=== PATIENT | female | born 1935 | race Caucasian/White ===

== ENCOUNTER → 2016-04-09 | Outpatient (CLI) | payer OTHER ==
[~2016-04-09] MED LIST: CHOL1000 PO; CHOL100010 PO; DABI150C PO; DILT-113 PO; GUAISYP4 PO; LVQ500 PO; METO100T44 PO; MULT-513 PO; OMEG10007 PO; PROB1TAB16 PO; TPRSR25 PO; TPRSR50 PO
[2016-04-09 12:11] LABS: BASO % 0.4 %; BASO ABS # 0.04 K/uL (0-0.2); COMPLETE YES; EOS % 0.6 %; HEMATOCRIT 35.7 % (37-47); IG% 0.1 %; LYMPH % 15.7 %; LYMPH ABS # 1.51 K/uL (1.2-3.4); MEAN CELL VOLUME 98.3 fL (80-100); MEAN CORPUSCULAR HEMOGLOBIN 33.9 pg (25-34); MEAN CORPUSCULAR HGB CONC 34.5 g/dl (32-36); MEAN PLATELET VOLUME 10.4 fL (7.4-10.4); MONO % 11.1 %; NEUT % 72.1 %; PLATELET COUNT 314 K/uL (130-400); RED BLOOD COUNT 3.63 M/uL (4.2-5.4); WHITE BLOOD COUNT 9.59 K/uL (4.8-10.8)
[2016-04-09 12:35] LABS: ALT/SGPT 38 U/L (12-78); AST/SGOT 37 U/L (15-37); BLOOD UREA NITROGEN 22 mg/dl (7-18); BUN/CREATININE RATIO 26.8 (10-20); CALCIUM 8.6 mg/dl (8.5-10.1); CARBON DIOXIDE 23 mmol/L (21-32); CHLORIDE 108 mmol/L (98-107); CREATININE 0.82 mg/dl (0.60-1.20); GLUCOSE 113 mg/dl (70-99); MAGNESIUM 2.3 mg/dl (1.8-2.4); SODIUM 140 mmol/L (136-145)
[2016-04-09 12:37] LABS: ALB/GLOB RATIO 0.9 (0.9-2); ALKALINE PHOSPHATASE 83 U/L (45-117)
== END | disposition home or self-care (01) ==
LOC: C.LAB1850 10:55
PROVIDERS: ATTEND Internal Medicine
DX: I48.91 Unspecified atrial fibrillation (principal)

== ENCOUNTER 2016-06-24 10:00 | Inpatient (IN) | payer OTHER ==
[2016-06-24] VITALS (8 sets, daily range): BP systolic 120–154; BP diastolic 67–70; PULSE 69–107; TEMP 36.7–37.4; O2SAT 91–96; Ht 162.6 cm; Wt 74.2 kg
[~2016-06-24] VITALS: Ht 162.6 cm; Wt 74.2 kg
[~2016-06-24 10:00] MED LIST changes: -CHOL1000 PO; -GUAISYP4 PO; -LVQ500 PO; -METO100T44 PO; -OMEG10007 PO; -TPRSR25 PO; -TPRSR50 PO
[2016-06-24] MEDS ORDERED: DILTIAZEM HCL 5 MG/ML 5 ML VIAL IV STA ×2 (10:24→10:43)
[2016-06-24] MEDS ORDERED: DILTIAZEM BOLUS / DRIP IV STA (10:24)
[2016-06-24] MEDS ORDERED: DILTIAZEM HCL INJ 125 MG in DEXTROSE 5% 100ML IV PRN (10:45)
--- NOTE | 2016-06-24 11:28 | DIAGNOSTIC IMAGING REPORT ---
CHEST ONE VIEW PORTABLE CLINICAL HISTORY: cp dyspnea COMPARISON STUDY: 09/28/2015 FINDINGS: Patchy parenchymal infiltrate left midlung as well as right midlung through right base. Diaphragms smooth. Upper lungs are considered clear. IMPRESSION: Bilateral parenchymal infiltrates. Electronically signed by: Jacek Jang M.D. 06/24/2016 11:27 AM Dictated Date/Time: 06/24/2016 11:24 AM
[2016-06-24] MEDS ORDERED: OMEG10007 PO (11:31)
[2016-06-24 11:32] LABS: BASO % 0.3 %; BASO ABS # 0.02 K/uL (0-0.2); COMPLETE YES; HEMATOCRIT 32.1 % (37-47); IG% 0.2 %; LYMPH % 12.6 %; LYMPH ABS # 0.73 K/uL (1.2-3.4); MEAN CELL VOLUME 95.8 fL (80-100); MEAN CORPUSCULAR HEMOGLOBIN 31.9 pg (25-34); MEAN CORPUSCULAR HGB CONC 33.3 g/dl (32-36); MEAN PLATELET VOLUME 9.9 fL (7.4-10.4); MONO % 5.9 %; PLATELET COUNT 304 K/uL (130-400); RED BLOOD COUNT 3.35 M/uL (4.2-5.4); WHITE BLOOD COUNT 5.78 K/uL (4.8-10.8)
[2016-06-24 11:47] LABS: INR 1.1 (0.9-1.1); PARTIAL THROMBOPLASTIN RATIO 1.3
[2016-06-24] MEDS ORDERED: MoRPHine SULFATE 2 MG/ML CARP IV STA (11:47)
[2016-06-24 11:53] LABS: BUN/CREATININE RATIO 22.2 (10-20); CALCIUM 8.4 mg/dl (8.5-10.1); CREATININE 0.9 mg/dl (0.60-1.20); POTASSIUM 3.7 mmol/L (3.5-5.1)
[2016-06-24] MEDS ORDERED: ALUMINUM/MAGNESIUM/SIMETH (MAALOX MAX) 30 ML UDC PO PRN (12:45)
[2016-06-24] MEDS ORDERED: NITROGLYCERIN 0.4 MG SL PER TAB CHARGE SL PRN (12:45)
[2016-06-24] MEDS ORDERED: MAGNESIUM HYDROXIDE SUSP 30 ML UDC PO PRN (12:45)
[2016-06-24] MEDS ORDERED: POLYETHYLENE (MIRALAX) 17 GM PACK PO PRN (12:45)
--- NOTE | 2016-06-24 13:50 | History and Physical ---
History & Physical Date & Time of Service: Jun 24, 2016 at 13:13 Chief Complaint: Difficulty Breathing, Vomiting, Tight Chest Primary Care Physician: RV. Mckinnon MD History of Present Illness Source: patient, clinic records, hospital records This is a 80 y/o female with a history of atrial fibrillation, hypertension, and osteopenia who presented to the ED on 06/24 with chest pressure/tightness and shortness of breath. The patient reports feeling sick for the last 3 days with a productive cough, generalized myalgias, fatigue, sweats and diarrhea starting on 06/21. Patient denies any fevers or chills at home. Last evening the patient developed central chest pressure and tightness as well as shortness of breath. Her symptoms have been constant since onset. The patient also did vomit once prior to arrival immediately after taking her morning medications. Upon arriving to the ED, the patient was found to be in A. fib with RVR with a heart rate of 147. Patient received 3 boluses of Cardizem 10 mg each, and was started on Cardizem drip. Her heart rate improved to the 90s. Patient currently denies any chest pain, pressure, tightness. She had originally rated her pain as an 8/10 on arrival. She states that her shortness of breath has improved since arrival. Patient denies lightheadedness, syncope or palpitations. The patient denies fevers, chills, palpitations, claudication, wheezing, abdominal pain, dysuria, hematuria, urinary retention, paralysis, weakness, numbness and tingling. Past Medical/Surgical History Medical Problems: (1) Atrial fibrillation Status: Chronic (2) Hypertension Status: Chronic Osteopenia Surgical Problems: (1) S/P sinus surgery Status: Resolved Family History Cancer (breast, uterine) Diabetes mellitus Hypertension Kidney disease Kidney stones Stroke Social History Smoking Status: Never Smoker Smokeless Tobacco Use: No Alcohol Use: none Drug Use: none Marital Status: Housing status: lives alone Occupational Status: retired Multi-Drug Resistant Organisms History of MDRO: No Allergies Coded Allergies: Latex1 -Allergic Contact Dermititis (Verified Allergy, Unknown, REDNESS, ) Azithromycin (Verified Adverse Reaction, Mild, DIARRHEA, 06/24/16) Home Medications Scheduled Cholecalciferol (Vitamin D), 1,000 INTER.UNIT PO DAILY Dabigatran Etexilate Mesylate (Pradaxa), 150 MG PO BID Diltiazem Hcl Ext Rel (Tiazac), 180 MG PO DAILY Fish Oil ([place]-3), 1 CAP PO DAILY Multivitamins/Minerals (Mvi With Minerals), 1 TAB PO DAILY Probiotic Product (Probiotic), 1 TAB PO DAILY Review of Systems Constitutional: + fatigue, + sweats, + weakness, No chills, No fever Eyes: No diplopia, No eye pain, No worsening of vision ENT: No hearing loss, No sore throat, No trouble swallowing Respiratory: + cough, + shortness of breath (improving), + sputum, No wheezing Cardiovascular: + chest pain (chest pressure/tightness 8/10 on arrival, now 0/ 10), No claudication, No palpitations Abdomen: + nausea (resolved), + vomiting (1 episode CERTIFIED MEDICAL BILLER), No pain Musculoskeletal: No calf pain, No joint pain, No muscle pain Genitourinary - Female: No dysuria, No hematuria, No urinary retention Neurologic: No numbness/tingling, No paralysis, No weakness Integumentary: No color change, No itch, No rash Physical Exam Vital Signs Date Time Temp Pulse Resp B/P Pulse Ox O2 Delivery O2 Flow Rate FiO2 06/24/16 12:55 87 20 130/73 96 Room Air 06/24/16 12:15 106 22 144/74 95 Nasal Cannula 2.0 06/24/16 11:14 93 20 133/95 95 Nasal Cannula 2.0 06/24/16 10:48 101 18 136/77 96 Nasal Cannula 2.0 06/24/16 10:35 95 Nasal Cannula 2.0 06/24/16 10:35 95 Nasal Cannula 2.0 06/24/16 10:22 130 06/24/16 10:07 36.9 147 20 144/83 93 Room Air General Appearance: WD/WN, no apparent distress Head: normocephalic, atraumatic Eyes: normal inspection, PERRL, EOMI ENT: normal ENT inspection, hearing grossly normal, pharynx normal Neck: supple, no JVD, trachea midline Respiratory/Chest: lungs clear, normal breath sounds, no respiratory distress, + decreased breath sounds (poor air movement) Cardiovascular: no gallop, no murmur, + irregularly irregular (currently rate controlled) Abdomen/GI: normal bowel sounds, non tender, soft Extremities/Musculoskelatal: normal inspection, no calf tenderness, no pedal edema Neurologic/Psych: alert, normal mood/affect, oriented x 3 Skin: normal color, warm/dry, no rash Diagnostics Laboratory Results Results Past 24 Hours Test 06/24/16 11:00 06/24/16 11:04 Range/Units White Blood Count 5.78 4.8-10.8 K/uL Red Blood Count 3.35 4.2-5.4 M/uL Hemoglobin 10.7 12.0-16.0 g/dL Hematocrit 32.1 37-47 % Mean Corpuscular Volume 95.8 80-100 fL Mean Corpuscular Hemoglobin 31.9 25-34 pg Mean Corpuscular Hemoglobin Concent 33.3 32-36 g/dl Platelet Count 304 130-400 K/uL Mean Platelet Volume 9.9 7.4-10.4 fL Neutrophils (%) (Auto) 81.0 % Lymphocytes (%) (Auto) 12.6 % Monocytes (%) (Auto) 5.9 % Eosinophils (%) (Auto) 0.0 % Basophils (%) (Auto) 0.3 % Neutrophils # (Auto) 4.68 1.4-6.5 K/uL Lymphocytes # (Auto) 0.73 1.2-3.4 K/uL Monocytes # (Auto) 0.34 0.11-0.59 K/uL Eosinophils # (Auto) 0.00 0-0.5 K/uL Basophils # (Auto) 0.02 0-0.2 K/uL RDW Standard Deviation 53.0 36.4-46.3 fL RDW Coefficient of Variation 14.9 11.5-14.5 % Immature Granulocyte % (Auto) 0.2 % Immature Granulocyte # (Auto) 0.01 0.00-0.02 K/uL Prothrombin Time 12.0 9.0-12.0 SECONDS Prothromb Time International Ratio 1.1 0.9-1.1 Activated Partial Thromboplast Time 34.4 21.0-31.0 SECONDS Partial Thromboplastin Ratio 1.3 Sodium Level 140 136-145 mmol/L Potassium Level 3.7 3.5-5.1 mmol/L Chloride Level 108 98-107 mmol/L Carbon Dioxide Level 23 21-32 mmol/L Anion Gap 9.0 3-11 mmol/L Blood Urea Nitrogen 20 7-18 mg/dl Creatinine 0.90 0.60-1.20 mg/dl Est Creatinine Clear Calc Drug Dose 49.2 ml/min Estimated GFR () 71.0 Estimated GFR (Non- 61.2 BUN/Creatinine Ratio 22.2 10-20 Random Glucose 129 70-99 mg/dl Calcium Level 8.4 8.5-10.1 mg/dl Magnesium Level 2.0 1.8-2.4 mg/dl Bedside Troponin I 0.130 0-0.045 ng/ml Diagnostic Radiology Reviewed the following studies and agree with interpretation as follows: Patient Name: MODE BURNS Unit Number: [id number] Dictated: 06/24/161123 Transcribed: 06/24/161123 MS Printed Date/Time: [~ rep prt dt]/[~ rep prt tm] [~ rep ct labl] - [~ rep ct ivnm] [facility] [place] [address] Dictated: 06/24/161123 Transcribed: 06/24/16 1124 MS Printed Date/Time: [~ rep prt dt]/[~ rep prt tm] [~ rep ct labl] - [~ rep ct ivnm] Patient: MODE BURNS Address1: [address] [place] [address] Rec: [id number] Address2: Acct ID: [id number] [facility] Zip: [place] [address] Date: 1935 Sex: F Room/Bed: Ref Phy: Arcenio Maldonado M.D. SC: [facility] Att Phy: Report #: [id number] [place] Phy: RV. Mckinnon MD Test: CXR1P Admit Phy: Scale Operator: ETHAN Interpreting Phy: Jacek Jang M.D. Diagnosis: DIFFICULTY BREATHING, VOMITING, TIGHT CHEST Ordering Phy: Joshua Maharaj MD Service Date: 06/24/16 Admit Date: 06/24/16 MNE: [id number] CONF: DICTATED BY: Jacek Jang M.D.]] CC: RV. Mckinnon MD Cardell, Anthony F., M.D. Choe, Thomas S., M.D. Endcc: [~ rep ct add3]] CHEST ONE VIEW PORTABLE CLINICAL HISTORY: cp dyspnea COMPARISON STUDY: 09/28/2015 FINDINGS: Patchy parenchymal infiltrate left midlung as well as right midlung through right base. Diaphragms smooth. Upper lungs are considered clear. IMPRESSION: Bilateral parenchymal infiltrates. Electronically signed by: Jacek Jang M.D. 06/24/2016 11:27 AM Dictated Date/Time: 06/24/2016 11:24 AM The status of this report is Signed. Draft = Not yet reviewed or approved by Radiologist. Signed = Reviewed and approved by Radiologist. <AttendingPhy></AttendingPhy> <FamilyPhy>Arcenio Maldonado M.D.</FamilyPhy> < PrimaryPhy>RV. Mckinnon MD</PrimaryPhy> <UnitNumber>[id number]</ UnitNumber> <VisitNumber>[id number]</VisitNumber> <PatientName>MODE BURNS</PatientName> <DateOfBirth>1935</DateOfBirth> <Location>[facility]</ Location> <ServiceDate>06/24/16</ServiceDate> <MNE>ESINDI</MNE> <OrderingPhy> Joshua Maharaj MD</OrderingPhy> <OrderingPhyMNE>f rep ord dr harman</OrderingPhyMNE > <DictatingPhyMNE>f rep dict dr harman</DictatingPhyMNE> <CCListMNE>f rep ct mne</ CCListMNE> <AdmittingPhyMNE>f pt admit dr harman</AdmittingPhyMNE> <AttendingPhyMNE >f pt attend dr harman</AttendingPhyMNE> <ConsultingPhyMNE>f pt consult dr harman</ConsultingPhyMNE> <FamilyPhyMNE>f pt fam dr harman</FamilyPhyMNE> <OtherPhyMNE>f pt other dr harman</OtherPhyMNE> < PrimaryPhyMNE>f pt prim care dr harman</PrimaryPhyMNE> <ReferringPhyMNE>f pt referring dr harman</ReferringPhyMNE> EKG Reviewed EKG and agree with interpretation as follows: 152 bpm, afib with RVR, ?ST elevations V1, V2 100 bpm, afib with RVR, ?ST elevations V1, V2, LBBB Impression Assessment and Plan 80 y/o female with a history of atrial fibrillation, hypertension, and osteopenia who presented to the ED on 06/24 with chest pressure/tightness and shortness of breath. The patient reports feeling sick for the last 3 days with a productive cough, generalized myalgias, fatigue, sweats and diarrhea starting on 06/21. Patient found to be in A. fib with RVR upon arrival to the ED with a heart rate of 147. Patient was given 3 boluses of Cardizem and started on Cardizem drip bringing her heart rate down into the 90s. The patient was also found to have an elevated POC troponin of 0.13. Initial EKG showed A. fib with RVR. Repeat EKG showed improved heart rate, but what appeared to be a new LBBB. CXR shows bilateral parenchymal infiltrates. A. fib with RVR--currently rate controlled on drip -Admit to telemetry. -Continue Cardizem drip. -Consult cardiology, appreciate recs. Pt follows with Dr. Maldonado -Continue Pradaxa 150 mg PO BID Elevated troponin--may be secondary to demand ischemia -2nd EKG had shown a presumed new LBBB; however, an outpatient echo on 06/06/16 showed paradoxical septal motion consistent with LBBB, indicating this is not new today. -Trend cardiac enzymes 3 -EKG q am and prn with chest pain Presumed community-acquired pneumonia--CXR with bilateral parenchymal infiltrates -Start Levaquin 750 mg IV q48h, renally dosed due to creatinine clearance of 49 -Duonebs QIDR and q2h prn SOB/wheezing -O2 by protocol -Check rapid flu -Continue probiotic HTN--stable -Hold home diltiazem PO -Continue drip as above Osteopenia -Continue Vitamin D 1000 IU PO qd DVT prophylaxis -Pradaxa -TRUNG hose and SCDs Code Status -Level I, FULL RESUSCITATION STATUS Level of Care Telemetry Resuscitation Status FULL RESUSCITATION VTE Prophylaxis VTE Risk Assessment Done? Y/N: Yes Risk Level: Moderate Given or contraindicated: Other Anticoagulation (Pradaxa), T.E.D. Stockings, SCD's Note I personally evaluated this patient and performed a physical exam. I reviewed the orders. I read this note performed by Mellisa Donnelly PA-C and agree with its contents in entirety.
[2016-06-24] MEDS ORDERED: DILTIAZEM BOLUS / DRIP IV SCH (14:26)
--- NOTE | 2016-06-24 16:40 | EMERGENCY ROOM VISIT NOTE ---
History Report prepared by Chanduibmandeep: Cynthia Sutton Under the Supervision of: Dr. Joshua Maharaj M.D. First contact with patient: 10:17 Chief Complaint: CARDIAC ASSESSMENT Stated Complaint: DIFFICULTY BREATHING, VOMITING, TIGHT CHEST History of Present Illness The patient is a 80 year old female who presents to the Emergency Room with complaints of chest discomfort since last night. She describes it as tightness and pressure. She also complains of shortness of breath. Her breathing difficulties are worse with laying flat. The patient notes that she has not been feeling well over the past 3 days. She has not felt her heart racing. Just prior to arrival, she had an episode of vomiting. Past medical history includes a-fib. She is on Pradaxa. Denies lightheadedness, leg swelling, abdominal pain, or other complaints. She states that her chest discomfort got worse at 4 AM today. Source of History: patient Onset: last night Position: chest Symptom Intensity: 8 out of 10 Quality: pressure, other (tightness) Timing: constant Modifying Factors (Worsening): other (lying down) Associated Symptoms: + SOB (worse laying flat), + vomiting, No abdominal pain Review of Systems See HPI for pertinent positives & negatives. A total of 10 systems reviewed and were otherwise negative. Past Medical & Surgical Medical Problems: (1) Atrial fibrillation (2) Atrial fibrillation with RVR (3) Hypertension (4) Pneumonia Surgical Problems: (1) S/P sinus surgery Family History Cancer Diabetes mellitus Hypertension Kidney disease Kidney stones Social History Smoking Status: Never Smoker Alcohol Use: none Marital Status: Housing Status: lives with family Occupation Status: retired Current/Historical Medications Scheduled Cholecalciferol (Vitamin D), 1,000 INTER.UNIT PO DAILY Dabigatran Etexilate Mesylate (Pradaxa), 150 MG PO BID Diltiazem Hcl Ext Rel (Tiazac), 180 MG PO DAILY Fish Oil ([place]-3), 1 CAP PO DAILY Multivitamins/Minerals (Mvi With Minerals), 1 TAB PO DAILY Probiotic Product (Probiotic), 1 TAB PO DAILY Allergies Coded Allergies: Latex1 -Allergic Contact Dermititis (Verified Allergy, Unknown, REDNESS, ) Azithromycin (Verified Adverse Reaction, Mild, DIARRHEA, 06/24/16) Physical Exam Vital Signs Date Time Temp Pulse Resp B/P Pulse Ox O2 Delivery O2 Flow Rate FiO2 06/24/16 12:55 87 20 130/73 96 Room Air 06/24/16 12:15 106 22 144/74 95 Nasal Cannula 2.0 06/24/16 11:14 93 20 133/95 95 Nasal Cannula 2.0 06/24/16 10:48 101 18 136/77 96 Nasal Cannula 2.0 06/24/16 10:35 95 Nasal Cannula 2.0 06/24/16 10:35 95 Nasal Cannula 2.0 06/24/16 10:22 130 06/24/16 10:07 36.9 147 20 144/83 93 Room Air Physical Exam Constitutional: Vital signs reviewed. Pale. Eyes: Pupils are equal round reactive to light. Conjunctiva are noninjected. ENT: Pharynx is clear without erythema or exudate. Mucous membranes are moist. Neck supple without meningeal signs. Respiratory: Clear to auscultation bilaterally. Breath sounds are equal bilaterally. Cardiovascular: Tachycardic rate at 150 BPM. Irregular on monitor. GI: Soft, nondistended and nontender. Bowel sounds are present. Musculoskeletal: No peripheral edema. No lower extremity tenderness. Integumentary: No cyanosis. Neurological: The patient is awake and alert. No focal deficits. Psychiatric: Normal affect. Medical Decision & Procedures ER Provider Diagnostic Interpretation: Radiology results as stated below per my review and the radiologist's interpretation: CHEST ONE VIEW PORTABLE CLINICAL HISTORY: cp dyspnea COMPARISON STUDY: 09/28/2015 FINDINGS: Patchy parenchymal infiltrate left midlung as well as right midlung through right base. Diaphragms smooth. Upper lungs are considered clear. IMPRESSION: Bilateral parenchymal infiltrates. Electronically signed by: Jacek Jang M.D. 06/24/2016 11:27 AM Dictated Date/Time: 06/24/2016 11:24 AM Laboratory Results 06/24/16 11:00 Red Blood Count 3.35, Mean Corpuscular Volume 95.8, Mean Corpuscular Hemoglobin 31.9, Mean Corpuscular Hemoglobin Concent 33.3, Mean Platelet Volume 9.9, Neutrophils (%) (Auto) 81.0, Lymphocytes (%) (Auto) 12.6, Monocytes (%) (Auto) 5.9, Eosinophils (%) (Auto) 0.0, Basophils (%) (Auto) 0.3, Neutrophils # (Auto) 4.68, Lymphocytes # (Auto) 0.73, Monocytes # (Auto) 0.34, Eosinophils # (Auto) 0.00, Basophils # (Auto) 0.02 06/24/16 11:00 Test 06/24/16 11:00 06/24/16 11:04 White Blood Count 5.78 K/uL (4.8-10.8) Red Blood Count 3.35 M/uL (4.2-5.4) Hemoglobin 10.7 g/dL (12.0-16.0) Hematocrit 32.1 % (37-47) Mean Corpuscular Volume 95.8 fL (80-100) Mean Corpuscular Hemoglobin 31.9 pg (25-34) Mean Corpuscular Hemoglobin Concent 33.3 g/dl (32-36) Platelet Count 304 K/uL (130-400) Mean Platelet Volume 9.9 fL (7.4-10.4) Neutrophils (%) (Auto) 81.0 % Lymphocytes (%) (Auto) 12.6 % Monocytes (%) (Auto) 5.9 % Eosinophils (%) (Auto) 0.0 % Basophils (%) (Auto) 0.3 % Neutrophils # (Auto) 4.68 K/uL (1.4-6.5) Lymphocytes # (Auto) 0.73 K/uL (1.2-3.4) Monocytes # (Auto) 0.34 K/uL (0.11-0.59) Eosinophils # (Auto) 0.00 K/uL (0-0.5) Basophils # (Auto) 0.02 K/uL (0-0.2) RDW Standard Deviation 53.0 fL (36.4-46.3) RDW Coefficient of Variation 14.9 % (11.5-14.5) Immature Granulocyte % (Auto) 0.2 % Immature Granulocyte # (Auto) 0.01 K/uL (0.00-0.02) Prothrombin Time 12.0 SECONDS (9.0-12.0) Prothromb Time International Ratio 1.1 (0.9-1.1) Activated Partial Thromboplast Time 34.4 SECONDS (21.0-31.0) Partial Thromboplastin Ratio 1.3 Anion Gap 9.0 mmol/L (3-11) Est Creatinine Clear Calc Drug Dose 49.2 ml/min Estimated GFR () 71.0 Estimated GFR (Non- 61.2 BUN/Creatinine Ratio 22.2 (10-20) Calcium Level 8.4 mg/dl (8.5-10.1) Magnesium Level 2.0 mg/dl (1.8-2.4) Bedside Troponin I 0.130 ng/ml (0-0.045) Laboratory results as reviewed by me. Medications Administered Medications (Trade) Dose Ordered Sig/Inna Route Start Time Stop Time Status Last Admin Dose Admin Diltiazem HCl 10 mg 10 mg NOW STAT IV 06/24/16 10:24 06/24/16 10:26 DC 06/24/16 10:24 10 MG Diltiazem HCl/ Dextrose (Cardizem Inj/D5 100ml) 125 ml @ 0 mls/hr Q0M PRN IV 06/24/16 10:45 06/24/16 16:35 DC 06/24/16 10:56 10 MLS/HR Diltiazem HCl (Cardizem Inj) 20 mg NOW STAT IV 06/24/16 10:43 06/24/16 10:44 DC 06/24/16 10:43 20 MG ECG Indication: chest pain, SOB/dyspnea Rate (beats per minute): 152 Rhythm: atrial fibrillation (with RVR) Findings: Q waves (Leads V1 and V2), other (QRS 118 ms) Change: Repeat EKG: Atrial fibrillation at 100 BPM, left bundle branch block, biphasic T waves in leads 1 & AVL. Biphasic T waves are new compared to EKG on 09/28/15. ED Course 1019: The patient was evaluated in room A2. A complete history and physical exam was performed. 1024: Ordered Diltiazem HCl 10 mg IV, Diltiazem HCl 1 ea IV. 1043: Ordered Diltiazem HCl 20 mg IV. 1045: After 3 bolus of Cardizem IV, her heart rate went down to about 102. She said her chest discomfort was a 4/10 down from an 8/10. Ordered Diltiazem HCl 125 mg/Dextrose IV. 1050: Her chest pain was almost completely gone. Her heart rate is between 94 and 101. 1128: I reassessed the patient and updated her on results so far. She is pain free at this time. Her heart rate is 94. The Cardizem drip is running. 1137: I discussed the case with Mellisa who is calling for Dr. Bruce MICHAUD Hospitalist. The patient will be evaluated for further management. 1210: I reassessed the patient. She has no chest discomfort. Her heart rate is in the 90s. The Cardizem drip is still running. Medical Decision This is a 80-year-old female who presents with chest discomfort. Differential diagnosis includes unstable angina, WI, aortic dissection, pneumothorax, pleurisy. I did perform a limited focused review of portions of the patient's old chart on the electronic medical record. The patient has had no recent pertinent visits to this hospital. I did evaluate the patient as noted above. The patient is ill-appearing and pale and tachycardic. IV access was established. The patient was placed on a continuous manager subway. I did order and personally review the patient's 12- lead EKG and chest x-ray as described above. She has atrial fibrillation with RVR. I did treat the patient with multiple boluses of IV Cardizem. She was then started on an IV Cardizem drip. I did reassess her multiple times. Her chest pain resolved once her heart rate when in the 90s. A second 12-lead EKG was performed as noted above. I did order and review the patient's blood work as noted in the electronic medical record. Her troponin is slightly elevated. I did discuss the case with the hospitalist and patient case coordinator for further evaluation and care. Consults Time Called: [phone] Consulting Physician: Mellisa who is calling for Dr. Bruce MICHAUD Hospitalist Returned Call: [phone] I discussed the case with her. The patient will be evaluated for further management. Impression Primary Impression: Atrial fibrillation with rapid ventricular response Additional Impressions: Precordial chest pain Elevated troponin Pulmonary infiltrates on CXR Critical Care I have personally spent 40 minutes of critical care time in the direct management of this patient. This includes bedside care, interpretation of diagnostic studies, and testing, discussion with consultants, patient, and family members, and other required patient management activities. This 40 minutes is in excess of all separately billable procedures. Scribe Attestation The scribe's documentation has been prepared under my direct and personally reviewed by me in its entirety. I confirm that the note above accurately reflects all work, treatment, procedures, and medical decision making performed by me. Departure Information Dispostion Being Evaluated By Hospitalist Referrals RV. Mckinnon MD (PCP) Patient Instructions My [facility] Health Problem Qualifiers
[2016-06-24] MEDS: LEVOFLOXACIN / D5W 750 MG in PREMIXED IN D5W 150 ML IV SCH (17:00)
[2016-06-24] MEDS: ONDANSETRON INJ 2 MG/ML 2 ML VIAL IV PRN (18:33)
[2016-06-24] MEDS: ALBUT/IPRATROP 3MG/0.5MG NEB 3 ML VIAL INH SCH (19:30)
[2016-06-24 20:15] LABS: CKMB/CK RATIO 3.1 (0-3.0)
[2016-06-24 21:09] LABS: INFLUENZA A PCR Neg for Influ A (NEG); INFLUENZA B PCR Neg for Influ B (NEG)
[2016-06-24] MEDS: ACETAMINOPHEN 325 MG TAB PO PRN (21:15)
[2016-06-24] MEDS: DABIGATRAN ELEXILATE 75 MG CAP PO SCH (21:15)
[2016-06-24] MEDS: DILTIAZEM HCL INJ 125 MG in DEXTROSE 5% 100ML IV PRN (22:33)
[2016-06-25] VITALS (16 sets, daily range): BP systolic 101–136; BP diastolic 64–76; PULSE 64–114; TEMP 36.7–38; O2SAT 91–96
[2016-06-25 02:55] LABS: HEMATOCRIT 28.9 % (37-47); MEAN CORPUSCULAR HEMOGLOBIN 32.9 pg (25-34); MEAN CORPUSCULAR HGB CONC 33.2 g/dl (32-36); MEAN PLATELET VOLUME 9.9 fL (7.4-10.4); PLATELET COUNT 251 K/uL (130-400); RED BLOOD COUNT 2.92 M/uL (4.2-5.4); WHITE BLOOD COUNT 4.43 K/uL (4.8-10.8)
[2016-06-25 03:18] LABS: BUN/CREATININE RATIO 21.8 (10-20); CALCIUM 7.7 mg/dl (8.5-10.1); POTASSIUM 3.6 mmol/L (3.5-5.1)
[2016-06-25] MEDS ORDERED: ALBUT/IPRATROP 3MG/0.5MG NEB 3 ML VIAL INH STA (05:23)
[2016-06-25] MEDS ORDERED: NURSING VERBAL MED ORDER ONE (05:30)
[2016-06-25] MEDS: ALBUT/IPRATROP 3MG/0.5MG NEB 3 ML VIAL INH SCH ×4 (06:45→20:29)
[2016-06-25] MEDS: CHOLECALCIFEROL 1000 INTER.UNIT TAB PO SCH (08:44)
[2016-06-25] MEDS: ASPIRIN 81 MG ECTAB PO SCH (08:44)
[2016-06-25] MEDS: CEROVITE ADV FORMULA TAB PO SCH (08:44)
[2016-06-25] MEDS: LACTOBACILLUS ACIDOPHILUS (FLORANEX) TAB PO SCH (08:44)
[2016-06-25] MEDS: DABIGATRAN ELEXILATE 75 MG CAP PO SCH ×2 (08:44→20:36)
[2016-06-25] MEDS: DILTIAZEM HCL INJ 125 MG in DEXTROSE 5% 100ML IV PRN ×2 (08:47→10:37)
[2016-06-25] MEDS ORDERED: DILTIAZEM HCL (TIAzac) 180 MG CAPCR PO ONE (12:30)
--- NOTE | 2016-06-25 13:41 | CARDIOLOGY CONSULTATION ---
DATE OF CONSULTATION: 06/25/2016 DATE OF CONSULTATION: 06/25/2016. CONSULTING PHYSICIAN: Dr. Downey. REASON FOR CONSULTATION: 1. Atrial fibrillation with rapid ventricular response. 2. Chest pain. 3. Elevated troponin. PRIMARY AUTOMATIC TELLER MACHINE SERVICER: Dr. Maldonado. HISTORY OF PRESENT ILLNESS: Ms. Landa is a pleasant 80-year-old female with a history significant for permanent atrial fibrillation and hypertension. She was last seen by Dr. Maldonado in May of 2016. She has been maintained on Pradaxa for stroke risk reduction as well as diltiazem for rate control. She was found to have a left bundle branch block in April of 2016 on an outpatient ECG with her PCP. She presented to [facility] yesterday after 4 days of symptoms. Four days ago she developed a dry cough, 3 days ago she developed myalgias and felt achy all over. Later that day, she developed diarrhea and estimates that she had 3 days of multiple episodes of diarrhea throughout the day. Yesterday morning at approximately 4:00 a.m. she was awakened with shortness of breath. She was short of breath both lying down and with any exertion whatsoever. She also had substernal chest pressure which lasted a few hours and resolved after arriving at the hospital and receiving some medications. While walking to the car to come to the hospital she vomited shortly after taking her morning medications. This was her only episode of vomiting for this illness. She currently is feeling better. She was diagnosed with pneumonia and has been started on antibiotics. Because she was tachycardic upon presentation, she was started on a diltiazem drip and is currently running at 15 mg per hour. She has not received her oral diltiazem while hospitalized. She has not had any further chest discomfort. She denies orthopnea orthopnea overnight but did not sleep much on account of being in the hospital. She denies syncope, near syncope, palpitations or edema. She denies any fevers prior to her hospitalization, but does admit to some chills after being admitted. Also, her temperature has climbed this morning to 38 degrees Celsius. She denies any further diarrhea. She is tolerating a diet but states that she does not have much appetite at this time. She denies melena, hematochezia, hematuria. She denies dysuria. She states that she lost 10 pounds over the past few months by eating healthier. She does not believe that her weight has changed much in the past week. REVIEW OF SYSTEMS: As above and review of systems otherwise negative. PAST MEDICAL HISTORY: 1. Permanent atrial fibrillation on anticoagulation therapy and a rate control strategy. 2. Hypertension. 3. Left bundle branch block. 4. Recently diagnosed mild cardiomyopathy with an EF of 40-45% earlier this month. 5. Moderate mitral regurgitation. 6. Elevated right ventricular systolic pressure. 7. Osteoporosis. 8. Nephrolithiasis. 9. Hearing loss. 10. Lumbar degenerative disc disease. 11. Impaired fasting glucose. HOME MEDICATIONS: Include diltiazem 180 mg daily, Pradaxa 150 mg twice daily, fish oil. Please see full outpatient list. INPATIENT MEDICATIONS: Include aspirin 81 mg daily, Pradaxa 150 mg p.o. b.i.d., diltiazem drip 15 mg per hour, levofloxacin 750 mg IV q. 48 hours. ALLERGIES: She states that she has intolerance to some antibiotics causing diarrhea. She had some irritation with latex. Outpatient records suggest that she is allergic to beta blockers; however, she does not recall ever taking a medication such as a beta teresa and does not report any true drug allergies. SOCIAL HISTORY: Denies tobacco, alcohol or drug abuse. She is a . She has 2 sons. She lives in the same building with both of her sons, including Sebastian, his and grandchildren. Sebastian is present at the bedside as well as a friend. FAMILY HISTORY: No known premature CAD. PHYSICAL EXAMINATION: VITAL SIGNS: Temperature 38 degrees, heart rate 107 beats per minute, respiration rate 16, blood pressure 135/65 mmHg, oxygen saturation 93% on 2 liters per nasal cannula. Weight 75.5 kg. GENERAL: No acute distress. She is alert and oriented. HEAD, EYES, EARS, NOSE, AND THROAT: Anicteric sclerae. NECK: No appreciable JVD. No bruits. Normal carotid upstrokes bilaterally. CARDIAC EXAMINATION: PMI was nonpalpable. There was no ventricular heave. Irregularly irregular. Normal S1, S2. 1/6 holosystolic murmur best heard at the apex. No rubs or gallops. LUNGS: Clear to auscultation bilaterally without wheezes, rales or rhonchi. ABDOMEN: Soft, nontender, nondistended. Normoactive bowel sounds. EXTREMITIES: No cyanosis or pitting edema. 2+ radial pulses bilaterally. 2+ dorsalis pedis pulses bilaterally. No palpable cords. PSYCHIATRIC: Affect appears appropriate. LABORATORY DATA: White blood cell count is 4.43, hemoglobin 9.6, platelets 251. Sodium 141, potassium 3.6, BUN 22, creatinine 1. CK-MB is not elevated. Peak troponin 0.42. INR is 1.1. Chest x-ray image personally reviewed. No evidence for CHF. Radiology has diagnosed bilateral parenchymal infiltrates. ECG personally reviewed from 06/24/2016 at 10:13 a.m. demonstrated atrial fibrillation with rapid ventricular response. IVCD. Repeat ECG this morning demonstrates atrial fibrillation at 114 beats per minute. Left bundle branch block. Telemetry personally reviewed. Atrial fibrillation. No ventricular arrhythmia noted. Echocardiogram report from the office personally reviewed as interpreted by Dr. Maldonado. He reports an echo on 06/06/2016 demonstrating LV systolic function being reduced with an EF of 40-45%. Mild to moderate global hypokinesis of the left ventricle. Moderate MR. Severely dilated left atrium. RVSP 40-50 mmHg. ASSESSMENT AND PLAN: 1. Atrial fibrillation with rapid ventricular response: She has permanent atrial fibrillation per records. She is chronically on a rate control strategy. Her heart rate as an outpatient recently has been documented 74, 84, over the past 2 months, but in April was 106 and 122 on separate days, which coincidentally she was experiencing acute diarrhea at that time. Would resume her oral outpatient medications, diltiazem 180 mg daily and wean the diltiazem drip as able. If titration of diltiazem is appropriate, it can be done to help wean off of the intravenous medication. Her heart rate is likely more tachycardic due to her acute illness including diarrhea, pneumonia, and the fact that she vomited shortly after taking her diltiazem medication yesterday morning and therefore has gone 48 hours without diltiazem orally. Continue anticoagulation for stroke risk reduction. 2. Cardiomyopathy: Recently diagnosed with mild cardiomyopathy. Etiology uncertain. She does have a history of moderate mitral regurgitation. There is no history of ischemic heart disease documented. Cannot rule out tachycardia induced; however, according to records, she was only tachycardic as an outpatient when she had an acute illness. Would recommend metoprolol succinate, however would like to first discuss with Dr. Maldonado as his outpatient records suggest a beta teresa allergy. Records were reviewed and it does not appear that she has been on beta teresa therapy during the computerized EHR era here at [facility] and she does not recall trying a medication but would like to first discuss with her primary washroom attendant for more insight in this regard. VIANEY inhibitor would also be helpful, but would first try to achieve adequate rate control as this can cause reduced LV systolic function. She appears euvolemic. 3. Hypertension: Blood pressure is adequately controlled. Adjusting medications as above. 4. Mitral regurgitation: Repeat echo is pending given elevated troponins. 5. Elevated troponins: She did not present with acute coronary syndrome. Although she did have chest discomfort, it spontaneously resolved and lasted for hours and could be due to pneumonia. Echocardiogram ordered and pending. No indication for urgent cardiac catheterization at this time. Would consider outpatient stress testing pending any further developments, when she is fully recovered from her acute illness. This can be determined as an outpatient by Dr. Maldonado for correct timing and modality, if appropriate at that time. 6. Chest pain: Etiology uncertain. Could be due to pneumonia, atrial fibrillation with rapid ventricular response, ischemic heart disease, or combination of these issues. No indication for urgent cardiac catheterization as she is acutely ill with a low grade fever currently. Plan as mentioned above for outpatient stress testing once she is fully recovered, if appropriate at that time. 7. Disposition: Cardiology will continue to follow. Thank for allowing me to participate in the care of Ms. Landa.
[2016-06-25] MEDS ORDERED: METOPROLOL SUCC 25MG EXT REL TAB PO ONE (14:11)
--- NOTE | 2016-06-25 14:53 | Hospitalist Progress Note ---
Hospitalist Progress Note Date of Service Jun 25, 2016. Subjective Pt evaluation today including: conversation w/ patient, physical exam, chart review, lab review, review of studies, review of inpatient medication list Patient is feeling some what better today. She was able to eat 1/2 of breakfast. She has no further diarrhea. Mild nausea. She reports feeling a bit "shaky" this am, but not due to anxiety. I feel this can be medication induced. I have seen Levaquin cause this in other patients. Additional Comments: A 10 system review was performed and all were negative. Positives were placed in the subjective section. Objective Vital Signs Date Time Temp Pulse Resp B/P Pulse Ox O2 Delivery O2 Flow Rate FiO2 06/25/16 12:00 Nasal Cannula 06/25/16 11:24 107 16 93 Nasal Cannula 2.0 06/25/16 10:48 38.0 98 18 135/65 91 1.0 06/25/16 08:00 37.8 114 26 136/66 93 06/25/16 08:00 Nasal Cannula 2.0 06/25/16 06:45 105 16 91 Nasal Cannula 2.0 06/25/16 05:37 88 16 93 Nasal Cannula 2.0 06/25/16 05:00 Nasal Cannula 2.0 06/25/16 04:47 134/71 06/25/16 04:00 93 Nasal Cannula 2.0 06/25/16 03:43 36.7 92 19 101/64 93 Nasal Cannula 2.0 06/25/16 00:00 96 Nasal Cannula 2.0 06/24/16 23:58 37.0 86 19 120/67 96 Nasal Cannula 2.0 06/24/16 20:00 91 Nasal Cannula 2.0 06/24/16 19:59 37.4 98 20 154/70 91 Nasal Cannula 2.0 06/24/16 19:30 107 16 94 Nasal Cannula 2.0 06/24/16 17:53 95 Nasal Cannula 2.0 06/24/16 17:40 36.9 69 22 148/69 06/24/16 17:06 36.7 69 18 148/69 95 Nasal Cannula 2.0 06/24/16 17:00 95 Nasal Cannula 2.0 06/24/16 17:00 95 Nasal Cannula 2.0 06/24/16 17:00 36.9 69 22 148/69 95 Nasal Cannula 2.0 06/24/16 16:06 89 18 146/81 94 Nasal Cannula 2.0 06/24/16 15:26 94 18 152/78 94 Nasal Cannula 2.0 06/24/16 14:47 75 24 134/78 96 Nasal Cannula 2.0 Physical Exam Notes: GEN: Awake, alert, and oriented x 3. Not in acute distress HEENT: Tm's intact, no inflammation, EOMI, PERRLA, MMM Neck: Soft, supple Lungs: CTA b/l, no r/r/w Heart: IRREG, nrl S1S2 without murmurs, rubs or gallops Abdomen: Soft, NT, ND, + BS EXT: No C/C/E NEURO: CN's II-XII grossly intact, non-focal Skin: warm, dry, no rashes PSYCH: pleasant, cooperative. Laboratory Results Last 24 Hours Test 06/24/16 19:00 06/24/16 19:16 06/25/16 02:45 Influenza Type A (RT-PCR) Neg for Influ A Influenza Type A Antigen Neg for Influ A Influenza Type B Antigen Neg for Influ B Influenza Type B (RT-PCR) Neg for Influ B Total Creatine Kinase 61 U/L 64 U/L Creatine Kinase MB 1.9 ng/ml 1.3 ng/ml Creatine Kinase MB Ratio 3.1 2.0 Troponin I 0.413 ng/ml 0.420 ng/ml White Blood Count 4.43 K/uL Red Blood Count 2.92 M/uL Hemoglobin 9.6 g/dL Hematocrit 28.9 % Mean Corpuscular Volume 99.0 fL Mean Corpuscular Hemoglobin 32.9 pg Mean Corpuscular Hemoglobin Concent 33.2 g/dl RDW Standard Deviation 54.3 fL RDW Coefficient of Variation 15.0 % Platelet Count 251 K/uL Mean Platelet Volume 9.9 fL Sodium Level 141 mmol/L Potassium Level 3.6 mmol/L Chloride Level 108 mmol/L Carbon Dioxide Level 25 mmol/L Anion Gap 8.0 mmol/L Blood Urea Nitrogen 22 mg/dl Creatinine 1.00 mg/dl Est Creatinine Clear Calc Drug Dose 45.4 ml/min Estimated GFR () 62.5 Estimated GFR (Non- 53.9 BUN/Creatinine Ratio 21.8 Random Glucose 118 mg/dl Calcium Level 7.7 mg/dl Assessment and Plan 1) Pneumonia - IV Levaquin, patient clinically improving 2) A.fib with RVR - stabilized. Cardiology recommends switching back to oral dosing. 3) Diarrheal illness - appears to have been self limiting. Suspect viral. 4) HTN - stable DVT prophylaxis - Pradaxa. Continued [facility] stay due to: multiple IV medications needed Discharge planning: home with home health
[2016-06-25] MEDS: ONDANSETRON INJ 2 MG/ML 2 ML VIAL IV PRN (18:03)
[2016-06-26] VITALS (7 sets, daily range): BP systolic 99–126; BP diastolic 63–73; PULSE 56–90; TEMP 36.8–37.3; O2SAT 92–96
[2016-06-26] MEDS: GUAIFENESIN/CODEINE 200MG/20MG 10ML UDC PO PRN (00:47)
[2016-06-26 06:59] LABS: HEMATOCRIT 28.8 % (37-47); MEAN CELL VOLUME 96.6 fL (80-100); MEAN CORPUSCULAR HEMOGLOBIN 31.9 pg (25-34); MEAN PLATELET VOLUME 9.4 fL (7.4-10.4); PLATELET COUNT 238 K/uL (130-400); RED BLOOD COUNT 2.98 M/uL (4.2-5.4); WHITE BLOOD COUNT 4.99 K/uL (4.8-10.8)
[2016-06-26] MEDS: ALBUT/IPRATROP 3MG/0.5MG NEB 3 ML VIAL INH SCH ×3 (07:10→19:08)
[2016-06-26 07:29] LABS: BUN/CREATININE RATIO 23.9 (10-20); CALCIUM 8.2 mg/dl (8.5-10.1); POTASSIUM 3.8 mmol/L (3.5-5.1)
[2016-06-26] MEDS: LACTOBACILLUS ACIDOPHILUS (FLORANEX) TAB PO SCH (08:06)
[2016-06-26] MEDS: DILTIAZEM HCL (TIAzac) 180 MG CAPCR PO SCH (08:06)
[2016-06-26] MEDS: CEROVITE ADV FORMULA TAB PO SCH (08:06)
[2016-06-26] MEDS: ASPIRIN 81 MG ECTAB PO SCH (08:06)
[2016-06-26] MEDS: CHOLECALCIFEROL 1000 INTER.UNIT TAB PO SCH (08:06)
[2016-06-26] MEDS: METOPROLOL SUCC 25MG EXT REL TAB PO SCH (08:07)
[2016-06-26] MEDS: DABIGATRAN ELEXILATE 75 MG CAP PO SCH ×2 (08:07→21:48)
--- NOTE | 2016-06-26 15:03 | Hospitalist Progress Note ---
Hospitalist Progress Note Date of Service Jun 26, 2016. Subjective Pt evaluation today including: conversation w/ patient, conversation w/ family , physical exam, chart review, lab review, review of studies, review of inpatient medication list The patient is doing very well today. She is seated in chair. She has good appetite and nausea has resolved. Her heart rate remained stable. I feel I can move her to [facility]-s[facility] floor. Patients son was present during my visit today. Additional Comments: A 10 system review was performed and all were negative. Positives were placed in the subjective section. Objective Vital Signs Date Time Temp Pulse Resp B/P Pulse Ox O2 Delivery O2 Flow Rate FiO2 06/26/16 14:15 36.8 79 18 95 2.0 06/26/16 12:00 Nasal Cannula 2.0 06/26/16 11:08 36.8 79 18 122/68 95 Room Air 06/26/16 10:18 90 92 06/26/16 08:00 Nasal Cannula 2.0 06/26/16 07:22 37.1 88 20 124/73 94 Nasal Cannula 2.0 06/26/16 07:10 58 16 95 Nasal Cannula 2.0 06/26/16 04:06 37.0 77 20 126/72 93 Nasal Cannula 2.0 06/26/16 04:00 Nasal Cannula 2.0 06/25/16 23:59 Nasal Cannula 2.0 06/25/16 23:33 37.0 73 16 117/64 93 Nasal Cannula 2.0 06/25/16 20:30 75 16 95 Nasal Cannula 2.0 06/25/16 20:00 95 Nasal Cannula 2.0 06/25/16 19:50 37.0 64 22 128/66 95 Nasal Cannula 2.0 06/25/16 18:02 37.1 76 24 118/76 92 Nasal Cannula 3.0 06/25/16 16:00 83 16 94 Nasal Cannula 2.0 06/25/16 16:00 94 Nasal Cannula 2.0 06/25/16 15:32 37.1 84 18 112/69 93 Nasal Cannula 2.0 Physical Exam Notes: GEN: Awake, alert, and oriented x 3. Not in acute distress HEENT: Tm's intact, no inflammation, EOMI, PERRLA, MMM Neck: Soft, supple Lungs: Decreased breath sounds at the bases b/l. Heart: IRREG, nrl S1S2 without murmurs, rubs or gallops Abdomen: Soft, NT, ND, + BS EXT: No C/C/E NEURO: CN's II-XII grossly intact, non-focal Skin: warm, dry, no rashes PSYCH: pleasant, cooperative. Laboratory Results Last 24 Hours Test 06/26/16 06:49 White Blood Count 4.99 K/uL Red Blood Count 2.98 M/uL Hemoglobin 9.5 g/dL Hematocrit 28.8 % Mean Corpuscular Volume 96.6 fL Mean Corpuscular Hemoglobin 31.9 pg Mean Corpuscular Hemoglobin Concent 33.0 g/dl RDW Standard Deviation 52.3 fL RDW Coefficient of Variation 14.8 % Platelet Count 238 K/uL Mean Platelet Volume 9.4 fL Sodium Level 138 mmol/L Potassium Level 3.8 mmol/L Chloride Level 105 mmol/L Carbon Dioxide Level 24 mmol/L Anion Gap 9.0 mmol/L Blood Urea Nitrogen 24 mg/dl Creatinine 1.00 mg/dl Est Creatinine Clear Calc Drug Dose 46.4 ml/min Estimated GFR () 62.5 Estimated GFR (Non- 53.9 BUN/Creatinine Ratio 23.9 Random Glucose 115 mg/dl Calcium Level 8.2 mg/dl Assessment and Plan 1) Pneumonia - IV Levaquin, nebs, cough suppressant helped her sleep better last night. 2) A.fib with RVR - RVR resolved. rate stable and controlled. Continues on Pradaxa. 3) Diarrheal illness - resolved. 4) HTN - stable DVT prophylaxis - Pradaxa. Move patient to the medical floor. Anticipate discharge in 24-48 hours.
[2016-06-26] MEDS: LEVOFLOXACIN / D5W 750 MG in PREMIXED IN D5W 150 ML IV SCH (16:29)
--- NOTE | 2016-06-26 17:06 | CARDIOLOGY PROGRESS NOTE ---
DATE: 06/26/2016 TIME: 1640 p.m. SUBJECTIVE: She feels much better today. She denies shortness of breath, chest pain, syncope, near syncope, palpitations or bleeding. Yesterday, she was started on a beta teresa therapy, although outpatient note suggests that she may have an allergy to this. A conversation was held between myself and Dr. Maldonado and he does not recall such an allergy. He has found older documentation stating that she had no such allergy. She is tolerating it well. OBJECTIVE: VITAL SIGNS: Temperature 37.3 degrees, heart rate 56 beats per minute, respiration rate 16, blood pressure 99/63 mmHg, oxygen saturation 96% on 2 liters. Weight 76.3 kg. GENERAL: No acute distress. She is alert. NECK: No JVD. CARDIAC EXAM: No ventricular heave, irregularly irregular. Normal S1, S2. 1/6 systolic murmur heard throughout. No rubs or gallops. LUNGS: Coarse breath sounds especially at the bases. ABDOMEN: Soft, nontender, nondistended. Normoactive bowel sounds. EXTREMITIES: No cyanosis or edema. PSYCHIATRIC: Affect appears appropriate. MEDICATIONS: Include aspirin 81 mg daily, Pradaxa 150 mg p.o. b.i.d., diltiazem 180 mg daily, levofloxacin 750 mg IV q. 48 hours, metoprolol succinate 25 mg daily. LABORATORY DATA: White blood cell count is 4.99, hemoglobin 9.5, platelets 238. Sodium 138, potassium 3.8, BUN 24, and creatinine 1. ECG performed today at 6:37 a.m. personally reviewed. Atrial fibrillation at 77 beats per minute. Left bundle branch block. ASSESSMENT AND PLAN: 1. Atrial fibrillation with rapid ventricular response: She is much better rate controlled. She is tolerating her oral medication and a low dose of beta teresa. Continue anticoagulation for stroke risk reduction. Her atrial fibrillation by records is per minute. 2. Cardiomyopathy: Recently diagnosed mild cardiomyopathy. She is now tolerating low dose beta teresa therapy. This can be titrated over time; however, she is currently intermittently bradycardic. Perhaps overtime, metoprolol can be titrated upward and diltiazem weaned; however, no changes made today. This can be further titrated and adjusted as an outpatient. Low dose VIANEY inhibitor would also be appropriate if her blood pressure can tolerate. Her most recent blood pressure was 99/63 mmHg and therefore no changes made today, given her recent initiation of beta teresa. This can be done as an outpatient. She appears euvolemic. 3. Hypertension: Blood pressure adequately controlled and slightly hypotensive. Plan as above. 4. Mitral regurgitation: This can be followed as an outpatient over time. 5. Elevated troponins: She did not present with acute coronary syndrome and this is likely secondary to the fact that she had atrial fibrillation with rapid ventricular response in the setting of pneumonia. Ischemic evaluation, if deemed appropriate, can be done as an outpatient when she recovers from her infection. 6. Chest pain: No further chest pain. Could be secondary to pneumonia or her atrial fibrillation with rapid ventricular response. Cannot rule out ischemic heart disease. Would not perform ischemic evaluation under her current situation with pneumonia. This can be followed up by Dr. Maldonado, her primary egg buyer upon discharge. 7. Disposition: Please call for any further questions or concerns. Would recommend follow up with Dr. Maldonado in the next few weeks.
[2016-06-27] VITALS (7 sets, daily range): BP systolic 120–131; BP diastolic 69–79; PULSE 55–81; TEMP 36.8–37; O2SAT 91–96
[2016-06-27] MEDS: GUAIFENESIN/CODEINE 200MG/20MG 10ML UDC PO PRN (01:23)
[2016-06-27 06:53] LABS: HEMATOCRIT 28.7 % (37-47); MEAN CORPUSCULAR HEMOGLOBIN 32.1 pg (25-34); MEAN CORPUSCULAR HGB CONC 32.8 g/dl (32-36); MEAN PLATELET VOLUME 10.1 fL (7.4-10.4); PLATELET COUNT 230 K/uL (130-400); RED BLOOD COUNT 2.93 M/uL (4.2-5.4); WHITE BLOOD COUNT 5.14 K/uL (4.8-10.8)
[2016-06-27] MEDS: ALBUT/IPRATROP 3MG/0.5MG NEB 3 ML VIAL INH SCH ×4 (07:18→19:25)
[2016-06-27 07:26] LABS: BUN/CREATININE RATIO 30.4 (10-20); CREATININE 0.97 mg/dl (0.60-1.20)
[2016-06-27] MEDS: LACTOBACILLUS ACIDOPHILUS (FLORANEX) TAB PO SCH (08:14)
[2016-06-27] MEDS: DILTIAZEM HCL (TIAzac) 180 MG CAPCR PO SCH (08:14)
[2016-06-27] MEDS: DABIGATRAN ELEXILATE 75 MG CAP PO SCH ×2 (08:14→20:23)
[2016-06-27] MEDS: ASPIRIN 81 MG ECTAB PO SCH (08:14)
[2016-06-27] MEDS: CHOLECALCIFEROL 1000 INTER.UNIT TAB PO SCH (08:15)
[2016-06-27] MEDS: CEROVITE ADV FORMULA TAB PO SCH (08:15)
[2016-06-27] MEDS: METOPROLOL SUCC 25MG EXT REL TAB PO SCH (08:15)
--- NOTE | 2016-06-27 10:27 | DIAGNOSTIC IMAGING REPORT ---
CHEST 2 VIEWS ROUTINE CLINICAL HISTORY: Pneumonia re-check infiltrates COMPARISON STUDY: 06/24/2016 FINDINGS: The heart is mildly enlarged. There are trace bilateral pleural effusions. There are bilateral airspace opacities which appear similar given the differences in technique. It would be difficult to exclude an element of mild pulmonary vascular congestion.[ IMPRESSION: 1. Bilateral pulmonary airspace opacity similar to the preceding study. Trace bilateral pleural effusions. Electronically signed by: Frank Ewing M.D. 06/27/2016 10:26 AM Dictated Date/Time: 06/27/2016 10:25 AM
--- NOTE | 2016-06-27 19:20 | Hospitalist Progress Note ---
Hospitalist Progress Note Date of Service Jun 27, 2016. Subjective Pt evaluation today including: conversation w/ patient, physical exam, chart review, lab review, review of studies, review of inpatient medication list Patient is doing well. appetite remains good. She anticipates going home tomorrow. I will switch her to oral antibiotics. Additional Comments: A 10 system review was performed and all were negative. Positives were placed in the subjective section. Objective Vital Signs Date Time Temp Pulse Resp B/P Pulse Ox O2 Delivery O2 Flow Rate FiO2 06/27/16 16:03 36.9 74 18 131/79 91 Humidified Oxygen 2.0 06/27/16 16:00 Nasal Cannula 2.0 Humidified Oxygen 06/27/16 15:19 55 16 95 Nasal Cannula 2.0 06/27/16 11:33 72 16 96 Nasal Cannula 2.0 06/27/16 08:07 36.8 81 17 127/72 96 Nasal Cannula 2.0 06/27/16 08:00 Nasal Cannula 2.0 Humidified Oxygen 06/27/16 07:19 81 16 96 Nasal Cannula 2.0 06/27/16 00:00 37.0 72 20 120/69 96 2.0 Physical Exam Notes: GEN: Awake, alert, and oriented x 3. Not in acute distress HEENT: Tm's intact, no inflammation, EOMI, PERRLA, MMM Neck: Soft, supple Lungs: Decreased breath sounds at the bases b/l. Heart: IRREG, nrl S1S2 without murmurs, rubs or gallops Abdomen: Soft, NT, ND, + BS EXT: No C/C/E NEURO: CN's II-XII grossly intact, non-focal Skin: warm, dry, no rashes PSYCH: pleasant, cooperative. Laboratory Results Last 24 Hours Test 06/27/16 06:36 White Blood Count 5.14 K/uL Red Blood Count 2.93 M/uL Hemoglobin 9.4 g/dL Hematocrit 28.7 % Mean Corpuscular Volume 98.0 fL Mean Corpuscular Hemoglobin 32.1 pg Mean Corpuscular Hemoglobin Concent 32.8 g/dl RDW Standard Deviation 50.6 fL RDW Coefficient of Variation 14.1 % Platelet Count 230 K/uL Mean Platelet Volume 10.1 fL Sodium Level 140 mmol/L Potassium Level 4.0 mmol/L Chloride Level 107 mmol/L Carbon Dioxide Level 25 mmol/L Anion Gap 8.0 mmol/L Blood Urea Nitrogen 30 mg/dl Creatinine 0.97 mg/dl Est Creatinine Clear Calc Drug Dose 47.8 ml/min Estimated GFR () 64.8 Estimated GFR (Non- 55.9 BUN/Creatinine Ratio 30.4 Random Glucose 93 mg/dl Calcium Level 8.0 mg/dl Assessment and Plan 1) Pneumonia - clinically better. CXR shows no worsening. switch to oral Levaquin. 2) A.fib with RVR - RVR resolved. rate stable and controlled. Continues on Pradaxa. 3) Diarrheal illness - resolved. 4) HTN - stable DVT prophylaxis - Pradaxa. Wean oxygen, anticipate D/C tomorrow.
[2016-06-27] MEDS: ACETAMINOPHEN 325 MG TAB PO PRN (22:07)
[2016-06-28] VITALS: O2SAT 95
[2016-06-28 00:08] VITALS: BP 117/75; PULSE 77; TEMP 36.3; O2SAT 95
[2016-06-28 07:28] VITALS: PULSE 78; O2SAT 96
[2016-06-28] MEDS: ALBUT/IPRATROP 3MG/0.5MG NEB 3 ML VIAL INH SCH (07:29)
[2016-06-28] MEDS: DILTIAZEM HCL (TIAzac) 180 MG CAPCR PO SCH (07:36)
[2016-06-28] MEDS: ASPIRIN 81 MG ECTAB PO SCH (07:37)
[2016-06-28] MEDS: CEROVITE ADV FORMULA TAB PO SCH (07:37)
[2016-06-28] MEDS: LACTOBACILLUS ACIDOPHILUS (FLORANEX) TAB PO SCH (07:37)
[2016-06-28] MEDS: CHOLECALCIFEROL 1000 INTER.UNIT TAB PO SCH (07:37)
[2016-06-28] MEDS: METOPROLOL SUCC 25MG EXT REL TAB PO SCH (07:37)
[2016-06-28] MEDS: DABIGATRAN ELEXILATE 75 MG CAP PO SCH (07:38)
[2016-06-28 07:41] VITALS: BP 122/70; PULSE 75; TEMP 36.7; O2SAT 98
[2016-06-28] MEDS ORDERED: GUAISYP4 PO (09:26)
[2016-06-28] MEDS ORDERED: LVQ500 PO (09:26)
[2016-06-28] MEDS ORDERED: TPRSR25 PO (09:26)
--- NOTE | 2016-06-28 09:32 | Discharge Instructions ---
Discharge Instructions Date of Service Jun 28, 2016. Admission Reason for Admission: Atrial Fibrllation With Rvr, Pneumonia Discharge Discharge Diagnosis / Problem: B/L pneumonia/ Atrial fibrillation with rapid ventricular response. Discharge Goals Goal(s): Improve function, Improve disease control Activity Recommendations Activity Limitations: resume your previous activity . Instructions / Follow-Up Instructions / Follow-Up Follow up with your PCP in 5-7 days. Follow up with cardiology, Dr. Maldonado - call office this week to schedule an appointment in 3-4 weeks. A new medication, metoprolol (Lopressor) was added to you daily medication regiment. This is to help control your heart rate. Current Hospital Diet Patient's current hospital diet: AHA Diet (Heart Healthy) Discharge Diet Recommended Diet: AHA Diet (Heart Healthy) Procedures Procedures Performed: None. Pending Studies Studies pending at discharge: no Laboratory Results Hemoglobin A1c Test 06/03/16 09:54 Range/Units Estimated Average Glucose 111 mg/dl Hemoglobin A1c 5.5 4.5-5.6 % Work Instructions Return To Work: 1 week Additional Instructions: May return to work full duty (no restrictions) on Thursday07-07-16. You are NOT contagious to others. Medical Emergencies . Who to Call and When: Medical Emergencies: If at any time you feel your situation is an emergency, please call 911 immediately. . Non-Emergent Contact Non-Emergency issues call your: Primary Care Provider . . "Provider Documentation" section prepared by Lloyd Downey. VTE Core Measure Inpt VTE Proph given/why not?: Other Anticoagulation (Pradaxa), T.E.Opal Stockings, SCD's
[2016-06-28 09:58] VITALS: BP 122/70; PULSE 75; TEMP 36.7; O2SAT 98
[2016-06-28] MEDS ORDERED: LEVOFLOXACIN 500 MG TAB PO SCH (11:00)
--- NOTE | 2016-06-28 17:58 | Discharge Summary ---
Discharge Summary Date of Service Jun 28, 2016. Discharge Summary Admission Date: Jun 24, 2016 at 13:04 Discharge Date: Jun 28, 2016 Discharge Disposition: Home Principal Diagnosis: A.Fib with RVR Problems/Secondary Diagnoses: B/L pneumonia/nausea Procedures: None. Consultations: Cardiology Dr. Devin Candelario Medication Reconciliation New Medications: Guaifenesin/Codeine (Robitussin-Ac Syrup) Syrp 10 ML PO Q6H PRN for Cough for 5 Days, #200 ML 0 Refills Levofloxacin (Levofloxacin) 500 Mg Tab 500 MG PO DAILY@11 for 5 Days, #5 TAB 0 Refills Metoprolol Succinate (Metoprolol Succinate ER) 25 Mg Tabcr 25 MG PO QAM for 30 Days, #30 0 Refills Continued Medications: Cholecalciferol (Vitamin D) 1,000 Inter.unit Tab 1000 INTER.UNIT PO DAILY, TAB Dabigatran Etexilate Mesylate (Pradaxa) 150 Mg Cap 150 MG PO BID, CAP Diltiazem Hcl Ext Rel (Tiazac) 180 Mg Capcr 180 MG PO DAILY, CAP Fish Oil (Standard-3) 1 Ea Cap 1 CAP PO DAILY, CAP Multivitamins/Minerals (Mvi With Minerals) Tab 1 TAB PO DAILY, TAB Probiotic Product (Probiotic) 1 Tab Tab 1 TAB PO DAILY Discharge Exam A 10 system review was performed and all were negative. GEN: Awake, alert, and oriented x 3. Not in acute distress HEENT: Tm's intact, no inflammation, EOMI, PERRLA, MMM Neck: Soft, supple Lungs: CTA b/l, no r/r/w Heart: IRREG, nrl S1S2 without murmurs, rubs or gallops Abdomen: Soft, NT, ND, + BS EXT: No C/C/E NEURO: CN's II-XII grossly intact, non-focal Skin: warm, dry, no rashes PSYCH: pleasant, cooperative. Hospital Course Patient was admitted with b/l community acquired pneumonia and A.Fib with RVR. She was placed on tele with a Cardizem gtt. IV Levaquin was lung. Cardiology was consulted and added low dose betablocker to her regiment. Cardizem gtt was D/C'd and patient maintained rate control. Her nausea had resolved and she required less oxygen each day. She felt well on the day of discharge. She did not require oxygen at the time of discharge. She remained on Pradaxa throughout hospitalization which covered her for DVTs. Total Time Spent: Greater than 30 minutes This includes examination of the patient, discharge planning, medication reconciliation, and communication with other providers. Discharge Instructions Please refer to the electronic Patient Visit Report (Discharge Instructions) for additional information. Follow-Up PCP in 5-[address] Maldonado in 3-4 weeks.
[2016-08-02] MEDS ORDERED: METO1TAB69 PO (08:14)
== END 2016-06-28 11:36 | disposition home or self-care (01) | DRG 308 ==
LOC: ENRESERVDT → ENRESERVTM → C.EDB 10:02 → C.2T 13:04 → C.MS4W 06-26 14:52
PROVIDERS: ADMIT Hospitalist; ATTEND Hospitalist
DX: I48.2 Chronic atrial fibrillation (principal); J18.9 Pneumonia, unspecified organism; I10 Essential (primary) hypertension; M85.80 Other specified disorders of bone density and structure, unspecified site; I42.9 Cardiomyopathy, unspecified; I34.0 Nonrheumatic mitral (valve) insufficiency; R07.9 Chest pain, unspecified; M81.0 Age-related osteoporosis without current pathological fracture; H91.90 Unspecified hearing loss, unspecified ear; R19.7 Diarrhea, unspecified

== ENCOUNTER → 2016-07-03 | Outpatient (CLI) | payer OTHER ==
[~2016-07-03] MED LIST changes: +CHOL1000 PO; +GUAISYP4 PO; +LVQ500 PO; +METO1TAB69 PO; +OMEG10007 PO; +TPRSR25 PO; +TPRSR50 PO
[2016-07-03 13:55] LABS: BASO % 0.5 %; BASO ABS # 0.04 K/uL (0-0.2); COMPLETE YES; HEMATOCRIT 34.3 % (37-47); IG% 0.3 %; LYMPH % 19.8 %; LYMPH ABS # 1.55 K/uL (1.2-3.4); MEAN CELL VOLUME 97.4 fL (80-100); MEAN CORPUSCULAR HEMOGLOBIN 32.1 pg (25-34); MEAN CORPUSCULAR HGB CONC 32.9 g/dl (32-36); MEAN PLATELET VOLUME 9.8 fL (7.4-10.4); NEUT % 65.4 %; PLATELET COUNT 525 K/uL (130-400); RED BLOOD COUNT 3.52 M/uL (4.2-5.4); WHITE BLOOD COUNT 7.84 K/uL (4.8-10.8)
[2016-07-03 14:14] LABS: TOTAL IRON BINDING CAPACITY 328 mcg/dl (250-450)
--- NOTE | 2016-07-10 12:45 | CODING QUERY MEDICAL NECESSITY ---
SUPPORTING DIAGNOSIS NEEDED A supporting diagnosis is required for the test/procedure performed on this patient in order for us to be reimbursed by the patient's insurance. Please provide a supporting diagnosis for the following test/procedure listed below next to the test name along with your signature. *If there is no additional diagnosis for this patient that would support the following test/procedure please document that below next to the test/procedure. Test(s)/Procedure(s) that require a supporting diagnosis: * FOLATE LEVEL DIAGNOSIS: * DOS: 07/03/16 Provider Signature: Date: Thank you Gemini No Health Information Management Once completed, please kindly fax back to [phone] For questions please call [phone]
== END | disposition home or self-care (01) ==
LOC: C.LAB1850 12:16
PROVIDERS: ATTEND Internal Medicine
DX: D64.9 Anemia, unspecified (principal)

== ENCOUNTER → 2016-07-23 | Outpatient (CLI) | payer OTHER ==
[~2016-07-23] MED LIST changes: +METO100T44 PO; -METO1TAB69 PO
--- NOTE | 2016-07-23 09:48 | DIAGNOSTIC IMAGING REPORT ---
TWO VIEW CHEST CLINICAL HISTORY: Pneumonia follow-up. FINDINGS: PA and lateral chest radiographs are compared to study dated 06/27/2016. The heart is enlarged and there is atherosclerotic calcification of the thoracic aorta. Chronic interstitial thickening is unchanged. No airspace consolidation or pleural effusion is identified. Biapical scarring is observed. There is no pneumothorax. The skeletal structures are osteopenic. The bony thorax appears intact. Degenerative change is noted throughout the thoracic spine. IMPRESSION: Cardiomegaly with no active disease in the chest. Airspace opacities identified on 06/27/2016 have resolved. Electronically signed by: Larry Stewart M.D. 07/23/2016 9:46 AM Dictated Date/Time: 07/23/2016 9:45 AM
[2016-07-23 12:23] LABS: BASO % 0.7 %; BASO ABS # 0.04 K/uL (0-0.2); COMPLETE YES; EOS % 2.5 %; HEMATOCRIT 36.1 % (37-47); IG% 0.2 %; LYMPH % 23.6 %; MEAN CELL VOLUME 97.8 fL (80-100); MEAN CORPUSCULAR HEMOGLOBIN 33.3 pg (25-34); MEAN CORPUSCULAR HGB CONC 34.1 g/dl (32-36); MEAN PLATELET VOLUME 10.6 fL (7.4-10.4); MONO % 14.9 %; NEUT % 58.1 %; PLATELET COUNT 300 K/uL (130-400); RED BLOOD COUNT 3.69 M/uL (4.2-5.4); WHITE BLOOD COUNT 5.51 K/uL (4.8-10.8)
--- NOTE | 2016-07-28 12:21 | CODING QUERY MEDICAL NECESSITY ---
SUPPORTING DIAGNOSIS NEEDED A supporting diagnosis is required for the test/procedure performed on this patient in order for us to be reimbursed by the patient's insurance. Please provide a supporting diagnosis for the following test/procedure listed below next to the test name along with your signature. *If there is no additional diagnosis for this patient that would support the following test/procedure please document that below next to the test/procedure. Test(s)/Procedure(s) that require a supporting diagnosis: DOS 07/23 * Vitamin D DIAGNOSIS: * Vitamin B12 DIAGNOSIS: Provider Signature: Date: Thank you Lashell Srinivasan Health Information Management Once completed, please kindly fax back to [phone] For questions please call [phone]
== END | disposition home or self-care (01) ==
LOC: C.RAD1850 09:34
PROVIDERS: ATTEND Internal Medicine
DX: J18.9 Pneumonia, unspecified organism (principal); D64.9 Anemia, unspecified; R53.83 Other fatigue; I51.7 Cardiomegaly; Z87.39 Personal history of other diseases of the musculoskeletal system and connective tissue

== ENCOUNTER 2016-08-02 07:44 | Inpatient (IN) | payer OTHER ==
[~2016-08-02] VITALS: Ht 160 cm; Wt 71.4 kg
[~2016-08-02 07:44] MED LIST changes: -CHOL1000 PO; -METO100T44 PO; -TPRSR50 PO
[2016-08-02] MEDS ORDERED: METOPROLOL TARTRATE 1 MG/ML VIAL IV STA ×2 (08:01→09:02)
[2016-08-02 08:09] LABS: BASO % 0.3 %; BASO ABS # 0.02 K/uL (0-0.2); COMPLETE YES; EOS % 1.3 %; HEMATOCRIT 34.6 % (37-47); IG% 0.1 %; LYMPH % 16.6 %; LYMPH ABS # 1.28 K/uL (1.2-3.4); MEAN CELL VOLUME 97.7 fL (80-100); MEAN CORPUSCULAR HEMOGLOBIN 32.8 pg (25-34); MEAN CORPUSCULAR HGB CONC 33.5 g/dl (32-36); MONO % 8.3 %; NEUT % 73.4 %; PLATELET COUNT 310 K/uL (130-400); RED BLOOD COUNT 3.54 M/uL (4.2-5.4); WHITE BLOOD COUNT 7.69 K/uL (4.8-10.8)
[2016-08-02] MEDS ORDERED: CHOL1000 PO (08:12)
[2016-08-02] MEDS ORDERED: METO100T44 PO (08:14)
[2016-08-02 08:29] LABS: BLOOD UREA NITROGEN 17 mg/dl (7-18); BUN/CREATININE RATIO 19.7 (10-20); CARBON DIOXIDE 24 mmol/L (21-32); CHLORIDE 107 mmol/L (98-107); CREATININE 0.88 mg/dl (0.60-1.20); GLUCOSE 133 mg/dl (70-99); POTASSIUM 3.7 mmol/L (3.5-5.1); SODIUM 140 mmol/L (136-145)
--- NOTE | 2016-08-02 08:33 | EMERGENCY ROOM VISIT NOTE ---
History Report prepared by Wil: Carolyn Woods Under the Supervision of: Dr. Joes Stevens M.D. First contact with patient: 07:52 Chief Complaint: SHORTNESS OF BREATH Stated Complaint: SOB Nursing Triage Summary: pt reports 2 days of feeling "lousy" , reports increased exertional sob 1 day ago and this became worse today , treated for pneumonia recently , denies cough , congestion or mucus production at this time History of Present Illness The patient is a 80 year old female who presents to the Emergency Room with complaints of persistent SOB starting 2 days ago. Her symptoms worsen with lying flat and exertion. She denies any abdominal pain, chest pain, cough, melena, hematochezia, headache, urinary symptoms, or vision changes. She denies any recent falls. She denies any history of blood clots. She is on Pradaxa and metoprolol. She has not taken any medications this morning. She was in the hospital around 1 month ago for A fib and pneumonia. She was unaware of her heart rate being elevated. Source of History: patient Onset: 2 days ago Position: other (respiratory) Quality: other (SOB) Timing: other (persistent) Modifying Factors (Worsening): exertion, other (lying flat) Associated Symptoms: No abdominal pain, No chest pain, No cough, No headache , No hematochezia, No melena, No urinary symptoms Note: Pt denies vision changes. Review of Systems See HPI for pertinent positives & negatives. A total of 10 systems reviewed and were otherwise negative. Past Medical & Surgical Medical Problems: (1) Acute on chronic systolic (congestive) heart failure (2) Atrial fibrillation (3) Atrial fibrillation with RVR (4) Hypertension (5) Pneumonia Surgical Problems: (1) S/P sinus surgery Family History Cancer (breast, uterine) Diabetes mellitus Hypertension Kidney disease Kidney stones Stroke Social History Smoking Status: Never Smoker Alcohol Use: none Drug Use: none Marital Status: Housing Status: lives with family Occupation Status: retired Current/Historical Medications Scheduled Cholecalciferol (Vitamin D3), 1,000 UNITS PO DAILY Dabigatran Etexilate Mesylate (Pradaxa), 150 MG PO BID Diltiazem Hcl Ext Rel (Tiazac), 180 MG PO DAILY Fish Oil ([place]-3), 1 CAP PO DAILY Metoprolol Succ (Toprol Xl) (Toprol-Xl ), 100 MG PO DAILY Multivitamins/Minerals (Mvi With Minerals), 1 TAB PO DAILY Probiotic Product (Probiotic), 2 TAB PO DAILY Allergies Coded Allergies: Latex1 -Allergic Contact Dermititis (Verified Allergy, Unknown, REDNESS, ) Azithromycin (Verified Adverse Reaction, Mild, DIARRHEA, 08/02/16) Physical Exam Vital Signs Date Time Temp Pulse Resp B/P Pulse Ox O2 Delivery O2 Flow Rate FiO2 08/02/16 09:52 158/138 08/02/16 09:19 100 24 93 08/02/16 09:15 95 Room Air 08/02/16 09:15 99 08/02/16 09:14 100 35 174/108 94 08/02/16 09:04 100 08/02/16 09:01 174/108 08/02/16 08:44 93 17 94 08/02/16 08:35 147/110 08/02/16 08:20 102 147/110 08/02/16 08:19 147/110 08/02/16 08:14 103 20 93 08/02/16 08:09 108 08/02/16 08:08 166/122 08/02/16 08:05 Room Air 08/02/16 07:55 95 Room Air 08/02/16 07:46 36.9 114 20 138/84 93 Room Air Physical Exam GENERAL: Patient is anxious appearing and in mild distress. HEENT: No acute trauma, normocephalic atraumatic, mucous membranes moist, no nasal congestion, no scleral icterus. NECK: No stridor, no adenopathy, no meningismus, trachea is midline. LUNGS: Appearing dyspneic with crackles at bases. No wheeze, no rhonchi. HEART: Tachycardic rate and irregular rhythm. No murmurs, rubs, gallops appreciated. ABDOMEN: Soft, nontender, bowel sounds positive, no masses appreciated, no peritonitis. BACK: No midline tenderness, no CVA tenderness EXTREMITIES: Normal motion all extremities, no cyanosis, trace edema bilateral lower legs. NEUROLOGIC: Alert and oriented, no acute motor or sensory deficits, no focal weakness, cranial nerves grossly intact. SKIN: No rash, no jaundice, no diaphoresis. Medical Decision & Procedures ER Provider Diagnostic Interpretation: X ray results are stated below per my interpretation and the radiologist's interpretation. CHEST ONE VIEW PORTABLE HISTORY: Short of breath. COMPARISON: Chest 07/23/2016. FINDINGS: No pneumothorax. No pleural effusions. The heart remains mildly enlarged. Interval progression of the perihilar interstitial thickening. There is also hazy appearance to the lung bases. IMPRESSION: Progression of the perihilar interstitial thickening which may represent developing pulmonary edema. Hazy appearance the lung bases could also be due to edema or a developing pneumonitis. Electronically signed by: Eloy Logan M.D. 08/02/2016 8:31 AM Dictated Date/Time: 08/02/2016 8:30 AM Laboratory Results 08/02/16 07:59 Red Blood Count 3.54, Mean Corpuscular Volume 97.7, Mean Corpuscular Hemoglobin 32.8, Mean Corpuscular Hemoglobin Concent 33.5, Mean Platelet Volume 10.0, Neutrophils (%) (Auto) 73.4, Lymphocytes (%) (Auto) 16.6, Monocytes (%) (Auto) 8.3, Eosinophils (%) (Auto) 1.3, Basophils (%) (Auto) 0.3, Neutrophils # (Auto) 5.64, Lymphocytes # (Auto) 1.28, Monocytes # (Auto) 0.64, Eosinophils # (Auto) 0.10, Basophils # (Auto) 0.02 08/02/16 07:59 Test 08/02/16 07:59 White Blood Count 7.69 K/uL (4.8-10.8) Red Blood Count 3.54 M/uL (4.2-5.4) Hemoglobin 11.6 g/dL (12.0-16.0) Hematocrit 34.6 % (37-47) Mean Corpuscular Volume 97.7 fL (80-100) Mean Corpuscular Hemoglobin 32.8 pg (25-34) Mean Corpuscular Hemoglobin Concent 33.5 g/dl (32-36) Platelet Count 310 K/uL (130-400) Mean Platelet Volume 10.0 fL (7.4-10.4) Neutrophils (%) (Auto) 73.4 % Lymphocytes (%) (Auto) 16.6 % Monocytes (%) (Auto) 8.3 % Eosinophils (%) (Auto) 1.3 % Basophils (%) (Auto) 0.3 % Neutrophils # (Auto) 5.64 K/uL (1.4-6.5) Lymphocytes # (Auto) 1.28 K/uL (1.2-3.4) Monocytes # (Auto) 0.64 K/uL (0.11-0.59) Eosinophils # (Auto) 0.10 K/uL (0-0.5) Basophils # (Auto) 0.02 K/uL (0-0.2) RDW Standard Deviation 54.3 fL (36.4-46.3) RDW Coefficient of Variation 15.2 % (11.5-14.5) Immature Granulocyte % (Auto) 0.1 % Immature Granulocyte # (Auto) 0.01 K/uL (0.00-0.02) Anion Gap 9.0 mmol/L (3-11) Est Creatinine Clear Calc Drug Dose 50.3 ml/min Estimated GFR () 72.9 Estimated GFR (Non- 62.9 BUN/Creatinine Ratio 19.7 (10-20) Calcium Level 9.4 mg/dl (8.5-10.1) Magnesium Level 2.0 mg/dl (1.8-2.4) Total Creatine Kinase 66 U/L (26-192) Creatine Kinase MB 1.4 ng/ml (0.5-3.6) Creatine Kinase MB Ratio 2.1 (0-3.0) Pro-B-Type Natriuretic Peptide 33738 pg/ml (0-1800) Laboratory results as reviewed by me. Medications Administered Medications (Trade) Dose Ordered Sig/Inna Route Start Time Stop Time Status Last Admin Dose Admin Metoprolol Tartrate (Lopressor Iv) 5 mg NOW STAT IV 08/02/16 08:01 08/02/16 08:03 DC 08/02/16 08:09 5 MG Furosemide (Lasix Inj) 40 mg NOW STAT IV 08/02/16 09:02 08/02/16 09:03 DC 08/02/16 09:14 40 MG Metoprolol Tartrate (Lopressor Iv) 5 mg NOW STAT IV 08/02/16 09:02 08/02/16 09:03 DC 08/02/16 09:15 5 MG Metoprolol Succinate (Toprol Xl Tab) 50 mg STK-MED ONCE PO 08/02/16 10:04 08/02/16 10:05 DC 08/02/16 10:07 50 MG ECG Indication: SOB/dyspnea Rate (beats per minute): 117 Rhythm: atrial fibrillation (with rapid ventricular response) Findings: LBBB, other (non specific ST depression, no STEMI) ED Course 0753: The patient was evaluated in room A4B. A complete history and physical exam was performed. 0801: Lopressor Iv 5 mg IV. 0900: I reevaluated the patient. She notes that she is still SOB. Her heart rate is 110 and irregular. I discussed results and treatment plan with the patient. She verbalized understanding and agreement with the treatment plan. The patient will be evaluated for further management. 0902: Lopressor Iv 5 mg IV, Furosemide 40 mg IV. 923: I discussed the patient's case with JASWANT Perera - hospitalist. The patient will be evaluated for further treatment and disposition. Medical Decision Differential: Infectious, Reactive Airway Disease, Pneumonia, Pneumothorax, COPD , CHF, ACS, Pulmonary Embolism, MSK, GI, Dissection, amongst other etiologies entertained. 80 yr old female with previous EF 40% by chart review arrives with acute SHOB over last 2 days. Mild edema legs, though there is JVD and worse with laying flat. Afib RVR on arrival requiring 2 rounds of Lopressor to keep under control. CXR consistent with failure as is history/exam. Labs looking OK other than elevated BNP further pointing towards this acute failure. She is not well enough appearing and is clearly too dyspneic to be safe for discharge at this time and family/pt agree. Requested hospitalist evaluation for further work-up treatment. Consults Time Called: [phone] Consulting Physician: JASWANT Perera - hospitalist Returned Call: [phone] Discussed the patient's case. The patient will be evaluated for further treatment and disposition. Impression Primary Impression: Congestive heart failure Additional Impressions: Pulmonary edema Atrial fibrillation with RVR Scribe Attestation The scribe's documentation has been prepared under my direction and personally reviewed by me in its entirety. I confirm that the note above accurately reflects all work, treatment, procedures, and medical decision making performed by me. Departure Information Dispostion Being Evaluated By Hospitalist Referrals RV. Mckinnon MD (PCP) Patient Instructions My [facility] Problem Qualifiers Primary Impression: Congestive heart failure Congestive heart failure type: systolic Congestive heart failure chronicity: acute Qualified Codes: I50.21 - Acute systolic (congestive) heart failure Additional Impressions: Pulmonary edema Chronicity: acute Qualified Codes: J81.0 - Acute pulmonary edema
[2016-08-02 08:34] LABS: CKMB/CK RATIO 2.1 (0-3.0)
[2016-08-02 08:50] LABS: CALCIUM 9.4 mg/dl (8.5-10.1)
[2016-08-02] MEDS ORDERED: FUROSEMIDE 40 MG/4 ML VIAL IV STA (09:02)
[2016-08-02 09:15] VITALS: O2SAT 95; Ht 160 cm; Wt 71.4 kg
--- NOTE | 2016-08-02 09:56 | History and Physical ---
History & Physical Date & Time of Service: Aug 02, 2016 at 09:34 Chief Complaint: SOB Primary Care Physician: RV. Mckinnon MD History of Present Illness Source: patient 80yo female with known systolic CHF and a. fib who presents with worsening orthopnea, PND, and dyspnea beginning two nights ago. She was hospitalized in June for rapid a. fib and since that hospital stay her metoprolol xl has been increased to 100mg daily. She reports compliance with all of her meds but didn't have her medications this AM. Denies any peripheral edema. She has been checking her weight daily since June and her weight yesterday was up about 2 pounds. No other changes in health over the last 1-2 weeks. This AM her breathing was quite severe and thus she came to the ER for evaluation. In the ER today she received IV lasix and is now breathing more comfortably. She has already diuresed 1+ liters of urine. She was taken off her tiazac about 2-3 weeks ago by her second grade teacher due to the increase in her beta teresa and her depressed EF. Past Medical/Surgical History PMH: 1. a. fib 2. LBBB 3. chronic systolic CHF, EF 40-45% 4. HTN 5. kidney stones No CAD, stroke, CKD, or T2DM PSH: 1. lithotripsy 2. appendectomy 3. tonsillectomy 4. surgery on ovary (partial oophorectomy?) 5. 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; now works PT at her local [employer]) Multi-Drug Resistant Organisms History of MDRO: No Allergies Coded Allergies: Latex1 -Allergic Contact Dermititis (Verified Allergy, Unknown, REDNESS, ) Azithromycin (Verified Adverse Reaction, Mild, DIARRHEA, 08/02/16) Home Medications Scheduled Cholecalciferol (Vitamin D3), 1,000 UNITS PO DAILY Dabigatran Etexilate Mesylate (Pradaxa), 150 MG PO BID Diltiazem Hcl Ext Rel (Tiazac), 180 MG PO DAILY Fish Oil ([place]-3), 1 CAP PO DAILY Metoprolol Succ (Toprol Xl) (Toprol-Xl ), 100 MG PO DAILY Multivitamins/Minerals (Mvi With Minerals), 1 TAB PO DAILY Probiotic Product (Probiotic), 2 TAB PO DAILY Review of Systems Constitutional: + fatigue, + problem reported (weight gain), No chills, No fever Eyes: No worsening of vision ENT: No hearing loss, No nasal symptoms, No sore throat, No trouble swallowing Respiratory: + dyspnea at rest, + dyspnea on exertion, + shortness of breath, No cough Cardiovascular: + PND, + orthopnea, No chest pain, No edema, No palpitations Abdomen: No GI bleeding, No diarrhea, No pain, No vomiting Genitourinary - Female: No dysuria, No hematuria Neurologic: No numbness/tingling Psychiatric: No anxiety, No depression symptoms Endocrine: + fatigue Hematologic / Lymphatic: No abnormal bleeding/bruising Integumentary: No rash Physical Exam Vital Signs Date Time Temp Pulse Resp B/P Pulse Ox O2 Delivery O2 Flow Rate FiO2 08/02/16 09:15 99 08/02/16 09:04 100 08/02/16 08:20 102 147/110 08/02/16 08:09 108 08/02/16 08:05 Room Air 08/02/16 07:55 95 Room Air 08/02/16 07:46 36.9 114 20 138/84 93 Room Air General Appearance: WD/WN, no apparent distress Head: normocephalic, atraumatic Eyes: PERRL, + pertinent finding (lens implants bilaterally) ENT: hearing grossly normal, TMs normal, pharynx normal Neck: supple, no adenopathy, thyroid normal, + JVD (mild) Respiratory/Chest: no respiratory distress, no accessory muscle use, + rales ( scant, bases) Cardiovascular: normal peripheral pulses, + tachycardia, + systolic murmur (1-2 /6 LLSB), + irregularly irregular Abdomen/GI: normal bowel sounds, non tender, soft, no organomegaly Back: normal inspection Extremities/Musculoskelatal: no pedal edema Neurologic/Psych: no motor/sensory deficits, alert, normal mood/affect, normal reflexes, oriented x 3 Skin: no rash Lymphatic: no adenopathy (cervical) Diagnostics Laboratory Results Results Past 24 Hours Test 08/02/16 07:59 Range/Units White Blood Count 7.69 4.8-10.8 K/uL Red Blood Count 3.54 4.2-5.4 M/uL Hemoglobin 11.6 12.0-16.0 g/dL Hematocrit 34.6 37-47 % Mean Corpuscular Volume 97.7 80-100 fL Mean Corpuscular Hemoglobin 32.8 25-34 pg Mean Corpuscular Hemoglobin Concent 33.5 32-36 g/dl Platelet Count 310 130-400 K/uL Mean Platelet Volume 10.0 7.4-10.4 fL Neutrophils (%) (Auto) 73.4 % Lymphocytes (%) (Auto) 16.6 % Monocytes (%) (Auto) 8.3 % Eosinophils (%) (Auto) 1.3 % Basophils (%) (Auto) 0.3 % Neutrophils # (Auto) 5.64 1.4-6.5 K/uL Lymphocytes # (Auto) 1.28 1.2-3.4 K/uL Monocytes # (Auto) 0.64 0.11-0.59 K/uL Eosinophils # (Auto) 0.10 0-0.5 K/uL Basophils # (Auto) 0.02 0-0.2 K/uL RDW Standard Deviation 54.3 36.4-46.3 fL RDW Coefficient of Variation 15.2 11.5-14.5 % Immature Granulocyte % (Auto) 0.1 % Immature Granulocyte # (Auto) 0.01 0.00-0.02 K/uL Sodium Level 140 136-145 mmol/L Potassium Level 3.7 3.5-5.1 mmol/L Chloride Level 107 98-107 mmol/L Carbon Dioxide Level 24 21-32 mmol/L Anion Gap 9.0 3-11 mmol/L Blood Urea Nitrogen 17 7-18 mg/dl Creatinine 0.88 0.60-1.20 mg/dl Est Creatinine Clear Calc Drug Dose 50.3 ml/min Estimated GFR () 72.9 Estimated GFR (Non- 62.9 BUN/Creatinine Ratio 19.7 10-20 Random Glucose 133 70-99 mg/dl Calcium Level 9.4 8.5-10.1 mg/dl Total Creatine Kinase 66 26-192 U/L Creatine Kinase MB 1.4 0.5-3.6 ng/ml Creatine Kinase MB Ratio 2.1 0-3.0 Troponin I < 0.015 0-0.045 ng/ml Pro-B-Type Natriuretic Peptide 81591 0-1800 pg/ml Diagnostic Radiology cxr: pulmonary edema/CHF EKG EKG - my reading - a. fib with RVR, LBBB, ST segment depression I/AVL and V5/V6. In comparison to EKG 06/2016 - ventricular rate is faster; I/AVL are unchanged; V5/V6 depressions slightly more pronounced. Impression Assessment and Plan 80yo female with long-standing a. fib on chronic anticoagulation presenting with acute/chronic systolic CHF. 1. acute/chronic systolic CHF (EF 40-45%) - has already received 40mg of IV lasix in the ER and has diuresed 1+ liters. She feels better and her volume status is already significantly improved. Will defer on additional IV lasix later today. Suspect uncontrolled HTN and a. fib with RVR are to blame for her acute CHF. She received 2 doses of IV lopressor in the ER and thus will only give 1/2 of her normal daily metoprolol xl now (typically takes 100mg qdaily, will give 50 now). Will restart the tiazac 180mg once daily. It was discontinued earlier this month due to her depressed EF as well as due to an increase in her beta teresa. She may need daily lasix, perhaps 20mg, at discharge but will defer that decision to cardiology. Formal cardiology consult requested - Dr. Coker to see. Place on telemetry, serial troponins. 2. a. fib with RVR - see #1 above regarding details of BB and CCB. Continue beta teresa. Resume her tiazac. Most recent TSH was normal. K/mag are normal this AM. Cont pradaxa for anticoagulation. 3. uncontrolled HTN - she did not have her morning meds this AM at home. Simply resume and follow the BPs. Adjust meds as needed. 4. ST segment depressions on EKG - chronic, but check serial troponins. The ST changes may simply be strain or rate-related. 5. LBBB - chronic. 6. CKD stage 2 - creatinine is at baseline. 7. anemia - very mild; had normal b12/folate recently. Iron studies were also done but no ferritin was checked. Will check this later today w/ next blood draw. 8. DVT proph - pradaxa BID. Patient was not aware that her EF was depressed at 40-45% and was not in understanding that she has mild CHF. Will need teaching about salt/fluid restriction, daily weights, etc. Son updated at bedside. time - 70 minutes Advanced Directives Existing Advance Directive: Yes Existing Living Will: Yes Existing Power of Taker Off Braker Machine: Yes Resuscitation Status FULL RESUSCITATION VTE Prophylaxis Risk Level: Low Given or contraindicated: Other Anticoagulation Additional Copies To RV. Mckinnon MD; Alfredo Coker M.D.
[2016-08-02] MEDS ORDERED: METOPROLOL SUCC 50MG EXT REL TAB PO ONE ×2 (10:04→11:15)
[2016-08-02] MEDS ORDERED: ONDANSETRON INJ 2 MG/ML 2 ML VIAL IV PRN (10:30)
[2016-08-02] MEDS ORDERED: POLYETHYLENE (MIRALAX) 17 GM PACK PO PRN (10:30)
[2016-08-02] MEDS ORDERED: ALUMINUM/MAGNESIUM/SIMETH (MAALOX MAX) 30 ML UDC PO PRN (10:30)
[2016-08-02] MEDS ORDERED: NITROGLYCERIN 0.4 MG SL PER TAB CHARGE SL PRN (10:30)
[2016-08-02] MEDS ORDERED: ACETAMINOPHEN 325 MG TAB PO PRN (10:30)
[2016-08-02] MEDS ORDERED: MAGNESIUM HYDROXIDE SUSP 30 ML UDC PO PRN (10:30)
[2016-08-02] MEDS ORDERED: MoRPHine SULFATE 2 MG/ML CARP IV PRN (10:30)
[2016-08-02 11:13] VITALS: O2SAT 95
--- NOTE | 2016-08-02 13:57 | CARDIOLOGY CONSULTATION ---
DATE OF CONSULTATION: 08/02/2016 DATE OF CONSULTATION: 08/02/2016. PERTINENT HISTORY: Mrs. Landa is a 80-year-old white female admitted earlier today because of mildly decompensated congestive heart failure and atrial fibrillation with a rapid ventricular response. This consultation was ordered to assist in her management. Her recent history began in early June when seen by Dr. Maldonado. The patient had an echocardiogram performed to reevaluate her known mitral regurgitation. She had a newly discovered mild cardiomyopathy with an ejection fraction of 40-45% with global hypokinesis. There is moderate mitral regurgitation identified. On 06/24/2016 through 06/28/2016, the patient was hospitalized with a bilobar pneumonia and atrial fibrillation with a rapid ventricular response. She was placed on a diltiazem drip and eventually converted to long acting diltiazem at the time of discharge. She was seen in the office by Meg Tan on 07/18/2016 as a hospital followup. It was decided to increase her beta teresa dose due to her mild cardiomyopathy, and to discontinue her Diltiazem. Since that medication change, the patient has noted progressive shortness of breath and an increase in her palpitations. The patient typically follows weights at home. Her "dry" weight I 166 pounds. Yesterday morning, the patient weighed 171 pounds. The patient has received a dose of intravenous Lasix and has improved dramatically. Currently, the patient is resting comfortably in bed and without complaints. PAST MEDICAL HISTORY: 1. Permanent atrial fibrillation. 2. 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 3. Hypertension. 4. Left bundle branch block. 5. Moderate mitral regurgitation. 6. Nephrolithiasis. 7. Osteoporosis. 8. Hearing loss. 9. Lumbar disc disease. 10. Hyperglycemia. MEDICATIONS: 1. Metoprolol succinate 50 mg daily (new dose). 2. Diltiazem XR 180 mg daily -- to be started today. 3. Pradaxa 150 mg b.i.d. 4. KCl 20 mEq daily. 5. Magnesium oxide 400 mg daily. 6. Lasix 40 mg IV -- x1. 7. Fish oil 1 gram daily. 8. Multivitamin 1 per day. 9. Vitamin D 1000 international units daily. 10. Floranex 2 tablets daily. ALLERGIES: 1. AZITHROMYCIN. 2. LATEX. SOCIAL HISTORY: The patient is a . She lives close to her 2 sons. She does not use tobacco or alcohol. FAMILY HISTORY: No early coronary artery disease. REVIEW OF SYSTEMS: A 10-point review of systems was negative except for that described above. PHYSICAL EXAMINATION: GENERAL: This is a well-developed, well-nourished white female in no acute distress. VITAL SIGNS: Blood pressure 129/84 with an irregular pulse of 95. Respiratory rate is 18. The patient is afebrile at 36.9 degrees Celsius. Saturation 95% on room air. HEAD, EYES, EARS, NOSE, AND THROAT EXAMINATION: Negative. NECK: Supple with full carotid upstrokes. There are no carotid bruits. Jugular venous pressure is flat at 90 degrees. There is no thyromegaly. CARDIOVASCULAR EXAMINATION: Reveals an irregularly irregular rhythm with distant heart sounds. No obvious murmurs. No S3. LUNGS: Clear without rales, rhonchi, or wheezes. ABDOMEN: Soft and nontender without bruits. EXTREMITIES: Reveal intact radial artery pulses bilaterally. Trace pretibial edema is noted. LABORATORY DATA: CBC notes a hemoglobin of 11.6, hematocrit 34.6, white count 7.69, platelet count 310,000. Electrolytes note a sodium of 140, potassium 3.7, chloride 107, bicarbonate 24, BUN 17, creatinine 0.88, glucose 133. Troponin I level is undetectable at less than 0.015. CK is 66 with an MB fraction of 1.4. BNP is elevated at 13,517. EKG notes atrial fibrillation with a rapid ventricular response, left axis deviation, and a complete left bundle branch block. Chest x-ray shows no acute disease. IMPRESSION: Mrs. Landa was admitted with mildly decompensated congestive failure likely on the basis of rapid ventricular response to her atrial fibrillation. On the 14 of this month, her long acting Diltiazem was discontinued and her beta teresa increased. She has been noticing progressive symptoms since that change. The case was discussed with Dr. Rivera. We have decided to restart her diltiazem. Suspicion is that her new cardiomyopathy may be related to a rapid ventricular response to her atrial fibrillation. PLAN: 1. Agree with restarting diltiazem. 2. May need to increase metoprolol tartrate back to 100 mg daily. We will decide tomorrow. 3. Continue Pradaxa. 4. Further recommendations depending on her clinical course. MTDD
[2016-08-02] MEDS: DILTIAZEM HCL (TIAzac) 180 MG CAPCR PO SCH (14:19)
[2016-08-02] MEDS: POTASSIUM CHLORIDE 20 MEQ TABCR PO SCH (14:19)
[2016-08-02] MEDS: LACTOBACILLUS ACIDOPHILUS (FLORANEX) TAB PO SCH (14:19)
[2016-08-02] MEDS: MAGNESIUM OXIDE 400 MG TAB PO SCH (14:19)
[2016-08-02 15:11] LABS: FERRITIN 73.2 ng/ml (8.0-388.0)
[2016-08-02 15:47] VITALS: BP 149/78; PULSE 91; TEMP 37.2; O2SAT 95
[2016-08-02] MEDS ORDERED: POTASSIUM CHLORIDE 20 MEQ TABCR PO ONE (17:00)
[2016-08-02 19:44] VITALS: BP 103/60; PULSE 65; TEMP 37; O2SAT 95
[2016-08-02] MEDS: DABIGATRAN ELEXILATE 75 MG CAP PO SCH (21:23)
[2016-08-02 23:20] VITALS: BP 108/64; PULSE 65; TEMP 37; O2SAT 96
[2016-08-03 04:10] VITALS: BP 137/75; PULSE 74; TEMP 36.9; O2SAT 94
[2016-08-03 07:34] LABS: CALCIUM 8.2 mg/dl (8.5-10.1); CREATININE 1.1 mg/dl (0.60-1.20); MAGNESIUM 2.3 mg/dl (1.8-2.4); POTASSIUM 3.6 mmol/L (3.5-5.1)
[2016-08-03 07:44] VITALS: BP 114/68; PULSE 68; TEMP 36.5; O2SAT 94
[2016-08-03] MEDS: LACTOBACILLUS ACIDOPHILUS (FLORANEX) TAB PO SCH (08:47)
[2016-08-03] MEDS: DABIGATRAN ELEXILATE 75 MG CAP PO SCH (08:47)
[2016-08-03] MEDS ORDERED: CHOLECALCIFEROL 1000 INTER.UNIT TAB PO SCH (09:00)
[2016-08-03] MEDS ORDERED: OMEGA-3 (PURIFIED FISH OIL) 1 GM CAP PO SCH (09:00)
[2016-08-03] MEDS ORDERED: CEROVITE ADV FORMULA TAB PO SCH (09:00)
[2016-08-03] MEDS ORDERED: METOPROLOL SUCC 50MG EXT REL TAB PO SCH (09:00)
--- NOTE | 2016-08-03 10:09 | CARDIOLOGY PROGRESS NOTE ---
DATE: 08/03/2016 SUBJECTIVE: Mrs. Landa is resting comfortably in bed without complaints of chest pain, dyspnea, or palpitations. Slept well last evening and is now anxious for hospital discharge. OBJECTIVE: VITAL SIGNS: Blood pressure is 114/60 with a regular pulse of 65. Respiratory rate is 16. The patient is afebrile at 36.5 degrees Celsius. Saturation is 94% on room air. NECK: Supple with full carotid upstrokes. There are no carotid bruits. Jugular venous pressure is flat at 90 degrees. There is no thyromegaly. CARDIOVASCULAR: Reveals an irregularly irregular rhythm with distant heart sounds. No obvious murmurs or S3. LUNGS: Clear without rales, rhonchi, or wheezes. ABDOMEN: Soft, nontender without bruits. EXTREMITIES: Reveal intact radial artery pulses bilaterally. Trace pretibial edema is noted. DATA: Electrolytes note a sodium of 141, potassium 3.6, chloride 107, bicarb 26, BUN 27, creatinine 1.1, glucose 127. Troponin I levels are all normal. awake overnight monitor notes atrial fibrillation with a controlled ventricular response. IMPRESSION AND PLAN: 1. Permanent atrial fibrillation -- patient rate now well controlled with restart of diltiazem XR 180 mg daily. We would also continue metoprolol succinate at 50 mg daily. Hopefully, with adequate rate control, her left ventricular systolic function will improve. Continue Pradaxa as you are. 2. Acute on chronic combined systolic and diastolic congestive heart failure -- patient now compensated after a dose of intravenous furosemide. Decompensation likely secondary to rapid ventricular response to her atrial fibrillation. 3. Mild cardiomyopathy -- ejection fraction of 40% to 45% in June 2016. 4. Hypertension -- controlled. 5. Left bundle branch block. 6. Moderate mitral regurgitation. 7. Disposition -- stable for hospital discharge from a cardiac perspective.
[2016-08-03] MEDS: MAGNESIUM OXIDE 400 MG TAB PO SCH (12:29)
[2016-08-03] MEDS: DILTIAZEM HCL (TIAzac) 180 MG CAPCR PO SCH (12:29)
[2016-08-03] MEDS: POTASSIUM CHLORIDE 20 MEQ TABCR PO SCH (12:29)
[2016-08-03] MEDS ORDERED: TPRSR50 PO (13:59)
--- NOTE | 2016-08-03 14:02 | Discharge Instructions ---
Discharge Instructions Date of Service Aug 03, 2016. Admission Reason for Admission: Acute On Chronic Systolic Congestive Heart Failure Discharge Discharge Diagnosis / Problem: Congestive Heart Failure Exacerbation Discharge Goals Goal(s): Decrease discomfort, Therapeutic intervention Activity Recommendations Activity Limitations: resume your previous activity . Current Hospital Diet Patient's current hospital diet: Low Sodium Diet (2gm Na) Discharge Diet Recommended Diet: AHA Diet (Heart Healthy) Pending Studies Studies pending at discharge: no Laboratory Results Hemoglobin A1c Test 06/03/16 09:54 Range/Units Estimated Average Glucose 111 mg/dl Hemoglobin A1c 5.5 4.5-5.6 % Medical Emergencies . Who to Call and When: Medical Emergencies: If at any time you feel your situation is an emergency, please call 911 immediately. . Non-Emergent Contact Non-Emergency issues call your: Primary Care Provider, Chief Medical Director . . "Provider Documentation" section prepared by Jose Pierre. . VTE Core Measure Inpt VTE Proph given/why not?: Other Anticoagulation
[2016-08-03 14:06] VITALS: BP 114/68; PULSE 68; TEMP 36.5; O2SAT 94
--- NOTE | 2016-08-03 14:18 | Discharge Summary ---
Discharge Summary Date of Service Aug 03, 2016. (Jose Pierre MD) Discharge Summary Admission Date: Aug 02, 2016 at 10:09 Discharge Date: Aug 03, 2016 Discharge Disposition: Home Principal Diagnosis: CHF Exacerbation Consultations: Cardiology (Jose Pierre MD) Medication Reconciliation New Medications: Metoprolol Succinate (Metoprolol Succinate ER) 50 Mg Tabcr 50 MG PO DAILY for 30 Days, #30 TAB Continued Medications: Cholecalciferol (Vitamin D3) 1,000 Unit Tab 1000 UNITS PO DAILY for 90 Days, TAB 3 Refills Dabigatran Etexilate Mesylate (Pradaxa) 150 Mg Cap 150 MG PO BID, CAP Diltiazem Hcl Ext Rel (Tiazac) 180 Mg Capcr 180 MG PO DAILY, CAP Fish Oil ([place]-3) 1 Ea Cap 1 CAP PO DAILY, CAP Multivitamins/Minerals (Mvi With Minerals) Tab 1 TAB PO DAILY, TAB Probiotic Product (Probiotic) 1 Tab Tab 2 TAB PO DAILY Discontinued Medications: Metoprolol Succ (Toprol Xl) (Toprol-Xl ) 100 Mg Tabcr 100 MG PO DAILY, TAB Discharge Exam Patient with no acute events overnight. Patient states that she is feeling much better this morning and is back to her baseline. She denies any shortness of breath, chest pain, palpitations, leg swelling PND, abdominal pain, nausea, vomiting, fevers, chills or night sweats. Review of Systems: Constitutional: No chills, No fever Respiratory: No cough, No dyspnea at rest, No dyspnea on exertion, No shortness of breath, No sputum, No wheezing Cardiovascular: No PND, No chest pain, No orthopnea Physical Exam: General Appearance: WD/WN, no apparent distress Respiratory/Chest: lungs clear, normal breath sounds, no respiratory distress, no accessory muscle use Cardiovascular: no JVD, no murmur, normal peripheral pulses, + irregularly irregular Abdomen / GI: normal bowel sounds, non tender, soft Extremities: no calf tenderness, normal capillary refill, no pedal edema, non-tender (Jose Pierre MD) Hospital Course Mrs. Landa is a 80-year-old white female admitted on 08/02/2016 because of mildly decompensated congestive heart failure and atrial fibrillation with a rapid ventricular response. The patient had recently been stopped on her dilitiazem and increase on her beta teresa two weeks ago. Since that change she has been SOB and has had increase in palpitations and a 5 pound weight gain. In the hospital the patient was given a dose of lasix and improved dramatically. She was restarted on her diltiazem and her dose of B teresa was decreased to 50mg OD from 100mg OD. She was discharged on 08/03/2016 as she was hemodynamically stable and in no acute distress. It was decided that the patient follow up with cardiology as an outpatient Total Time Spent: Less than 30 minutes This includes examination of the patient, discharge planning, medication reconciliation, and communication with other providers. (Jose Pierre MD) Discharge Instructions Please refer to the electronic Patient Visit Report (Discharge Instructions) for additional information. (Jose Pierre MD) Follow-Up Cardiology PCP (Jose Pierre MD) Additional Copies To RV. Mckinnon MD; Alfredo Coker M.D. History Resident Physician Supervision Note: I was present with Dr. Pierre during the history and exam. I discussed the case with the resident and agree with the findings and plan as documented in the note. Any exceptions or clarifications are listed here. Patient reports feeling at her baseline. Reports no chest pain, SOB, palpitations, cough, nausea , diaphoresis, leg swelling, COLLIER, fatigue (Kumar Tanner MD) Constitutional: denies: chills, fever, weakness Respiratory: negative: cough, short of breath, wheezing Cardiovascular: denies chest pain, denies edema, denies palpitations, denies syncope Gastrointestinal/Abdominal: negative: abdominal pain, constipation, diarrhea, nausea Skin: negative: change in color, change in hair/nails (Kumar Tanner MD) General Appearance: WD/WN, no apparent distress Respiratory: chest non-tender, lungs clear, normal breath sounds, no respiratory distress Cardiovascular: normal peripheral pulses, no edema, no murmur, irregularly irregular Gastrointestinal: normal bowel sounds, non tender, soft, no organomegaly (Kumar Tanner MD) Assessment/Plan 80 y/o female h/o atrial fibrillation on AC w/ acute on chronic CHF Acute on chronic CHF - s/p diuresis - continue diltiazem, metoprolol. Cardiology onboard (Dr. Coker evaluated) Atrial fibrillation w/ RVR - resolved - continue metoprolol, diltiazem, pradaxa HTN - stable at present, continue regimen as above ST depressions on EKG - serial troponins neg CKD Stg II - at baseline (Kumar Tanner MD)
== END 2016-08-03 14:35 | disposition home or self-care (01) | DRG 291 ==
LOC: ENRESERVDT → ENRESERV → ENRESERVTM → C.EDB 07:45 → C.2T 10:09
PROVIDERS: ADMIT Internal Medicine; ATTEND Family Medicine
DX: I13.0 Hypertensive heart and chronic kidney disease with heart failure and stage 1 through stage 4 chronic kidney disease, or unspecified chronic kidney disease (principal); I50.43 Acute on chronic combined systolic (congestive) and diastolic (congestive) heart failure; I11.0 Hypertensive heart disease with heart failure; Z87.442 Personal history of urinary calculi; I44.7 Left bundle-branch block, unspecified; Z90.49 Acquired absence of other specified parts of digestive tract; Z98.41 Cataract extraction status, right eye; Z98.42 Cataract extraction status, left eye; Z80.3 Family history of malignant neoplasm of breast; Z80.8 Family history of malignant neoplasm of other organs or systems; Z83.3 Family history of diabetes mellitus; Z82.49 Family history of ischemic heart disease and other diseases of the circulatory system; Z84.1 Family history of disorders of kidney and ureter; Z82.3 Family history of stroke; Z91.040 Latex allergy status; Z88.1 Allergy status to other antibiotic agents; Z79.899 Other long term (current) drug therapy; N18.2 Chronic kidney disease, stage 2 (mild); D64.9 Anemia, unspecified; I42.9 Cardiomyopathy, unspecified; I34.0 Nonrheumatic mitral (valve) insufficiency; I48.2 Chronic atrial fibrillation; H91.90 Unspecified hearing loss, unspecified ear; M81.0 Age-related osteoporosis without current pathological fracture

== ENCOUNTER → 2016-12-30 | Outpatient (CLI) | payer OTHER ==
[~2016-12-30] MED LIST changes: +CHOL1000 PO; -CHOL100010 PO; -GUAISYP4 PO; -LVQ500 PO; -TPRSR25 PO; +TPRSR50 PO
--- NOTE | 2016-12-31 07:58 | MAMMOGRAPHY REPORT ---
BILATERAL DIGITAL SCREENING MAMMOGRAM WITH CAD: 12/30/2016 CLINICAL HISTORY: Routine screening. Patient has no complaints. TECHNIQUE: Bilateral CC and MLO views were obtained. Current study was also evaluated with a Compute r Aided Detection (CAD) system. COMPARISON: Comparison is made to exams dated: 12/26/2015 mammogram, 07/25/2014 mammogram, 03/24/2011 mammogram, 03/24/2011 ultrasound, 05/18/2013 mammogram, and 03/26/2012 mammogram - [facility]. BREAST COMPOSITION: The tissue of both breasts is almost entirely fatty. FINDINGS: There is a benign coarse calcification in the right breast, and stable intramammary lymph nodes in each lateral breast. No suspicious mass, architectural distortion or cluster of suspicious microcalcifications is seen. IMPRESSION: ACR BI-RADS CATEGORY 1: NEGATIVE There is no mammographic evidence of malignancy. A 1 year screening mammogram is recommended. The pa tient will receive written notification of the results. Approximately 10% of breast cancers are not detected with mammography. A negative mammographic report should not delay biopsy if a clinically suggestive mass is present. Meg Alonzo M.D. ay/:12/30/2016 15:50:27 Heater Helper: Shanell LESTER(Shannen)(Brooke), [facility] letter sent: Normal 1/2 BI-RADS Code: ACR BI-RADS Category 1: Negative
== END | disposition home or self-care (01) ==
LOC: C.MAMM 13:52
PROVIDERS: ATTEND Internal Medicine
DX: Z12.31 Encounter for screening mammogram for malignant neoplasm of breast (principal)

== ENCOUNTER → 2017-05-15 | Outpatient (CLI) | payer OTHER ==
[2017-05-15 12:13] LABS: BASO ABS # 0.05 K/uL (0-0.2); EOS % 3.5 %; EOS ABS # 0.18 K/uL (0-0.5); HEMATOCRIT 40.2 % (37-47); HEMOGLOBIN 13.5 g/dL (12.0-16.0); IG# 0.01 K/uL (0.00-0.02); LYMPH % 35.8 %; LYMPH ABS # 1.84 K/uL (1.2-3.4); MEAN CORPUSCULAR HEMOGLOBIN 32.9 pg (25-34); MEAN CORPUSCULAR HGB CONC 33.6 g/dl (32-36); MEAN PLATELET VOLUME 10.6 fL (7.4-10.4); MONO % 13.4 %; MONO ABS # 0.69 K/uL (0.11-0.59); NEUT % 46.1 %; NEUT ABS # 2.37 K/uL (1.4-6.5); PLATELET COUNT 311 K/uL (130-400); RED CELL DISTRIBUTION WIDTH CV 15.2 % (11.5-14.5); RED CELL DISTRIBUTION WIDTH SD 54.6 fL (36.4-46.3); WHITE BLOOD COUNT 5.14 K/uL (4.8-10.8)
[2017-05-15 12:25] LABS: ALBUMIN 3.7 gm/dl (3.4-5.0); ALT/SGPT 24 U/L (12-78); BLOOD UREA NITROGEN 21 mg/dl (7-18); CALCIUM 8.5 mg/dl (8.5-10.1); CARBON DIOXIDE 26 mmol/L (21-32); CHOLESTEROL 176 mg/dl (0-200); CREATININE 0.95 mg/dl (0.60-1.20); GLUCOSE 112 mg/dl (70-99); POTASSIUM 4.7 mmol/L (3.5-5.1); SODIUM 138 mmol/L (136-145)
[2017-05-15 12:34] LABS: ALKALINE PHOSPHATASE 63 U/L (45-117); AST/SGOT 22 U/L (15-37); LDL CHOLESTEROL CALCULATED 96 mg/dl; TOTAL PROTEIN 8.3 gm/dl (6.4-8.2)
== END | disposition home or self-care (01) ==
LOC: C.LAB1850 09:30
PROVIDERS: ATTEND Internal Medicine
DX: I10 Essential (primary) hypertension (principal); R73.01 Impaired fasting glucose; I48.91 Unspecified atrial fibrillation; D64.9 Anemia, unspecified

== ENCOUNTER 2019-09-23 06:28 | Inpatient (IN) ==
[2019-09-23] MEDS ORDERED: SODIUM CHLORIDE 0.9% 500 ML IV ONE (06:58)
--- NOTE | 2019-09-23 07:03 | Emergency Department Note ---
Impression & Plan Ataxic gait, CKD (chronic kidney disease), Hypertension, Biventricular cardiac pacemaker in situ ED Provider Note NAME: MODE BURNS AGE: 83 SEX: F ARRIVES VIA: Walk-In INFORMANT: Patient, ED PROVIDER(S): Farhad Lo MD CHIEF COMPLAINT: Unsteady gait. PLAN: Disposition: Admit MEDICAL DECISION MAKING: The patient is a pleasant 83-year-old woman with a past medical history of hypertension who presents emergency department accompanied by her son for evaluation of unsteadiness in her gait that she admits is been going on for the past week but became worse yesterday and then persisted this morning and she began worried that she may have had a "mini stroke". She denies s any dizziness but feels she cannot keep her balance. She denies any weakness of her arms or legs. She denies any difficulty with speech. She does report a subtle dull ache in the right posterior aspect of her head that is not particularly bothersome. Otherwise she denies any recent fevers, chills, cough, congestion, nausea, vomiting, diarrhea, chest pain, shortness of breath. On arrival the patient is fatigued appearing but no acute distress, afebrile stable vital signs. Patient appears clinically dry. She does exhibit an equivocal Romberg sign. She does have an unsteady ataxic gait which appears off to the left. Otherwise her cerebellar exam is intact including [id number], alternating palms and [id number]. Speech is fluent. EKG demonstrates paced rhythm. Chest x-ray negative for acute process. WBC, H/H and platelets within normal limits. Chemistry without acidosis. Creatinine 1.48 increased from recent but within range of prior values. Electrolytes and LFTs unremarkable. Troponin neg ative/undetectable. UA with WBCs but epithelial cells and no bacteria. Will await culture. CT of the head and CTA of the head and neck were negative for ICH, ischemia, severe narrowing or occlusion of large vessels. Given the patient's persistent new neurologic symptoms with unsteady/ataxic gait reasonable to admit the patient for further evaluation for possible stroke. The patient reports she is unsure if her pacemaker is compatible with MRI or not. [place] [facility] [place], with Dr. Rivera [facility] [place], who will evaluate the patient for admission. Triage Nursing notes reviewed and agree them. Prior medical records reviewed Vital Signs: reviewed and remarkable for hypertension. Differential diagnosis: Infection, dehydration, metabolic abnormality, hypo/hyperglycemia, electrolyte disturbance, anemia, hypoxia, cardiac sources, intracerebral event, toxicologic, neurologic, as well as other pathologies. ER treatment provided: See below. Diagnostics interpreted by me: ECG: Ventricular paced rhythm, 70 bpm, no ectopy, no overt acute ischemia. Cardiac Monitoring: An order for continuous cardiac monitoring was placed and demonstrated ventricular paced rhythm, 70 bpm, no ectopy. Laboratory studies: See below Imaging studies: XR chest 1V portable CLINICAL HISTORY: weakness COMPARISON STUDY: Chest CT September 15, 2018. Chest radiograph September 19, 2018. FINDINGS: A left subclavian pacer is in place. Note is made of mild cardiomegaly without evidence for pulmonary edema. There is no pneumothorax or pleural effusion. There is no consolidation. Mild biapical scarring is noted. IMPRESSION: No acute cardiopulmonary findings. -- CT OF THE HEAD WITHOUT CONTRAST CLINICAL HISTORY: Stroke evaluation COMPARISON STUDY: No previous studies for comparison. TECHNIQUE: Helical axial images of the head were obtained without IV contrast. Automated exposure control was utilized for the study. A dose lowering technique was utilized adhering to the principles of ALARA. FINDINGS: No acute intracranial hemorrhage, midline shift or mass effect is present. The ventricular system is unremarkable. Mild white matter hypodensity suggests small vessel disease. The basilar cisterns are patent. No extra-axial collections are present. There are no findings to suggest acute dural sinus thrombosis or acute territorial infarct. No significant calvarial abnormalities are present. Visualized portions of the sinuses and mastoid air cells are clear. IMPRESSION: No acute intracranial findings. -- CT angio neck with con HISTORY: Mental status change Stroke evaluation TECHNIQUE: Multiaxial CT angiography of the neck was performed IV contrast: 120 cc nonionic All measurements were calculated based on NASCET criteria. Maximum intensity projection images were also obtained. A dose lowering technique was utilized adhering to the principles of ALARA. COMPARISON STUDY: None. FINDINGS: The aortic arch and proximal great vessels are widely patent. There is no significant stenosis, occlusion, or dissection identified within the bila teral common carotid, internal carotid, or vertebral arteries. Minimal plaque formation left carotid bifurcation IMPRESSION: No significant stenosis, occlusion, or dissection identified within the carotid or vertebral arteries. Minimal scattered plaque formation -- CTA ANGIOGRAPHY OF THE HEAD CLINICAL HISTORY: Stroke evaluation COMPARISON STUDY: No previous studies for comparison. TECHNIQUE: Helical axial images of the head were obtained following uneventful intravenous administration of 120 cc of Optiray 320. Sagittal and coronal reconstructions were viewed as well as maximal intensity projections on an independent 3-D workstation. Automated exposure control was utilized for the st udy. A dose lowering technique was utilized adhering to the principles of ALARA. CT DOSE: 1082.95 mGy.cm FINDINGS: Please note that the CTA of the neck will be reported separately. No acute intracranial hemorrhage, midline shift or mass effect is present. Ventricular system is normal. The basilar cisterns are patent. The bilateral M1, M2, A1 and A2 segments are patent. There is no intraluminal thrombus. No abrupt vessel cut off is identified. Note is made of persistence of the right po sterior cerebral artery. There is mild sinus mucosal thickening. No intracranial aneurysm is identified. IMPRESSION: Unremarkable CTA of the head. Consultation(s): Case was d/[place] Alicia Mor[place] [facility] [place], with Dr. Rivera, [facility] [place], who will evaluate the patient for admission. HPI: The patient is a pleasant 83-year-old woman with a past medical history of hypertension who presents emergency department accompanied by her son for evaluation of unsteadiness in her gait that she admits is been going on for the past week but became worse yesterday and then persisted this morning and she began worried that she may have had a "mini stroke". She denies s any dizziness but feels she cannot keep her balance. She denies any weakness of her arms or legs. She denies any difficulty with speech. She does report a subtle dull ache in the right posterior aspect of her head that is not particularly bothersome. Otherwise she denies any recent fevers, chills, cough, congestion, nausea, vomiting, diarrhea, chest pain, shortness of breath. ROS: See above HPI for pertinent positives & negatives. A total of 10 systems reviewed and were otherwise negative. PAST MEDICAL HISTORY:See Below PAST SURGICAL HISTORY:See Below FAMILY HISTORY:See Below SOCIAL HISTORY:See Below HOME MEDICATIONS:See Below ALLERGIES:See Below VITALS:See Below PHYSICAL EXAMINATION: GENERAL: Awake, alert, well-appearing, in no distress HENT: Normocephalic, atraumatic. Oropharynx with dry mucous membranes and otherwise unremarkable. EYES: Normal conjunctiva. Sclera non-icteric. EOMI. No nystamgus. PEARRL. NECK: Supple. No nuchal rigidity. FROM. No JVD. RESPIRATORY: Clear to auscultation. CARDIAC: Regular rate, normal rhythm. Extremities warm and well perfused. Pulses equal. ABDOMEN: Soft, non-distended. No tenderness to palpation. No rebound or guarding. No masses. RECTAL: Deferred. MUSCULOSKELETAL: Chest examination reveals no tenderness. The back is symmetrical on inspection without obvious abnormality. There is no CVA tenderness to palpation. No joint edema. LOWER EXTREMITIES: Calves are equal size bilaterally and non-tender. No edema. No discoloration. NEURO: Speech is fluent. Face symmetric. 5/5 strength and SILT x 4 extremities. Cerebellar function intact including [id number]-[id number]-[id number], alternating palms, dwjq-[id number]. She has an equivocal Romberg sign. She has an unsteady, ataxic gait. SKIN: No rash or jaundice noted. Farhad Lo MD Past Med/Surg History Medical History Acute on chronic systolic (congestive) heart failure (Resolved) Anemia (2018) Resolved Atrial fibrillation with RVR (Resolved) Cardiomyopathy EF=40% 2018, EF=55-60% 2019 (s/p BiV) Creatinine elevation (12/2018) History of asthma History of cellulitis History of herpes zoster History of nephrolithiasis History of non-ST elevation myocardial infarction (NSTEMI) History of orthostatic hypotension Impaired fasting glucose LBBB (left bundle branch block) Moderate mitral regurgitation by prior echocardiogram Moderate pulmonary arterial systolic hypertension Pneumonia (Resolved 2016) Surgical History H/O ovarian cystectomy H/O tooth extraction History of ear, nose, and throat (ENT) surgery PERCUTANEOUS REPAIR OF NASOETHMOID FX july 2010 Hx of appendectomy Hx of tonsillectomy S/P biventricular cardiac pacemaker procedure (Acute 09/2018) S/P myringotomy with insertion of tube (2000) Family History Mother Hypertension Stroke Aunt Breast cancer maternal aunt Uterine cancer maternal aunt Sister Diabetes Father Macular degeneration Denies family history of Ovarian cancer Prostate cancer Heart disease Myocardial infarction Colorectal cancer Social History Preferred Language: Polish Communication Ability: Effective Test Consultant Required: No Beliefs That Will Affect Care: None marital status: / Current Living Situation: Family Current Living Situation Comment: lives with son current occupational status: retired Other Information That Helps Us Care for You: No Feels Safe at Home: Yes Safety Concerns: Feels Safe At This Time Smoking Status: Never smoker Do You Dip or Chew Tobacco: No ; Second Hand Exposure: No ; Tobacco Cessation Education Requested by Patient: No Hx Alcohol Use: No Hx Substance Use: No Allergies Allergies Allergy/AdvReac Type Severity Reaction Status Date / Time latex Allergy Unknown REDNESS Verified 09/23/19 06:45 Beta Adrenergic Blockers Allergy Unknown Unknown Uncoded 09/23/19 06:45 predniSONE TABS Allergy Unknown Unknown Uncoded 09/23/19 06:45 Azithromycin PACK AdvReac Severe Diarrhea Uncoded 09/23/19 06:45 Home Meds Home Medications Medication Instructions Recorded Confirmed cholecalciferol (vitamin D3) 1,000 unit PO QAM 09/15/18 09/23/19 multivitamin 1 tab PO QAM 11/14/18 09/23/19 furosemide 20 mg tablet 20 mg PO QAM tab 01/04/19 09/23/19 lisinopril 10 mg PO DAILY 09/23/19 09/23/19 Previous Rx's Medication Instructions Recorded carvedilol 12.5 mg tablet 12.5 mg PO BID #180 tab 11/23/18 spironolactone 25 mg tablet 12.5 mg PO QAM #90 tab 12/10/18 dabigatran etexilate 150 mg capsule 150 mg PO BID #180 cap 04/01/19 estradiol 1 gm PV 3XWK #42.5 gm 08/03/19 gabapentin 600 mg tablet 600 mg PO TID #270 tab 08/25/19 Results & Data (ED) Vital Signs Vital Signs - 24 hr 09/23/19 06:34 09/23/19 08:48 Temperature 36.5 C Temperature Source Oral Pulse Rate 70 Pulse Rate [Right Finger] 71 Respiratory Rate 16 18 Respiratory Effort / Characteristics Non-Labored Spontaneous Respiratory Depth Normal Respiratory Pattern Regular Blood Pressure 190/87 H Blood Pressure [Right Arm] 211/83 H Blood Pressure Mean 121 Blood Pressure Mean [Right Arm] 125 Blood Pressure Position [Right Arm] Sitting Pulse Oximetry 97 94 Oxygen Delivery Method Room Air Room Air Sepsis Recent Fever Within 48 Hours No Sepsis New/Unexplained Change in Mental Status No Sepsis Action Taken by Nursing No Action Required Laboratory Data Attestation: I reviewed the patient's lab results. Result diagrams: 09/23/19 07:13 09/23/19 08:19 Lab Results 09/23/19 09/23/19 09/23/19 Range/Units 07:13 07:13 07:13 WBC 5.76 (4.8-10.8) K/uL RBC 3.70 L (4.2-5.4) M/uL Hgb 12.5 (12.0-16.0) g/dL Hct 37.2 (37-47) % MCV 100.5 H (80-100) fL MCH 33.8 (25-34) pg MCHC 33.6 (32-36) g/dL RDW Std Deviation 51.8 H (36.4-46.3) fL RDW Coeff of Elijah 14.1 (11.5-14.5) % Plt Count 254 (130-400) K/uL MPV 10.5 H (7.4-10.4) fL Immature Gran % (Auto) 0.2 % Neut % (Auto) 54.2 % Lymph % (Auto) 28.5 % Petroleum % (Auto) 13.4 % Eos % (Auto) 3.0 % Baso % (Auto) 0.7 % Immature Gran # (Auto) 0.01 (0.00-0.02) K/uL Neut # (Auto) 3.13 (1.4-6.5) K/uL Lymph # (Auto) 1.64 (1.2-3.4) K/uL Petroleum # (Auto) 0.77 H (0.11-0.59) K/uL Eos # (Auto) 0.17 (0-0.5) K/uL Baso # (Auto) 0.04 (0-0.2) K/uL PT 14.9 H (9.0-12.0) Seconds INR 1.4 H (0.9-1.1) APTT 51.9 H* (21.0-31.0) Seconds PTT Ratio 1.9 Sodium 137 (136-145) mmol/L Potassium (3.5-5.1) mmol/L Chloride 107 (98-107) mmol/L Carbon Dioxide 24 (21-32) mmol/L Anion Gap 6.0 (3-11) BUN 41 H (7-18) mg/dl Creatinine 1.48 H (0.6-1.2) mg/dl Est Cr Clr Drug Dosing 28.6 ml/min Est GFR ( Amer) 38.1 Est GFR (Non-Af Amer) 32.9 BUN/Creatinine Ratio 27.7 H (10-20) Glucose 104 H (70-99) mg/dl Estimat Average Glucose mg/dl Hemoglobin A1c (4.5-5.6) % Calcium 8.9 (8.5-10.1) mg/dl Phosphorus 4.0 (2.5-4.9) mg/dl Magnesium (1.8-2.4) mg/dl Total Bilirubin 0.4 (0.2-1) mg/dl AST (15-37) U/L ALT 23 (12-78) U/L Alkaline Phosphatase 51 (45-117) U/L Troponin I < 0.015 (0-0.045) ng/ml Total Protein 7.8 (6.4-8.2) gm/dl Albumin 3.3 L (3.4-5.0) gm/dl Globulin 4.5 H (2.5-4.0) gm/dl Albumin/Globulin Ratio 0.7 L (0.9-2) TSH 3.690 (0.300-4.500) uIu/ml Urine Color Urine Appearance (Clear) Urine pH (4.5-7.5) Ur Specific [place] (1.000-1.030) Urine Protein (Negative) Urine Glucose (UA) (Negative) Urine Ketones (Negative) Urine Blood (Negative) Urine Nitrite (Negative) Urine Bilirubin (Negative) Urine Urobilinogen (Negative) Ur Leukocyte Esterase (Negative) Urine WBC (Auto) (0-5) /hpf Urine RBC (Auto) (0-4) /hpf U Hyaline Cast (Auto) (0-5) /lpf U Epithel Cells (Auto) (0-5) /lpf Urine Bacteria (Auto) (Negative) 06/09/23/19 09/23/19 Range/Units 07:13 07:32 08:19 WBC (4.8-10.8) K/uL RBC (4.2-5.4) M/uL Hgb (12.0-16.0) g/dL Hct (37-47) % MCV (80-100) fL MCH (25-34) pg MCHC (32-36) g/dL RDW Std Deviation (36.4-46.3) fL RDW Coeff of Elijah (11.5-14.5) % Plt Count (130-400) K/uL MPV (7.4-10.4) fL Immature Gran % (Auto) % Neut % (Auto) % Lymph % (Auto) % Petroleum % (Auto) % Eos % (Auto) % Baso % (Auto) % Immature Gran # (Auto) (0.00-0.02) K/uL Neut # (Auto) (1.4-6.5) K/uL Lymph # (Auto) (1.2-3.4) K/uL Petroleum # (Auto) (0.11-0.59) K/uL Eos # (Auto) (0-0.5) K/uL Baso # (Auto) (0-0.2) K/uL PT (9.0-12.0) Seconds INR (0.9-1.1) APTT (21.0-31.0) Seconds PTT Ratio Sodium (136-145) mmol/L Potassium 4.9 (3.5-5.1) mmol/L Chloride (98-107) mmol/L Carbon Dioxide (21-32) mmol/L Anion Gap (3-11) BUN (7-18) mg/dl Creatinine (0.6-1.2) mg/dl Est Cr Clr Drug Dosing ml/min Est GFR ( Amer) Est GFR (Non-Af Amer) BUN/Creatinine Ratio (10-20) Glucose (70-99) mg/dl Estimat Average Glucose 126 mg/dl Hemoglobin A1c 6.0 H (4.5-5.6) % Calcium (8.5-10.1) mg/dl Phosphorus (2.5-4.9) mg/dl Magnesium 2.3 (1.8-2.4) mg/dl Total Bilirubin (0.2-1) mg/dl AST 19 (15-37) U/L ALT (12-78) U/L Alkaline Phosphatase (45-117) U/L Troponin I (0-0.045) ng/ml Total Protein (6.4-8.2) gm/dl Albumin (3.4-5.0) gm/dl Globulin (2.5-4.0) gm/dl Albumin/Globulin Ratio (0.9-2) TSH (0.300-4.500) uIu/ml Urine Color Yellow Urine Appearance Cloudy A (Clear) Urine pH 6.0 (4.5-7.5) Ur Specific [place] 1.010 (1.000-1.030) Urine Protein Negative (Negative) Urine Glucose (UA) Negative (Negative) Urine Ketones Negative (Negative) Urine Blood Negative (Negative) Urine Nitrite Negative (Negative) Urine Bilirubin Negative (Negative) Urine Urobilinogen Negative (Negative) Ur Leukocyte Esterase 3+ H (Negative) Urine WBC (Auto) >30 H (0-5) /hpf Urine RBC (Auto) 0-4 (0-4) /hpf U Hyaline Cast (Auto) 1-5 (0-5) /lpf U Epithel Cells (Auto) >30 H (0-5) /lpf Urine Bacteria (Auto) Negative (Negative) Administered Medications Carvedilol (Coreg) 12.5 mg PO BID [facility] Stop: 10/23/19 10:05 Last Admin: 09/23/19 20:02 Dose: 12.5 mg Documented by: [id number] Admin: 09/23/19 11:00 Dose: 12.5 mg Documented by: [id number] Dabigatran (Pradaxa) 75 mg PO BID [facility] Stop: 10/23/19 20:59 Last Admin: 09/23/19 20:02 Dose: 75 mg Documented by: [id number] Ceftriaxone Sodium 1,000 mg/ (Dextrose) 50 mls @ 100 mls/hr IV Q24H [facility]; Protocol Stop: 09/28/19 13:59 Last Infusion: 09/23/19 14:33 Dose: 0 mls/hr Documented by: [id number] Admin: 09/23/19 14:02 Dose: 100 mls/hr Documented by: [id number] Ioversol (Optiray 320 125ml) 120 ml IV ONCE PRN PRN Reason: Interaction Checking Stop: 09/27/19 08:20 Last Admin: 09/23/19 08:22 Dose: 120 ml Documented by: [id number] Lisinopril (Zestril) 10 mg PO DAILY [facility] Stop: 10/23/19 10:14 Last Admin: 09/23/19 11:00 Dose: 10 mg Documented by: [id number] Discontinued Medications Sodium Chloride (Nss) 500 mls @ 999 mls/hr IV .Q31M ONE Stop: 09/23/19 07:28 Last Infusion: 09/23/19 08:10 Dose: 0 mls/hr Documented by: [id number] Admin: 09/23/19 07:32 Dose: 999 mls/hr Documented by: [id number] Lisinopril (Zestril) Confirm Administered Dose 10 mg PO .STK-MED ONE Stop: 09/23/19 11:00 Last Admin: 09/23/19 11:01 Dose: Not Given Documented by: [id number] Blood Pressure Blood Pressure Findings: Elevated blood pressure Blood Pressure Disposition: further management by hospitalist Discharge Plan Visit Data *Final* Discharge Date/Time: 09/23/19 12:53 Chief Complaint: Neuro Symptoms/Deficit Stated Complaint: CANT WALK STRAIGHT - OFF BALANCED ED Provider: Farhad Lo Discharge Problem: Ataxic gait, CKD (chronic kidney disease), Hypertension, Biventricular cardiac pacemaker in situ Patient Disposition: Admitted As Inpatient Discharge Instructions Interventions: ED Discharge Assessment Last Done: 09/23/19 12:53
--- NOTE | 2019-09-23 07:37 | XRay Report ---
XR chest 1V portable CLINICAL HISTORY: weakness COMPARISON STUDY: Chest CT September 15, 2018. Chest radiograph September 19, 2018. FINDINGS: A left subclavian pacer is in place. Note is made of mild cardiomegaly without evidence for pulmonary edema. There is no pneumothorax or pleural effusion. There is no consolidation. Mild biapi marina scarring is noted. IMPRESSION: No acute cardiopulmonary findings. ACT 112: Negative or not required by law. Electronically signed by: Jose Luis Beltran M.D. 09/23/2019 7:36 AM
[2019-09-23 07:45] LABS: Appearance Urine Cloudy (Clear); Bacteria Urine Automated Negative (Negative); Bilirubin Urine Negative (Negative); Blood Urine Negative (Negative); Color Urine Yellow; Epithelial Cell Urine Auto >30 /lpf (0-5); Glucose Urine UA Negative (Negative); Ketones Urine Negative (Negative); Leukocyte Esterase Urine 3+ (Negative); Nitrite Urine Negative (Negative); Protein Urine Negative (Negative); RBC Urine Automated 0-4 /hpf (0-4); Urobilinogen Urine Negative (Negative); WBC Urine Automated >30 /hpf (0-5)
[2019-09-23 07:46] LABS: Basophils # (auto) 0.04 K/uL (0-0.2); Basophils % (auto) 0.7 %; Eosinophils # (auto) 0.17 K/uL (0-0.5); Hematocrit (blood only) 37.2 % (37-47); Hemoglobin 12.5 g/dL (12.0-16.0); Immature Granulocytes # (auto) 0.01 K/uL (0.00-0.02); Immature Granulocytes % (auto) 0.2 %; Lymphocytes # (auto) 1.64 K/uL (1.2-3.4); Lymphocytes % (auto) 28.5 %; Mean Corpuscular Hemoglobin 33.8 pg (25-34); Mean Corpuscular Hgb Conc 33.6 g/dL (32-36); Mean Corpuscular Volume 100.5 fL (80-100); Mean Platelet Volume 10.5 fL (7.4-10.4); Monocytes # (auto) 0.77 K/uL (0.11-0.59); Monocytes % (auto) 13.4 %; Neutrophils # (auto) 3.13 K/uL (1.4-6.5); Neutrophils % (auto) 54.2 %; Platelet Count 254 K/uL (130-400); RDW Coefficient of Variation 14.1 % (11.5-14.5); RDW Standard Deviation 51.8 fL (36.4-46.3); White Blood Count 5.76 K/uL (4.8-10.8)
[2019-09-23 08:00] LABS: Alanine Aminotransferase 23 U/L (12-78); Albumin Level 3.3 gm/dl (3.4-5.0); BUN Creatinine Ratio 27.7 (10-20); Blood Urea Nitrogen 41 mg/dl (7-18); Calcium 8.9 mg/dl (8.5-10.1); Carbon Dioxide 24 mmol/L (21-32); Chloride 107 mmol/L (98-107); Creatinine Clr Calc Pharmacy 28.6 ml/min; Est GFR (African American) 38.1; Est GFR (Non-African American) 32.9; Glucose 104 mg/dl (70-99); Sodium 137 mmol/L (136-145)
[2019-09-23 08:01] LABS: INR 1.4 (0.9-1.1); Partial Thromboplastin Ratio 1.9; Prothrombin Time 14.9 Seconds (9.0-12.0)
[2019-09-23 08:09] LABS: Albumin Globulin Ratio 0.7 (0.9-2); Alkaline Phosphatase 51 U/L (45-117); Bilirubin,Total 0.4 mg/dl (0.2-1); Globulin 4.5 gm/dl (2.5-4.0); Total Protein 7.8 gm/dl (6.4-8.2); Troponin I < 0.015 ng/ml (0-0.045)
[2019-09-23 08:16] LABS: Partial Thromboplastin Time 51.9 Seconds (21.0-31.0)
[2019-09-23] MEDS ORDERED: OPTIRAY 320 125ml IV PRN (08:21)
[2019-09-23 08:39] LABS: Potassium 4.9 mmol/L (3.5-5.1)
[2019-09-23 08:44] LABS: Magnesium 2.3 mg/dl (1.8-2.4)
--- NOTE | 2019-09-23 08:55 | CT Scan Report ---
CT OF THE HEAD WITHOUT CONTRAST CLINICAL HISTORY: Stroke evaluation COMPARISON STUDY: No previous studies for comparison. TECHNIQUE: Helical axial images of the head were obtained without IV contrast. Automated exposure con trol was utilized for the study. A dose lowering technique was utilized adhering to the principles o f ALARA. FINDINGS: No acute intracranial hemorrhage, midline shift or mass effect is present. The ventricular system is unremarkable. Mild white matter hypodensity suggests small vessel disease. The basilar cist erns are patent. No extra-axial collections are present. There are no findings to suggest acute dural sinus thrombosis or acute territorial infarct. No significant calvarial abnormalities are present. V isualized portions of the sinuses and mastoid air cells are clear. IMPRESSION: No acute intracranial findings. ACT 112: Negative or not required by law. Electronically signed by: Jose Luis Beltran M.D. 09/23/2019 8:54 AM
--- NOTE | 2019-09-23 08:56 | CT Scan Report ---
CT angio neck with con HISTORY: Mental status change Stroke evaluation TECHNIQUE: Multiaxial CT angiography of the neck was performed IV contrast: 120 cc nonionic All karol urements were calculated based on NASCET criteria. Maximum intensity projection images were also obt ained. A dose lowering technique was utilized adhering to the principles of ALARA. COMPARISON STUDY: None. FINDINGS: The aortic arch and proximal great vessels are widely patent. There is no significant sten osis, occlusion, or dissection identified within the bilateral common carotid, internal carotid, or v ertebral arteries. Minimal plaque formation left carotid bifurcation IMPRESSION: No significant stenosis, occlusion, or dissection identified within the carotid or vertebral arteries . Minimal scattered plaque formation ACT 112: Negative or not required by law. The above report was generated using voice recognition software. It may contain grammatical, syntax or spelling errors. Electronically signed by: Jacek Jang M.D. 09/23/2019 8:55 AM
--- NOTE | 2019-09-23 08:59 | CT Scan Report ---
CTA ANGIOGRAPHY OF THE HEAD CLINICAL HISTORY: Stroke evaluation COMPARISON STUDY: No previous studies for comparison. TECHNIQUE: Helical axial images of the head were obtained following uneventful intravenous administr ation of 120 cc of Optiray 320. Sagittal and coronal reconstructions were viewed as well as maximal i ntensity projections on an independent 3-D workstation. Automated exposure control was utilized for the study. A dose lowering technique was utilized adhering to the principles of ALARA. CT DOSE: 1082.95 mGy.cm FINDINGS: Please note that the CTA of the neck will be reported separately. No acute intracranial hem orrhage, midline shift or mass effect is present. Ventricular system is normal. The basilar cisterns are patent. The bilateral M1, M2, A1 and A2 segments are patent. There is no intraluminal thrombus. N o abrupt vessel cut off is identified. Note is made of persistence of the right posterior cereb ral artery. There is mild sinus mucosal thickening. No intracranial aneurysm is identified. IMPRESSION: Unremarkable CTA of the head. ACT 112: Negative or not required by law. Electronically signed by: Jose Luis Beltran M.D. 09/23/2019 8:58 AM
--- NOTE | 2019-09-23 09:29 | History & Physical Report ---
Date of Service September 23, 2019 Assessment & Plan (1) Ataxic gait: Deconditioning vs. CVA vs. UTI - Admit to med surg with tele - CTA head and neck are negative for significant stenosis/occlusion - Stroke order set completed. MRI brain w/o contrast pending, repeat TTE for cardioembolic source - Continue anticoagulation with Pradaxa, no indication to add antiplatelet at this time, if stroke confirmed likely to be cardioembolic given known a. fib - Neuro consulted - Urine appears infected, pt has had wright sensitive E.Coli in the past, last being 1 year ago with similar UA results. Will start ceftriaxone IV now. Follow urine culture. Possible that this would worsen gait over the past week. - PT eval (2) Cardiomyopathy: - Last echocardiogram completed showed preserved EF of 55 to 60%, returned to normal after biventricular pacemaker insertion last summer. - Follow with Dr. Maldonado as outpt - Hold lasix for now (3) Hypertension: - Continue beta-teresa, VIANEY - hold diuretics in light of elevated BUN/Cr, no signs/symptoms heart failure (4) Permanent atrial fibrillation: - cont rate control with Carvedilol 12.5 mg bid - anticoagulation with Pradaxa 150 mg bid - Follows Dr. Coello for pacemaker - Interrogate pacemaker to eval for any changes causing worsening gait or weakness. (5) S/P biventricular cardiac pacemaker procedure: -Placed October 01, 2018 due to worsening cardiomyopathy, low ejection fraction, and underwent AV marisa ablation and biventricular pacemaker implantation ([employer]), implanted without an atrial lead due to permanent A. fib -Follows with Dr. Coello -Last pacemaker eval was in February 2019 and had 11 years battery life (6) Moderate pulmonary arterial systolic hypertension: - noted, stable (7) CKD (chronic kidney disease): - Cr. 1.48, appears to have a baseline around 1.2- 1.5 at baseline, will continue lisinopril for now. - Hold diuretics as no sign of heart failure and improved EF on last echo - Given NSS 500 ml in the ER (8) Osteopenia: - Continue Vit D supplementation, estradiol on hold - Continue to encourage weight bearing exercise (9) DVT prophylaxis: - teds, scds, pradaxa CODE: DNR Dispo: From home, likely to remain in the hospital x 1-2 days History of Present Illness Primary Care Provider: Mary Laughlin MD This is an 83-year-old female with PMHx of cardiomyopathy, A. fib s/p biventricular cardiac pacemaker, LBBB, HTN, anemia, and STEMI, moderate pulmonary artery hypertension, CKD, and osteopenia who presents with worsening left leg weakness and difficulty walking. She reports this started about 1 week ago, progressively worsening, was at home yesterday noticed she was having more difficulty walking, had difficulty moving the left leg more than the right, and thought she could have had a stroke, therefore presented to the ER. She typi alon walks on a daily basis, and had to take a shorter walk yesterday due to difficulty. 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 She denies any lightheadedness, dizziness, upper extremity weakness, changes in appetite, abdominal complaints. She denies any dysuria, hematuria, increased in urinary frequency but states that she does take a water pill so it is hard to tell. She denies any other acute complaints. She lives in her own home, has 2 sons and their families living with her, 11 years ago. Allergies Allergy/AdvReac Type Severity Reaction Status Date / Time latex Allergy Unknown REDNESS Verified 09/23/19 06:45 Beta Adrenergic Blockers Allergy Unknown Unknown Uncoded 09/23/19 06:45 predniSONE TABS Allergy Unknown Unknown Uncoded 09/23/19 06:45 Azithromycin PACK AdvReac Severe Diarrhea Uncoded 09/23/19 06:45 Home Medications Home Medications Medication Instructions Recorded Confirmed Type cholecalciferol (vitamin D3) 1,000 unit PO QAM 09/15/18 09/23/19 History multivitamin 1 tab PO QAM 11/14/18 09/23/19 History carvedilol 12.5 mg tablet 12.5 mg PO BID #180 tab 11/23/18 09/23/19 Rx spironolactone 25 mg tablet 12.5 mg PO QAM #90 tab 12/10/18 09/23/19 Rx furosemide 20 mg tablet 20 mg PO QAM tab 01/04/19 09/23/19 History dabigatran etexilate 150 mg capsule 150 mg PO BID #180 cap 04/01/19 09/23/19 Rx estradiol 1 gm PV 3XWK #42.5 gm 08/03/19 09/23/19 Rx gabapentin 600 mg tablet 600 mg PO TID #270 tab 08/25/19 09/23/19 Rx lisinopril 10 mg PO DAILY 09/23/19 09/23/19 History Past Med/Surg History Social History Preferred Language: Armenian Communication Ability: Effective 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 Beliefs That Will Affect Care: None marital status: / Current Living Situation: Family Current Living Situation Comment: lives with son current occupational status: retired Other Information That Helps Us Care for You: No Feels Safe at Home: Yes Safety Concerns: Feels Safe At This Time Smoking Status: Never smoker Do You Dip or Chew Tobacco: No ; Second Hand Exposure: No ; Tobacco Cessation Education Requested by Patient: No Hx Alcohol Use: No Hx Substance Use: No Review of Systems Review of Systems: Constitutional: No fever, sweats or chills Eyes: No diplopia, no worsening or blurred vision ENT: normal hearing, no trouble swallowing Respiratory: No cough, sputum, dyspnea at rest or on exertion Cardiovascular: No chest pain, tightness or palpitations Abdomen: No pain, nausea, vomiting, diarrhea or constipation Musculoskeletal: No joint pain, calf pain, swelling Neurologic: As per HPI, no numbness or tingling. Psychiatric: No anxiety or depression Skin: No rash or itch Physical Exam Physical Exam: General: awake, alert, no apparent distress Head: Normocephalic, atraumatic ENT: PERRL, EOMI, no pharyngeal exudate, mucous membranes moist Chest: Clear to auscultation, on room air, no adventitious breath sounds Cardiac: Regular rate and rhythm, no murmur, no JVD, normal peripheral pulses, good capillary refill Abdominal: NABS x 4 quadrants, soft, nondistended nontender to palpation, no rebound, guarding or tenderness Extremities: Normal inspection, no peripheral edema or erythema, calfs nontender to palpation Psych: Normal mood and affect Neuro: AAO x 3, strength intact bilaterally and rated 5/5, no gross motor deficits, speech is clear, gait not assessed, no peripheral sensory deficits Skin: no rash or erythema Results & Data Results & Data ([facility]) Vital Signs (Past 12 Hours) Vital Signs Temp Pulse Pulse Resp BP BP Pulse Ox 09/23/19 08:48 71 18 211/83 H 94 09/23/19 06:34 36.5 C 70 16 190/[address] OF THE HEAD WITHOUT CONTRAST IMPRESSION: No acute intracranial findings. XR chest 1V portable IMPRESSION: No acute cardiopulmonary findings. CTA ANGIOGRAPHY OF THE HEAD IMPRESSION: Unremarkable CTA of the head. CT angio neck with con IMPRESSION: No significant stenosis, occlusion, or dissection identified within the carotid or vertebral arteries. Minimal scattered plaque formation ECG Indication: other (possible CVA) Rate (beats per minute): 70 Rhythm: atrial fibrillation Findings: + other (Ventricular-paced rhythm) Comparison ECG Date: from (01/03/2019) Change: no significant change Code Status & VTE Plan Code Status DNR - discussed with pt and her son at bedside. Supervising Physician Co-Signing Physician Notes I personally saw and examined the patient. I verified all medina points and agree with HELENA Mora with the following exceptions and/or additions: 83 yo female with 1-2 weeks of generalized ambulatory dysfunction, not falling more to one side. No associated vision changes, presyncope or syncope. No associated infective symptoms; no fevers, chills, shortness of breath, cough, urinary Sx. O/E HS 1+2, no murmurs, Chest CTAB, CN2->12 intact (mild blurring of left vision, not acute), extremity strength 5/5 equal b/l, sensation intact, UE co- ordination normal. LE co-ordination reduced as per patient from her baseline. No pronator drift. Downgoing plantar reflexes. A/P Ataxic bilateral gait - mild LE co-ordination deficit L > R without corresponding UE deficit. CVA vs. UTI (no symptoms but UA - LE 3+) vs. generalized deconditioning (not moving as much during lockdown for last 3 months). No back pain to suspect spinal pathology. Possible UTI Rx with ceftriaxone. Stroke workup as above. PG Care Time/CCT Total # of Minutes Spent Total Time Spent with Patient: Total time spent is greater than 50% in coordination of care (as documented) at patient's floor/unit and/or counseling patient: Coding Level of Care Code 92581 Initial Inpt Care Lvl 3 Diagnoses Ataxic gait R26.0 Cardiomyopathy I42.9 Hypertension I10 Permanent atrial fibrillation I48.21 S/P biventricular cardiac pacemaker procedure Z95.0 Moderate pulmonary arterial systolic hypertension I27.21 CKD (chronic kidney disease) N18.9 Osteopenia M85.80 DVT prophylaxis Z29.9
[2019-09-23] MEDS ORDERED: lisinopriL 5 MG TAB PO ONE (10:59)
[2019-09-23] MEDS: carvediloL 12.5 MG TAB PO SCH ×2 (11:00→20:02)
[2019-09-23] MEDS: lisinopriL 10 MG TAB PO SCH (11:00)
[2019-09-23] MEDS ORDERED: ONDANSETRON INJ 2 MG/ML 2 ML VIAL IV PRN (13:07)
[2019-09-23] MEDS ORDERED: GABAPENTIN 600 MG TAB PO PRN ×2 (13:07→21:45)
[2019-09-23] MEDS ORDERED: PHARMACIST DISCHARGE MED REC CONSULT PRN (13:07)
[2019-09-23] MEDS ORDERED: ACETAMINOPHEN 325 MG TAB PO PRN (13:07)
[2019-09-23] MEDS ORDERED: cefTRIAXone SODIUM 1,000 MG in DEXTROSE 5% 50 ML IV SCH (14:00)
[2019-09-23 14:17] LABS: Estimated Average Glucose 126 mg/dl
--- NOTE | 2019-09-23 16:56 | Magnetic Resonance Report ---
MRI OF THE BRAIN WITHOUT IV CONTRAST CLINICAL HISTORY: Strokelike symptoms. Loss of coordination. COMPARISON STUDY: CT of the brain performed the same day 09/23/2019. TECHNIQUE: MRI of the brain was performed utilizing various T1 and T2-weighted sequences in the axial , sagittal, and coronal planes. IV contrast was not administered for this examination. FINDINGS: Brain parenchyma: There is age-related involutional change noting [id number] subcortical and pe riventricular microangiopathic disease. There is no hemorrhage or mass effect. There is no restricted diffusion to suggest acute ischemia. Flowers-white matter differentiation is preserved. No extra-axial fluid collection is seen. The cerebellar tonsils are normal in configuration. Ventricles, sulci, and cisterns: Prominent secondary to involutional change. Pituitary and sella: Unremarkable. Intracranial vasculature: Normal flow voids are maintained at the skull base. Orbits: The bony orbits are grossly intact. Orbital contents are normal in appearance noting bilatera l ocular lens implants. Sinuses and mastoids: There is mild mucosal thickening within the ethmoid sinuses. The remaining nasa l sinuses are clear. The mastoid air cells are well pneumatized. Calvarium: Unremarkable. Cervical cord: Partially visualized cervical spinal cord is normal in morphology and signal intensity . IMPRESSION: No acute intracranial abnormality. ACT 112: Negative or not required by law. Electronically signed by: Larry Stewart M.D. 09/23/2019 4:55 PM
--- NOTE | 2019-09-23 19:18 | Electrocardiogram Report ---
Test Reason : Blood Pressure : / mmHG Vent. Rate : 070 BPM Atrial Rate : 070 BPM P-R Int : 000 ms QRS Dur : 132 ms QT Int : 448 ms P-R-T Axes : 054 083 038 degrees QTc Int : 483 ms Ventricular-paced rhythm Biventricular pacemaker detected Abnormal ECG When compared with ECG of 03-JAN-2019 10:31, No significant change was found Confirmed by Kumar Harrison ([id number]) on 09/23/2019 7:17:47 PM Referred By: REFERRED SELF Confirmed By:Giles Harrison
[2019-09-23] MEDS: DABIGATRAN ETEXILATE 75 MG CAP PO SCH (20:02)
[2019-09-24 06:50] LABS: Basophils # (auto) 0.03 K/uL (0-0.2); Basophils % (auto) 0.6 %; Eosinophils # (auto) 0.22 K/uL (0-0.5); Eosinophils % (auto) 4.3 %; Hematocrit (blood only) 35.3 % (37-47); Hemoglobin 11.7 g/dL (12.0-16.0); Immature Granulocytes # (auto) 0.01 K/uL (0.00-0.02); Immature Granulocytes % (auto) 0.2 %; Lymphocytes # (auto) 1.56 K/uL (1.2-3.4); Lymphocytes % (auto) 30.4 %; Mean Corpuscular Hemoglobin 32.9 pg (25-34); Mean Corpuscular Hgb Conc 33.1 g/dL (32-36); Mean Corpuscular Volume 99.2 fL (80-100); Mean Platelet Volume 10.6 fL (7.4-10.4); Monocytes # (auto) 0.85 K/uL (0.11-0.59); Monocytes % (auto) 16.6 %; Neutrophils # (auto) 2.46 K/uL (1.4-6.5); Neutrophils % (auto) 47.9 %; Platelet Count 225 K/uL (130-400); RDW Coefficient of Variation 14.4 % (11.5-14.5); RDW Standard Deviation 52.1 fL (36.4-46.3); Red Blood Count 3.56 M/uL (4.2-5.4); White Blood Count 5.13 K/uL (4.8-10.8)
[2019-09-24 07:21] LABS: BUN Creatinine Ratio 25.3 (10-20); Calcium 8.4 mg/dl (8.5-10.1); Est GFR (African American) 38.7; Est GFR (Non-African American) 33.4; Potassium 4.4 mmol/L (3.5-5.1)
--- NOTE | 2019-09-24 08:22 | Neurology Consultation ---
Date of Consultation September 24, 2019 Assessment & Plan (1) Ataxic gait: (2) Lumbar degenerative disc disease: (3) Hypertension: (4) S/P biventricular cardiac pacemaker procedure: (5) Urinary incontinence: Patient has a history of some gait problems over the last 2 weeks, being a little bit worse before admission September 22. Today, her neurologic examination is largely unremarkable without obvious ataxia of the limbs or gait. However her stance with feet together and eyes closed has her falling to the right consistently. She has chronic hearing loss bilaterally wearing hearing aids and chronic tinnitus bilaterally. There is no symptomatic vertigo however. Strength sensation and reflexes are unremarkable and I see no evidence of an obvious polyneuropathy. She does not have an obvious radiculopathy by history either. She does have some nonspecific low back pain which I believe is degenerative. She has nonspecific urinary incontinence. An inner ear abnormality could give this gait issue despite the fact that she does not have vertigo. Frequently balance and hearing issues go together since the cochlear and labyrinth are next to each other in the inner ear. Otherwise, there are no other neurologic issues. She does have hypertension which could contribute to inner ear dysfunction in theory. Recommendations: 1. Physical therapy for gait. 2. I see no need for additional neurologic testing at this time. 3. I might consider EMG and nerve conduction studies of the legs as an outpatient depending on her clinical course. First I would see her back in the office in 2-3 weeks to see if she may any improvements. 4. Control blood pressure as you are doing aiming for a mean arterial pressure of 95-100. 5. I have no further neurologic recommendations to make at this time. Please contact me if I can be of further assistance on this case. Overall, I spent a total of 60 minutes with this case including review of records, review of MRI films, direct evaluation the patient at bedside, and discussing the case with the patient bedside, RN at bedside, and Dr. Blackburn, including differential diagnosis and treatment options. History of Present Illness Reason for Consultation: Patient is an 83-year-old, who I was asked to see at the request of Alicia Mora PA-C, for neurologic consultation regarding abnormal gait Requesting Physician: Alicia Mora PA-C Attending Physician: Daniel Blackburn History of Present Illness Patient has a 35+ year history of hypertension. She also has a history of cardiomyopathy, congestive heart failure, and atrial fibrillation on Pradaxa. She has a pacemaker. She is currently on gabapentin for post herpetic neuralgia. Last summer she had a left T6 shingles. Gabapentin. Patient has chronic hearing loss for over 15 years and wears hearing aids. She has bilateral tinnitus no ear pain and no history obvious vertigo. For the last 2 weeks (she tells me) she has been having issues with walking. She remembers walking about 2 weeks ago 1 day and doing well. The next day she had trouble. When she gets up she feels that her legs do not work right and walks like she is drunk. She denies pain in the legs although she does have low back pain in the morning she 1st wakes. She denies numbness or tingling in the legs and he is uncertain if the legs are actually weak. It is more of a control problem she feels. She denies any lightheadedness or vertigo and has no confusion or headache. He arms do not any issue. Both legs are the same. She has some incontinence of urine. When she got up the morning of September 22 she felt that was a little bit worse than usual. She came to the emergency. She arrived to the emergency room September 22 at 0634 with a temperature of 36.5, pulse 70 and regular, respiratory rate 16, blood pressure 180/87, and O2 saturation 97%. Exam was noted for an ataxic gait and veering to the left. CBC was unremarkable and a Chem profile revealed elevated BUN and creatinine. TSH was 3.69 and urinalysis had elevated white cells. She has had E coli uri nary tract infections in 2019 and 2018. Chest x-ray was unremarkable. CT scan of the head was unremarkable for acute changes CT angiography of the head and neck were unremarkable with no significant vessel stenoses or anomalies. MRI of the brain showed no acute stroke. She had only mild old ischemic changes and atrophy only. Last night she was walking in the halls and feel that she is walking better this morning that she was yesterday. Repeat CBC shows a mildly elevated MCV without significant anemia. B12 level is pending. Chem profile this morning was remarkable for an elevated BUN and creatinine. Triglycerides were 80 in total cholesterol 159. Hemoglobin A1c is 6.0 Blood pressure is 166/78. Allergies Allergy/AdvReac Type Severity Reaction Status Date / Time latex Allergy Unknown REDNESS Verified 09/23/19 06:45 Beta Adrenergic Blockers Allergy Unknown Unknown Uncoded 09/23/19 06:45 predniSONE TABS Allergy Unknown Unknown Uncoded 09/23/19 06:45 Azithromycin PACK AdvReac Severe Diarrhea Uncoded 09/23/19 06:45 Home Medications Home Medications Medication Instructions Recorded Confirmed Type cholecalciferol (vitamin D3) 1,000 unit PO QAM 09/15/18 09/23/19 History multivitamin 1 tab PO QAM 11/14/18 09/23/19 History carvedilol 12.5 mg tablet 12.5 mg PO BID #180 tab 11/23/18 09/23/19 Rx spironolactone 25 mg tablet 12.5 mg PO QAM #90 tab 12/10/18 09/23/19 Rx furosemide 20 mg tablet 20 mg PO QAM tab 01/04/19 09/23/19 History dabigatran etexilate 150 mg capsule 150 mg PO BID #180 cap 04/01/19 09/23/19 Rx estradiol 1 gm PV 3XWK #42.5 gm 08/03/19 09/23/19 Rx gabapentin 600 mg tablet 600 mg PO TID #270 tab 08/25/19 09/23/19 Rx lisinopril 10 mg PO DAILY 09/23/19 09/23/19 History Patient History Medical History Acute on chronic systolic (congestive) heart failure (Resolved) Anemia (2018) Resolved Atrial fibrillation with RVR (Resolved) Cardiomyopathy EF=40% 2018, EF=55-60% 2019 (s/p BiV) Creatinine elevation (12/2018) History of asthma History of cellulitis History of herpes zoster History of nephrolithiasis History of non-ST elevation myocardial infarction (NSTEMI) History of orthostatic hypotension Impaired fasting glucose LBBB (left bundle branch block) Moderate mitral regurgitation by prior echocardiogram Moderate pulmonary arterial systolic hypertension Pneumonia (Resolved 2016) Surgical History H/O ovarian cystectomy H/O tooth extraction History of ear, nose, and throat (ENT) surgery PERCUTANEOUS REPAIR OF NASOETHMOID FX july 2010 Hx of appendectomy Hx of tonsillectomy S/P biventricular cardiac pacemaker procedure (09/2018) S/P cataract surgery S/P myringotomy with insertion of tube (2000) Family History Mother , age 65 of a stroke Hypertension Stroke Aunt Breast cancer maternal aunt Uterine cancer maternal aunt Sister Diabetes Father , age 89 Macular degeneration Denies family history of Ovarian cancer Prostate cancer Heart disease Myocardial infarction Colorectal cancer Social History Preferred Language: French Communication Ability: Effective Life Management Teacher Required: No Beliefs That Will Affect Care: None marital status: / Current Living Situation: Family Current Living Situation Comment: lives with son current occupational status: retired 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 Other Information That Helps Us Care for You: No Feels Safe at Home: Yes Safety Concerns: Feels Safe At This Time Smoking Status: Never smoker Do You Dip or Chew Tobacco: No ; Second Hand Exposure: No ; Tobacco Cessation Education Requested by Patient: No Hx Alcohol Use: No Hx Substance Use: No Review of Systems Constitutional: no fever, no fatigue and no weakness Eyes: no diplopia, no eye pain and no worsening vision Ear, Nose, Mouth, Throat: + tinnitus and + hearing loss; no ear pain, no dizziness, no hoarseness and no dysphagia Respiratory: no cough and no dyspnea Cardiovascular: no chest pain, no palpitations and no lightheadedness Gastrointestinal: no abdominal pain, no nausea and no vomiting Genitourinary: no dysuria, no urinary frequency and no urinary incontinence Musculoskeletal: + back pain and + neck pain; no radicular pain, no joint pain and no myalgia Integumentary: no rash and no lesions Neurologic: + gait abnormality; no localized weakness, no generalized weakness, no tingling, no numbness, no tremor(s), no abnormal movements, no headache(s), no abnormal speech, no confusion and no memory loss Psychiatric: no depression, no irritability, no anxiety, no difficulty concentrating, no confusion and no hallucinations Endocrine: no fatigue and no flushing Hematologic / Lymphatic: no easy bleeding and no easy bruising Allergy / Immunological: no urticaria and no problem reported Exam (Neuro) Physical Exam: The patient is right-handed. The patient is awake, alert, and attentive. Speech is normal without any aphasia or dysarthria. She can name objects, repeat phrases, and has normal spontaneous speech. Mentation and thought processes are intact, with orientation to person, place and time, and normal fund of knowledge. Attention and concentration are normal. Mood and affect are normal and appropriate. General appearance and grooming are normal. Short and long-term memory are intact. The discs are sharp with positive venous pulsations bilaterally. There are no exudates, hemorrhages, or blood vessel changes seen. Pupils are 4 mm bilaterally and reactive to light. Extraocular eye muscles are intact without nystagmus. Visual acuity and visual lindsey seem normal grossly to confrontation. There are no deficits to sensation in the face in all 3 distributions of the fifth cranial nerve bilaterally. Corneal reflexes are positive bilaterally. Facial strength and symmetry was normal bilaterally. She has bilateral hearing loss and wears hearing aids. Palate moves well without asymmetry. There is normal sternocleidomastoid and trapezius (shoulder shrug) strength bilaterally. Tongue is midline with good strength bilaterally. Neck has a full range of motion without discomfort. There are no cervical bruits bilaterally. There are no cranial or ocular bruits. Heart is without murmur. There is a regular rhythm and rate. Cervical, thoracic, and lumbar spine are nontender to palpation. Gait is narrow based but cautious, with good arm swing, turns, and stance eyes open. Balance with eyes closed is good for a couple of seconds and she falls consistently to the right. With outstretched arms there is no drift. There are no resting, postural, or action tremors. There is no ataxia with finger to nose testing. There is good facility in the hands. No other abnormal involuntary movements are noted. Motor strength is 5/5 diffusely in the arms bilaterally including deltoids, biceps, triceps, brachioradialis, wrist flexors and extensors, consulting services project manager, and intrinsic hand muscles. Motor strength is 5/5 diffusely in the legs bilaterally including hip flexors, quadriceps, hamstrings, gastrocnemius, tibialis anterior, tibialis posterior, and Peroneii muscles. Toe extensors are normal and there is good bulk in the extensor digitorum brevis muscles bilaterally. The limbs have good tone without rigidity or spasticity. There is no atrophy noted in the muscles. Muscle bulk is normal, there is no tenderness to palpatio n, no myotonia to percussion, and no fasciculations seen. Sensory examination is intact to touch and pin throughout all 4 limbs diffusely. Reflexes are 1/4 in the biceps, triceps, brachioradialis, quadriceps, and Achilles tendons bilaterally. There is no clonus bilaterally. Toes are downgoing with plantar stimulation bilaterally. Peripheral pulses are present and of normal quality distally in all 4 limbs. There is no peripheral edema noted in the limbs. Results & Data ([facility]) Vital Signs (Past 12 Hours) Vital Signs Temp Pulse Pulse Resp BP BP Pulse Ox 09/24/19 07:33 37.1 C 71 18 166/78 H 93 09/24/19 02:39 36.8 C 71 18 152/68 H 96 09/24/19 00:00 70 09/23/19 23:27 36.9 C 72 18 149/77 H 97 Diagnostic Findings MRI OF THE BRAIN WITHOUT IV CONTRAST CLINICAL HISTORY: Strokelike symptoms. Loss of coordination. COMPARISON STUDY: CT of the brain performed the same day 09/23/2019. TECHNIQUE: MRI of the brain was performed utilizing various T1 and T2-weighted sequences in the axial, sagittal, and coronal planes. IV contrast was not administered for this examination. FINDINGS: Brain parenchyma: There is age-related involutional change noting [id number] subcortical and periventricular microangiopathic disease. There is no hemorrhage or mass effect. There is no restricted diffusion to suggest acute ischemia. Flowers-white matter differentiation is preserved. No extra-axial fluid collection is seen. The cerebellar tonsils are normal in configuration. Ventricles, sulci, and cisterns: Prominent secondary to involutional change. Pituitary and sella: Unremarkable. Intracranial vasculature: Normal flow voids are maintained at the skull base. Orbits: The bony orbits are grossly intact. Orbital contents are normal in appearance noting bilateral ocular lens implants. Sinuses and mastoids: There is mild mucosal thickening within the ethmoid sinuses. The remaining nasal sinuses are clear. The mastoid air cells are well pneumatized. Calvarium: Unremarkable. Cervical cord: Partially visualized cervical spinal cord is normal in morphology and signal intensity. IMPRESSION: No acute intracranial abnormality. ACT 112: Negative or not required by law. Electronically signed by: Larry Stewart M.D. 09/23/2019 4:55 PM PG Care Time/CCT Total # of Minutes Spent Total Time Spent with Patient: Total time spent is greater than 50% in coordination of care (as documented) at patient's floor/unit and/or counseling patient: Coding Level of Care Code 44210 Initial Inpt Care Lvl 3 Diagnoses Ataxic gait R26.0 Lumbar degenerative disc disease M51.36 Hypertension I10 S/P biventricular cardiac pacemaker procedure Z95.0 Urinary incontinence R32 Time Spent (min) 60
[2019-09-24] MEDS: DABIGATRAN ETEXILATE 75 MG CAP PO SCH (08:26)
[2019-09-24] MEDS: lisinopriL 10 MG TAB PO SCH (08:26)
[2019-09-24] MEDS: carvediloL 12.5 MG TAB PO SCH (08:27)
[2019-09-24] MEDS ORDERED: MULTIVITAMIN TAB PO SCH (09:00)
[2019-09-24] MEDS ORDERED: CHOLECALCIFEROL 1,000 UNITS 25 MCG TAB PO SCH (09:00)
[2019-09-24] MEDS ORDERED: STROKE PATIENT DISCHARGE STA (12:22)
--- NOTE | 2019-10-02 08:36 | Discharge Summary ---
Date of Service September 24, 2019 Admission HPI Per Admitting Provider This is an 83-year-old female with PMHx of cardiomyopathy, A. fib s/p biventricular cardiac pacemaker, LBBB, HTN, anemia, and STEMI, moderate pulmonary artery hypertension, CKD, and osteopenia who presents with worsening left leg weakness and difficulty walking. She reports this started about 1 week ago, progressively worsening, was at home yesterday noticed she was having more difficulty walking, had difficulty moving the left leg more than the right, and thought she could have had a stroke, therefore presented to the ER. She typically walks on a daily basis, and had to take a shorter walk yesterday due to difficulty. 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 She denies any lightheadedness, dizziness, upper extremity weakness, changes in appetite, abdominal complaints. She denies any dysuria, hematuria, increased in urinary frequency but states that she does take a water pill so it is hard to tell. She denies any other acute complaints. She lives in her own home, has 2 sons and their families living with her, 11 years ago. Principal Diagnosis ataxic gait Discharge Exam General: awake, alert, no apparent distress Head: Normocephalic, atraumatic ENT: PERRL, EOMI, no pharyngeal exudate, mucous membranes moist Chest: Clear to auscultation, on room air, no adventitious breath sounds Cardiac: Regular rate and rhythm, no murmur, no JVD, normal peripheral pulses, good capillary refill Abdominal: NABS x 4 quadrants, soft, nondistended nontender to palpation, no rebound, guarding or tenderness Extremities: Normal inspection, no peripheral edema or erythema, calfs nontender to palpation Psych: Normal mood and affect Neuro: AAO x 3, strength intact bilaterally and rated 5/5, no gross motor deficits, speech is clear, no peripheral sensory deficits Skin: no rash or erythema Discharge Data Allergies Allergy/AdvReac Type Severity Reaction Status Date / Time latex Allergy Unknown REDNESS Verified 09/30/19 14:44 Beta Adrenergic Blockers Allergy Unknown Unknown Uncoded 09/30/19 14:44 predniSONE TABS Allergy Unknown Unknown Uncoded 09/30/19 14:44 Azithromycin PACK AdvReac Severe Diarrhea Uncoded 09/30/19 14:44 Consultations 09/23/19 09:06 ED Decision to Admit Stat 09/23/19 13:07 Consult Case Management - Discharge Planning Routine Consult Neurology Routine Ordered Studies 09/23/19 06:58 CT head/brain wo con Stat 09/23/19 06:59 CT angio head w con Stat CT angio neck with con Stat 09/23/19 10:19 MR brain wo con Stat Hospital Course (1) Ataxic gait: Appreciate input from Neuro: Patient has a history of some gait problems over the last 2 weeks, being a little bit worse before admission September 22. Today, her neurologic examination is largely unremarkable without obvious ataxia of the limbs or gait. However her stance with feet together and eyes closed has her falling to the right consistently. She has chronic hearing loss bilaterally wearing hearing aids and chronic tinnitus bilaterally. There is no symptomatic vertigo however. Strength sensation and reflexes are unremarkable and I see no evidence of an obvious polyneuropathy. She does not have an obvious radiculopathy by history either. She does have some nonspecific low back pain which I believe is degenerative. She has nonspecific urinary incontinence. An inner ear abnormality could give this gait issue despite the fact that she does not have vertigo. Frequently balance and hearing issues go together since the cochlear and labyrinth are next to each other in the inner ear. Otherwise, there are no other neurologic issues. She does have hypertension which could contribute to inner ear dysfunction in theory. Recommendations: 1. Physical therapy for gait. 2. I see no need for additional neurologic testing at this time. 3. I might consider EMG and nerve conduction studies of the legs as an outpatient depending on her clinical course. First I would see her back in the office in 2-3 weeks to see if she may any improvements. 4. Control blood pressure as you are doing aiming for a mean arterial pressure of 95-100. 5. I have no further neurologic recommendations to make at this time. Please contact me if I can be of further assistance on this case. No further workup is required. will discharge. (2) Cardiomyopathy: - Last echocardiogram completed showed preserved EF of 55 to 60%, returned to normal after biventricular pacemaker insertion last summer. - Follow with Dr. Maldonado as outpt - will hold diuretics as you appear dry, and your EF is normal, and you have an elevated kidnrey function. -please closely monitor your daily weights. -may require PRN diuretics. (3) Hypertension: - Continue beta-teresa, VIANEY - hold diuretics in light of elevated BUN/Cr, no signs/symptoms heart failure (4) Permanent atrial fibrillation: - cont rate control with Carvedilol 12.5 mg bid - anticoagulation with Pradaxa 150 mg bid - Follows Dr. Coello for pacemaker - Interrogate pacemaker to eval for any changes causing worsening gait or weakness. (5) S/P biventricular cardiac pacemaker procedure: -Placed October 01, 2018 due to worsening cardiomyopathy, low ejection fraction, and underwent AV marisa ablation and biventricular pacemaker implantation ([employer]), implanted without an atrial lead due to permanent A. fib -Follows with Dr. Coello -Last pacemaker eval was in February 2019 and had 11 years battery life (6) Moderate pulmonary arterial systolic hypertension: - noted, stable (7) CKD (chronic kidney disease): - Cr. 1.48, appears to have a baseline around 1.2- 1.5 at baseline, will continue lisinopril for now. - Hold diuretics as no sign of heart failure and improved EF on last echo - Given NSS 500 ml in the ER (8) Osteopenia: - Continue Vit D supplementation, estradiol on hold - Continue to encourage weight bearing exercise (9) DVT prophylaxis: - teds, scds, pradaxa CODE: DNR Total Time Total Time Spent Total Time Spent (In Minutes): 32 Total Time Includes: Examination of the Patient, Discharge Planning and Medication Reconciliation Discharge Plan Discharge Items Patient Disposition: Home - Self-Care Reason For Visit: L LEFT WEAKNESS Discharge Diagnosis: Left weakness Activity: Resume your previous activity Non-emergency contact: Primary Care Provider Call non-emergency contact if: you have any medication questions Follow-up/Referrals: Mary Laughlin MD [Primary Care Provider] - 09/30/19 11:20 am (We will call you at the beginning of the week with a follow up appointment with your primary care provider.) Diet: Heart Healthy Addtl Attending Provider Instructions: You have been hospitalized for an acute medical problem. During your stay at [facility], we have made an effort to correct the problem that brought you to the hospital while keeping you as comfortable as possible. Medications were used to bring your condition under control and your discharge instructions will include directions for any medications you should take after leaving the hospital. Please make sure you see your Primary Care Provider as part of your follow up plan. Monitor daily weights for edema or water weight increase of 1-2 pounds. At this point will hold diuretics as you appear to be well and your kidney function appears to be a little on the dry side. will recheck labs in about a week. Will have you followup with PCP in 1 week. will recommend physical therapy. Pending Studies at Discharge: No Stand-Alone Forms: My [facility], Smoking Cessation Medications and DC Order Prescriptions: Continued Pradaxa 150 mg capsule 150 mg PO BID Qty: 180 RF: 3 estradiol 0.01 % (0.1 mg/gram) cream 1 gm PV 3XWK Qty: 42.5 RF: 2 carvedilol 12.5 mg tablet 12.5 mg PO BID Qty: 180 RF: 3 lisinopril 10 mg tablet 10 mg PO DAILY RF: 0 cholecalciferol (vitamin D3) 1,000 unit Tablet 1,000 unit PO QAM RF: 0 multivitamin Tablet 1 tab PO QAM RF: 0 Discontinued spironolactone 25 mg tablet 12.5 mg PO QAM Qty: 90 RF: 3 furosemide 20 mg tablet 20 mg PO QAM RF: 0 No Action gabapentin 600 mg tablet 600 mg PO DAILY RF: 0 cyanocobalamin (vitamin B-12) [Vitamin B-12] 1,000 mcg tablet 1,000 mcg PO DAILY RF: 0 spironolactone 25 mg tablet 12.5 mg PO QAM Qty: 90 RF: 3 furosemide 20 mg tablet 20 mg PO QAM PRN (Reason: swelling ) Qty: 30 RF: 0 Discharge Orders: Discharge Order (Routine); Ordered 09/24/19 Ordered By: Daniel Blackburn Admission Data Admit Date/Time: 09/23/19 09:55 Attending Provider: Daniel Blackburn Admit Provider: Rudy Reyna Primary Care Provider: Mary Laughlin V. Other Providers: Kimani Park ; Rudy Reyna ; Rudy Rivera Other Interventions: Discharge Summary Assessment (RN) Last Done: 09/24/19 12:27 DC Date/Time DO NOT enter until pt leaves facility: 09/24/19 13:22 Coding Level of Care Code D/C Day Management >30 mins Diagnoses Ataxic gait R26.0 Cardiomyopathy I42.9 Hypertension I10 Permanent atrial fibrillation I48.21 S/P biventricular cardiac pacemaker procedure Z95.0 Moderate pulmonary arterial systolic hypertension I27.21 CKD (chronic kidney disease) N18.9 Osteopenia M85.80 DVT prophylaxis Z29.9 Time Spent (min) 32
== END 2019-09-24 13:22 | disposition home or self-care (01) | DRG 92 ==
LOC: ED 06:28 → SUATTDRO 09:55 → 2N 09:55

== ENCOUNTER 2022-02-03 22:38 | Observation (INO) ==
[2022-02-03 23:11] LABS: iSTAT Hemoglobin 14.6 g/dl (12.0-16.0); iSTAT Ionized Calcium 1.22 mmol/l (1.12-1.32); iSTAT Potassium 4.4 mmol/L (3.3-5.0)
[2022-02-03] MEDS ORDERED: LABETALOL HCL IV 5 MG/ML 20ML IV ONE (23:12)
[2022-02-03 23:32] LABS: Basophils # (auto) 0.07 K/uL (0-0.2); Basophils % (auto) 1.2 %; Eosinophils # (auto) 0.32 K/uL (0-0.50); Eosinophils % (auto) 5.4 %; Hematocrit (blood only) 39.4 % (34.1-44.9); Hemoglobin 13.4 g/dl (12.0-16.0); Immature Granulocytes # (auto) 0.02 K/uL (0.00-0.02); Immature Granulocytes % (auto) 0.3 %; Lymphocytes # (auto) 1.53 K/uL (1.2-3.4); Mean Corpuscular Hemoglobin 34.4 pg (25.0-34.0); Mean Platelet Volume 10.4 fL (9.4-12.3); Monocytes # (auto) 0.92 K/uL (0.24-0.82); Monocytes % (auto) 15.6 %; Neutrophils # (auto) 3.02 K/uL (1.4-6.5); Neutrophils % (auto) 51.5 %; Platelet Count 289 K/uL (130-400); RDW Coefficient of Variation 13.5 % (11.5-14.5); RDW Standard Deviation 50.5 fL (36.4-46.3); White Blood Count 5.88 K/ul (4.8-10.8)
--- NOTE | 2022-02-03 23:32 | Emergency Department Note ---
Impression & Plan Hypertension, Elevated troponin Admit to the [facility] Provider Note NAME: MODE BURNS AGE: 86 SEX: F ARRIVES VIA: Ambulance INFORMANT: Patient ED PROVIDER(S): Kaya Rodriguez DO CHIEF COMPLAINT: Indigestion and diarrhea PLAN: Disposition: Admit to the [facility] Condition: Guarded MEDICAL DECISION MAKING: This is an 86-year-old female patient who presents to the emergency department complaining of indigestion, diarrhea and hypertension. The patient took her blood pressure and found it to be significantly elevated greater than 230 systolically. Her son brought her here for evaluation. Patient's blood pressure remained moderately elevated here in the ER despite receiving IV antihypertensives. She was noted to have an elevated high-sensitivity troponin. She had no EKG changes. I did discuss the case with the [facility] and they will evaluate for further management. Triage Nursing notes reviewed and agree with them. Additional history obtained from family member at the bedside Prior medical records reviewed Vital Signs: reviewed and remarkable for significant hypertension Differential diagnosis: Hypertensive crisis, NSTEMI, STEMI, anxiety ER treatment provided: IV hydralazine x2 IV Zofran IV Ativan Diagnostics interpreted by me: ECG: Ventricular paced rhythm at 70. This was compared to previous EKG was unchanged. There is no signs of ischemia or ectopy Repeat ECG: Ventricular paced rhythm at a rate of 70. No ischemic changes noted while patient was having complaints of indigestion Cardiac Monitoring: Ventricular paced rhythm at 70 Laboratory studies: See below Imaging studies: As per my interpretation Portable chest x-ray: No pulmonary infiltrates or pleural effusions; no cardiomegaly HPI: 86/F arrives for evaluation of indigestion. Patient states that she developed symptoms of indigestion around 730 and then developed diarrhea and nausea. The patient took her blood pressure and found the to be elevated at 230. Patient continued to feel unwell and took antacids. The indigestion was not going away and her family brought her here for evaluation. ROS: See above HPI for pertinent positives & negatives. A total of 10 systems reviewed and were otherwise negative. PAST MEDICAL HISTORY:See Below PAST SURGICAL HISTORY:See Below FAMILY HISTORY:See Below SOCIAL HISTORY:See Below HOME MEDICATIONS:See list ALLERGIES:See list VITALS:See Below PHYSICAL EXAMINATION: HEENT: Head - normocephalic and atraumatic. Pupils are equal, round, and reactive to light. Extraocular eye muscles are intact, and sclera are anicteric. Nose - moist nasal mucosa without discharge. Mouth - moist buccal mucosa. Oropharynx is nonerythematous and there is no tonsillar exudate or edema noted. Neck: Supple; no JVD, cervical lymphadenopathy or auscultated bruits Heart: Regular rate and rhythm. There is a normal S1 and S2 with no murmurs, clicks, or gallops appreciated. Lungs: Clear to auscultation bilaterally with no wheezes, rales, or rhonchi. Abdomen: Soft, completely nontender, nondistended, with good bowel sounds. There are no palpable pulsatile masses or hepatosplenomegaly. There is no guarding, rigidity, or rebound noted. Extremities: No evidence of cyanosis, clubbing, or edema. There are easily palpable peripheral pulses. Skin: warm and dry with good turgor and no rashes. ED COURSE: Times/Reassessments: 2305: Patient was evaluated in room C 12. A complete history and physical was performed. Twelve-lead EKG was obtained. An order was placed for continuous cardiac monitoring. The patient was in a ventricular paced rhythm at a rate of 70. Patient was given IV hydralazine for this exceedingly high blood pressure. The patient lists an allergy to beta-blockers therefore could not use those to manage her blood pressure. She continued to note significant nausea and some dry heaving. Initial troponin came back at 14 which was marginal. Patient seem to be feeling somewhat better and blood pressure came down to 170 systolic but she then became nauseated again and blood pressure went back up to 230 systolically. She was given a second dose of IV hydralazine and her troponin was repeated and had gone up. I discussed the case with the [facility] Hospitalist and they will evaluate for further management Kaya Rodriguez DO Past Med/Surg History Medical History Acute on chronic systolic (congestive) heart failure Anemia (2018) Atrial fibrillation with RVR Bilateral buttock pain Cardiomyopathy Creatinine elevation (12/2018) Diarrhea PAINTER (dyspnea on exertion) HBP (high blood pressure) History of asthma History of cellulitis History of herpes zoster History of nephrolithiasis History of non-ST elevation myocardial infarction (NSTEMI) History of orthostatic hypotension Impaired fasting glucose LBBB (left bundle branch block) 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 of left ear Moderate mitral regurgitation by prior echocardiogram Moderate pulmonary arterial systolic hypertension Nasal discharge Pacemaker Pessary maintenance Pneumonia (2017) Sensorineural hearing loss (SNHL) of right ear with restricted hearing of left ear Tinnitus of right ear Surgical History H/O ovarian cystectomy H/O tooth extraction History of colonoscopy History of ear, nose, and throat (ENT) surgery History of lithotripsy Hx of appendectomy Hx of tonsillectomy S/P biventricular cardiac pacemaker procedure (09/2018) S/P cataract surgery S/P myringotomy with insertion of tube (2000) Family History Mother , age 65 of a stroke Hypertension Stroke Aunt Breast cancer maternal aunt Uterine cancer maternal aunt Sister Diabetes Father , age 89 Macular degeneration Denies family history of Ovarian cancer Prostate cancer Heart disease Myocardial infarction Colorectal cancer Social History Smoking Status: Unknown if ever smoked Second Hand Exposure: No; Hx Alcohol Use: No Hx Substance Use: No Preferred Language: Scottish Communication Ability: Effective Hearing Ability: Use of Hearing Aid Coil Connector Required: No Beliefs That Will Affect Care: None marital status: / Current Living Situation: Family Current Living Situation Comment: home with children current occupational status: retired 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 Feels Safe at Home: Yes Safety Concerns: Feels Safe At This Time Childhood Exposure to Second-Hand Smoke: No Dental Care, Regularly: Yes Physical Activity Frequency: 3-4 Times per Week Seatbelt Use: always Sunscreen Use: Yes Assistive Devices: Glasses and Hearing Aid - Bilateral Allergies Allergies Allergy/AdvReac Type Severity Reaction Status Date / Time azithromycin Allergy Unknown Unknown Verified 02/03/22 23:38 Beta-Blockers Allergy Unknown Unknown Verified 02/03/22 23:38 (Beta-Adrenergic Bloc latex Allergy Unknown REDNESS Verified 02/03/22 23:38 prednisone Allergy Unknown FEELS Verified 02/03/22 23:38 JITTERY sertraline AdvReac Unknown Nausea/Dizz Verified 02/03/22 23:38 y Home Meds Home Medications Medication Instructions Recorded Confirmed cholecalciferol (vitamin D3) 25 1,000 unit PO QAM 09/15/18 02/03/22 mcg (1,000 unit) tablet multivitamin 1 tab PO QAM 11/14/18 02/03/22 cyanocobalamin (vitamin B-12) 1,000 mcg PO QAM 09/30/19 02/03/22 1,000 mcg tablet (Vitamin B-12) Vasquez Defend Otc 1 tab PO BID 08/01/21 02/03/22 [id number] 5 mg-zeaxanth 1 cap PO QAM 08/01/21 02/03/22 1 mg-bilberry 7.5 mg-herbal capsule (Macular Health Formula) gabapentin 100 mg capsule 100 - 200 mg PO HS 02/03/22 02/03/22 Previous Rx's Medication Instructions Recorded dabigatran etexilate 150 mg 150 mg PO BID #180 caps 03/05/21 capsule (Pradaxa) carvedilol 12.5 mg tablet 12.5 mg PO BID #270 tabs 03/08/21 conjugated estrogens 0.625 mg/gram 0.625 mg vaginal 3XWK #60 grams 08/19/21 vaginal cream (Premarin) lisinopril 10 mg tablet 10 mg PO QAM #90 tabs 12/03/21 Results & Data (ED) Vital Signs Vital Signs - 24 hr 02/03/22 22:31 02/03/22 22:55 02/04/22 00:30 Pulse Rate 120 H 70 Pulse Rate [Right] Pulse Rate from SpO2 Sensor Respiratory Rate 18 20 Respiratory Effort / Characteristics Respiratory Depth Blood Pressure 250/111 H 178/87 H Blood Pressure [Left Arm] Blood Pressure Mean 157 117 Blood Pressure Mean [Left Arm] Pulse Oximetry 94 94 98 Oxygen Delivery Method Room Air Room Air Room Air Sepsis Recent Fever Within 48 Hours No Sepsis New/Unexplained Change in Mental Status No Sepsis Action Taken by Nursing No Action Required 02/04/22 00:56 02/03/22 22:56 02/03/22 23:00 Pulse Rate Pulse Rate [Right] 70 Pulse Rate from SpO2 Sensor 70 71 Respiratory Rate 18 26 H 19 Respiratory Effort / Characteristics Non-Labored Respiratory Depth Normal Blood Pressure Blood Pressure [Left Arm] 210/87 H Blood Pressure Mean Blood Pressure Mean [Left Arm] 128 Pulse Oximetry 98 95 96 Oxygen Delivery Method Room Air Sepsis Recent Fever Within 48 Hours Sepsis New/Unexplained Change in Mental Status Sepsis Action Taken by Nursing 02/03/22 23:10 02/03/22 23:24 02/03/22 23:30 Pulse Rate Pulse Rate [Right] Pulse Rate from SpO2 Sensor 70 72 70 Respiratory Rate 30 H 20 17 Respiratory Effort / Characteristics Respiratory Depth Blood Pressure Blood Pressure [Left Arm] Blood Pressure Mean Blood Pressure Mean [Left Arm] Pulse Oximetry 95 92 95 Oxygen Delivery Method Sepsis Recent Fever Within 48 Hours Sepsis New/Unexplained Change in Mental Status Sepsis Action Taken by Nursing 02/03/22 23:40 02/04/22 00:00 02/04/22 00:10 Pulse Rate 70 70 Pulse Rate [Right] Pulse Rate from SpO2 Sensor 70 69 70 Respiratory Rate 19 15 18 Respiratory Effort / Characteristics Respiratory Depth Blood Pressure Blood Pressure [Left Arm] Blood Pressure Mean Blood Pressure Mean [Left Arm] Pulse Oximetry 95 94 95 Oxygen Delivery Method Sepsis Recent Fever Within 48 Hours Sepsis New/Unexplained Change in Mental Status Sepsis Action Taken by Nursing 02/04/22 00:20 02/04/22 00:22 02/04/22 00:22 Pulse Rate 70 70 Pulse Rate [Right] Pulse Rate from SpO2 Sensor 70 Respiratory Rate 19 22 Respiratory Effort / Characteristics Respiratory Depth Blood Pressure 178/87 H Blood Pressure [Left Arm] Blood Pressure Mean 117 Blood Pressure Mean [Left Arm] Pulse Oximetry 95 Oxygen Delivery Method Sepsis Recent Fever Within 48 Hours Sepsis New/Unexplained Change in Mental Status Sepsis Action Taken by Nursing 02/04/22 00:30 02/04/22 00:30 02/04/22 00:40 Pulse Rate 70 70 Pulse Rate [Right] Pulse Rate from SpO2 Sensor 70 70 Respiratory Rate 16 18 Respiratory Effort / Characteristics Respiratory Depth Blood Pressure 189/77 H Blood Pressure [Left Arm] Blood Pressure Mean 114 Blood Pressure Mean [Left Arm] Pulse Oximetry 95 95 Oxygen Delivery Method Sepsis Recent Fever Within 48 Hours Sepsis New/Unexplained Change in Mental Status Sepsis Action Taken by Nursing 02/04/22 00:50 02/04/22 00:50 02/04/22 01:00 Pulse Rate 70 Pulse Rate [Right] Pulse Rate from SpO2 Sensor Respiratory Rate 27 H Respiratory Effort / Characteristics Respiratory Depth Blood Pressure 210/84 H 185/84 H Blood Pressure [Left Arm] Blood Pressure Mean 126 117 Blood Pressure Mean [Left Arm] Pulse Oximetry Oxygen Delivery Method Sepsis Recent Fever Within 48 Hours Sepsis New/Unexplained Change in Mental Status Sepsis Action Taken by Nursing 02/04/22 01:00 02/04/22 01:10 02/04/22 01:15 Pulse Rate 120 H 70 70 Pulse Rate [Right] Pulse Rate from SpO2 Sensor 70 70 Respiratory Rate 20 20 19 Respiratory Effort / Characteristics Respiratory Depth Blood Pressure Blood Pressure [Left Arm] Blood Pressure Mean Blood Pressure Mean [Left Arm] Pulse Oximetry 94 95 Oxygen Delivery Method Sepsis Recent Fever Within 48 Hours Sepsis New/Unexplained Change in Mental Status Sepsis Action Taken by Nursing 02/04/22 01:15 02/04/22 01:20 02/04/22 01:34 Pulse Rate 70 75 Pulse Rate [Right] Pulse Rate from SpO2 Sensor 70 75 Respiratory Rate 13 23 Respiratory Effort / Characteristics Respiratory Depth Blood Pressure 198/74 H Blood Pressure [Left Arm] Blood Pressure Mean 115 Blood Pressure Mean [Left Arm] Pulse Oximetry 95 90 Oxygen Delivery Method Sepsis Recent Fever Within 48 Hours Sepsis New/Unexplained Change in Mental Status Sepsis Action Taken by Nursing 02/04/22 01:37 02/04/22 01:37 02/04/22 01:40 Pulse Rate 70 110 H Pulse Rate [Right] Pulse Rate from SpO2 Sensor 70 70 Respiratory Rate 24 21 Respiratory Effort / Characteristics Respiratory Depth Blood Pressure 202/98 H Blood Pressure [Left Arm] Blood Pressure Mean 132 Blood Pressure Mean [Left Arm] Pulse Oximetry 95 94 Oxygen Delivery Method Sepsis Recent Fever Within 48 Hours Sepsis New/Unexplained Change in Mental Status Sepsis Action Taken by Nursing 02/04/22 01:45 02/04/22 01:45 02/04/22 01:50 Pulse Rate 70 70 Pulse Rate [Right] Pulse Rate from SpO2 Sensor 70 70 Respiratory Rate 21 21 Respiratory Effort / Characteristics Respiratory Depth Blood Pressure 218/95 H Blood Pressure [Left Arm] Blood Pressure Mean 136 Blood Pressure Mean [Left Arm] Pulse Oximetry 93 92 Oxygen Delivery Method Sepsis Recent Fever Within 48 Hours Sepsis New/Unexplained Change in Mental Status Sepsis Action Taken by Nursing 02/04/22 02:00 02/04/22 02:00 02/04/22 02:08 Pulse Rate 70 Pulse Rate [Right] Pulse Rate from SpO2 Sensor 70 Respiratory Rate 23 Respiratory Effort / Characteristics Respiratory Depth Blood Pressure 207/89 H 209/85 H Blood Pressure [Left Arm] Blood Pressure Mean 128 126 Blood Pressure Mean [Left Arm] Pulse Oximetry 91 Oxygen Delivery Method Sepsis Recent Fever Within 48 Hours Sepsis New/Unexplained Change in Mental Status Sepsis Action Taken by Nursing 02/04/22 02:08 02/04/22 02:36 02/04/22 02:15 Pulse Rate 70 70 Pulse Rate [Right] 70 Pulse Rate from SpO2 Sensor 70 70 Respiratory Rate 23 18 22 Respiratory Effort / Characteristics Non-Labored Respiratory Depth Blood Pressure Blood Pressure [Left Arm] 181/77 H Blood Pressure Mean Blood Pressure Mean [Left Arm] 111 Pulse Oximetry 92 98 93 Oxygen Delivery Method Room Air Sepsis Recent Fever Within 48 Hours Sepsis New/Unexplained Change in Mental Status Sepsis Action Taken by Nursing 02/04/22 02:15 02/04/22 02:20 02/04/22 02:30 Pulse Rate 70 Pulse Rate [Right] Pulse Rate from SpO2 Sensor 70 Respiratory Rate 20 Respiratory Effort / Characteristics Respiratory Depth Blood Pressure 207/82 H 181/77 H Blood Pressure [Left Arm] Blood Pressure Mean 123 111 Blood Pressure Mean [Left Arm] Pulse Oximetry 93 Oxygen Delivery Method Sepsis Recent Fever Within 48 Hours Sepsis New/Unexplained Change in Mental Status Sepsis Action Taken by Nursing 02/04/22 02:30 02/04/22 02:40 02/04/22 02:45 Pulse Rate 70 70 70 Pulse Rate [Right] Pulse Rate from SpO2 Sensor 70 70 69 Respiratory Rate 19 22 21 Respiratory Effort / Characteristics Respiratory Depth Blood Pressure Blood Pressure [Left Arm] Blood Pressure Mean Blood Pressure Mean [Left Arm] Pulse Oximetry 93 93 93 Oxygen Delivery Method Sepsis Recent Fever Within 48 Hours Sepsis New/Unexplained Change in Mental Status Sepsis Action Taken by Nursing 02/04/22 02:45 02/04/22 02:50 02/04/22 03:00 Pulse Rate 70 Pulse Rate [Right] Pulse Rate from SpO2 Sensor 70 Respiratory Rate 20 Respiratory Effort / Characteristics Respiratory Depth Blood Pressure 168/79 H 172/79 H Blood Pressure [Left Arm] Blood Pressure Mean 108 110 Blood Pressure Mean [Left Arm] Pulse Oximetry 93 Oxygen Delivery Method Sepsis Recent Fever Within 48 Hours Sepsis New/Unexplained Change in Mental Status Sepsis Action Taken by Nursing 02/04/22 03:00 02/04/22 03:10 02/04/22 03:15 Pulse Rate 70 70 70 Pulse Rate [Right] Pulse Rate from SpO2 Sensor 69 70 69 Respiratory Rate 22 18 20 Respiratory Effort / Characteristics Respiratory Depth Blood Pressure Blood Pressure [Left Arm] Blood Pressure Mean Blood Pressure Mean [Left Arm] Pulse Oximetry 93 93 93 Oxygen Delivery Method Sepsis Recent Fever Within 48 Hours Sepsis New/Unexplained Change in Mental Status Sepsis Action Taken by Nursing 02/04/22 03:15 02/04/22 03:20 Pulse Rate 70 Pulse Rate [Right] Pulse Rate from SpO2 Sensor 70 Respiratory Rate 26 H Respiratory Effort / Characteristics Respiratory Depth Blood Pressure 166/77 H Blood Pressure [Left Arm] Blood Pressure Mean 106 Blood Pressure Mean [Left Arm] Pulse Oximetry 95 Oxygen Delivery Method Sepsis Recent Fever Within 48 Hours Sepsis New/Unexplained Change in Mental Status Sepsis Action Taken by Nursing Laboratory Data Result diagrams: 02/03/22 22:40 02/03/22 22:40 Lab Results 02/03/22 02/03/22 02/03/22 Range/Units 22:40 22:40 22:57 WBC 5.88 (4.8-10.8) K/ul RBC 3.90 L (3.93-5.22) M/uL Hgb 13.4 (12.0-16.0) g/dl POC Hgb 14.6 (12.0-16.0) g/dl Hct 39.4 (34.1-44.9) % POC Hct 43 (37-47) % MCV 101.0 H (80.0-100.0) fL MCH 34.4 H (25.0-34.0) pg MCHC 34.0 (32.0-36.0) g/dL RDW Std Deviation 50.5 H (36.4-46.3) fL RDW Coeff of Elijah 13.5 (11.5-14.5) % Plt Count 289 (130-400) K/uL MPV 10.4 (9.4-12.3) fL Immature Gran % (Auto) 0.3 % Neut % (Auto) 51.5 % Lymph % (Auto) 26.0 % Rock % (Auto) 15.6 % Eos % (Auto) 5.4 % Baso % (Auto) 1.2 % Neut # (Auto) 3.02 (1.4-6.5) K/uL Lymph # (Auto) 1.53 (1.2-3.4) K/uL Rock # (Auto) 0.92 H (0.24-0.82) K/uL Eos # (Auto) 0.32 (0-0.50) K/uL Baso # (Auto) 0.07 (0-0.2) K/uL Immature Gran # (Auto) 0.02 (0.00-0.02) K/uL POC Sodium 140 (135-144) mmol/L Sodium 137 (136-145) mmol/L POC Potassium 4.4 (3.3-5.0) mmol/L Potassium 4.4 (3.5-5.1) mmol/L POC Chloride 104 (101-112) mmol/L Chloride 103 (98-107) mmol/L Carbon Dioxide 25 (21-32) mmol/L POC Total CO2 25 (24-31) mmol/L Anion Gap 9 (3-11) POC Anion Gap 17.0 (16-25) mmol/L POC BUN 23 H (7-18) mg/dl BUN 23 (6-23) mg/dl Creatinine 1.00 (0.6-1.2) mg/dl POC Creatinine 1.0 (0.6-1.3) mg/dl Est Cr Clr Drug Dosing 28.6 ml/min Est GFR ( Amer) 59.9 ml/min Est GFR (Non-Af Amer) 51.7 ml/min BUN/Creatinine Ratio 23.0 H (10-20) Glucose 109 H (70-99(Fasting)) mg/dl POC Glucose (other) 112 H (70-99) mg/dl Calcium 9.9 (8.5-10.1) mg/dl POC Ioniz Calcium Eleno 1.22 (1.12-1.32) mmol/l Total Bilirubin 0.6 (0.2-1.0) mg/dl AST 23 (13-39) U/L ALT 13 (7-52) U/L Alkaline Phosphatase 61 (34-104) U/L Troponin I High Sens 14.4 H (0-14) pg/ml Total Protein 8.1 (6.0-8.3) gm/dl Albumin 4.2 (3.4-5.0) gm/dl Globulin 3.9 (2.5-4.0) gm/dl Albumin/Globulin Ratio 1.1 (0.9-2) Lipase 35 (11-82) U/L 02/04/22 Range/Units 01:09 WBC (4.8-10.8) K/ul RBC (3.93-5.22) M/uL Hgb (12.0-16.0) g/dl POC Hgb (12.0-16.0) g/dl Hct (34.1-44.9) % POC Hct (37-47) % MCV (80.0-100.0) fL MCH (25.0-34.0) pg MCHC (32.0-36.0) g/dL RDW Std Deviation (36.4-46.3) fL RDW Coeff of Elijah (11.5-14.5) % Plt Count (130-400) K/uL MPV (9.4-12.3) fL Immature Gran % (Auto) % Neut % (Auto) % Lymph % (Auto) % Rock % (Auto) % Eos % (Auto) % Baso % (Auto) % Neut # (Auto) (1.4-6.5) K/uL Lymph # (Auto) (1.2-3.4) K/uL Rock # (Auto) (0.24-0.82) K/uL Eos # (Auto) (0-0.50) K/uL Baso # (Auto) (0-0.2) K/uL Immature Gran # (Auto) (0.00-0.02) K/uL POC Sodium (135-144) mmol/L Sodium (136-145) mmol/L POC Potassium (3.3-5.0) mmol/L Potassium (3.5-5.1) mmol/L POC Chloride (101-112) mmol/L Chloride (98-107) mmol/L Carbon Dioxide (21-32) mmol/L POC Total CO2 (24-31) mmol/L Anion Gap (3-11) POC Anion Gap (16-25) mmol/L POC BUN (7-18) mg/dl BUN (6-23) mg/dl Creatinine (0.6-1.2) mg/dl POC Creatinine (0.6-1.3) mg/dl Est Cr Clr Drug Dosing ml/min Est GFR ( Amer) ml/min Est GFR (Non-Af Amer) ml/min BUN/Creatinine Ratio (10-20) Glucose (70-99(Fasting)) mg/dl POC Glucose (other) (70-99) mg/dl Calcium (8.5-10.1) mg/dl POC Ioniz Calcium Eleno (1.12-1.32) mmol/l Total Bilirubin (0.2-1.0) mg/dl AST (13-39) U/L ALT (7-52) U/L Alkaline Phosphatase (34-104) U/L Troponin I High Sens 15.6 H (0-14) pg/ml Total Protein (6.0-8.3) gm/dl Albumin (3.4-5.0) gm/dl Globulin (2.5-4.0) gm/dl Albumin/Globulin Ratio (0.9-2) Lipase (11-82) U/L Administered Medications Acetaminophen (Acetaminophen 325 Mg Tab) 650 mg PO Q4H PRN PRN Reason: pain/fever Stop: 03/06/22 05:05 Last Admin: 02/04/22 08:56 Dose: 650 mg Documented By: HG Carvedilol (Carvedilol 12.5 Mg Tab) 12.5 mg PO BID JASPAL Stop: 03/06/22 08:59 Last Admin: 02/04/22 08:56 Dose: 12.5 mg Documented By: HG Dabigatran (Dabigatran Etexilate 75 Mg Cap) 75 mg PO BID JASPAL Stop: 03/06/22 08:59 Last Admin: 02/04/22 08:56 Dose: 75 mg Documented By: HG Lisinopril (Lisinopril 10 Mg Tab) 10 mg PO QAM JASPAL Stop: 03/06/22 08:59 Last Admin: 02/04/22 08:56 Dose: 10 mg Documented By: HG Discontinued Medications Hydralazine HCl (Hydralazine Hcl 20 Mg/Ml Vial) 10 mg IV NOW STA Stop: 02/03/22 23:37 Last Admin: 02/03/22 23:49 Dose: 10 mg Documented By: DP Hydralazine HCl (Hydralazine Hcl 20 Mg/Ml Vial) 10 mg IV NOW STA Stop: 02/04/22 02:11 Last Admin: 02/04/22 02:19 Dose: 10 mg Documented By: AW Labetalol HCl (Labetalol Hcl Iv 5 Mg/Ml 20ml) Confirm Administered Dose 20 mg IV .STK-MED ONE Stop: 02/03/22 23:13 Last Admin: 02/04/22 00:27 Dose: Not Given Documented By: AW Lorazepam (Lorazepam 2 Mg/2 Ml Syr) 1 mg IV NOW STA; Protocol Stop: 02/04/22 00:58 Last Admin: 02/04/22 01:20 Dose: 1 mg Documented By: AW Ondansetron HCl (Ondansetron Inj 2 Mg/Ml 2 Ml Vial) 4 mg IV NOW STA Stop: 02/03/22 23:37 Last Admin: 02/03/22 23:50 Dose: 4 mg Documented By: DP Imaging Data Radiologist's Impression: Chest X-Ray 02/03/22 23:15 XR chest 1V portable CLINICAL HISTORY: Atypical chest pain. COMPARISON STUDY: Chest CT September 15, 2018 and chest radiograph September 23, 2019. FINDINGS: Left subclavian pacer is in place. Cardiomegaly is unchanged. No evidence for pulmonary edema. There is no consolidation to suggest pneumonia. No definite pleural effusion. IMPRESSION: No acute cardiopulmonary findings. No significant change in appearance of the chest. ACT 112: Negative or not required by law. Electronically signed by: Jose Luis Beltran M.D. 02/04/2022 8:06 AM Discharge Plan Visit Data Chief Complaint: Cardiac Assessment Stated Complaint: Indigestion/Reflux/Diarrhea ED Provider: Kaya Rodriguez Discharge Problem: Hypertension, Elevated troponin Patient Disposition: Admitted As Inpatient Discharge Instructions Interventions: ED Discharge Assessment Last Done: 02/04/22 05:05 : Hypertension Qualifiers: Hypertension type: unspecified secondary hypertension Qualified Code(s): I15.9 - Secondary hypertension, unspecified
[2022-02-03] MEDS ORDERED: ONDANSETRON INJ 2 MG/ML 2 ML VIAL IV STA (23:36)
[2022-02-03] MEDS ORDERED: hydrALAZINE HCL 20 MG/ML VIAL IV STA (23:36)
[2022-02-03 23:49] LABS: Albumin Globulin Ratio 1.1 (0.9-2); Albumin Level 4.2 gm/dl (3.4-5.0); Bilirubin,Total 0.6 mg/dl (0.2-1.0); Calcium 9.9 mg/dl (8.5-10.1); Creatinine Clr Calc Pharmacy 28.6 ml/min; Est GFR (African American) 59.9 ml/min; Est GFR (Non-African American) 51.7 ml/min; Globulin 3.9 gm/dl (2.5-4.0); Potassium 4.4 mmol/L (3.5-5.1); Total Protein 8.1 gm/dl (6.0-8.3)
[2022-02-03 23:50] LABS: Troponin I High Sensitivity 14.4 pg/ml (0-14)
[2022-02-04] MEDS ORDERED: LORazepam 1 MG/1 ML SYR IV STA (00:57)
[2022-02-04] MEDS ORDERED: hydrALAZINE HCL 20 MG/ML VIAL IV STA (02:10)
--- NOTE | 2022-02-04 03:25 | History & Physical Report ---
Date of Service February 04, 2022 Assessment & Plan (1) Nausea: Plan: 86yo female presents with persistent nausea. Mild elevation of troponin. ?Cardiac source -Zofran PRN -GI cocktail PRN (2) Elevated troponin: Plan: Patient with mild elevation of troponin 13 --> 15.9. No ischemic changes on EKG. -Telemetry monitoring -Trend troponin -Check 2D echo (3) Hypertension: Plan: Marked elevation of blood pressure on arrival. Improving now after Hydralazine 10mg IV x 2 doses administered in ER. Presently 166/77 which is adequate decline from her initial pressure of 250/111. -Continue Lisinopril -Continue Carvedilol -Monitor BP (4) Permanent atrial fibrillation: Plan: V-paced -Continue carvedilol -Continue Dabigatran F/E/N - Heplock. Check Mg and PO4, Heart healthy diet as tolerated Ppx - Continue home Dabigatran Code - Full per discussion with patient Dispo - Observation to medical with telemetry History of Present Illness Chief Complaint: nausea Primary Care Provider: Mary Laughlin MD Adrianna Landa is an 86yo female with history of permanent atrial fibrillation s/p marisa ablation with placement of biventricular pacer, chronic systolic CHF with improved EF, HTN presenting with nausea, diarrhea and hypertension. Patient was in her usual state of health today. She had a chicken wrap and danish fries for lunch and was feeling well. At 19:30 she was sitting and reading when she felt acute onset of epigastric discomfort, nausea and indigestion. She had some mild abdominal discomfort and two episodes of non-bloody diarrhea. She checked her blood pressure at home and it was 240/120. EMS was called. BP by EMS 220/100. Still with intermittent epigastric discomfort. Patient denies fever, chills, chest pain, palpitations, vomiting. Denies hoarseness, reflux, globus sensation. She reports ongoing nausea with exertion. No additional complaints at this time. Patient denies history of CAD. No stents. She did have a stress test in the past which she reports as normal. She follows with Cardiology. Upon arrival to the ER she was found to be tachycardic with HR of 120, BP 250/111 ER Course: Hydralazine 10mg IV x 2 doses, Zofran 4mg IV, Ativan 1mg IV Allergies Allergy/AdvReac Type Severity Reaction Status Date / Time azithromycin Allergy Unknown Unknown Verified 02/03/22 23:38 Beta-Blockers Allergy Unknown Unknown Verified 02/03/22 23:38 (Beta-Adrenergic Bloc latex Allergy Unknown REDNESS Verified 02/03/22 23:38 prednisone Allergy Unknown FEELS Verified 02/03/22 23:38 JITTERY sertraline AdvReac Unknown Nausea/Dizz Verified 02/03/22 23:38 y Home Medications Medication Instructions Recorded Confirmed Type cholecalciferol (vitamin D3) 25 1,000 unit PO QAM 09/15/18 02/03/22 History mcg (1,000 unit) tablet multivitamin 1 tab PO QAM 11/14/18 02/03/22 History cyanocobalamin (vitamin B-12) 1,000 mcg PO QAM 09/30/19 02/03/22 History 1,000 mcg tablet (Vitamin B-12) dabigatran etexilate 150 mg 150 mg PO BID #180 caps 03/05/21 02/03/22 Rx capsule (Pradaxa) carvedilol 12.5 mg tablet 12.5 mg PO BID #270 tabs 03/08/21 02/03/22 Rx Vasquez Defend Otc 1 tab PO BID 08/01/21 02/03/22 History zmxwiyyi-orh-cunask 5 mg-zeaxanth 1 cap PO QAM 08/01/21 02/03/22 History 1 mg-bilberry 7.5 mg-herbal capsule ([facility] Formula) conjugated estrogens 0.625 mg/gram 0.625 mg vaginal 3XWK #60 grams 08/19/21 02/03/22 Rx vaginal cream (Premarin) lisinopril 10 mg tablet 10 mg PO QAM #90 tabs 12/03/21 02/03/22 Rx gabapentin 100 mg capsule 100 - 200 mg PO HS 02/03/22 02/03/22 History Past Med/Surg History Medical History Acute on chronic systolic (congestive) heart failure Anemia (2018) Atrial fibrillation with RVR Bilateral buttock pain Cardiomyopathy Creatinine elevation (12/2018) Diarrhea PAINTER (dyspnea on exertion) HBP (high blood pressure) History of asthma History of cellulitis History of herpes zoster History of nephrolithiasis History of non-ST elevation myocardial infarction (NSTEMI) History of orthostatic hypotension Impaired fasting glucose LBBB (left bundle branch block) 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 of left ear Moderate mitral regurgitation by prior echocardiogram Moderate pulmonary arterial systolic hypertension Nasal discharge Pacemaker Pessary maintenance Pneumonia (2017) Sensorineural hearing loss (SNHL) of right ear with restricted hearing of left ear Tinnitus of right ear Surgical History H/O ovarian cystectomy H/O tooth extraction History of colonoscopy History of ear, nose, and throat (ENT) surgery History of lithotripsy Hx of appendectomy Hx of tonsillectomy S/P biventricular cardiac pacemaker procedure (09/2018) S/P cataract surgery S/P myringotomy with insertion of tube (2000) Family History Mother , age 65 of a stroke Hypertension Stroke Aunt Breast cancer maternal aunt Uterine cancer maternal aunt Sister Diabetes Father , age 89 Macular degeneration Denies family history of Ovarian cancer Prostate cancer Heart disease Myocardial infarction Colorectal cancer Social History Smoking Status: Never smoker Second Hand Exposure: No; Hx Alcohol Use: No Hx Substance Use: No Preferred Language: Yoruba Communication Ability: Effective Hearing Ability: Use of Hearing Aid Bi Developer Required: No Beliefs That Will Affect Care: None marital status: / Current Living Situation: Family Current Living Situation Comment: lives with son, DAUGHTER IN LAW, OTHER SON IN SAME HOUSE current occupational status: retired 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 Feels Safe at Home: Yes Childhood Exposure to Second-Hand Smoke: No Dental Care, Regularly: Yes Physical Activity Frequency: 3-4 Times per Week Seatbelt Use: always Sunscreen Use: Yes Assistive Devices: Glasses and Hearing Aid - Bilateral Review of Systems Review of Systems: All systems reviewed & are unremarkable except as noted in HPI & below Physical Exam Physical Exam: General: patient resting comfortably, NAD, non-toxic in appearance, AA&O x 4 Skin: warm, dry, intact, no rashes or lesions HEENT: NC/AT, PERRL, EOMI, anicteric sclera, conjunctiva without injection, external ear normal to inspection and nontender, nares patent, moist mucus membranes, dentition intact, no oropharyngeal lesions, neck supple, trachea midline, no LAD, no thyromegaly, no JVD Heart: +S1/S2, regular, 3/6 LEON at apex with radiation across precordium Lungs: equal air entry bilaterally, no rales/rhonchi/wheezes Abd: +BS, soft, NT/ND, no masses/organomegaly/ascites Ext: warm, 2+ pulses in UE/LE bilaterally, no clubbing/cyanosis or edema Neuro: nonfocal, patient AA&O x 4, speech intact, no facial droop, moving all extremities on command with equal strength 5/5 Results & Data Results & Data ([facility]) Vital Signs (Past 12 Hours) Vital Signs Pulse Pulse Resp BP BP Pulse Ox O2 Del Method 02/04/22 03:15 166/77 H 02/04/22 03:15 70 20 93 02/04/22 03:10 70 18 93 02/04/22 03:00 70 22 93 02/04/22 03:00 172/79 H 02/04/22 02:50 70 20 93 02/04/22 02:45 168/79 H 02/04/22 02:45 70 21 93 02/04/22 02:40 70 22 93 02/04/22 02:30 70 19 93 02/04/22 02:30 181/77 H 02/04/22 02:20 70 20 93 02/04/22 02:15 207/82 H 02/04/22 02:15 70 22 93 02/04/22 02:36 70 18 181/77 H 98 Room Air 02/04/22 02:08 70 23 92 02/04/22 02:08 209/85 H 02/04/22 02:00 70 23 91 02/04/22 02:00 207/89 H 02/04/22 01:50 70 21 92 02/04/22 01:45 218/95 H 02/04/22 01:45 70 21 93 02/04/22 01:40 110 H 21 94 02/04/22 01:37 202/98 H 02/04/22 01:37 70 24 95 02/04/22 01:34 75 23 90 02/04/22 01:20 70 13 95 02/04/22 01:15 198/74 H 02/04/22 01:15 70 19 95 02/04/22 01:10 70 20 94 02/04/22 01:00 120 H 20 02/04/22 01:00 185/84 H 02/04/22 00:50 70 27 H 02/04/22 00:50 210/84 H 02/04/22 00:40 70 18 95 02/04/22 00:30 70 16 95 02/04/22 00:30 189/77 H 02/04/22 00:22 178/87 H 02/04/22 00:22 70 22 95 02/04/22 00:20 70 19 02/04/22 00:10 70 18 95 02/04/22 00:00 70 15 94 02/03/22 23:40 19 95 02/03/22 23:30 17 95 02/03/22 23:24 20 92 02/03/22 23:10 30 H 95 02/03/22 23:00 19 96 02/03/22 22:56 26 H 95 02/04/22 00:56 70 18 210/87 H 98 Room Air 02/04/22 00:30 70 20 178/87 H 98 Room Air 02/03/22 22:55 94 Room Air 02/03/22 22:31 120 H 18 250/111 H 94 Room Air Laboratory Results Laboratory Results WBC 5.88 K/ul (4.8-10.8) 02/03/22 22:40 RBC 3.90 M/uL (3.93-5.22) L 02/03/22 22:40 Hgb 13.4 g/dl (12.0-16.0) 02/03/22 22:40 POC Hgb 14.6 g/dl (12.0-16.0) 02/03/22 22:57 Hct 39.4 % (34.1-44.9) 02/03/22 22:40 POC Hct 43 % (37-47) 02/03/22 22:57 MCV 101.0 fL (80.0-100.0) H 02/03/22 22:40 MCH 34.4 pg (25.0-34.0) H 02/03/22 22:40 MCHC 34.0 g/dL (32.0-36.0) 02/03/22 22:40 RDW Std Deviation 50.5 fL (36.4-46.3) H 02/03/22 22:40 RDW Coeff of Elijah 13.5 % (11.5-14.5) 02/03/22 22:40 Plt Count 289 K/uL (130-400) 02/03/22 22:40 MPV 10.4 fL (9.4-12.3) 02/03/22 22:40 Immature Gran % (Auto) 0.3 % 02/03/22 22:40 Neut % (Auto) 51.5 % 02/03/22 22:40 Lymph % (Auto) 26.0 % 02/03/22 22:40 Davidson % (Auto) 15.6 % 02/03/22 22:40 Eos % (Auto) 5.4 % 02/03/22 22:40 Baso % (Auto) 1.2 % 02/03/22 22:40 Neut # (Auto) 3.02 K/uL (1.4-6.5) 02/03/22 22:40 Lymph # (Auto) 1.53 K/uL (1.2-3.4) 02/03/22 22:40 Davidson # (Auto) 0.92 K/uL (0.24-0.82) H 02/03/22 22:40 Eos # (Auto) 0.32 K/uL (0-0.50) 02/03/22 22:40 Baso # (Auto) 0.07 K/uL (0-0.2) 02/03/22 22:40 Immature Gran # (Auto) 0.02 K/uL (0.00-0.02) 02/03/22 22:40 POC Sodium 140 mmol/L (135-144) 02/03/22 22:57 Sodium 137 mmol/L (136-145) 02/03/22 22:40 POC Potassium 4.4 mmol/L (3.3-5.0) 02/03/22 22:57 Potassium 4.4 mmol/L (3.5-5.1) 02/03/22 22:40 POC Chloride 104 mmol/L (101-112) 02/03/22 22:57 Chloride 103 mmol/L (98-107) 02/03/22 22:40 Carbon Dioxide 25 mmol/L (21-32) 02/03/22 22:40 POC Total CO2 25 mmol/L (24-31) 02/03/22 22:57 Anion Gap 9 (3-11) 02/03/22 22:40 POC Anion Gap 17.0 mmol/L (16-25) 02/03/22 22:57 POC BUN 23 mg/dl (7-18) H 02/03/22 22:57 BUN 23 mg/dl (6-23) 02/03/22 22:40 Creatinine 1.00 mg/dl (0.6-1.2) 02/03/22 22:40 POC Creatinine 1.0 mg/dl (0.6-1.3) 02/03/22 22:57 Est Cr Clr Drug Dosing 28.6 ml/min 02/03/22 22:40 Est GFR ( Amer) 59.9 ml/min 02/03/22 22:40 Est GFR (Non-Af Amer) 51.7 ml/min 02/03/22 22:40 BUN/Creatinine Ratio 23.0 (10-20) H 02/03/22 22:40 Glucose 109 mg/dl (70-99(Fasting)) H 02/03/22 22:40 POC Glucose (other) 112 mg/dl (70-99) H 02/03/22 22:57 Calcium 9.9 mg/dl (8.5-10.1) 02/03/22 22:40 POC Ioniz Calcium Eleno 1.22 mmol/l (1.12-1.32) 02/03/22 22:57 Total Bilirubin 0.6 mg/dl (0.2-1.0) 02/03/22 22:40 AST 23 U/L (13-39) 02/03/22 22:40 ALT 13 U/L (7-52) 02/03/22 22:40 Alkaline Phosphatase 61 U/L (34-104) 02/03/22 22:40 Troponin I High Sens 15.6 pg/ml (0-14) H 02/04/22 01:09 Total Protein 8.1 gm/dl (6.0-8.3) 02/03/22 22:40 Albumin 4.2 gm/dl (3.4-5.0) 02/03/22 22:40 Globulin 3.9 gm/dl (2.5-4.0) 02/03/22 22:40 Albumin/Globulin Ratio 1.1 (0.9-2) 02/03/22 22:40 Lipase 35 U/L (11-82) 02/03/22 22:40 Diagnostic Findings CXR - BiV pacer in place, no infiltrate ECG Additional Comments: ventricular paced at 70bpm PG Care Time/CCT Total # of Minutes Spent Total Time Spent with Patient: Total time spent is greater than 50% in coordination of care (as documented) at patient's floor/unit and/or counseling patient: Coding Level of Care Code INT OBSERVATION CARE 70M LVL 3 Diagnoses Nausea R11.0 Elevated troponin R77.8 Hypertension I10 Permanent atrial fibrillation I48.21
[2022-02-04] MEDS ORDERED: ONDANSETRON INJ 2 MG/ML 2 ML VIAL IV PRN (05:06)
[2022-02-04] MEDS ORDERED: ALUMINUM/MAGNESIUM SUSP 72 ML, LIDOCAINE VISCOUS 2% SOLN 24 ML, BARCODE IDENTIFIER 1 EACH PO PRN (05:06)
--- NOTE | 2022-02-04 08:08 | XRay Report ---
XR chest 1V portable CLINICAL HISTORY: Atypical chest pain. COMPARISON STUDY: Chest CT September 15, 2018 and chest radiograph September 23, 2019. FINDINGS: Left subclavian pacer is in place. Cardiomegaly is unchanged. No evidence for pulmonary neisha ma. There is no consolidation to suggest pneumonia. No definite pleural effusion. IMPRESSION: No acute cardiopulmonary findings. No significant change in appearance of the chest. ACT 112: Negative or not required by law. Electronically signed by: Jose Luis Beltran M.D. 02/04/2022 8:06 AM
[2022-02-04] MEDS: ACETAMINOPHEN 325 MG TAB PO PRN ×2 (08:56→16:20)
[2022-02-04] MEDS ORDERED: lisinopril 10 MG TAB PO SCH (09:00)
[2022-02-04] MEDS ORDERED: carvediloL 12.5 MG TAB PO SCH (09:00)
[2022-02-04] MEDS ORDERED: DABIGATRAN ETEXILATE 75 MG CAP PO SCH (09:00)
[2022-02-04 09:45] LABS: Magnesium 1.9 mg/dl (1.7-2.4); Phosphorus 3.1 mg/dl (2.5-4.9); Troponin I High Sensitivity 19.8 pg/ml (0-14)
--- NOTE | 2022-02-04 11:15 | Electrocardiogram Report ---
Test Reason : Blood Pressure : / mmHG Vent. Rate : 070 BPM Atrial Rate : 071 BPM P-R Int : 000 ms QRS Dur : 134 ms QT Int : 448 ms P-R-T Axes : 000 082 046 degrees QTc Int : 483 ms Poor data quality, interpretation may be adversely affected Ventricular-paced rhythm Biventricular pacemaker detected Abnormal ECG When compared with ECG of 24-JUL-2021 12:27, No significant change was found Confirmed by Kumar Harrison ([id number]) on 02/04/2022 11:14:35 AM Referred By: REFERRED SELF Confirmed By:Giles Harrison
--- NOTE | 2022-02-04 11:18 | Electrocardiogram Report ---
Test Reason : Blood Pressure : / mmHG Vent. Rate : 070 BPM Atrial Rate : 088 BPM P-R Int : 000 ms QRS Dur : 136 ms QT Int : 464 ms P-R-T Axes : 000 075 050 degrees QTc Int : 501 ms Poor data quality, interpretation may be adversely affected Ventricular-paced rhythm Biventricular pacemaker detected Abnormal ECG When compared with ECG of 03-FEB-2022 22:46, (unconfirmed) No significant change was found Confirmed by Kumar Harrison ([id number]) on 02/04/2022 11:18:11 AM Referred By: REFERRED SELF Confirmed By:Giles Harrison
--- NOTE | 2022-02-04 16:48 | Discharge Summary ---
Date of Service February 04, 2022 Admission HPI Per Admitting Provider Adrianna Landa is an 86yo female with history of permanent atrial fibrillation s/p marisa ablation with placement of biventricular pacer, chronic systolic CHF with improved EF, HTN presenting with nausea, diarrhea and hypertension. Patient was in her usual state of health today. She had a chicken wrap and new zealander fries for lunch and was feeling well. At 19:30 she was sitting and reading when she felt acute onset of epigastric discomfort, nausea and indigestion. She had some mild abdominal discomfort and two episodes of non-bloody diarrhea. She checked her blood pressure at home and it was 240/120. EMS was called. BP by EMS 220/100. Still with intermittent epigastric discomfort. Patient denies fever, chills, chest pain, palpitations, vomiting. Denies hoarseness, reflux, globus sensation. She reports ongoing nausea with exertion. No additional complaints at this time. Patient denies history of CAD. No stents. She did have a stress test in the past which she reports as normal. She follows with Cardiology. Upon arrival to the ER she was found to be tachycardic with HR of 120, BP 250/111 ER Course: Hydralazine 10mg IV x 2 doses, Zofran 4mg IV, Ativan 1mg IV Principal Diagnosis poorly controlled HTN Discharge Exam The patient is awake, alert and oriented 3, well developed and well nourished, normocephalic and atraumatic, lying in bed and in no acute distress. HEENT--PERRL, EOMI, mucous membranes and oropharynx mildly dry Neck--supple. No JVD. No bruits. Thyroid normal, trachea midline, no adenopathy. Heart--normal S1 and S2. No murmurs, rubs or gallops. Lungs--clear bilaterally, no respiratory distress, no accessory muscle use. Abdomen--normal bowel sounds and soft. Mild epigastric and left sided abdominal pain Extremities--no cyanosis or clubbing. No edema. Dermatologic--normal skin turgor, normal color, no abnormal lymph nodes, no rash. Neurologic--cranial nerves II through XII grossly intact. Rheumatologic--normal range of motion. Psychiatric--normal affect. Discharge Data Allergies Allergy/AdvReac Type Severity Reaction Status Date / Time azithromycin Allergy Unknown Unknown Verified 02/03/22 23:38 Beta-Blockers Allergy Unknown Unknown Verified 02/03/22 23:38 (Beta-Adrenergic Bloc latex Allergy Unknown REDNESS Verified 02/03/22 23:38 prednisone Allergy Unknown FEELS Verified 02/03/22 23:38 JITTERY sertraline AdvReac Unknown Nausea/Dizz Verified 02/03/22 23:38 y Consultations 02/04/22 02:12 ED Decision to Admit Stat Hospital Course (1) Nausea: 86yo female presents with persistent nausea. Now resolved following Zofran and GI cocktail (2) Elevated troponin: Patient with mild elevation of troponin 13 --> 15.9. No ischemic changes on EKG. Probably demand from afib -Telemetry monitoring -Trend troponin -Check 2D echo (3) Hypertension: Marked elevation of blood pressure on arrival. Improving now after Hydralazine 10mg IV x 2 doses administered in ER. Presently 166/77 which is adequate decline from her initial pressure of 250/111. -Continue Lisinopril -Continue Carvedilol -Monitor BP (4) Permanent atrial fibrillation: V-paced -Continue carvedilol -Continue Dabigatran F/E/N - Heplock. Check Mg and PO4, Heart healthy diet as tolerated Ppx - Continue home Dabigatran Code - Full per discussion with patient Dispo - Observation to medical with telemetry Plan d/c home Total Time Total Time Spent Total Time Spent (In Minutes): 35 Discharge Plan Discharge Items Patient Disposition: Home - Self-Care Reason For Visit: NAUSEA, DIARRHEA, HYPERTENSION Discharge Diagnosis: poorly controlled HTN Activity: Resume your previous activity Non-emergency contact: Primary Care Provider Call non-emergency contact if: you have any medication questions Follow-up/Referrals: Mary Laughlin MD [Primary Care Provider] - Diet: Regular Addtl Attending Provider Instructions: Please make appointment to follow up with your PCP Monitor your Blood Pressure regularly, show the readings to your PCP during your next visit Pending Studies at Discharge: No Stand-Alone Forms: My [employer], Smoking Cessation Medications and DC Order Prescriptions: Continued Pradaxa 150 mg capsule 150 mg PO BID Qty: 180 3RF carvedilol 12.5 mg tablet 12.5 mg PO BID Qty: 270 3RF Rx Instructions: must administer with a meal/food Premarin 0.625 mg/gram cream 0.625 mg vaginal 3XWK Qty: 60 1RF lisinopril 10 mg tablet 10 mg PO QAM Qty: 90 3RF cyanocobalamin (vitamin B-12) [Vitamin B-12] 1,000 mcg tablet 1,000 mcg PO QAM cholecalciferol (vitamin D3) 1,000 unit Tablet 1,000 unit PO QAM multivitamin Tablet 1 tab PO QAM Macular Health Formula 5-1-7.5 mg Capsule 1 cap PO QAM Vasquez Defend Otc 1 tab PO BID gabapentin 100 mg capsule 100 - 200 mg PO HS Rx Instructions: 1-2 capsules at bedtime for pain Discharge Orders: Discharge Order (Routine); Ordered 02/04/22 Ordered By: Sheela Flores Admission Data Admit Date/Time: 02/04/22 03:24 Attending Provider: Sheela Flores Admit Provider: Gifty Lewis Primary Care Provider: Mary Laughlin V. Other Providers: Gifty Lewis Coding Level of Care Code D/C DAY MANAGEMENT >30 MINS Diagnoses Nausea R11.0 Elevated troponin R77.8 Hypertension I15.9 Hypertension type: unspecified secondary hypertension Permanent atrial fibrillation I48.21 Time Spent (min) 35
--- NOTE | 2022-02-04 17:28 | XCELERA ---
[id number] \\[id number]
[2022-02-04] MEDS ORDERED: GABAPENTIN 100 MG CAP PO SCH (21:00)
== END 2022-02-04 17:20 | disposition home or self-care (01) ==
LOC: ED 22:38 → EDINP 22:38 → SUATTDRO 02-04 03:24 → 2N 02-04 05:05

== ENCOUNTER 2023-05-01 09:50 | Inpatient (IN) ==
--- NOTE | 2023-05-01 10:09 | Emergency Department Note ---
Impression & Plan Pneumonia, Hypoxia, Respiratory syncytial virus (RSV) ED Provider Note NAME: MODE BURNS AGE: 87 SEX: F : 1935 ARRIVES VIA: Ambulance INFORMANT: Patient, ED PROVIDER(S): Alfredo Jean Baptiste DO CHIEF COMPLAINT: Shortness of breath HPI: The patient is an 87-year-old female who presented to the emergency department for an evaluation of shortness of breath. The patient describes abdominal pressure but also shortness of breath which began over the last few days. The patient does have a history of CHF. She states that she has been compliant with her outpatient medications. She denies having any lower extremity swelling. She denies having any hemoptysis or fever. The patient's not been seen by her family doctor but called 911 and arrived via ambulance. ROS: See above HPI for pertinent positives & negatives. A total of 10 systems reviewed and were otherwise negative. PAST MEDICAL HISTORY: See Below PAST SURGICAL HISTORY: See Below FAMILY HISTORY: See Below SOCIAL HISTORY: See Below HOME MEDICATIONS: See Below ALLERGIES: See Below VITALS: See Below PHYSICAL EXAMINATION: GENERAL: The patient is awake and alert. She is somewhat anxious appearing. EYES: The conjunctivae are clear. The pupils are round and reactive. EARS, NOSE, MOUTH AND THROAT: The nose is without any evidence of any deformity. NECK: The neck is nontender and supple. RESPIRATORY: Diminished breath sounds are noted throughout. There were fine rales in all lung lindsey. There was conversational dyspnea noted. CARDIOVASCULAR: Regular rate and rhythm noted there no murmurs rubs or gallops normal S1 normal S2. GASTROINTESTINAL: The abdomen is soft. Abdomen is nontender. MUSCULOSKELETAL/EXTREMITIES: There is no evidence of gross deformity full range of motion is noted in the hips and shoulders. SKIN: There is no obvious evidence of any rash. There are no petechiae, pallor or cyanosis noted. NEUROLOGIC: Patient is awake alert and oriented x3 MEDICAL DECISION MAKING: The patient is an 87-year-old female who presented to the emergency department for an evaluation of difficulty breathing. The patient's physical exam I thought was more consistent with pulmonary edema however she did complain of cough. She was found to be hypoxic with any exertion. I discussed patient's laboratory and radiographic studies with her. Chest x-ray appeared to be more consistent with pulmonary infiltrate. She was treated with IV antibiotics. I discussed patient's condition with the on-call [facility] hospitalist. They have agreed to evaluate the patient in the emergency department. Patient's other laboratory as well as her vital signs do not appear to point towards sepsis. I do not want to give the patient too much IV fluids given her past medical history until further workup could be undertaken to determine her volume status overall. I do feel the patient was much better on subsequent reevaluation. Triage Nursing notes reviewed. Prior medical records reviewed Vital Signs: reviewed and remarkable for elevated blood pressure and hypoxia. Differential diagnosis: Reactive airway disease, pneumonia, pneumothorax, COPD, CHF, infections, cardiac ischemia, pulmonary embolism, musculoskeletal, gastrointestinal, as well as other pathologies. ER treatment provided: See below Diagnostics interpreted by me: ECG: EKG was obtained in the emergency department. My interpretation is ventricular paced rhythm at 70 bpm. There were no blackfeet beats. There were no PVCs. A left bundle branch block pattern was noted. This was compared to a tracing from March 10, 2023. No changes were noted. Cardiac Monitoring: An order was placed for continuous cardiac monitoring. The monitor shows a rate of 70 bpm with paced rhythm. Laboratory studies: As stated above and show below. Imaging studies: See below. Radiographic imaging was reviewed by myself Consultation(s): I discussed this case with Dr. 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 Vaginal Discharge HBP (high blood pressure) Diarrhea Nasal discharge History of nephrolithiasis History of orthostatic hypotension History of herpes zoster History of asthma PT DENIES-NO INHALERS History of cellulitis Creatinine elevation (12/2018) PAINTER (dyspnea on exertion) Impaired fasting glucose Moderate pulmonary arterial systolic hypertension Moderate mitral regurgitation by prior echocardiogram LBBB (left bundle branch block) History of non-ST elevation myocardial infarction (NSTEMI) Cardiomyopathy EF=40% 2019, EF=55-60% 2019 (s/p BiV) Anemia (2018) Resolved Pneumonia (2016) HX Atrial fibrillation with RVR F/U DR PRESTON-ON PRADAXA Acute on chronic systolic (congestive) heart failure Surgical History History of lithotripsy History of colonoscopy S/P cataract surgery R/L History of ear, nose, and throat (ENT) surgery PERCUTANEOUS REPAIR OF NASOETHMOID FX july 2010 S/P biventricular cardiac pacemaker procedure (09/2018) H/O ovarian cystectomy S/P myringotomy with insertion of tube (2000) Hx of tonsillectomy H/O tooth extraction Hx of appendectomy Family History Mother , age 65 of a stroke Hypertension Stroke Aunt Breast cancer maternal aunt Uterine cancer maternal aunt Sister Diabetes Father , age 89 Macular degeneration Denies family history of Ovarian cancer Prostate cancer Heart disease Myocardial infarction Colorectal cancer Social History Smoking Status: Never smoker Second Hand Exposure: No; Do You Dip or Chew Tobacco: No; Hx Alcohol Use: No Hx Substance Use: No Preferred Language: Gabonese Communication Ability: Effective Hearing Ability: Use of Hearing Aid Bakery Supervisor Required: No Beliefs That Will Affect Care: None marital status: / Current Living Situation: Family Current Living Situation Comment: home with children current occupational status: retired 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 Feels Safe at Home: Yes Childhood Exposure to Second-Hand Smoke: No Dental Care, Regularly: Yes Physical Activity Frequency: 3-4 Times per Week Seatbelt Use: always Sunscreen Use: Yes Assistive Devices: Cane, Glasses and Hearing Aid - Bilateral Allergies Allergies Allergy/AdvReac Type Severity Reaction Status Date / Time azithromycin Allergy Unknown Unknown Verified 05/01/23 12:15 Beta-Blockers Allergy Unknown Unknown Verified 05/01/23 12:15 (Beta-Adrenergic Bloc latex Allergy Unknown REDNESS Verified 05/01/23 12:15 prednisone Allergy Unknown FEELS Verified 05/01/23 12:15 JITTERY sertraline AdvReac Unknown Nausea/Dizz Verified 05/01/23 12:15 y Home Meds Home Medications Medication Instructions Recorded Confirmed Vasquez Defend Otc 1 tab PO BID 08/01/21 05/01/23 [id number] 5 mg-zeaxanth 1 cap PO QAM 08/01/21 05/01/23 1 mg-bilberry 7.5 mg-herbal capsule (Macular Health Formula) ascorbic acid (vitamin C) 500 mg 500 mg PO QAM 12/14/22 05/01/23 tablet (Vitamin C) conjugated estrogens 0.625 mg/gram 0.625 mg vaginal UD 05/01/23 05/01/23 vaginal cream (Premarin) Previous Rx's Medication Instructions Recorded carvedilol 12.5 mg tablet 12.5 mg PO BID #180 tabs 05/27/22 lisinopril 20 mg tablet 20 mg PO QAM #90 tabs 01/21/23 dabigatran etexilate 150 mg 150 mg PO BID #180 caps 02/12/23 capsule (Pradaxa) gabapentin 100 mg capsule 100 mg PO HS #30 caps 04/23/23 doxycycline hyclate 100 mg tablet 100 mg PO BID 7 days #14 tabs 04/29/23 benzonatate 100 mg capsule 100 mg PO TID #30 caps 04/30/23 Results & Data (ED) Vital Signs Vital Signs - 24 hr 05/01/23 09:48 05/01/23 09:48 05/01/23 10:12 Temperature 36.8 C Temperature Source Oral Pulse Rate 70 141 H Pulse Rate from SpO2 Sensor 70 Respiratory Rate 22 27 H Respiratory Effort / Characteristics Non-Labored Spontaneous Short of Breath SOB on Exertion Spontaneous SOB on Exertion Respiratory Depth Normal Normal Respiratory Pattern Regular Regular Blood Pressure 199/106 H Blood Pressure Mean 137 Pulse Oximetry 94 92 Oxygen Delivery Method Room Air Room Air Oxygen Flow Rate Sepsis Recent Fever Within 48 Hours No Sepsis New/Unexplained Change in Mental Status No Sepsis Action Taken by Nursing No Action Required Oxygen Flow Rate - Titration Pulse Oximetry Post Tiitration 05/01/23 10:35 05/01/23 10:56 05/01/23 11:00 Temperature Temperature Source Pulse Rate 129 H 111 H Pulse Rate from SpO2 Sensor 72 70 74 Respiratory Rate 27 H 23 32 H Respiratory Effort / Characteristics Respiratory Depth Respiratory Pattern Blood Pressure Blood Pressure Mean Pulse Oximetry 92 93 92 Oxygen Delivery Method Oxygen Flow Rate Sepsis Recent Fever Within 48 Hours Sepsis New/Unexplained Change in Mental Status Sepsis Action Taken by Nursing Oxygen Flow Rate - Titration Pulse Oximetry Post Tiitration 05/01/23 11:10 05/01/23 11:20 05/01/23 11:27 Temperature Temperature Source Pulse Rate 131 H 70 Pulse Rate from SpO2 Sensor 70 71 Respiratory Rate 34 H 25 H Respiratory Effort / Characteristics Respiratory Depth Respiratory Pattern Blood Pressure Blood Pressure Mean Pulse Oximetry 94 96 88 L Oxygen Delivery Method Room Air Oxygen Flow Rate 0 Sepsis Recent Fever Within 48 Hours Sepsis New/Unexplained Change in Mental Status Sepsis Action Taken by Nursing Oxygen Flow Rate - Titration 2 Pulse Oximetry Post Tiitration 96 05/01/23 11:27 05/01/23 11:30 05/01/23 11:40 Temperature Temperature Source Pulse Rate 70 70 Pulse Rate from SpO2 Sensor 70 70 Respiratory Rate 23 27 H Respiratory Effort / Characteristics Respiratory Depth Respiratory Pattern Blood Pressure Blood Pressure Mean Pulse Oximetry 96 96 95 Oxygen Delivery Method Nasal Cannula Nasal Cannula Oxygen Flow Rate 2 2 Sepsis Recent Fever Within 48 Hours Sepsis New/Unexplained Change in Mental Status Sepsis Action Taken by Nursing Oxygen Flow Rate - Titration Pulse Oximetry Post Tiitration 05/01/23 11:50 05/01/23 12:00 05/01/23 12:10 Temperature Temperature Source Pulse Rate 73 72 70 Pulse Rate from SpO2 Sensor 73 72 70 Respiratory Rate 23 14 23 Respiratory Effort / Characteristics Respiratory Depth Respiratory Pattern Blood Pressure Blood Pressure Mean Pulse Oximetry 95 96 96 Oxygen Delivery Method Oxygen Flow Rate Sepsis Recent Fever Within 48 Hours Sepsis New/Unexplained Change in Mental Status Sepsis Action Taken by Nursing Oxygen Flow Rate - Titration Pulse Oximetry Post Tiitration 05/01/23 12:20 05/01/23 12:27 05/01/23 12:27 Temperature Temperature Source Pulse Rate 75 70 Pulse Rate from SpO2 Sensor 71 70 Respiratory Rate 19 26 H Respiratory Effort / Characteristics Respiratory Depth Respiratory Pattern Blood Pressure 181/87 H Blood Pressure Mean 140 Pulse Oximetry 95 95 Oxygen Delivery Method Oxygen Flow Rate Sepsis Recent Fever Within 48 Hours Sepsis New/Unexplained Change in Mental Status Sepsis Action Taken by Nursing Oxygen Flow Rate - Titration Pulse Oximetry Post Tiitration 05/01/23 12:30 05/01/23 12:34 Temperature Temperature Source Pulse Rate 71 70 Pulse Rate from SpO2 Sensor 71 Respiratory Rate 22 Respiratory Effort / Characteristics Respiratory Depth Respiratory Pattern Blood Pressure Blood Pressure Mean Pulse Oximetry 94 Oxygen Delivery Method Nasal Cannula Oxygen Flow Rate 2 Sepsis Recent Fever Within 48 Hours Sepsis New/Unexplained Change in Mental Status Sepsis Action Taken by Nursing Oxygen Flow Rate - Titration Pulse Oximetry Post Tiitration Home Medications Current Medication List: was personally reviewed by me Laboratory Data Attestation: I reviewed the patient's lab results. 05/01/23 11:09 05/01/23 11:09 Lab Results 05/01/23 05/01/23 05/01/23 Range/Units 10:35 11:09 11:11 WBC 12.65 H (4.8-10.8) K/ul RBC 4.03 L (4.20-5.40) M/uL Hgb 13.4 (12.0-16.0) g/dl Hct 38.4 (37.0-47.0) % MCV 95.3 (80.0-100.0) fL MCH 33.3 (25.0-34.0) pg MCHC 34.9 (32.0-36.0) g/dL RDW Std Deviation 48.4 H (36.4-46.3) fL RDW Coeff of Elijah 13.7 (11.5-14.5) % Plt Count 233 (130-400) K/uL MPV 10.4 (9.4-12.4) fL Immature Gran % (Auto) 0.3 % Neut % (Auto) 81.1 % Lymph % (Auto) 10.0 % [place] % (Auto) 8.1 % Eos % (Auto) 0.3 % Baso % (Auto) 0.2 % Neut # (Auto) 10.25 H (1.40-6.50) K/uL Lymph # (Auto) 1.26 (1.20-3.40) K/uL [place] # (Auto) 1.03 H (0.11-0.59) K/uL Eos # (Auto) 0.04 (0.00-0.50) K/uL Baso # (Auto) 0.03 (0.00-0.20) K/uL Immature Gran # (Auto) 0.04 (0.01-0.20) K/uL PT 18.9 H (9.0-12.0) Seconds INR 1.8 H (0.9-1.1) APTT 67 H (21-31) Seconds PTT Ratio 2.4 VBG pH (7.36-7.41) VBG pCO2 (38-50) mmHg VBG pO2 mmHg VBG HCO3 mmol/L VBG O2 Saturation % VBG Base Excess mEq/L Sodium 131 L (136-145) mmol/L Potassium 3.7 (3.5-5.1) mmol/L Chloride 98 (98-107) mmol/L Carbon Dioxide 25 (21-32) mmol/L Anion Gap 8 (3-11) BUN 19 (6-23) mg/dl Creatinine 0.73 (0.6-1.2) mg/dl Est Cr Clr Drug Dosing 50.6 ml/min Est GFR ( Amer) 87.0 ml/min Est GFR (Non-Af Amer) 75.1 ml/min BUN/Creatinine Ratio 26.0 H (10-20) Glucose 128 H (70-99(Fasting)) mg/dl Lactate (0.4-2.0) mmol/L Calcium 9.2 (8.6-10.3) mg/dl Magnesium 1.8 (1.7-2.4) mg/dl Total Bilirubin 1.3 H (0.2-1.0) mg/dl AST 17 (13-39) U/L ALT 9 (7-52) U/L Alkaline Phosphatase 49 (34-104) U/L Troponin I High Sens 15.7 H (0-14) pg/ml C-Reactive Protein 5.60 H (0-0.5) mg/dl B-Natriuretic Peptide 457 H (0-100) pg/ml Total Protein 7.5 (6.0-8.3) gm/dl Albumin 4.1 (3.4-5.0) gm/dl Globulin 3.4 (2.5-4.0) gm/dl Albumin/Globulin Ratio 1.2 (0.9-2) Procalcitonin (0-0.5) ng/ml Urine Color Yellow Urine Appearance Turbid A (Clear) Urine pH 6.0 (4.5-7.5) Ur Specific [place] 1.018 (1.000-1.030) Urine Protein Trace H (Negative) Urine Glucose (UA) Negative (Negative) Urine Ketones Trace H (Negative) Urine Blood 2+ H (Negative) Urine Nitrite Negative (Negative) Urine Bilirubin Negative (Negative) Urine Urobilinogen Negative (Negative) Ur Leukocyte Esterase 1+ H (Negative) Urine RBC >30 H (0-4) /hpf Urine WBC 10-30 H (0-5) /hpf Ur Epithelial Cells >30 H (0-5) /lpf Urine Bacteria 3+ H (Negative) Adenovirus (PCR) Not Detected (NotDetected) B. pertussis DNA (PCR) Not Detected (NotDetected) B.parapertussis DNA PCR Not Detected (NotDetected) C. pneumoniae DNA (PCR) Not Detected (NotDetected) Coronavirus OC43 (PCR) Not Detected (NotDetected) Coronavirus HKU1 (PCR) Not Detected (NotDetected) Coronavirus 229E (PCR) Not Detected (NotDetected) SARS-CoV-2 (PCR) Not Detected (NotDetected) Coronavirus NL63 (PCR) Not Detected (NotDetected) Human Metapneumovir PCR Not Detected (NotDetected) Influenza Type A (PCR) Not Detected (NotDetected) Influenza Type B (PCR) Not Detected (NotDetected) M. pneumoniae (PCR) Not Detected (NotDetected) Parainfluenza 1 (PCR) Not Detected (NotDetected) Parainfluenza 2 (PCR) Not Detected (NotDetected) Parainfluenza 3 (PCR) Not Detected (NotDetected) Parainfluenza 4 (PCR) Not Detected (NotDetected) RSV (PCR) DETECTED A* (NotDetected) Entero/Rhino (PCR) Not Detected (NotDetected) 05/01/23 05/01/23 05/01/23 Range/Units 11:14 11:15 11:52 WBC (4.8-10.8) K/ul RBC (4.20-5.40) M/uL Hgb (12.0-16.0) g/dl Hct (37.0-47.0) % MCV (80.0-100.0) fL MCH (25.0-34.0) pg MCHC (32.0-36.0) g/dL RDW Std Deviation (36.4-46.3) fL RDW Coeff of Elijah (11.5-14.5) % Plt Count (130-400) K/uL MPV (9.4-12.4) fL Immature Gran % (Auto) % Neut % (Auto) % Lymph % (Auto) % [place] % (Auto) % Eos % (Auto) % Baso % (Auto) % Neut # (Auto) (1.40-6.50) K/uL Lymph # (Auto) (1.20-3.40) K/uL [place] # (Auto) (0.11-0.59) K/uL Eos # (Auto) (0.00-0.50) K/uL Baso # (Auto) (0.00-0.20) K/uL Immature Gran # (Auto) (0.01-0.20) K/uL PT (9.0-12.0) Seconds INR (0.9-1.1) APTT (21-31) Seconds PTT Ratio VBG pH 7.44 H (7.36-7.41) VBG pCO2 38 (38-50) mmHg VBG pO2 79 mmHg VBG HCO3 26 mmol/L VBG O2 Saturation 96.3 % VBG Base Excess 1.7 mEq/L Sodium (136-145) mmol/L Potassium (3.5-5.1) mmol/L Chloride (98-107) mmol/L Carbon Dioxide (21-32) mmol/L Anion Gap (3-11) BUN (6-23) mg/dl Creatinine (0.6-1.2) mg/dl Est Cr Clr Drug Dosing ml/min Est GFR ( Amer) ml/min Est GFR (Non-Af Amer) ml/min BUN/Creatinine Ratio (10-20) Glucose (70-99(Fasting)) mg/dl Lactate 1.1 (0.4-2.0) mmol/L Calcium (8.6-10.3) mg/dl Magnesium (1.7-2.4) mg/dl Total Bilirubin (0.2-1.0) mg/dl AST (13-39) U/L ALT (7-52) U/L Alkaline Phosphatase (34-104) U/L Troponin I High Sens (0-14) pg/ml C-Reactive Protein (0-0.5) mg/dl B-Natriuretic Peptide (0-100) pg/ml Total Protein (6.0-8.3) gm/dl Albumin (3.4-5.0) gm/dl Globulin (2.5-4.0) gm/dl Albumin/Globulin Ratio (0.9-2) Procalcitonin < 0.05 (0-0.5) ng/ml Urine Color Urine Appearance (Clear) Urine pH (4.5-7.5) Ur Specific [place] (1.000-1.030) Urine Protein (Negative) Urine Glucose (UA) (Negative) Urine Ketones (Negative) Urine Blood (Negative) Urine Nitrite (Negative) Urine Bilirubin (Negative) Urine Urobilinogen (Negative) Ur Leukocyte Esterase (Negative) Urine RBC (0-4) /hpf Urine WBC (0-5) /hpf Ur Epithelial Cells (0-5) /lpf Urine Bacteria (Negative) Adenovirus (PCR) (NotDetected) B. pertussis DNA (PCR) (NotDetected) B.parapertussis DNA PCR (NotDetected) C. pneumoniae DNA (PCR) (NotDetected) Coronavirus OC43 (PCR) (NotDetected) Coronavirus HKU1 (PCR) (NotDetected) Coronavirus 229E (PCR) (NotDetected) SARS-CoV-2 (PCR) (NotDetected) Coronavirus NL63 (PCR) (NotDetected) Human Metapneumovir PCR (NotDetected) Influenza Type A (PCR) (NotDetected) Influenza Type B (PCR) (NotDetected) M. pneumoniae (PCR) (NotDetected) Parainfluenza 1 (PCR) (NotDetected) Parainfluenza 2 (PCR) (NotDetected) Parainfluenza 3 (PCR) (NotDetected) Parainfluenza 4 (PCR) (NotDetected) RSV (PCR) (NotDetected) Entero/Rhino (PCR) (NotDetected) Administered Medications Discontinued Medications Cefepime HCl (Maxipime) 2,000 mg in 20 mls @ 5 mls/min IV NOW STA; Protocol Stop: 05/01/23 12:20 Last Admin: 05/01/23 12:27 Dose: 5 mls/min Documented By: LKD Imaging Data Attestation: I personally reviewed and interpreted this imaging study as follows: My Impression: 1 view chest x-ray was obtained in the emergency department. My interpretation is no free air, increased interstitial markings, final report below Radiologist's Impression: Chest X-Ray 05/01/23 10:02 XR chest 1V portable HISTORY: 87 years-old Female Dyspnea acute shortness of breath COMPARISON: 04/28/2023 TECHNIQUE: AP view of the chest FINDINGS: Cardiac silhouette is enlarged. Dual lead left subclavian pacer. There is no pneumothorax, pleural effusion or overt pulmonary edema. Pulmonary vascular congestion. Ill-defined patchy bibasilar opacities are new from prior. Degenerative changes of the shoulders and spine. IMPRESSION: Mild patchy ill-defined bibasilar opacities suspicious for an infectious or inflammatory pneumonitis. ACT 112: Negative or not required by law. The above report was generated using voice recognition software. It may contain grammatical, syntax or spelling errors. Electronically signed by: Benny Vazquez M.D. 05/01/2023 11:02 AM Discharge Plan Visit Data Chief Complaint: Shortness of Breath/Dyspnea Stated Complaint: AB PAIN, SOB ED Provider: Alfredo Jean Baptiste Discharge Problem: Pneumonia, Hypoxia, Respiratory syncytial virus (RSV) Patient Disposition: Being Evaluated by Hospitalist Discharge Instructions Interventions: ED Discharge Assessment Last Done: 05/01/23 13:49 Forms Stand Alone Forms: My [facility] Prescriptions Prescriptions: No Action dabigatran etexilate [Pradaxa] 150 mg capsule 150 mg PO BID Qty: 180 3RF doxycycline hyclate 100 mg tablet 100 mg PO BID 7 Days Qty: 14 0RF Rx Instructions: Start Date 04/29/23 - End Date 05/06/23. A total of 4 doses taken as of 05/01/23 benzonatate 100 mg capsule 100 mg PO TID Qty: 30 0RF carvedilol 12.5 mg tablet 12.5 mg PO BID Qty: 180 3RF gabapentin 100 mg capsule 100 mg PO HS Qty: 30 5RF lisinopril 20 mg tablet 20 mg PO QAM Qty: 90 3RF Macular Health Formula 5-1-7.5 mg Capsule 1 cap PO QAM Vasquez Defend Otc 1 tab PO BID ascorbic acid (vitamin C) [Vitamin C] 500 mg Tablet 500 mg PO QAM Premarin 0.625 mg/gram cream 0.625 mg vaginal UD Rx Instructions: Per patient: One week 1 do it 3 times a week, then the alternate week I do it 2 times a week. Referrals Referrals: Mary Laughlin MD [Primary Care Provider] - Discharge Problem: Pneumonia Qualifiers: Pneumonia type: due to unspecified organism Laterality: bilateral Lung location: unspecified part of lung Qualified Code(s): J18.9 - Pneumonia, unspecified organism
--- NOTE | 2023-05-01 11:03 | XRay Report ---
XR chest 1V portable HISTORY: 87 years-old Female Dyspnea acute shortness of breath COMPARISON: 04/28/2023 TECHNIQUE: AP view of the chest FINDINGS: Cardiac silhouette is enlarged. Dual lead left subclavian pacer. There is no pneumothorax, pleural ef fusion or overt pulmonary edema. Pulmonary vascular congestion. Ill-defined patchy bibasilar opacitie s are new from prior. Degenerative changes of the shoulders and spine. IMPRESSION: Mild patchy ill-defined bibasilar opacities suspicious for an infectious or inflammatory pneumonitis. ACT 112: Negative or not required by law. The above report was generated using voice recognition software. It may contain grammatical, syntax o r spelling errors. Electronically signed by: Benny Vazquez M.D. 05/01/2023 11:02 AM
[2023-05-01 11:23] LABS: Base Excess VBG 1.7 mEq/L; HCO3 VBG 26 mmol/L; Oxygen Saturation VBG 96.3 %; PCO2 VBG 38 mmHg (38-50); PO2 VBG 79 mmHg; pH VBG 7.44 (7.36-7.41)
[2023-05-01 11:32] LABS: Basophils # (auto) 0.03 K/uL (0.00-0.20); Basophils % (auto) 0.2 %; Eosinophils # (auto) 0.04 K/uL (0.00-0.50); Eosinophils % (auto) 0.3 %; Hematocrit (blood only) 38.4 % (37.0-47.0); Hemoglobin 13.4 g/dl (12.0-16.0); Immature Granulocytes # (auto) 0.04 K/uL (0.01-0.20); Immature Granulocytes % (auto) 0.3 %; Lymphocytes # (auto) 1.26 K/uL (1.20-3.40); Mean Corpuscular Hemoglobin 33.3 pg (25.0-34.0); Mean Corpuscular Hgb Conc 34.9 g/dL (32.0-36.0); Mean Corpuscular Volume 95.3 fL (80.0-100.0); Mean Platelet Volume 10.4 fL (9.4-12.4); Monocytes # (auto) 1.03 K/uL (0.11-0.59); Monocytes % (auto) 8.1 %; Neutrophils # (auto) 10.25 K/uL (1.40-6.50); Neutrophils % (auto) 81.1 %; Platelet Count 233 K/uL (130-400); RDW Coefficient of Variation 13.7 % (11.5-14.5); RDW Standard Deviation 48.4 fL (36.4-46.3); Red Blood Count 4.03 M/uL (4.20-5.40); White Blood Count 12.65 K/ul (4.8-10.8)
[2023-05-01 11:42] LABS: Adenovirus PCR Not Detected (NotDetected); Bordetella parapertussis PCR Not Detected (NotDetected); Bordetella pertussis PCR Not Detected (NotDetected); Chlamydia pneumoniae PCR Not Detected (NotDetected); Coronavirus 229E PCR Not Detected (NotDetected); Coronavirus CoV-2 (COVID19)PCR Not Detected (NotDetected); Coronavirus HKU1 PCR Not Detected (NotDetected); Coronavirus NL63 PCR Not Detected (NotDetected); Coronavirus OC43PCR Not Detected (NotDetected); Human Metapneumovirus PCR Not Detected (NotDetected); Influenza A PCR Not Detected (NotDetected); Influenza B PCR Not Detected (NotDetected); Mycoplasma pneumoniae PCR Not Detected (NotDetected); Parainfluenza Virus 1 PCR Not Detected (NotDetected); Parainfluenza Virus 2 PCR Not Detected (NotDetected); Parainfluenza Virus 3 PCR Not Detected (NotDetected); Parainfluenza Virus 4 PCR Not Detected (NotDetected); Rhinovirus/Enterovirus PCR Not Detected (NotDetected)
[2023-05-01 11:44] LABS: Albumin Globulin Ratio 1.2 (0.9-2); Albumin Level 4.1 gm/dl (3.4-5.0); Bilirubin,Total 1.3 mg/dl (0.2-1.0); Calcium 9.2 mg/dl (8.6-10.3); Creatinine Clr Calc Pharmacy 50.6 ml/min; Est GFR (Non-African American) 75.1 ml/min; Globulin 3.4 gm/dl (2.5-4.0); Magnesium 1.8 mg/dl (1.7-2.4); Potassium 3.7 mmol/L (3.5-5.1); Total Protein 7.5 gm/dl (6.0-8.3)
[2023-05-01 11:49] LABS: Respiratory Syncytial VirusPCR DETECTED (NotDetected)
[2023-05-01 11:50] LABS: Troponin I High Sensitivity 15.7 pg/ml (0-14)
[2023-05-01 11:54] LABS: INR 1.8 (0.9-1.1); Partial Thromboplastin Ratio 2.4; Partial Thromboplastin Time 67 Seconds (21-31); Prothrombin Time 18.9 Seconds (9.0-12.0)
[2023-05-01 12:00] LABS: C Reactive Protein 5.6 mg/dl (0-0.5)
[2023-05-01 12:14] LABS: Appearance Urine Turbid (Clear); Bilirubin Urine Negative (Negative); Blood Urine 2+ (Negative); Color Urine Yellow; Glucose Urine UA Negative (Negative); Ketones Urine Trace (Negative); Leukocyte Esterase Urine 1+ (Negative); Nitrite Urine Negative (Negative); Protein Urine Trace (Negative); Specific Gravity Urine 1.018 (1.000-1.030); Urobilinogen Urine Negative (Negative)
[2023-05-01] MEDS ORDERED: CEFEPIME 2,000 MG/20 ML VIAL IV STA (12:17)
[2023-05-01 12:22] LABS: Epithelial Cell Urine >30 /lpf (0-5); RBC Urine >30 /hpf (0-4)
[2023-05-01 12:25] LABS: Bacteria Urine 3+ (Negative)
--- NOTE | 2023-05-01 12:27 | History & Physical Report ---
Date of Service May 01, 2023 Assessment & Plan (1) Respiratory syncytial virus (RSV): Plan: Treatment is symptomatic outside of severely immunocompromise patients Flutter valve Incentive spirometer Guaifenesin 1200 mg p.o. BID Dextromethorphan as needed (2) Hypoxia: Plan: Suspect she will have intermittent hypoxia from mucous plugging due to RSV. Suspect mucous plugging is what we can see on the chest x-ray rather than a true bacterial pneumonia given negative procalcitonin. Cefepime given in the emergency room however given clinical course appears to be following that of RSV further antibiotics deferred. Aim O2 sats > 90%, on room air at baseline (3) Hypertension: Plan: Continue carvedilol and lisinopril Hydralazine 5mg IV q4h PRN sBP > 180 (4) Permanent atrial fibrillation: Plan: Continue dabigatran for anticoagulation Continue carvedilol for rate control Plan VTE prophylaxis - Dabigatran Diet - Low Na, heart healthy Disposition - admit med/tele Admission and Anticipated Discharge Date Admission Date: May 01, 2023 History of Present Illness Chief Complaint: Shortness of breath Primary Care Provider: Mary Laughlin MD Adrianna Landa is an 87-year-old female who presents to the ER with shortness of breath over the last day. Coughing since the beginning of week. She was started on doxycycline by her PCP on after being seen by her PCP. Coughing up yellow sputum. She has shortness of breath chronically but worse than usual since yesterday especially during lying down and on exertion. Lately sleeping on two pillows rather than one. No chest pain, leg swelling, weight gain, palpitations, presyncope or claudication. No fever or chills. Symptoms progressively getting worse and she had a bad night last night therefore decided to come to the ER today. No underlying asthma or COPD. At baseline she is on room air. Allergies Allergy/AdvReac Type Severity Reaction Status Date / Time azithromycin Allergy Unknown Unknown Verified 05/01/23 12:15 Beta-Blockers Allergy Unknown Unknown Verified 05/01/23 12:15 (Beta-Adrenergic Bloc latex Allergy Unknown REDNESS Verified 05/01/23 12:15 prednisone Allergy Unknown FEELS Verified 05/01/23 12:15 JITTERY sertraline AdvReac Unknown Nausea/Dizz Verified 05/01/23 12:15 y Home Medications Medication Instructions Recorded Confirmed Type Vasquez Defend Otc 1 tab PO BID 08/01/21 05/01/23 History svryrexc-zvo-poymoe 5 mg-zeaxanth 1 cap PO QAM 08/01/21 05/01/23 History 1 mg-bilberry 7.5 mg-herbal capsule ([facility] Formula) carvedilol 12.5 mg tablet 12.5 mg PO BID #180 tabs 05/27/22 05/01/23 Rx ascorbic acid (vitamin C) 500 mg 500 mg PO QAM 12/14/22 05/01/23 History tablet (Vitamin C) lisinopril 20 mg tablet 20 mg PO QAM #90 tabs 01/21/23 05/01/23 Rx dabigatran etexilate 150 mg 150 mg PO BID #180 caps 02/12/23 05/01/23 Rx capsule (Pradaxa) gabapentin 100 mg capsule 100 mg PO HS #30 caps 04/23/23 05/01/23 Rx doxycycline hyclate 100 mg tablet 100 mg PO BID 7 days #14 tabs 04/29/23 Rx benzonatate 100 mg capsule 100 mg PO TID #30 caps 04/30/23 05/01/23 Rx conjugated estrogens 0.625 mg/gram 0.625 mg vaginal UD 05/01/23 05/01/23 History vaginal cream (Premarin) Past Med/Surg History Medical History COVID-19 Proteinuria Uncontrolled hypertension Dysfunction of right eustachian tube Chronic otitis media of left ear with posterior perforation Radicular leg pain Medial epicondylitis Left shoulder pain Left elbow pain Elevated troponin Low energy Elevated troponin Nausea Pessary maintenance IN PLACE-MAINTENANCE Q 4 MONTHS Pacemaker PLACED 2018 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 of left ear Right buttock pain Bilateral buttock pain GOES TO PT FOR AREA Tinnitus of right ear 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 Vaginal Discharge HBP (high blood pressure) Diarrhea Nasal discharge History of nephrolithiasis History of orthostatic hypotension History of herpes zoster History of asthma PT DENIES-NO INHALERS History of cellulitis Creatinine elevation (12/2018) PAINTER (dyspnea on exertion) Impaired fasting glucose Moderate pulmonary arterial systolic hypertension Moderate mitral regurgitation by prior echocardiogram LBBB (left bundle branch block) History of non-ST elevation myocardial infarction (NSTEMI) Cardiomyopathy EF=40% 2018, EF=55-60% 2019 (s/p BiV) Anemia (2018) Resolved Pneumonia (2016) HX Atrial fibrillation with RVR F/U DR PRESTON-ON PRADAXA Acute on chronic systolic (congestive) heart failure Surgical History History of lithotripsy History of colonoscopy S/P cataract surgery R/L History of ear, nose, and throat (ENT) surgery PERCUTANEOUS REPAIR OF NASOETHMOID FX july 2010 S/P biventricular cardiac pacemaker procedure (09/2018) H/O ovarian cystectomy S/P myringotomy with insertion of tube (2000) Hx of tonsillectomy H/O tooth extraction Hx of appendectomy Family History Mother , age 65 of a stroke Hypertension Stroke Aunt Breast cancer maternal aunt Uterine cancer maternal aunt Sister Diabetes Father , age 89 Macular degeneration Denies family history of Ovarian cancer Prostate cancer Heart disease Myocardial infarction Colorectal cancer Social History Smoking Status: Never smoker Second Hand Exposure: No; Do You Dip or Chew Tobacco: No; Hx Alcohol Use: No Hx Substance Use: No Preferred Language: Ukrainian Communication Ability: Effective Hearing Ability: Use of Hearing Aid 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 Feels Safe at Home: Yes Safety Concerns: Feels Safe At This Time Childhood Exposure to Second-Hand Smoke: No Dental Care, Regularly: Yes Physical Activity Frequency: 3-4 Times per Week Seatbelt Use: always Sunscreen Use: Yes Assistive Devices: Cane and Glasses Review of Systems Review of Systems: All systems reviewed & are unremarkable except as noted in HPI & below Physical Exam Constitutional: WD/WN, vitals as above Eyes: PERRL, conjunctivae normal, anicteric sclerae ENMT: external ear and nose normal, oropharynx normal Respiratory: normal respiratory effort; no respiratory distress Auscultation: + rhonchi (thoughout); breath sounds present, no diminished lung sounds and no wheezes Cardiovascular: Rate/Rhythm: regular rate and regular rhythm Heart Sounds: + murmur (Systolic, loudest LUSB 3/6) Vessels: no JVD Extremities: normal capillary refill; no calf tenderness and no pedal edema Gastrointestinal (Abdomen): normal bowel sounds, soft, nontender, no hepatosplenomegaly Musculoskeletal: no cyanosis or clubbing, extremities motor strength 5/5 Skin: no rashes, warm and dry Neurologic: moves all extremities and awake; not confused Psychiatric: A+Ox3, euthymic affect Results & Data Results & Data Vital Signs (Past 12 Hours) Vital Signs Temp Pulse Resp BP Pulse Ox O2 Del Method O2 Flow Rate 05/01/23 11:30 70 23 96 Nasal Cannula 2 05/01/23 11:27 96 Nasal Cannula 2 05/01/23 11:27 88 L Room Air 0 05/01/23 11:20 70 25 H 96 05/01/23 11:10 131 H 34 H 94 05/01/23 11:00 32 H 92 05/01/23 10:56 111 H 23 93 05/01/23 10:35 129 H 27 H 92 05/01/23 10:12 141 H 27 H 92 05/01/23 09:48 Room Air 05/01/23 09:48 36.8 C 70 22 199/106 H 94 Room Air Laboratory Results Abnormal lab results 05/01/23 05/01/23 05/01/23 Range/Units 10:35 11:09 11:11 WBC 12.65 H (4.8-10.8) K/ul RBC 4.03 L (4.20-5.40) M/uL RDW Std Deviation 48.4 H (36.4-46.3) fL Neut # (Auto) 10.25 H (1.40-6.50) K/uL Rolette # (Auto) 1.03 H (0.11-0.59) K/uL PT 18.9 H (9.0-12.0) Seconds INR 1.8 H (0.9-1.1) APTT 67 H (21-31) Seconds VBG pH (7.36-7.41) Sodium 131 L (136-145) mmol/L BUN/Creatinine Ratio 26.0 H (10-20) Glucose 128 H (70-99(Fasting)) mg/dl Total Bilirubin 1.3 H (0.2-1.0) mg/dl Troponin I High Sens 15.7 H (0-14) pg/ml C-Reactive Protein 5.60 H (0-0.5) mg/dl B-Natriuretic Peptide 457 H (0-100) pg/ml Urine Appearance Turbid A (Clear) Urine Protein Trace H (Negative) Urine Ketones Trace H (Negative) Urine Blood 2+ H (Negative) Ur Leukocyte Esterase 1+ H (Negative) RSV (PCR) DETECTED A* (NotDetected) 05/01/23 Range/Units 11:14 WBC (4.8-10.8) K/ul RBC (4.20-5.40) M/uL RDW Std Deviation (36.4-46.3) fL Neut # (Auto) (1.40-6.50) K/uL Rolette # (Auto) (0.11-0.59) K/uL PT (9.0-12.0) Seconds INR (0.9-1.1) APTT (21-31) Seconds VBG pH 7.44 H (7.36-7.41) Sodium (136-145) mmol/L BUN/Creatinine Ratio (10-20) Glucose (70-99(Fasting)) mg/dl Total Bilirubin (0.2-1.0) mg/dl Troponin I High Sens (0-14) pg/ml C-Reactive Protein (0-0.5) mg/dl B-Natriuretic Peptide (0-100) pg/ml Urine Appearance (Clear) Urine Protein (Negative) Urine Ketones (Negative) Urine Blood (Negative) Ur Leukocyte Esterase (Negative) RSV (PCR) (NotDetected) Diagnostic Findings XR chest 1V portable HISTORY: 87 years-old Female Dyspnea acute shortness of breat COMPARISON: 04/28/2023 TECHNIQUE: AP view of the chest FINDINGS: Cardiac silhouette is enlarged. Dual lead left subclavian pacer. There is no pneumothorax, pleural effusion or overt pulmonary edema. Pulmonary vascular congestion. Ill-defined patchy bibasilar opacities are new from prior. Degenerative changes of the shoulders and spine. IMPRESSION: Mild patchy ill-defined bibasilar opacities suspicious for an infectious or inflammatory pneumonitis. Medications Administered ER medications given: Cefepime 2 g IV ECG Rate (beats per minute): 70 Rhythm: other (Ventricular paced rhythm) Findings: no acute ischemic change Comparison ECG Date: from (March 10, 2023) Change: no significant change Code Status & VTE Plan Code Status Full VTE Prophylaxis Plan VTE Prophylaxis will be ordered: Yes PG Care Time/CCT Total # of Minutes Spent Total Time Spent with Patient: Total time spent is greater than 50% in coordination of care (as documented) at patient's floor/unit and/or counseling patient: Coding Level of Care Code 58601 INT INP/OBS CARE 2/55MIN Diagnoses Respiratory syncytial virus (RSV) B33.8 Hypoxia R09.02 Hypertension I15.9 Hypertension type: unspecified secondary hypertension Permanent atrial fibrillation I48.21 (3) Hypertension Hypertension type: unspecified secondary hypertension Qualified Code(s): I15.9 - Secondary hypertension, unspecified
[2023-05-01] MEDS ORDERED: guaiFENesin 600 MG TABCR PO STA (14:14)
[2023-05-01] MEDS ORDERED: lisinopril 20 MG TAB PO STA (14:15)
[2023-05-01] MEDS ORDERED: PREMARIN VAG CRM 14 APPLN/30 GM TUBE PV SCH (14:23)
[2023-05-01] MEDS ORDERED: ACETAMINOPHEN 325 MG TAB PO PRN (14:23)
--- NOTE | 2023-05-01 17:35 | Electrocardiogram Report ---
Test Reason : Blood Pressure : / mmHG Vent. Rate : 070 BPM Atrial Rate : 056 BPM P-R Int : 000 ms QRS Dur : 126 ms QT Int : 452 ms P-R-T Axes : 000 078 049 degrees QTc Int : 488 ms Ventricular-paced rhythm Biventricular pacemaker detected Abnormal ECG When compared with ECG of 10-MAR-2023 20:21, No significant change was found Confirmed by Kumar Harrison ([id number]) on 05/01/2023 5:34:48 PM Referred By: REFERRED SELF Confirmed By:Giles Harrison
[2023-05-01] MEDS: DABIGATRAN ETEXILATE 75 MG CAP PO SCH (21:01)
[2023-05-01] MEDS: GABAPENTIN 100 MG CAP PO SCH (21:02)
[2023-05-01] MEDS: guaiFENesin 600 MG TABCR PO SCH (21:02)
[2023-05-01] MEDS: carvediloL 12.5 MG TAB PO SCH (21:03)
[2023-05-02 07:14] LABS: Basophils # (auto) 0.04 K/uL (0.00-0.20); Basophils % (auto) 0.5 %; Eosinophils % (auto) 1.3 %; Hematocrit (blood only) 35.5 % (37.0-47.0); Hemoglobin 11.9 g/dl (12.0-16.0); Immature Granulocytes # (auto) 0.04 K/uL (0.01-0.20); Immature Granulocytes % (auto) 0.5 %; Lymphocytes # (auto) 1.27 K/uL (1.20-3.40); Lymphocytes % (auto) 16.4 %; Mean Corpuscular Hemoglobin 33.2 pg (25.0-34.0); Mean Corpuscular Hgb Conc 33.5 g/dL (32.0-36.0); Mean Corpuscular Volume 99.2 fL (80.0-100.0); Monocytes # (auto) 1.03 K/uL (0.11-0.59); Monocytes % (auto) 13.3 %; Neutrophils # (auto) 5.27 K/uL (1.40-6.50); Platelet Count 209 K/uL (130-400); RDW Coefficient of Variation 13.9 % (11.5-14.5); RDW Standard Deviation 50.8 fL (36.4-46.3); Red Blood Count 3.58 M/uL (4.20-5.40); White Blood Count 7.75 K/ul (4.8-10.8)
[2023-05-02] MEDS ORDERED: hydrALAZINE HCL 20 MG/ML VIAL IV PRN (07:52)
[2023-05-02 07:56] LABS: BUN Creatinine Ratio 25.6 (10-20); Calcium 8.7 mg/dl (8.6-10.3); Creatinine Clr Calc Pharmacy 43.6 ml/min; Est GFR (African American) 80.3 ml/min; Est GFR (Non-African American) 69.3 ml/min; Potassium 3.4 mmol/L (3.5-5.1)
[2023-05-02] MEDS: DABIGATRAN ETEXILATE 75 MG CAP PO SCH ×2 (08:58→21:35)
[2023-05-02] MEDS: carvediloL 12.5 MG TAB PO SCH ×2 (08:58→21:35)
[2023-05-02] MEDS: guaiFENesin 600 MG TABCR PO SCH ×2 (08:58→21:35)
[2023-05-02] MEDS: lisinopril 20 MG TAB PO SCH (08:59)
[2023-05-02] MEDS ORDERED: ALBUT/IPRATROP 3MG/0.5MG NEB 3 ML VIAL ONE (11:43)
--- NOTE | 2023-05-02 14:23 | Hospitalist Progress Note ---
Date of Service May 02, 2023 Assessment & Plan (1) Respiratory syncytial virus (RSV): Plan: Treatment is symptomatic outside of severely immunocompromise patients Flutter valve Incentive spirometer Guaifenesin 1200 mg p.o. BID Dextromethorphan as needed Questionable hx of asthma per chart - given poor aeration, will add DuoNebs 05/02 (2) Hypoxia: Plan: Suspect she will have intermittent hypoxia from mucous plugging due to RSV. Suspect mucous plugging is what we can see on the chest x-ray rather than a true bacterial pneumonia given negative procalcitonin. Cefepime given in the emergency room however given clinical course appears to be following that of RSV further antibiotics deferred. Aim O2 sats > 90%, on room air at baseline (3) Hypertension: Plan: Continue carvedilol and lisinopril Hydralazine 5mg IV q4h PRN sBP > 180 (4) Permanent atrial fibrillation: Plan: Continue dabigatran for anticoagulation Continue carvedilol for rate control (5) Hypokalemia: Plan: Replete 05/02 Plan VTE prophylaxis - Dabigatran Diet - Low Na, heart healthy Disposition - admit med/tele Admission and Anticipated Discharge Date Admission Date: May 01, 2023 Subjective Reports her breathing is getting closer to baseline, but she continues to have coughing. Reports depleted energy overall. Denies any chest pain or lightheadedness/dizziness. Review of Systems Review of Systems: Per subjective Physical Exam Physical Exam: General: Mildly ill but nontoxic-appearing, NAD HEENT: Normal conjunctivae Cardiovascular: RRR, no M/R/G Pulmonary: Poor aeration throughout with faint scattered wheezing Abdomen: Soft, NT/ND, no guarding Extremities: Moving all extremities, no pedal edema Integumentary: No suspicious rash or lesion on exposed skin Neurologic: AAOx3, no focal deficits Psychiatric: Appropriate mood/affect Results & Data Results & Data Vital Signs (Past 12 Hours) Vital Signs Temp Pulse Pulse Resp BP Pulse Ox O2 Del Method 05/02/23 11:51 36.6 C 71 18 122/63 95 Room Air 05/02/23 11:48 72 15 99 Nasal Cannula 05/02/23 08:00 Room Air 05/02/23 07:03 36.7 C 69 17 178/83 H 96 Nasal Cannula 05/02/23 07:00 70 05/02/23 03:10 37.1 C 68 18 159/79 H 94 Nasal Cannula O2 Flow Rate 05/02/23 11:51 05/02/23 11:48 2 05/02/23 08:00 05/02/23 07:03 2 05/02/23 07:00 05/02/23 03:10 2 Laboratory Results Reviewed CBC and BMP from todaynotable for mild drop in hemoglobin to 11.9, slight improvement in sodium to 133, mildly low potassium 3.4 Reviewed blood culture from 05/01 NGTD Reviewed urine culture from 05/01 with pinpoint growth present PG Care Time/CCT Total # of Minutes Spent Total Time Spent with Patient: Total time spent is greater than 50% in coordination of care (as documented) at patient's floor/unit and/or counseling patient: Coding Level of Care Code 20930 SUB INP/OBS CARE 3/50MIN Diagnoses Respiratory syncytial virus (RSV) B33.8 Hypoxia R09.02 Hypertension I15.9 Hypertension type: unspecified secondary hypertension Permanent atrial fibrillation I48.21 Hypokalemia E87.6 (3) Hypertension Hypertension type: unspecified secondary hypertension Qualified Code(s): I15.9 - Secondary hypertension, unspecified
[2023-05-02] MEDS ORDERED: POTASSIUM CHLORIDE CRTAB 20 MEQ TABCR PO STA (14:26)
[2023-05-02] MEDS: ALBUT/IPRATROP 3MG/0.5MG NEB 3 ML VIAL NEB SCH ×2 (14:31→19:59)
[2023-05-02] MEDS: GABAPENTIN 100 MG CAP PO SCH (21:35)
[2023-05-03 06:37] LABS: Basophils # (auto) 0.05 K/uL (0.00-0.20); Basophils % (auto) 0.8 %; Eosinophils # (auto) 0.22 K/uL (0.00-0.50); Eosinophils % (auto) 3.4 %; Hematocrit (blood only) 34.3 % (37.0-47.0); Hemoglobin 11.7 g/dl (12.0-16.0); Immature Granulocytes # (auto) 0.04 K/uL (0.01-0.20); Immature Granulocytes % (auto) 0.6 %; Lymphocytes # (auto) 1.17 K/uL (1.20-3.40); Lymphocytes % (auto) 18.3 %; Mean Corpuscular Hemoglobin 33.2 pg (25.0-34.0); Mean Corpuscular Hgb Conc 34.1 g/dL (32.0-36.0); Mean Corpuscular Volume 97.4 fL (80.0-100.0); Monocytes # (auto) 0.89 K/uL (0.11-0.59); Monocytes % (auto) 13.9 %; Neutrophils # (auto) 4.01 K/uL (1.40-6.50); Platelet Count 234 K/uL (130-400); RDW Coefficient of Variation 14.2 % (11.5-14.5); RDW Standard Deviation 50.5 fL (36.4-46.3); Red Blood Count 3.52 M/uL (4.20-5.40); White Blood Count 6.38 K/ul (4.8-10.8)
[2023-05-03 07:01] LABS: BUN Creatinine Ratio 32.1 (10-20); Calcium 8.8 mg/dl (8.6-10.3); Est GFR (African American) 76.8 ml/min; Est GFR (Non-African American) 66.2 ml/min; Potassium 3.9 mmol/L (3.5-5.1)
[2023-05-03] MEDS: ALBUT/IPRATROP 3MG/0.5MG NEB 3 ML VIAL NEB SCH ×4 (07:23→20:07)
[2023-05-03] MEDS: DABIGATRAN ETEXILATE 75 MG CAP PO SCH ×2 (08:36→21:17)
[2023-05-03] MEDS: carvediloL 12.5 MG TAB PO SCH ×2 (08:36→22:43)
[2023-05-03] MEDS: lisinopril 20 MG TAB PO SCH (08:36)
[2023-05-03] MEDS: guaiFENesin 600 MG TABCR PO SCH ×2 (08:36→21:16)
[2023-05-03] MEDS: predniSONE 20 MG TAB PO SCH (14:01)
[2023-05-03] MEDS: SENNA 8.6 MG TAB PO SCH (14:01)
--- NOTE | 2023-05-03 14:14 | Hospitalist Progress Note ---
Date of Service May 03, 2023 Assessment & Plan (1) Respiratory syncytial virus (RSV): Plan: Treatment is symptomatic outside of severely immunocompromise patients Flutter valve Incentive spirometer Guaifenesin 1200 mg p.o. BID Dextromethorphan as needed Questionable hx of asthma per chart Continue DuoNebs added 05/02 Prednisone 40mg daily x5 days started 05/03 Recommend when current illness resolves, pursue outpatient PFTs/spirometry If still difficulty with hypoxia and recovering on 05/04, would consider repeat CXR (2) Hypoxia: Plan: Suspect she will have intermittent hypoxia from mucous plugging due to RSV. Suspect mucous plugging is what we can see on the chest x-ray rather than a true bacterial pneumonia given negative procalcitonin. Cefepime given in the emergency room however given clinical course appears to be following that of RSV further antibiotics deferred. Aim O2 sats > 90%, on room air at baseline - has intermittently been needing supplemental O2 up through 05/03 AM If still difficulty with hypoxia and recovering on 05/04, would consider repeat CXR (3) Hypertension: Plan: Wide fluctuations Continue carvedilol and lisinopril Hydralazine 5mg IV q4h PRN sBP > 180 (4) Permanent atrial fibrillation: Plan: Continue dabigatran for anticoagulation Continue carvedilol for rate control (5) Hypokalemia: Plan: Repleted 05/02 Resolved 05/03 (6) Constipation: Plan: No BM since admission Daily Senna added 05/03 - can discontinue after BM Plan VTE prophylaxis - Dabigatran Diet - Low Na, heart healthy Disposition - med/tele, anticipate d/c 05/04 Admission and Anticipated Discharge Date Admission Date: May 01, 2023 Subjective Reports her breathing is still troublesome, had a bad night overnight, continues to have coughing fits. Reports depleted energy overall. Denies any chest pain or lightheadedness/dizziness. Unsure if she has prior diagnosis of asthma. Has not yet had a BM yet since being in the hospital Review of Systems Review of Systems: Per subjective Physical Exam Physical Exam: General: Mildly ill but nontoxic-appearing, NAD HEENT: Normal conjunctivae Cardiovascular: RRR, +systolic murmur Pulmonary: Poor aeration throughout with faint scattered wheezing Abdomen: Soft, NT, mild distension, no guarding Extremities: Moving all extremities, no pedal edema Integumentary: No suspicious rash or lesion on exposed skin Neurologic: AAOx3, no focal deficits Psychiatric: Appropriate mood/affect Results & Data Results & Data Vital Signs (Past 12 Hours) Vital Signs Temp Pulse Pulse Resp BP Pulse Ox O2 Del Method 05/03/23 11:54 37.0 C 70 19 124/70 94 Room Air 05/03/23 10:12 85 14 91 Room Air 05/03/23 08:00 Room Air 05/03/23 07:24 71 15 97 Nasal Cannula 05/03/23 07:08 36.8 C 69 17 178/80 H 95 Nasal Cannula 05/03/23 07:00 70 05/03/23 03:05 36.9 C 70 18 166/78 H 90 Room Air O2 Flow Rate 05/03/23 11:54 05/03/23 10:12 05/03/23 08:00 05/03/23 07:24 2 05/03/23 07:08 2 05/03/23 07:00 05/03/23 03:05 Laboratory Results Reviewed labs from today including CBC and BMP. Notable for anemia at 11.7, sodium improved to 134, potassium improved to 3.9 PG Care Time/CCT Total # of Minutes Spent Total Time Spent with Patient: Total time spent is greater than 50% in coordination of care (as documented) at patient's floor/unit and/or counseling patient: Coding Level of Care Code 35294 SUB INP/OBS CARE 3/50MIN Diagnoses Respiratory syncytial virus (RSV) B33.8 Hypoxia R09.02 Hypertension I15.9 Hypertension type: unspecified secondary hypertension Permanent atrial fibrillation I48.21 Hypokalemia E87.6 Constipation K59.00 (3) Hypertension Hypertension type: unspecified secondary hypertension Qualified Code(s): I15.9 - Secondary hypertension, unspecified
[2023-05-03] MEDS ORDERED: ALBUT/IPRATROP 3MG/0.5MG NEB 3 ML VIAL ONE (19:20)
[2023-05-03] MEDS: GABAPENTIN 100 MG CAP PO SCH (21:17)
[2023-05-03] MEDS: DEXTROMETHORPHAN POLYMR COMPLX 30 MG/5 ML UDP PO PRN (21:18)
[2023-05-04] MEDS ORDERED: hydrALAZINE HCL 20 MG/ML VIAL IV ONE (05:57)
[2023-05-04 07:07] LABS: Basophils # (auto) 0.02 K/uL (0.00-0.20); Basophils % (auto) 0.2 %; Hematocrit (blood only) 37.7 % (37.0-47.0); Hemoglobin 12.7 g/dl (12.0-16.0); Immature Granulocytes # (auto) 0.04 K/uL (0.01-0.20); Immature Granulocytes % (auto) 0.5 %; Lymphocytes # (auto) 1.08 K/uL (1.20-3.40); Lymphocytes % (auto) 13.1 %; Mean Corpuscular Hemoglobin 32.8 pg (25.0-34.0); Mean Corpuscular Hgb Conc 33.7 g/dL (32.0-36.0); Mean Corpuscular Volume 97.4 fL (80.0-100.0); Mean Platelet Volume 10.6 fL (9.4-12.4); Monocytes # (auto) 0.79 K/uL (0.11-0.59); Monocytes % (auto) 9.6 %; Neutrophils # (auto) 6.29 K/uL (1.40-6.50); Neutrophils % (auto) 76.6 %; Platelet Count 300 K/uL (130-400); RDW Coefficient of Variation 14.1 % (11.5-14.5); RDW Standard Deviation 50.4 fL (36.4-46.3); Red Blood Count 3.87 M/uL (4.20-5.40); White Blood Count 8.22 K/ul (4.8-10.8)
[2023-05-04] MEDS: ALBUT/IPRATROP 3MG/0.5MG NEB 3 ML VIAL NEB SCH ×4 (07:25→19:06)
[2023-05-04 07:31] LABS: BUN Creatinine Ratio 36.9 (10-20); Calcium 9.5 mg/dl (8.6-10.3); Creatinine Clr Calc Pharmacy 40.5 ml/min; Est GFR (African American) 73.5 ml/min; Est GFR (Non-African American) 63.4 ml/min; Potassium 4.6 mmol/L (3.5-5.1)
[2023-05-04] MEDS: DABIGATRAN ETEXILATE 75 MG CAP PO SCH ×2 (07:44→20:48)
[2023-05-04] MEDS: carvediloL 12.5 MG TAB PO SCH ×2 (07:44→20:48)
[2023-05-04] MEDS: guaiFENesin 600 MG TABCR PO SCH ×2 (07:45→20:49)
[2023-05-04] MEDS: lisinopril 20 MG TAB PO SCH (07:45)
[2023-05-04] MEDS: predniSONE 20 MG TAB PO SCH (07:45)
[2023-05-04] MEDS: SENNA 8.6 MG TAB PO SCH (07:46)
[2023-05-04] MEDS: cefTRIAXone SODIUM 1,000 MG in DEXTROSE 5 % MINI-B 50 ML IV SCH (09:20)
[2023-05-04] MEDS: cloNIDine HCL 0.1 MG TAB PO SCH ×3 (09:21→20:48)
--- NOTE | 2023-05-04 14:53 | Hospitalist Progress Note ---
Date of Service May 04, 2023 Assessment & Plan (1) Respiratory syncytial virus (RSV): Plan: Treatment is symptomatic Flutter valve Incentive spirometer Guaifenesin 1200 mg p.o. BID Dextromethorphan as needed Questionable hx of asthma per chart Continue DuoNebs added 05/02 Prednisone 40mg daily x5 days started 05/03 Recommend when current illness resolves, pursue outpatient PFTs/spirometry Currently saturating well on room air (2) Hypoxia: Plan: Now resolved (3) Hypertension: Plan: Wide fluctuations Continue carvedilol and lisinopril Hydralazine 5mg IV q4h PRN sBP > 180 (4) Permanent atrial fibrillation: Plan: Continue dabigatran for anticoagulation Continue carvedilol for rate control (5) Hypokalemia: Plan: Resolved (6) Constipation: Plan: Continue bowel regimen (7) Chronic systolic (congestive) heart failure: Plan: Not in exacerbation Continue home medications Plan VTE prophylaxis - Dabigatran Diet - Low Na, heart healthy Disposition -awaiting evaluation by physical therapy Admission and Anticipated Discharge Date Admission Date: May 01, 2023 Subjective Patient seen and examined, denies shortness of breath but endorses some mild cough Review of Systems Review of Systems: All systems reviewed are negative, apart from the ones contained in the history. Physical Exam Physical Exam: The patient is awake, alert and oriented 3, well developed and well nourished, normocephalic and atraumatic, lying in bed and in no acute distress. HEENT--PERRL, EOMI, mucous membranes and oropharynx mildly dry Neck--supple. No JVD. No bruits. Thyroid normal, trachea midline, no adenopathy. Heart--normal S1 and S2. No murmurs, rubs or gallops. Lungs--clear bilaterally, no respiratory distress, no accessory muscle use. Abdomen--normal bowel sounds and soft. Mild epigastric and left sided abdominal pain Extremities--no cyanosis or clubbing. No edema. Dermatologic--normal skin turgor, normal color, no abnormal lymph nodes, no rash. Neurologic--cranial nerves II through XII grossly intact. Rheumatologic--normal range of motion. Psychiatric--normal affect. Results & Data Results & Data Vital Signs (Past 12 Hours) Vital Signs Temp Pulse Pulse Resp BP BP Pulse Ox 05/04/23 11:10 97.7 F 70 16 144/62 H 93 05/04/23 11:02 70 18 93 05/04/23 10:03 05/04/23 09:30 70 153/59 H 05/04/23 07:42 98.1 F 71 16 199/74 H 96 05/04/23 07:25 70 18 96 05/04/23 05:02 70 185/77 H 05/04/23 03:45 172/89 H 05/04/23 03:22 98.1 F 70 18 187/81 H 93 O2 Del Method 05/04/23 11:10 Room Air 05/04/23 11:02 Room Air 05/04/23 10:03 Room Air 05/04/23 09:30 05/04/23 07:42 Room Air 05/04/23 07:25 Room Air 05/04/23 05:02 05/04/23 03:45 05/04/23 03:22 Room Air PG Care Time/CCT Total # of Minutes Spent Total Time Spent with Patient: Total time spent is greater than 50% in coordination of care (as documented) at patient's floor/unit and/or counseling patient: Coding Level of Care Code 89716 SUB INP/OBS CARE 2/35MIN Diagnoses Respiratory syncytial virus (RSV) B33.8 Hypoxia R09.02 Hypertension I15.9 Hypertension type: unspecified secondary hypertension Permanent atrial fibrillation I48.21 Hypokalemia E87.6 Constipation K59.00 Chronic systolic (congestive) heart failure I50.22 Time Spent (min) 35 (3) Hypertension Hypertension type: unspecified secondary hypertension Qualified Code(s): I15.9 - Secondary hypertension, unspecified
[2023-05-04] MEDS: GABAPENTIN 100 MG CAP PO SCH (20:49)
[2023-05-04] MEDS: DEXTROMETHORPHAN POLYMR COMPLX 30 MG/5 ML UDP PO PRN (20:50)
[2023-05-05 06:34] LABS: Basophils # (auto) 0.03 K/uL (0.00-0.20); Basophils % (auto) 0.3 %; Eosinophils # (auto) 0.03 K/uL (0.00-0.50); Eosinophils % (auto) 0.3 %; Hematocrit (blood only) 34.4 % (37.0-47.0); Immature Granulocytes # (auto) 0.04 K/uL (0.01-0.20); Immature Granulocytes % (auto) 0.4 %; Lymphocytes # (auto) 1.49 K/uL (1.20-3.40); Lymphocytes % (auto) 16.4 %; Mean Corpuscular Hemoglobin 33.4 pg (25.0-34.0); Mean Corpuscular Hgb Conc 34.9 g/dL (32.0-36.0); Mean Corpuscular Volume 95.8 fL (80.0-100.0); Mean Platelet Volume 10.6 fL (9.4-12.4); Monocytes # (auto) 0.97 K/uL (0.11-0.59); Monocytes % (auto) 10.6 %; Neutrophils # (auto) 6.55 K/uL (1.40-6.50); Platelet Count 285 K/uL (130-400); RDW Coefficient of Variation 14.5 % (11.5-14.5); Red Blood Count 3.59 M/uL (4.20-5.40); White Blood Count 9.11 K/ul (4.8-10.8)
[2023-05-05 06:59] LABS: Calcium 9.3 mg/dl (8.6-10.3); Est GFR (African American) 57.4 ml/min; Est GFR (Non-African American) 49.5 ml/min; Potassium 4.1 mmol/L (3.5-5.1)
[2023-05-05] MEDS: ALBUT/IPRATROP 3MG/0.5MG NEB 3 ML VIAL NEB SCH ×2 (07:27→11:03)
[2023-05-05] MEDS: carvediloL 12.5 MG TAB PO SCH (09:31)
[2023-05-05] MEDS: cefTRIAXone SODIUM 1,000 MG in DEXTROSE 5 % MINI-B 50 ML IV SCH (09:32)
[2023-05-05] MEDS: cloNIDine HCL 0.1 MG TAB PO SCH (09:33)
[2023-05-05] MEDS: DABIGATRAN ETEXILATE 75 MG CAP PO SCH (09:33)
[2023-05-05] MEDS: lisinopril 20 MG TAB PO SCH (09:34)
[2023-05-05] MEDS: guaiFENesin 600 MG TABCR PO SCH (09:34)
[2023-05-05] MEDS: SENNA 8.6 MG TAB PO SCH ×2 (09:35→09:42)
[2023-05-05] MEDS: predniSONE 20 MG TAB PO SCH (09:35)
--- NOTE | 2023-05-05 13:03 | Discharge Summary ---
Date of Service May 05, 2023 Admission HPI Per Admitting Provider Adrianna Landa is an 87-year-old female who presents to the ER with shortness of breath over the last day. Coughing since the beginning of week. She was started on doxycycline by her PCP on after being seen by her PCP. Coughing up yellow sputum. She has shortness of breath chronically but worse than usual since yesterday especially during lying down and on exertion. Lately sleeping on two pillows rather than one. No chest pain, leg swelling, weight gain, palpitations, presyncope or claudication. No fever or chills. Symptoms progressively getting worse and she had a bad night last night therefore decided to come to the ER today. No underlying asthma or COPD. At baseline she is on room air. Principal Diagnosis RSV, chronic congestive heart failure Discharge Exam The patient is awake, alert and oriented 3, well developed and well nourished, normocephalic and atraumatic, lying in bed and in no acute distress. HEENT--PERRL, EOMI, mucous membranes and oropharynx mildly dry Neck--supple. No JVD. No bruits. Thyroid normal, trachea midline, no adenopathy. Heart--normal S1 and S2. No murmurs, rubs or gallops. Lungs--clear bilaterally, no respiratory distress, no accessory muscle use. Abdomen--normal bowel sounds and soft. Mild epigastric and left sided abdominal pain Extremities--no cyanosis or clubbing. No edema. Dermatologic--normal skin turgor, normal color, no abnormal lymph nodes, no rash. Neurologic--cranial nerves II through XII grossly intact. Rheumatologic--normal range of motion. Psychiatric--normal affect. Discharge Data Allergies Allergy/AdvReac Type Severity Reaction Status Date / Time azithromycin Allergy Unknown Unknown Verified 05/01/23 12:15 Beta-Blockers Allergy Unknown Unknown Verified 05/01/23 12:15 (Beta-Adrenergic Bloc latex Allergy Unknown REDNESS Verified 05/01/23 12:15 prednisone Allergy Unknown FEELS Verified 05/01/23 12:15 JITTERY sertraline AdvReac Unknown Nausea/Dizz Verified 05/01/23 12:15 y Consultations 05/01/23 12:29 ED Decision to Admit Stat Hospital Course (1) Respiratory syncytial virus (RSV): Treatment is symptomatic Flutter valve Incentive spirometer Guaifenesin 1200 mg p.o. BID Dextromethorphan as needed Questionable hx of asthma per chart Continue DuoNebs added 05/02 Prednisone 40mg daily x5 days started 05/03 Recommend when current illness resolves, pursue outpatient PFTs/spirometry Currently saturating well on room air (2) Hypoxia: Now resolved (3) Hypertension: Wide fluctuations Continue carvedilol and lisinopril Hydralazine 5mg IV q4h PRN sBP > 180 (4) Permanent atrial fibrillation: Continue dabigatran for anticoagulation Continue carvedilol for rate control (5) Hypokalemia: Resolved (6) Constipation: Continue bowel regimen (7) Chronic systolic (congestive) heart failure: Not in exacerbation Continue home medications Plan VTE prophylaxis - Dabigatran Diet - Low Na, heart healthy Disposition -discharge home Total Time Total Time Spent Total Time Spent (In Minutes): 35 Discharge Plan Discharge Items Patient Disposition: Home - Self-Care Reason For Visit: HYPOXIA, RSV, MULTIFOCAL PNEUMONIA Discharge Diagnosis: RSV, calcium oxalate stone Activity: Resume your previous activity Non-emergency contact: Primary Care Provider Call non-emergency contact if: you have any medication questions Follow-up/Referrals: Mary Laughlin MD [Primary Care Provider] - 05/14/23 10:30 am Diet: Regular Addtl Attending Provider Instructions: please follow up with your regular PCP in 2 weeks Pending Studies at Discharge: No Stand-Alone Forms: My [facility], Smoking Cessation Medications and DC Order Prescriptions: New clonidine HCl 0.1 mg Tablet 0.1 mg PO TID 30 Days Qty: 90 0RF cefdinir 300 mg capsule 300 mg PO BID 5 Days Qty: 10 0RF Continued dabigatran etexilate [Pradaxa] 150 mg capsule 150 mg PO BID Qty: 180 3RF benzonatate 100 mg capsule 100 mg PO TID Qty: 30 0RF carvedilol 12.5 mg tablet 12.5 mg PO BID Qty: 180 3RF gabapentin 100 mg capsule 100 mg PO HS Qty: 30 5RF lisinopril 20 mg tablet 20 mg PO QAM Qty: 90 3RF Macular Health Formula 5-1-7.5 mg Capsule 1 cap PO QAM Vasquez Defend Otc 1 tab PO BID ascorbic acid (vitamin C) [Vitamin C] 500 mg Tablet 500 mg PO QAM Premarin 0.625 mg/gram cream 0.625 mg vaginal UD Rx Instructions: Per patient: One week 1 do it 3 times a week, then the alternate week I do it 2 times a week. Discontinued doxycycline hyclate 100 mg tablet 100 mg PO BID 7 Days Qty: 14 0RF Rx Instructions: Start Date 04/29/23 - End Date 05/06/23. A total of 4 doses taken as of 05/01/23 Discharge Orders: Discharge Order (Routine); Ordered 05/05/23 Ordered By: Sheela Flores Admission Data Admit Date/Time: 05/01/23 12:31 Attending Provider: Sheela Flores Admit Provider: Rudy Reyna Primary Care Provider: Mary Laughlin V. Other Providers: Rudy Reyna Coding Level of Care Code 57328 INP/OBS DISCH >30 MIN Diagnoses Respiratory syncytial virus (RSV) B33.8 Hypoxia R09.02 Hypertension I15.9 Hypertension type: unspecified secondary hypertension Permanent atrial fibrillation I48.21 Hypokalemia E87.6 Constipation K59.00 Chronic systolic (congestive) heart failure I50.22 Time Spent (min) 35
== END 2023-05-05 01:10 | disposition home or self-care (01) | DRG 206 ==
LOC: ED 09:50 → SUATTDRO 12:31 → EDINP 12:31 → 2S 13:49 → 2N 05-03 17:28

== ENCOUNTER 2023-07-28 06:36 | Inpatient (IN) ==
[2023-07-28 07:17] LABS: Basophils # (auto) 0.01 K/uL (0.00-0.20); Basophils % (auto) 0.1 %; Eosinophils # (auto) 0.28 K/uL (0.00-0.50); Eosinophils % (auto) 3.3 %; Hematocrit (blood only) 42.7 % (37.0-47.0); Hemoglobin 14.7 g/dl (12.0-16.0); Immature Granulocytes # (auto) 0.04 K/uL (0.01-0.20); Immature Granulocytes % (auto) 0.5 %; Lymphocytes # (auto) 1.72 K/uL (1.20-3.40); Lymphocytes % (auto) 20.5 %; Mean Corpuscular Hemoglobin 33.2 pg (25.0-34.0); Mean Corpuscular Hgb Conc 34.4 g/dL (32.0-36.0); Mean Corpuscular Volume 96.4 fL (80.0-100.0); Mean Platelet Volume 10.9 fL (9.4-12.4); Monocytes % (auto) 15.5 %; Neutrophils # (auto) 5.02 K/uL (1.40-6.50); Neutrophils % (auto) 60.1 %; Platelet Count 284 K/uL (130-400); RDW Coefficient of Variation 13.2 % (11.5-14.5); RDW Standard Deviation 47.1 fL (36.4-46.3); Red Blood Count 4.43 M/uL (4.20-5.40); White Blood Count 8.37 K/ul (4.8-10.8)
--- NOTE | 2023-07-28 07:20 | XRay Report ---
XR chest 1V portable CLINICAL HISTORY: Chest pain, nonspecific COMPARISON STUDY: Chest radiograph July 14, 2023. FINDINGS: A left subclavian biventricular pacer is in place. Cardiomegaly is unchanged. There is no e vidence for pulmonary edema. There is no pneumothorax or pleural effusion. There is no consolidation to suggest pneumonia. IMPRESSION: No acute cardiopulmonary findings. ACT 112: Negative or not required by law. Electronically signed by: Jose Luis Beltran M.D. 07/28/2023 7:19 AM
[2023-07-28 07:39] LABS: Albumin Globulin Ratio 1.2 (0.9-2); Albumin Level 3.9 gm/dl (3.4-5.0); BUN Creatinine Ratio 31.1 (10-20); Bilirubin,Total 0.7 mg/dl (0.2-1.0); Calcium 9.5 mg/dl (8.6-10.3); Creatinine Clr Calc Pharmacy 34.5 ml/min; Est GFR (African American) 57.4 ml/min; Est GFR (Non-African American) 49.5 ml/min; Globulin 3.3 gm/dl (2.5-4.0); Potassium 4.1 mmol/L (3.5-5.1); Total Protein 7.2 gm/dl (6.0-8.3)
[2023-07-28 07:46] LABS: Troponin I High Sensitivity 20.5 pg/ml (0-14)
--- NOTE | 2023-07-28 08:02 | Emergency Department Note ---
Impression & Plan Hypertensive emergency, CHF exacerbation ED Provider Note NAME: MODE BURNS AGE: 87 SEX: F : 1935 ARRIVES VIA: Walk-In INFORMANT: Patient, ED PROVIDER(S): Robert Osei MD CHIEF COMPLAINT: Shortness of breath HPI: This is a an 87-year-old female presenting for shortness of breath. Patient states that she does have a history of CHF. She notes that she had essentially no symptoms yesterday but then upon going to sleep throughout the night notes that he is having increasing shortness of breath. She notes that she is having more fatigue as well as difficulty breathing. She notes that she does not have any chest pain. Only mild leg swelling was noted by the patient. Otherwise no fevers, chills, nausea vomiting. Slight congestion is noted otherwise. ROS: See above HPI for pertinent positives & negatives. A total of 10 systems reviewed and were otherwise negative. PAST MEDICAL HISTORY: See Below PAST SURGICAL HISTORY: See Below FAMILY HISTORY: See Below SOCIAL HISTORY: See Below HOME MEDICATIONS: See Below ALLERGIES: See Below VITALS: See Below PHYSICAL EXAMINATION: General: resting comfortably in no acute distress Head: Normocephalic and atraumatic Eyes: Normal inspection, extraocular muscles intact Ear, nose, throat: Normal external exam Neck: Normal range of motion Respiratory: lungs clear to auscultation bilaterally Cardiovascular: Regular rate/rhythm, no murmur GI: soft, nontender, no guarding or rebound Extremities: nontender, moves all extremities Neuro: The patient awake and alert, appropriately conversive, no focal deficits, symmetric faces Skin: Warm, dry, and intact MEDICAL DECISION MAKING: This is an 87-year-old female senting for shortness of breath. Patient is hypertensive upon arrival. Otherwise she is tachypneic. Not hypoxic. She does have somewhat difficulty with talking due to her shortness of breath. She has 1+ pitting edema to bilateral lower extremities. Consider CHF. Low concern for ACS without chest pain. Low concern for PE without chest pain, tachycardia or hypoxia. -Blood was reviewed showing no leukocytosis, anemia. Electrodes within normal limits. BNP and troponin are both elevated at this time. Around previous values. Urinalysis reveals no signs of UTI and she has no viral syndrome noted today. -Chest Xray independently interpreted by me showing no pneumothorax, focal opacity, or pleural effusions. -Due to patient's exertional/comfortable dyspnea, will admit. She is also sniffing hypertensive and will give her IV hydralazine. -This could relate to hypertensive emergency as well. -Discussed with Dr. Donovan for admission who will evaluate the patient for admission. Differential diagnosis: ACS, PE, hypertensive emergency, pneumonia, CHF ER treatment provided: See below Diagnostics interpreted by me: ECG: ECG independently interpreted by me with ventricularly paced rhythm, rate of 70, intraventricular conduction delay, normal QTc, no ST segment elevations consistent with STEMI criteria Cardiac Monitoring: An order was placed for continuous cardiac monitoring. The monitor shows a rate of 70 with sinus rhythm. Laboratory studies: As stated above and show below. Imaging studies: See below. Past Med/Surg History Medical History Heart failure with improved ejection fraction (HFimpEF) Dysfunction of right eustachian tube COVID-19 Proteinuria Uncontrolled hypertension Chronic otitis media of left ear with posterior perforation Radicular leg pain Medial epicondylitis Left shoulder pain Left elbow pain Elevated troponin Low energy Elevated troponin Nausea Pessary maintenance IN PLACE-MAINTENANCE Q 4 MONTHS Pacemaker PLACED 2018 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 of left ear Right buttock pain Bilateral buttock pain GOES TO PT FOR AREA Tinnitus of right ear 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 Vaginal Discharge HBP (high blood pressure) Diarrhea Nasal discharge History of nephrolithiasis History of orthostatic hypotension History of herpes zoster History of asthma PT DENIES-NO INHALERS History of cellulitis Creatinine elevation (12/2018) PAINTER (dyspnea on exertion) Impaired fasting glucose Moderate pulmonary arterial systolic hypertension Moderate mitral regurgitation by prior echocardiogram LBBB (left bundle branch block) History of non-ST elevation myocardial infarction (NSTEMI) Cardiomyopathy EF=40% 2018, EF=55-60% 2019 (s/p BiV) Anemia (2018) Resolved Pneumonia (2016) HX Atrial fibrillation with RVR F/U DR PRESTON-ON PRADAXA Acute on chronic systolic (congestive) heart failure Surgical History History of lithotripsy History of colonoscopy S/P cataract surgery R/L History of ear, nose, and throat (ENT) surgery PERCUTANEOUS REPAIR OF NASOETHMOID FX july 2010 S/P biventricular cardiac pacemaker procedure (09/2018) H/O ovarian cystectomy S/P myringotomy with insertion of tube (2000) Hx of tonsillectomy H/O tooth extraction Hx of appendectomy Family History Mother , age 65 of a stroke Hypertension Stroke Aunt Breast cancer maternal aunt Uterine cancer maternal aunt Sister Diabetes Father , age 89 Macular degeneration Denies family history of Ovarian cancer Prostate cancer Heart disease Myocardial infarction Colorectal cancer Social History Smoking Status: Never smoker Second Hand Exposure: No; Do You Dip or Chew Tobacco: No; Hx Alcohol Use: No Hx Substance Use: No Preferred Language: Gibralt[place] Communication Ability: Effective Hearing Ability: Use of Hearing Aid Wet [place] Required: No Beliefs That Will Affect Care: None marital status: / Current Living Situation: Family Current Living Situation Comment: lives with son, [id number], 2 grandchildren current occupational status: retired 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 Feels Safe at Home: Yes Childhood Exposure to Second-Hand Smoke: No Dental Care, Regularly: Yes Physical Activity Frequency: 3-4 Times per Week Seatbelt Use: always Sunscreen Use: Yes Assistive Devices: Cane, Glasses and Hearing Aid - Bilateral Allergies Allergies Allergy/AdvReac Type Severity Reaction Status Date / Time azithromycin Allergy Unknown Unknown Verified 07/14/23 10:31 Beta-Blockers Allergy Unknown Unknown Verified 07/14/23 10:31 (Beta-Adrenergic Bloc latex Allergy Unknown REDNESS Verified 07/14/23 10:31 prednisone Allergy Unknown FEELS Verified 07/14/23 10:31 JITTERY sertraline AdvReac Unknown Nausea/Dizz Verified 07/14/23 10:31 y Home Meds Home Medications Medication Instructions Recorded Confirmed Vasquez Defend Otc 0 tab PO BID 08/01/21 07/28/23 [id number] 5 mg-zeaxanth 0 cap PO QAM 08/01/21 07/28/23 1 mg-bilberry 7.5 mg-herbal capsule (Macular Health Formula) ascorbic acid (vitamin C) 500 mg 0 mg PO QAM 12/14/22 07/28/23 tablet (Vitamin C) conjugated estrogens 0.625 mg/gram 0.625 mg vaginal [id number] 07/28/23 07/28/23 vaginal cream (Premarin) Previous Rx's Medication Instructions Recorded lisinopril 20 mg tablet 20 mg PO QAM #90 tabs 01/21/23 dabigatran etexilate 150 mg 150 mg PO BID #180 caps 02/12/23 capsule (Pradaxa) gabapentin 100 mg capsule 100 mg PO HS #30 caps 04/23/23 clonidine HCl 0.1 mg tablet 0.1 mg PO BID 30 days #60 tabs 05/25/23 carvedilol 12.5 mg tablet 12.5 mg PO BID #180 tabs 06/04/23 furosemide 20 mg tablet 20 mg PO DAILY #30 tabs 07/14/23 Results & Data (ED) Vital Signs Vital Signs - 24 hr 07/28/23 06:37 07/28/23 06:39 07/28/23 07:10 Temperature 36.5 C Temperature Source Temporal Artery Scan Pulse Rate 70 Pulse Rate [Apical] 70 Pulse Rate from SpO2 Sensor Pulse Rhythm Pulse Rhythm [Apical] Regular Pulse Strength [Apical] Normal Respiratory Rate 30 H 28 H Respiratory Effort / Characteristics Labored Short of Breath Spontaneous Labored Short of Breath SOB on Exertion Respiratory Depth Deep Retractive Respiratory Pattern Tachypnea Tachypnea Blood Pressure 210/101 H Blood Pressure [Right Arm] 220/116 H Blood Pressure Mean 137 Blood Pressure Mean [Right Arm] 150 Blood Pressure Position Sitting Blood Pressure Position [Right Arm] Sitting Pulse Oximetry 99 98 98 Oxygen Delivery Method Room Air Room Air Room Air Oxygen Flow Rate 0 Sepsis Recent Fever Within 48 Hours No Sepsis New/Unexplained Change in Mental Status N/A Sepsis Action Taken by Nursing No Action Required 07/28/23 07:10 07/28/23 07:30 07/28/23 08:00 Temperature Temperature Source Pulse Rate 70 71 70 Pulse Rate [Apical] Pulse Rate from SpO2 Sensor 71 70 Pulse Rhythm Regular Pulse Rhythm [Apical] Pulse Strength [Apical] Respiratory Rate 28 H 20 22 Respiratory Effort / Characteristics Respiratory Depth Respiratory Pattern Blood Pressure 203/76 H 230/114 H Blood Pressure [Right Arm] Blood Pressure Mean 118 152 Blood Pressure Mean [Right Arm] Blood Pressure Position Blood Pressure Position [Right Arm] Pulse Oximetry 98 97 94 Oxygen Delivery Method Room Air Room Air Room Air Oxygen Flow Rate Sepsis Recent Fever Within 48 Hours Sepsis New/Unexplained Change in Mental Status Sepsis Action Taken by Nursing 07/28/23 08:13 07/28/23 08:30 07/28/23 09:00 Temperature Temperature Source Pulse Rate 70 70 70 Pulse Rate [Apical] Pulse Rate from SpO2 Sensor 70 69 Pulse Rhythm Pulse Rhythm [Apical] Pulse Strength [Apical] Respiratory Rate 22 24 Respiratory Effort / Characteristics Respiratory Depth Respiratory Pattern Blood Pressure 233/113 H 213/98 H Blood Pressure [Right Arm] Blood Pressure Mean 153 136 Blood Pressure Mean [Right Arm] Blood Pressure Position Blood Pressure Position [Right Arm] Pulse Oximetry 95 95 Oxygen Delivery Method Room Air Room Air Oxygen Flow Rate Sepsis Recent Fever Within 48 Hours Sepsis New/Unexplained Change in Mental Status Sepsis Action Taken by Nursing 07/28/23 09:13 07/28/23 10:47 Temperature Temperature Source Pulse Rate 70 Pulse Rate [Apical] Pulse Rate from SpO2 Sensor 70 69 Pulse Rhythm Pulse Rhythm [Apical] Pulse Strength [Apical] Respiratory Rate 24 22 Respiratory Effort / Characteristics Respiratory Depth Respiratory Pattern Blood Pressure 196/101 H 216/97 H Blood Pressure [Right Arm] Blood Pressure Mean 132 136 Blood Pressure Mean [Right Arm] Blood Pressure Position Blood Pressure Position [Right Arm] Pulse Oximetry 95 95 Oxygen Delivery Method Room Air Room Air Oxygen Flow Rate Sepsis Recent Fever Within 48 Hours Sepsis New/Unexplained Change in Mental Status Sepsis Action Taken by Nursing Laboratory Data 07/28/23 06:45 07/28/23 06:45 Lab Results 07/28/23 07/28/23 07/28/23 Range/Units 06:45 07:00 08:42 WBC 8.37 (4.8-10.8) K/ul RBC 4.43 (4.20-5.40) M/uL Hgb 14.7 (12.0-16.0) g/dl Hct 42.7 (37.0-47.0) % MCV 96.4 (80.0-100.0) fL MCH 33.2 (25.0-34.0) pg MCHC 34.4 (32.0-36.0) g/dL RDW Std Deviation 47.1 H (36.4-46.3) fL RDW Coeff of Elijah 13.2 (11.5-14.5) % Plt Count 284 (130-400) K/uL MPV 10.9 (9.4-12.4) fL Immature Gran % (Auto) 0.5 % Neut % (Auto) 60.1 % Lymph % (Auto) 20.5 % [place] % (Auto) 15.5 % Eos % (Auto) 3.3 % Baso % (Auto) 0.1 % Neut # (Auto) 5.02 (1.40-6.50) K/uL Lymph # (Auto) 1.72 (1.20-3.40) K/uL [place] # (Auto) 1.30 H (0.11-0.59) K/uL Eos # (Auto) 0.28 (0.00-0.50) K/uL Baso # (Auto) 0.01 (0.00-0.20) K/uL Immature Gran # (Auto) 0.04 (0.01-0.20) K/uL Sodium 138 (136-145) mmol/L Potassium 4.1 (3.5-5.1) mmol/L Chloride 103 (98-107) mmol/L Carbon Dioxide 27 (21-32) mmol/L Anion Gap 8 (3-11) BUN 32 H (6-23) mg/dl Creatinine 1.03 (0.6-1.2) mg/dl Est Cr Clr Drug Dosing 34.5 ml/min Est GFR ( Amer) 57.4 ml/min Est GFR (Non-Af Amer) 49.5 ml/min BUN/Creatinine Ratio 31.1 H (10-20) Glucose 107 H (70-99(Fasting)) mg/dl Calcium 9.5 (8.6-10.3) mg/dl Total Bilirubin 0.7 (0.2-1.0) mg/dl AST 18 (13-39) U/L ALT 16 (7-52) U/L Alkaline Phosphatase 63 (34-104) U/L Troponin I High Sens 20.5 H 17.0 H (0-14) pg/ml B-Natriuretic Peptide 385 H (0-100) pg/ml Total Protein 7.2 (6.0-8.3) gm/dl Albumin 3.9 (3.4-5.0) gm/dl Globulin 3.3 (2.5-4.0) gm/dl Albumin/Globulin Ratio 1.2 (0.9-2) Lipase 48 (11-82) U/L Urine Color Yellow Urine Appearance Clear (Clear) Urine pH 7.5 (4.5-7.5) Ur Specific [place] 1.009 (1.000-1.030) Urine Protein Negative (Negative) Urine Glucose (UA) Negative (Negative) Urine Ketones Negative (Negative) Urine Blood Negative (Negative) Urine Nitrite Negative (Negative) Urine Bilirubin Negative (Negative) Urine Urobilinogen Negative (Negative) Ur Leukocyte Esterase Negative (Negative) Adenovirus (PCR) Not Detected (NotDetected) B. pertussis DNA (PCR) Not Detected (NotDetected) B.parapertussis DNA PCR Not Detected (NotDetected) C. pneumoniae DNA (PCR) Not Detected (NotDetected) Coronavirus OC43 (PCR) Not Detected (NotDetected) Coronavirus HKU1 (PCR) Not Detected (NotDetected) Coronavirus 229E (PCR) Not Detected (NotDetected) SARS-CoV-2 (PCR) Not Detected (NotDetected) Coronavirus NL63 (PCR) Not Detected (NotDetected) Human Metapneumovir PCR Not Detected (NotDetected) Influenza Type A (PCR) Not Detected (NotDetected) Influenza Type B (PCR) Not Detected (NotDetected) M. pneumoniae (PCR) Not Detected (NotDetected) Parainfluenza 1 (PCR) Not Detected (NotDetected) Parainfluenza 2 (PCR) Not Detected (NotDetected) Parainfluenza 3 (PCR) Not Detected (NotDetected) Parainfluenza 4 (PCR) Not Detected (NotDetected) RSV (PCR) Not Detected (NotDetected) Entero/Rhino (PCR) Not Detected (NotDetected) Administered Medications Discontinued Medications Carvedilol (Carvedilol 12.5 Mg Tab) 12.5 mg PO NOW ONE Stop: 07/28/23 09:17 Last Admin: 07/28/23 10:45 Dose: 12.5 mg Documented By: SIGRID Clonidine HCl (Clonidine Hcl 0.1 Mg Tab) 0.1 mg PO NOW ONE Stop: 07/28/23 09:17 Last Admin: 07/28/23 10:45 Dose: 0.1 mg Documented By: SIGRID Dabigatran (Dabigatran Etexilate 75 Mg Cap) 150 mg PO ONE ONE Stop: 07/28/23 09:18 Last Admin: 07/28/23 10:45 Dose: 150 mg Documented By: SIGRID Furosemide (Furosemide 40 Mg/4 Ml Vial) 40 mg IV ONE ONE Stop: 07/28/23 09:15 Last Admin: 07/28/23 10:44 Dose: 40 mg Documented By: SIGRID Hydralazine HCl (Hydralazine Hcl 20 Mg/Ml Vial) 10 mg IV NOW STA Stop: 07/28/23 08:54 Last Admin: 07/28/23 09:08 Dose: 10 mg Documented By: SIGRID Lisinopril (Lisinopril 20 Mg Tab) 20 mg PO NOW STA Stop: 07/28/23 09:17 Last Admin: 07/28/23 10:45 Dose: 20 mg Documented By: SIGRID Imaging Data Radiologist's Impression: Chest X-Ray 07/28/23 06:58 XR chest 1V portable CLINICAL HISTORY: Chest pain, nonspecific COMPARISON STUDY: Chest radiograph July 14, 2023. FINDINGS: A left subclavian biventricular pacer is in place. Cardiomegaly is unchanged. There is no evidence for pulmonary edema. There is no pneumothorax or pleural effusion. There is no consolidation to suggest pneumonia. IMPRESSION: No acute cardiopulmonary findings. ACT 112: Negative or not required by law. Electronically signed by: Jose Luis Beltran M.D. 07/28/2023 7:19 AM Discharge Plan Visit Data Chief Complaint: Shortness of Breath/Dyspnea ED Provider: Robert Osei Discharge Problem: Hypertensive emergency, CHF exacerbation Patient Disposition: Admitted As Inpatient Discharge Instructions Interventions: ED Discharge Assessment Last Done: 07/28/23 12:00
[2023-07-28 08:04] LABS: Appearance Urine Clear (Clear); Bilirubin Urine Negative (Negative); Blood Urine Negative (Negative); Color Urine Yellow; Glucose Urine UA Negative (Negative); Ketones Urine Negative (Negative); Leukocyte Esterase Urine Negative (Negative); Nitrite Urine Negative (Negative); Protein Urine Negative (Negative); Specific Gravity Urine 1.009 (1.000-1.030); Urobilinogen Urine Negative (Negative); pH Urine 7.5 (4.5-7.5)
[2023-07-28 08:44] LABS: Adenovirus PCR Not Detected (NotDetected); Bordetella parapertussis PCR Not Detected (NotDetected); Bordetella pertussis PCR Not Detected (NotDetected); Chlamydia pneumoniae PCR Not Detected (NotDetected); Coronavirus 229E PCR Not Detected (NotDetected); Coronavirus CoV-2 (COVID19)PCR Not Detected (NotDetected); Coronavirus HKU1 PCR Not Detected (NotDetected); Coronavirus NL63 PCR Not Detected (NotDetected); Coronavirus OC43PCR Not Detected (NotDetected); Human Metapneumovirus PCR Not Detected (NotDetected); Influenza A PCR Not Detected (NotDetected); Influenza B PCR Not Detected (NotDetected); Mycoplasma pneumoniae PCR Not Detected (NotDetected); Parainfluenza Virus 1 PCR Not Detected (NotDetected); Parainfluenza Virus 2 PCR Not Detected (NotDetected); Parainfluenza Virus 3 PCR Not Detected (NotDetected); Parainfluenza Virus 4 PCR Not Detected (NotDetected); Respiratory Syncytial VirusPCR Not Detected (NotDetected); Rhinovirus/Enterovirus PCR Not Detected (NotDetected)
[2023-07-28] MEDS: hydrALAZINE HCL 20 MG/ML VIAL IV STA (09:08)
[2023-07-28] MEDS: FUROSEMIDE 40 MG/4 ML VIAL IV ONE (10:44)
[2023-07-28] MEDS: lisinopril 20 MG TAB PO STA (10:45)
[2023-07-28] MEDS: DABIGATRAN ETEXILATE 75 MG CAP PO ONE (10:45)
[2023-07-28] MEDS: carvediloL 12.5 MG TAB PO ONE (10:45)
[2023-07-28] MEDS: cloNIDine HCL 0.1 MG TAB PO ONE (10:45)
--- NOTE | 2023-07-28 12:35 | XCELERA ---
[id number] [id number]
[2023-07-28] MEDS ORDERED: POLYETHYLENE (MIRALAX) 17 GM PACK PO PRN (12:36)
[2023-07-28] MEDS ORDERED: ALUMINUM/MAGNESIUM SUSP 30 ML UDC PO PRN (12:36)
[2023-07-28] MEDS ORDERED: ONDANSETRON INJ 2 MG/ML 2 ML VIAL IV PRN (12:36)
[2023-07-28] MEDS ORDERED: NITROGLYCERIN SL 0.4 MG/TAB TAB SL PRN (12:36)
[2023-07-28] MEDS ORDERED: MAGNESIUM HYDROXIDE SUSP 30 ML UDC PO PRN (12:36)
--- NOTE | 2023-07-28 12:53 | History & Physical Report ---
Date of Service July 28, 2023 Assessment & Plan (1) Hypertensive emergency: Plan: Likely secondary to missed doses of lisinopril more recently but with recurrent orthopnea and dyspnea previously, related to labile HTN, acute on chronic HFpEF Elevated BNP, significantly elevated BP here and mildly elevated troponin from demand ischemia Was given IV hydralazine and lasix in ER and already making large amounts of urine -Admit to PCU for arrhythmia monitoring -continue BP control-give AM doses of usual meds and resume home lisinopril which she had missed for several days -will reassess later for need for further lasix and likely start po lasix 20mg daily tomorrow consult Cardiology -check ECHO -follow BMP, magnesium to watch renal function and lytes -strict I/Os, low Na+ diet, fluid restrict to 1500mL-counseled on low sodium diet at home (2) Heart failure with improved ejection fraction (HFimpEF): Plan: as above continue home Coreg, lisinopril adding on lasix (3) Aortic stenosis: Plan: moderate on recent ECHO follows with Cardiology (4) Hypertension: Plan: as above, labile (5) Biventricular cardiac pacemaker in situ: Plan: noted, performed for AV node ablation for afib (6) CKD (chronic kidney disease): Plan: renal function at baseline Avoid nephrotoxins and renally dose meds when appropriate Follow BMP (7) Permanent atrial fibrillation: Plan: rates controlled continue Coreg, Pradaxa (8) Moderate pulmonary arterial systolic hypertension: Plan: noted on ECHO not on O2 starting diuretics assess with overnight pulse ox for RICCI Plan DVT proph-Pradaxa Dispo-admit to PCU discussed care with son at bedside Admission and Anticipated Discharge Date Admission Date: July 28, 2023 History of Present Illness Chief Complaint: SOB Primary Care Provider: Mary Laughlin MD This pt is an 87 yo female with a h/o HFimEF, labile HTN, permanent afib s/p AV node ablation and PPM on Pradaxa, moderate , possible LVOT, mild MR, moderate pulm HTN, and CKD stage III who presents to the ER with significant orthopnea and dyspnea at rest. She has been having episodes similar but not as severe off and on for months. Her BPs are noted in PCP and Cardiology notes to be labile. She reports she ran out of her lisinopril 2-3 days ago. BPs in ER as high as 233/113 and she was dyspneic at rest but not hypoxic. In paced rhythm, no chest pain or headache, no N/V. Has not noticed any leg swelling or weight gain-in fact, has lost weight over the last few months with having COVID and then RSV through the winter, leading to reduced appetite. SHe reports her dinner usually is high in sodium, but breakfast and lunch are bland. She certainly does not drink excessive fluids and son at bedside reports he thinks she doesn't drink enough. Troponin here mildly elevated at 20 on arrival and then down to 17 2 hours later on repeat check. BNP elevated at 385. She was given IV hydralazine and IV lasix in ER. She will be admitted for hypertensive emergency and acute on chronic HFpEF. Allergies Allergy/AdvReac Type Severity Reaction Status Date / Time azithromycin Allergy Unknown Unknown Verified 07/14/23 10:31 Beta-Blockers Allergy Unknown Unknown Verified 07/14/23 10:31 (Beta-Adrenergic Bloc latex Allergy Unknown REDNESS Verified 07/14/23 10:31 prednisone Allergy Unknown FEELS Verified 07/14/23 10:31 JITTERY sertraline AdvReac Unknown Nausea/Dizz Verified 07/14/23 10:31 y Home Medications Medication Instructions Recorded Confirmed Type Vasquez Defend Otc 0 tab PO BID 08/01/21 07/28/23 History tjwioadk-[id number] 5 mg-zeaxanth 0 cap PO QAM 08/01/21 07/28/23 History 1 mg-bilberry 7.5 mg-herbal capsule (Macular Health Formula) ascorbic acid (vitamin C) 500 mg 0 mg PO QAM 12/14/22 07/28/23 History tablet (Vitamin C) lisinopril 20 mg tablet 20 mg PO QAM #90 tabs 01/21/23 07/28/23 Rx dabigatran etexilate 150 mg 150 mg PO BID #180 caps 02/12/23 07/28/23 Rx capsule (Pradaxa) gabapentin 100 mg capsule 100 mg PO HS #30 caps 04/23/23 07/28/23 Rx clonidine HCl 0.1 mg tablet 0.1 mg PO BID 30 days #60 tabs 05/25/23 07/28/23 Rx carvedilol 12.5 mg tablet 12.5 mg PO BID #180 tabs 06/04/23 07/28/23 Rx furosemide 20 mg tablet 20 mg PO DAILY #30 tabs 07/14/23 07/28/23 Rx conjugated estrogens 0.625 mg/gram 0.625 mg vaginal 3XWK 07/28/23 07/28/23 History vaginal cream (Premarin) Past Med/Surg History Medical History Heart failure with improved ejection fraction (HFimpEF) Dysfunction of right eustachian tube COVID-19 Proteinuria Uncontrolled hypertension Chronic otitis media of left ear with posterior perforation Radicular leg pain Medial epicondylitis Left shoulder pain Left elbow pain Elevated troponin Low energy Elevated troponin Nausea Pessary maintenance IN PLACE-MAINTENANCE Q 4 MONTHS Pacemaker PLACED 2018 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 of left ear Right buttock pain Bilateral buttock pain GOES TO PT FOR AREA Tinnitus of right ear 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 Vaginal Discharge HBP (high blood pressure) Diarrhea Nasal discharge History of nephrolithiasis History of orthostatic hypotension History of herpes zoster History of asthma PT DENIES-NO INHALERS History of cellulitis Creatinine elevation (12/2018) PAINTER (dyspnea on exertion) Impaired fasting glucose Moderate pulmonary arterial systolic hypertension Moderate mitral regurgitation by prior echocardiogram LBBB (left bundle branch block) History of non-ST elevation myocardial infarction (NSTEMI) Cardiomyopathy EF=40% 2018, EF=55-60% 2019 (s/p BiV) Anemia (2018) Resolved Pneumonia (2016) HX Atrial fibrillation with RVR F/U DR PRESTON-ON PRADAXA Acute on chronic systolic (congestive) heart failure Surgical History History of lithotripsy History of colonoscopy S/P cataract surgery R/L History of ear, nose, and throat (ENT) surgery PERCUTANEOUS REPAIR OF NASOETHMOID FX july 2010 S/P biventricular cardiac pacemaker procedure (09/2018) H/O ovarian cystectomy S/P myringotomy with insertion of tube (2000) Hx of tonsillectomy H/O tooth extraction Hx of appendectomy Family History Mother , age 65 of a stroke Hypertension Stroke Aunt Breast cancer maternal aunt Uterine cancer maternal aunt Sister Diabetes Father , age 89 Macular degeneration Denies family history of Ovarian cancer Prostate cancer Heart disease Myocardial infarction Colorectal cancer Social History Smoking Status: Never smoker Second Hand Exposure: No; Do You Dip or Chew Tobacco: No; Hx Alcohol Use: No Hx Substance Use: No Preferred Language: Polish Communication Ability: Effective Hearing Ability: Use of Hearing Aid Drafting Technician Required: No Beliefs That Will Affect Care: None marital status: / Current Living Situation: Family Current Living Situation Comment: lives with son, [id number], 2 grandchildren current occupational status: retired 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 Other Information That Helps Us Care for You: No Feels Safe at Home: Yes Safety Concerns: Feels Safe At This Time Childhood Exposure to Second-Hand Smoke: No Dental Care, Regularly: Yes Physical Activity Frequency: 3-4 Times per Week Seatbelt Use: always Sunscreen Use: Yes Assistive Devices: Cane, Glasses and Hearing Aid - Bilateral Review of Systems Review of Systems: All systems reviewed & are unremarkable except as noted in HPI & below Physical Exam Constitutional: WD/WN, vitals as above Neck: trachea midline, no thyromegaly Respiratory: normal respiratory effort, lungs clear to auscultation Cardiovascular: RRR, no murmur, no edema Vessels: + JVD (1 cm) Chest (Breasts): Chest: normal inspection of chest Gastrointestinal (Abdomen): normal bowel sounds, soft, nontender, no he patosplenomegaly Musculoskeletal: Extremities: extremities normal to inspection; no cyanosis and no clubbing Skin: no rashes, warm and dry Neurologic: moves all extremities and awake; no focal motor deficits Psychiatric: A+Ox3, euthymic affect Lymphatic: no lymphedema Results & Data Results & Data Vital Signs (Past 12 Hours) Vital Signs Temp Pulse Pulse Resp BP BP Pulse Ox 07/28/23 12:36 07/28/23 12:36 36.6 C 71 18 153/77 H 96 07/28/23 12:07 83 17 169/96 H 95 07/28/23 10:47 22 216/97 H 95 07/28/23 09:13 70 24 196/101 H 95 07/28/23 09:00 70 24 213/98 H 95 07/28/23 08:30 70 22 233/113 H 95 07/28/23 08:13 70 07/28/23 08:00 70 22 230/114 H 94 07/28/23 07:30 71 20 203/76 H 97 07/28/23 07:10 70 28 H 98 07/28/23 07:10 70 28 H 220/116 H 98 07/28/23 06:39 36.5 C 70 30 H 210/101 H 98 07/28/23 06:37 99 O2 Del Method O2 Flow Rate 07/28/23 12:36 Room Air 07/28/23 12:36 Room Air 07/28/23 12:07 Room Air 07/28/23 10:47 Room Air 07/28/23 09:13 Room Air 07/28/23 09:00 Room Air 07/28/23 08:30 Room Air 07/28/23 08:13 07/28/23 08:00 Room Air 07/28/23 07:30 Room Air 07/28/23 07:10 Room Air 07/28/23 07:10 Room Air 07/28/23 06:39 Room Air 07/28/23 06:37 Room Air 0 Laboratory Results CBC, CMP, BNP, troponin, UA, BioFire panel reviewed 07/28/23 07/28/23 07/28/23 Range/Units 08:42 07:00 06:45 WBC 8.37 (4.8-10.8) K/ul RBC 4.43 (4.20-5.40) M/uL Hgb 14.7 (12.0-16.0) g/dl Hct 42.7 (37.0-47.0) % MCV 96.4 (80.0-100.0) fL MCH 33.2 (25.0-34.0) pg MCHC 34.4 (32.0-36.0) g/dL RDW Std Deviation 47.1 H (36.4-46.3) fL RDW Coeff of Elijah 13.2 (11.5-14.5) % Plt Count 284 (130-400) K/uL MPV 10.9 (9.4-12.4) fL Immature Gran % (Auto) 0.5 % Neut % (Auto) 60.1 % Lymph % (Auto) 20.5 % [place] % (Auto) 15.5 % Eos % (Auto) 3.3 % Baso % (Auto) 0.1 % Neut # (Auto) 5.02 (1.40-6.50) K/uL Lymph # (Auto) 1.72 (1.20-3.40) K/uL [place] # (Auto) 1.30 H (0.11-0.59) K/uL Eos # (Auto) 0.28 (0.00-0.50) K/uL Baso # (Auto) 0.01 (0.00-0.20) K/uL Immature Gran # (Auto) 0.04 (0.01-0.20) K/uL Sodium 138 (136-145) mmol/L Potassium 4.1 (3.5-5.1) mmol/L Chloride 103 (98-107) mmol/L Carbon Dioxide 27 (21-32) mmol/L Anion Gap 8 (3-11) BUN 32 H (6-23) mg/dl Creatinine 1.03 (0.6-1.2) mg/dl Est Cr Clr Drug Dosing 34.5 ml/min Est GFR ( Amer) 57.4 ml/min Est GFR (Non-Af Amer) 49.5 ml/min BUN/Creatinine Ratio 31.1 H (10-20) Glucose 107 H (70-99(Fasting)) mg/dl Calcium 9.5 (8.6-10.3) mg/dl Total Bilirubin 0.7 (0.2-1.0) mg/dl AST 18 (13-39) U/L ALT 16 (7-52) U/L Alkaline Phosphatase 63 (34-104) U/L Troponin I High Sens 17.0 H 20.5 H (0-14) pg/ml B-Natriuretic Peptide 385 H (0-100) pg/ml Total Protein 7.2 (6.0-8.3) gm/dl Albumin 3.9 (3.4-5.0) gm/dl Globulin 3.3 (2.5-4.0) gm/dl Albumin/Globulin Ratio 1.2 (0.9-2) Lipase 48 (11-82) U/L Urine Color Yellow Urine Appearance Clear (Clear) Urine pH 7.5 (4.5-7.5) Ur Specific [place] 1.009 (1.000-1.030) Urine Protein Negative (Negative) Urine Glucose (UA) Negative (Negative) Urine Ketones Negative (Negative) Urine Blood Negative (Negative) Urine Nitrite Negative (Negative) Urine Bilirubin Negative (Negative) Urine Urobilinogen Negative (Negative) Ur Leukocyte Esterase Negative (Negative) Adenovirus (PCR) Not Detected (NotDetected) B. pertussis DNA (PCR) Not Detected (NotDetected) B.parapertussis DNA PCR Not Detected (NotDetected) C. pneumoniae DNA (PCR) Not Detected (NotDetected) Coronavirus OC43 (PCR) Not Detected (NotDetected) Coronavirus HKU1 (PCR) Not Detected (NotDetected) Coronavirus 229E (PCR) Not Detected (NotDetected) SARS-CoV-2 (PCR) Not Detected (NotDetected) Coronavirus NL63 (PCR) Not Detected (NotDetected) Human Metapneumovir PCR Not Detected (NotDetected) Influenza Type A (PCR) Not Detected (NotDetected) Influenza Type B (PCR) Not Detected (NotDetected) M. pneumoniae (PCR) Not Detected (NotDetected) Parainfluenza 1 (PCR) Not Detected (NotDetected) Parainfluenza 2 (PCR) Not Detected (NotDetected) Parainfluenza 3 (PCR) Not Detected (NotDetected) Parainfluenza 4 (PCR) Not Detected (NotDetected) RSV (PCR) Not Detected (NotDetected) Entero/Rhino (PCR) Not Detected (NotDetected) Diagnostic Findings CXR image personally reviewed by nm Chest X-Ray 07/28/23 06:58 XR chest 1V portable CLINICAL HISTORY: Chest pain, nonspecific COMPARISON STUDY: Chest radiograph July 14, 2023. FINDINGS: A left subclavian biventricular pacer is in place. Cardiomegaly is unchanged. There is no evidence for pulmonary edema. There is no pneumothorax or pleural effusion. There is no consolidation to suggest pneumonia. IMPRESSION: No acute cardiopulmonary findings. ECG Additional Comments: ECG V paced Code Status & VTE Plan Code Status FULL CODE VTE Prophylaxis Plan VTE Prophylaxis will be ordered: Yes PG Care Time/CCT Total # of Minutes Spent Total Time Spent with Patient: Total time spent is greater than 50% in coordination of care (as documented) at patient's floor/unit and/or counseling patient: Coding Level of Care Code 11815 INT INP/OBS CARE 3/75MIN Diagnoses Hypertensive emergency I16.1 Heart failure with improved ejection fraction (HFimpEF) I50.32 Aortic stenosis I35.0 Hypertension I15.9 Hypertension type: unspecified secondary hypertension Biventricular cardiac pacemaker in situ Z95.0 CKD (chronic kidney disease) N18.9 Permanent atrial fibrillation I48.21 Moderate pulmonary arterial systolic hypertension I27.21 (4) Hypertension Hypertension type: unspecified secondary hypertension Qualified Code(s): I15.9 - Secondary hypertension, unspecified
--- NOTE | 2023-07-28 13:13 | Electrocardiogram Report ---
Test Reason : Blood Pressure : / mmHG Vent. Rate : 070 BPM Atrial Rate : 063 BPM P-R Int : 000 ms QRS Dur : 116 ms QT Int : 438 ms P-R-T Axes : 000 077 080 degrees QTc Int : 473 ms Ventricular-paced rhythm Biventricular pacemaker detected Abnormal ECG When compared with ECG of 01-MAY-2023 10:07, No significant change was found Confirmed by Alfredo Coker ([id number]) on 07/28/2023 1:12:46 PM Referred By: REFERRED SELF Confirmed By:Alfredo Coker
[2023-07-28] MEDS: ACETAMINOPHEN 325 MG TAB PO PRN (20:24)
[2023-07-28] MEDS: DABIGATRAN ETEXILATE 75 MG CAP PO SCH (20:25)
[2023-07-28] MEDS: cloNIDine HCL 0.1 MG TAB PO SCH (20:25)
[2023-07-28] MEDS: GABAPENTIN 100 MG CAP PO SCH (20:25)
[2023-07-28] MEDS: carvediloL 12.5 MG TAB PO SCH (20:25)
--- NOTE | 2023-07-28 22:12 | Cardiology Consultation ---
Date of Consultation July 28, 2023 Assessment & Plan (1) Heart failure with improved ejection fraction (HFimpEF): --Recovered cardiomyopathy post CRTD --Dynamic LVOT 2. Hypertensionlabile on BB, VIANEY, clonidine 3. Permanent atrial fibrillation post AV marisa ablation/[id number] 4, on Pradaxa 4. Moderate aortic stenosis, mild MRmild last echo 11/2022 5. Moderate pulmonary hypertension 6. Stage III CKD 7. Anxiety/depression Admitted with shortness of breath/orthopnea thought secondary to acute heart failure in the setting of hypertensive urgency. Potentially precipitated by issues with adherence/obtaining lisinopril and possible increased salt. 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 Very low suspicion for ACS. Currently BP improved, on room air, diuresing well with some improvement in dyspnea Going forward plan on additional diuresis and further attempts optimize HF/BP regimen. Would likely benefit from closer follow-up with CHF clinic on discharge. Reassess need for additional Lasix in the morning Salt restriction, daily weights Continue to monitor telemetry. Possible repeat device interrogation at some point Check coverage on SGLT2 Would like to transition clonidine to MRA. Start spironolactone 12.5 mg tomorrow Continue current carvedilol, lisinopril Continue current Pradaxa. CHF clinic as an outpatient Will follow History of Present Illness Attending Physician: Brandie Donovan MD History of Present Illness Mrs. Landa is a pleasant 87 year old woman seen in hospital after admitted with hypertension and acute dyspnea attributed to acute heart failure. Patient known to me from the outpatient setting. She has a history of permanent AF post AV node ablation and BiV ICD 09/2018, prior HFrEF with r ecovered LV dysfunction after TELEPHONE ORDER SUPERVISOR. More recently dealing with LVH, HFpEF and questionable LVOT obstruction. Also with moderate . Other medical issues include anxiety, osteopenia, lumbar degenerative disc disease, leg pain with radiculopathy, ataxic gait and stage III CKD. Patient has a longstanding difficult to control hypertension. Has previously been on higher doses of carvedilol, as well as with HCTZ, amlodipine. BP meds have been reduced due to to concerns contributing to generalized fatigue. Had COVID in . Hospitalized end of April 2023 with RSV. Blood pressure elevated and was started on clonidine 0.1 mg, now twice daily. Today reports that she has been increasingly tired, feeling lousy since COVID. Seen by primary care earlier in the month due to shortness of breath. Possible trace pleural effusions on chest x-ray. Started on Lasix 20 mg daily but stopped due to concerns for diarrhea. Yesterday evening when became increasingly short of breath, with orthopnea. Denies recent viral illness, urinary symptoms, change in diet or meds. Does report has been out of lisinopril for days (family states may be longer than that and has been eating salted ice cream every night). NAD hypertensive to >220s. Received IV hydralazine, Lasix. ECG showed paced rhythm. HS TropI flat. BNP 385. Repeat echocardiogram shows moderate LVH, hyperdynamic LV, mild LVOT, moderate , normal IVC. Most recent cardiac studies: Stress echo 11/2022: EF 65%, moderate LVH, DD 2 mild MR, mild AI, mild with possible LVOT obstruction, PASP 3540. Exercise 1: 12, 2.7 METS. LVOT obstruction peak gradient 14.4 Renal artery duplex 03/2022: <60% stenosis bilateral renal arteries. Normal renal artery size bilaterally. No AAA or aortoiliac stenosis. Echo 02/2022: EF 55%, moderate (PV 2.9, MG 16, VENUS 0.89), mild AI, mild MR, estimated PASP 40-50 Allergies Allergy/AdvReac Type Severity Reaction Status Date / Time azithromycin Allergy Unknown Unknown Verified 07/14/23 10:31 Beta-Blockers Allergy Unknown Unknown Verified 07/14/23 10:31 (Beta-Adrenergic Bloc latex Allergy Unknown REDNESS Verified 07/14/23 10:31 prednisone Allergy Unknown FEELS Verified 07/14/23 10:31 JITTERY sertraline AdvReac Unknown Nausea/Dizz Verified 07/14/23 10:31 y Home Medications Medication Instructions Recorded Confirmed Type Vasquez Defend Otc 0 tab PO BID 08/01/21 07/28/23 History [id number]-cqr-dnlvfa 5 mg-zeaxanth 0 cap PO QAM 08/01/21 07/28/23 History 1 mg-bilberry 7.5 mg-herbal capsule (Macular Health Formula) ascorbic acid (vitamin C) 500 mg 0 mg PO QAM 12/14/22 07/28/23 History tablet (Vitamin C) lisinopril 20 mg tablet 20 mg PO QAM #90 tabs 01/21/23 07/28/23 Rx dabigatran etexilate 150 mg 150 mg PO BID #180 caps 02/12/23 07/28/23 Rx capsule (Pradaxa) gabapentin 100 mg capsule 100 mg PO HS #30 caps 04/23/23 07/28/23 Rx clonidine HCl 0.1 mg tablet 0.1 mg PO BID 30 days #60 tabs 05/25/23 07/28/23 Rx carvedilol 12.5 mg tablet 12.5 mg PO BID #180 tabs 06/04/23 07/28/23 Rx furosemide 20 mg tablet 20 mg PO DAILY #30 tabs 07/14/23 07/28/23 Rx conjugated estrogens 0.625 mg/gram 0.625 mg vaginal 3XWK 07/28/23 07/28/23 History vaginal cream (Premarin) Patient History Medical History Heart failure with improved ejection fraction (HFimpEF) Dysfunction of right eustachian tube COVID-19 Proteinuria Uncontrolled hypertension Chronic otitis media of left ear with posterior perforation Radicular leg pain Medial epicondylitis Left shoulder pain Left elbow pain Elevated troponin Low energy Elevated troponin Nausea Pessary maintenance IN PLACE-MAINTENANCE Q 4 MONTHS Pacemaker PLACED 2018 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 of left ear Right buttock pain Bilateral buttock pain GOES TO PT FOR AREA Tinnitus of right ear 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 Vaginal Discharge HBP (high blood pressure) Diarrhea Nasal discharge History of nephrolithiasis History of orthostatic hypotension History of herpes zoster History of asthma PT DENIES-NO INHALERS History of cellulitis Creatinine elevation (12/2018) PAINTER (dyspnea on exertion) Impaired fasting glucose Moderate pulmonary arterial systolic hypertension Moderate mitral regurgitation by prior echocardiogram LBBB (left bundle branch block) History of non-ST elevation myocardial infarction (NSTEMI) Cardiomyopathy EF=40% 2018, EF=55-60% 2019 (s/p BiV) Anemia (2019) Resolved Pneumonia (2016) HX Atrial fibrillation with RVR F/U DR PRESTON-ON PRADAXA Acute on chronic systolic (congestive) heart failure Surgical History History of lithotripsy History of colonoscopy S/P cataract surgery R/L History of ear, nose, and throat (ENT) surgery PERCUTANEOUS REPAIR OF NASOETHMOID FX july 2010 S/P biventricular cardiac pacemaker procedure (09/2018) H/O ovarian cystectomy S/P myringotomy with insertion of tube (2000) Hx of tonsillectomy H/O tooth extraction Hx of appendectomy Family History Mother , age 65 of a stroke Hypertension Stroke Aunt Breast cancer maternal aunt Uterine cancer maternal aunt Sister Diabetes Father , age 89 Macular degeneration Denies family history of Ovarian cancer Prostate cancer Heart disease Myocardial infarction Colorectal cancer Social History Smoking Status: Never smoker Second Hand Exposure: No; Do You Dip or Chew Tobacco: No; Hx Alcohol Use: No Hx Substance Use: No Preferred Language: Iranian Communication Ability: Effective Hearing Ability: Use of Hearing Aid Sales Agent [employer] Insurance Required: No Beliefs That Will Affect Care: None marital status: / Current Living Situation: Family Current Living Situation Comment: lives with son, [id number], 2 grandchildren current occupational status: retired 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 Feels Safe at Home: Yes Childhood Exposure to Second-Hand Smoke: No Dental Care, Regularly: Yes Physical Activity Frequency: 3-4 Times per Week Seatbelt Use: always Sunscreen Use: Yes Assistive Devices: Cane, Glasses and Hearing Aid - Bilateral Review of Systems Review of Systems: All systems reviewed & are unremarkable except as noted in HPI & below Physical Exam Physical Exam: General: Appears mildly ill HEENT: Sclerae anicteric Lungs: Clear to auscultation bilaterally Cardiac: Regular rate and rhythm, 3 out of 6 mid peaking systolic ejection murmur heard best at right upper sternal border. Vascular: 2+ radial, DP pulses. No bruits Abdomen: Soft, nontender Extremities: Well perfused, trace edema right greater than left with mild hyperpigmentation Neuro: Nonfocal Psych: Alert orient x3, normal affect and mood Results & Data Vital Signs (Past 12 Hours) Vital Signs Temp Pulse Pulse Resp BP BP BP 07/28/23 19:28 98.6 F 78 18 162/93 H 178/83 H 07/28/23 16:40 99.1 F 69 18 157/75 H 07/28/23 16:05 70 07/28/23 13:43 70 07/28/23 12:36 07/28/23 12:36 97.9 F 71 18 153/77 H 07/28/23 12:07 83 17 169/96 H 07/28/23 10:47 22 216/97 H Pulse Ox O2 Del Method 07/28/23 19:28 94 Room Air 07/28/23 16:40 96 Room Air 07/28/23 16:05 07/28/23 13:43 07/28/23 12:36 Room Air 07/28/23 12:36 96 Room Air 07/28/23 12:07 95 Room Air 07/28/23 10:47 95 Room Air PG Care Time/CCT Total # of Minutes Spent Total Time Spent with Patient: Total time spent is greater than 50% in coordination of care (as documented) at patient's floor/unit and/or counseling patient: Coding Level of Care Code 03938 INT INP/OBS CARE MIN Diagnoses Heart failure with improved ejection fraction (HFimpEF) I50.32
[2023-07-28] MEDS: MELATONIN 3 MG TAB PO PRN (23:22)
[2023-07-29 06:36] LABS: BUN Creatinine Ratio 27.7 (10-20); Calcium 9.5 mg/dl (8.6-10.3); Magnesium 2.1 mg/dl (1.7-2.4); Potassium 4.5 mmol/L (3.5-5.1)
[2023-07-29] MEDS ORDERED: FUROSEMIDE INJ 20 MG/2 ML VIAL IV SCH (09:00)
[2023-07-29] MEDS: ASCORBIC ACID 500 MG TAB PO SCH (09:02)
[2023-07-29] MEDS: SPIRONOLACTONE 12.5 MG TAB PO SCH (09:02)
[2023-07-29] MEDS: lisinopril 20 MG TAB PO SCH (09:02)
--- NOTE | 2023-07-29 13:16 | Hospitalist Progress Note ---
Date of Service July 29, 2023 Assessment & Plan (1) Hypertensive emergency: Plan: Likely secondary to missed doses of lisinopril for several days More recently but with recurrent orthopnea and dyspnea previously, related to labile HTN, acute on chronic HFpEF Elevated BNP, significantly elevated BP here and mildly elevated troponin from demand ischemia Was given IV hydralazine and lasix in ER and had large diuresis BPs are now low in the 80s systolic and with some occasional lightheadedness Project Asst bumped up to 1.4 ECHO with LVEF 60-65%, mod LVH, mod , unchanged from previous Consult Cardiology appreciated -over diuresed--> give NS 250mL bolus over 2 hours now for hypotension, NISREEN -STOP clonidine, started Aldactone 12.5mg po daily as per Cardiology recommendation -continue home lisinopril, Coreg -add on Jardiance as outpt if cost affordable -hold any further lasix for now -follow BMP, magnesium to watch renal function and lytes -strict I/Os, low Na+ diet, fluid restrict to 1500mL-counseled on low sodium diet at home (2) Heart failure with improved ejection fraction (HFimpEF): Plan: as above referred back to CHF clinic where she has not been seen since 2019 (3) NISREEN (acute kidney injury): Plan: 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 Admission UA completely normal Repeat UA and check for blood, infection Monitor (6) Hypertension: Plan: as above, labile (7) Biventricular cardiac pacemaker in situ: Plan: noted, performed for AV node ablation for afib (8) CKD (chronic kidney disease): Plan: CKD stage 3A, with NISREEN as above Avoid nephrotoxins and renally dose meds when appropriate-if front end web developer remains elevated, would need to reduce dose of Pradaxa down to 75mg po bid Follow BMP (9) Permanent atrial fibrillation: Plan: rates controlled, has a EMERGENCY SERVICE RESTORER pacer after AV node ablation continue Coreg, Pradaxa (10) Moderate pulmonary arterial systolic hypertension: Plan: noted on ECHO not on O2 gave diuretics assess with overnight pulse ox for RICCI--> no hypoxia, therefore no O2 indicated Plan DVT proph-Pradaxa Dispo-continued stay PCU Admission and Anticipated Discharge Date Admission Date: July 28, 2023 Subjective Feels less SOB at rest, has not yet tried to lie flat. Denies PAINTER with walking to the bathroom. Has noticed a pink-red tinge to her urine since yesterday. BPs low today and did feel a little lightheaded earlier but not currently. I discussed her care with Dr. Partida of Cardiology. Tele with paced rhythm in the 70s Review of Systems Review of Systems: All systems reviewed & are unremarkable except as noted in HPI & below (denies vag bleeding or blood in stool) Physical Exam Constitutional: WD/WN, vitals as above Neck: trachea midline, no thyromegaly Respiratory: normal respiratory effort, lungs clear to auscultation Cardiovascular: RRR, no murmur, no edema Chest (Breasts): Chest: normal inspection of chest Gastrointestinal (Abdomen): normal bowel sounds, soft, nontender, no hepatosplenomegaly Musculoskeletal: Extremities: extremities normal to inspection; no cyanosis and no clubbing Skin: no rashes, warm and dry Neurologic: moves all extremities and awake; no focal motor deficits Psychiatric: A+Ox3, euthymic affect Lymphatic: no lymphedema Results & Data Results & Data Vital Signs (Past 12 Hours) Vital Signs Temp Pulse Pulse Pulse Resp BP BP 07/29/23 12:52 86/52 L 07/29/23 11:30 36.4 C L 73 20 93/58 L 07/29/23 07:40 36.4 C L 70 18 156/86 H 07/29/23 07:39 70 07/29/23 03:00 36.6 C 70 16 114/69 07/29/23 02:31 73 Pulse Ox Pulse Ox O2 Del Method O2 Del Method 07/29/23 12:52 07/29/23 11:30 94 Room Air 07/29/23 07:40 95 Room Air 07/29/23 07:39 07/29/23 03:00 96 Room Air 07/29/23 02:31 95 Room Air Laboratory Results BMP, magnesium reviewed PG Care Time/CCT Total # of Minutes Spent Total Time Spent with Patient: Total time spent is greater than 50% in coordination of care (as documented) at patient's floor/unit and/or counseling patient: Coding Level of Care Code 00982 SUB INP/OBS CARE 3/50MIN Diagnoses Hypertensive emergency I16.1 Heart failure with improved ejection fraction (HFimpEF) I50.32 NISREEN (acute kidney injury) N17.9 Aortic stenosis I35.0 Hematuria R31.9 Hypertension I15.9 Hypertension type: unspecified secondary hypertension Biventricular cardiac pacemaker in situ Z95.0 CKD (chronic kidney disease) N18.9 Permanent atrial fibrillation I48.21 Moderate pulmonary arterial systolic hypertension I27.21 (6) Hypertension Hypertension type: unspecified secondary hypertension Qualified Code(s): I15.9 - Secondary hypertension, unspecified
[2023-07-29] MEDS: SODIUM CHLORIDE 0.9% 250 ML IV ONE (13:40)
[2023-07-29 21:57] LABS: Appearance Urine Cloudy (Clear); Bacteria Urine Automated None Seen (None Seen); Bilirubin Urine Negative (Negative); Blood Urine 3+ (Negative); Color Urine Yellow; Epithelial Cell Urine Auto 0-2 /hpf (0-2); Glucose Urine UA Negative (Negative); Ketones Urine Negative (Negative); Leukocyte Esterase Urine Negative (Negative); Nitrite Urine Negative (Negative); Protein Urine Trace (Negative); RBC Urine Automated >20 /hpf (0-2); Urobilinogen Urine Negative (Negative); WBC Urine Automated 0-5 /hpf (0-5)
[2023-07-30 06:32] LABS: Basophils # (auto) 0.03 K/uL (0.00-0.20); Basophils % (auto) 0.5 %; Eosinophils # (auto) 0.29 K/uL (0.00-0.50); Eosinophils % (auto) 4.5 %; Hematocrit (blood only) 38.8 % (37.0-47.0); Immature Granulocytes # (auto) 0.04 K/uL (0.01-0.20); Immature Granulocytes % (auto) 0.6 %; Lymphocytes # (auto) 1.37 K/uL (1.20-3.40); Lymphocytes % (auto) 21.2 %; Mean Corpuscular Hemoglobin 32.6 pg (25.0-34.0); Mean Corpuscular Hgb Conc 33.5 g/dL (32.0-36.0); Mean Corpuscular Volume 97.2 fL (80.0-100.0); Mean Platelet Volume 10.8 fL (9.4-12.4); Monocytes # (auto) 1.41 K/uL (0.11-0.59); Monocytes % (auto) 21.8 %; Neutrophils # (auto) 3.33 K/uL (1.40-6.50); Neutrophils % (auto) 51.4 %; Platelet Count 252 K/uL (130-400); RDW Coefficient of Variation 13.5 % (11.5-14.5); RDW Standard Deviation 48.2 fL (36.4-46.3); Red Blood Count 3.99 M/uL (4.20-5.40); White Blood Count 6.47 K/ul (4.8-10.8)
[2023-07-30 06:48] LABS: BUN Creatinine Ratio 38.8 (10-20); Calcium 8.9 mg/dl (8.6-10.3); Creatinine Clr Calc Pharmacy 26.5 ml/min; Est GFR (African American) 41.8 ml/min; Magnesium 2.1 mg/dl (1.7-2.4); Potassium 4.2 mmol/L (3.5-5.1)
--- NOTE | 2023-07-30 14:44 | Heart Failure Consultation ---
Date of Consultation July 30, 2023 Assessment & Plan (1) Heart failure with improved ejection fraction (HFimpEF): (2) Cardiomyopathy: History of Present Illness Attending Physician: Johanny Montano MD History of Present Illness Meet with patient in their hospital room. We discussed the nature of heart failure and the goals of the heart failure program. Patient is agreeable to ongoing participation and will be formally [place] [facility]. Patient advised to weigh themselves daily on their home scale. Notify the office if 2+ lb weight gain overnight or 5+ lb in 1 week. Low sodium diet recommended on discharge. Contact information provided. Patient will have scheduled outpatient follow up within 7 days of discharge. Please see full cardiology consult for additional recommendations and formal plan of care. Allergies Allergy/AdvReac Type Severity Reaction Status Date / Time azithromycin Allergy Unknown Unknown Verified 07/14/23 10:31 Beta-Blockers Allergy Unknown Unknown Verified 07/14/23 10:31 (Beta-Adrenergic Bloc latex Allergy Unknown REDNESS Verified 07/14/23 10:31 prednisone Allergy Unknown FEELS Verified 07/14/23 10:31 JITTERY sertraline AdvReac Unknown Nausea/Dizz Verified 07/14/23 10:31 y Home Medications Medication Instructions Recorded Confirmed Type Vasquez Defend Otc 0 tab PO BID 08/01/21 07/28/23 History [id number] 5 mg-zeaxanth 0 cap PO QAM 08/01/21 07/28/23 History 1 mg-bilberry 7.5 mg-herbal capsule ([employer] Formula) ascorbic acid (vitamin C) 500 mg 0 mg PO QAM 12/14/22 07/28/23 History tablet (Vitamin C) lisinopril 20 mg tablet 20 mg PO QAM #90 tabs 01/21/23 07/28/23 Rx dabigatran etexilate 150 mg 150 mg PO BID #180 caps 02/12/23 07/28/23 Rx capsule (Pradaxa) gabapentin 100 mg capsule 100 mg PO HS #30 caps 04/23/23 07/28/23 Rx clonidine HCl 0.1 mg tablet 0.1 mg PO BID 30 days #60 tabs 05/25/23 07/28/23 Rx carvedilol 12.5 mg tablet 12.5 mg PO BID #180 tabs 06/04/23 07/28/23 Rx furosemide 20 mg tablet 20 mg PO DAILY #30 tabs 07/14/23 07/28/23 Rx conjugated estrogens 0.625 mg/gram 0.625 mg vaginal [id number] 07/28/23 07/28/23 History vaginal cream (Premarin) Patient History Medical History Heart failure with improved ejection fraction (HFimpEF) Dysfunction of right eustachian tube COVID-19 Proteinuria Uncontrolled hypertension Chronic otitis media of left ear with posterior perforation Radicular leg pain Medial epicondylitis Left shoulder pain Left elbow pain Elevated troponin Low energy Elevated troponin Nausea Pessary maintenance IN PLACE-MAINTENANCE Q 4 MONTHS Pacemaker PLACED 2018 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 of left ear Right buttock pain Bilateral buttock pain GOES TO PT FOR AREA Tinnitus of right ear 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 Vaginal Discharge HBP (high blood pressure) Diarrhea Nasal discharge History of nephrolithiasis History of orthostatic hypotension History of herpes zoster History of asthma PT DENIES-NO INHALERS History of cellulitis Creatinine elevation (12/2018) PAINTER (dyspnea on exertion) Impaired fasting glucose Moderate pulmonary arterial systolic hypertension Moderate mitral regurgitation by prior echocardiogram LBBB (left bundle branch block) History of non-ST elevation myocardial infarction (NSTEMI) Cardiomyopathy EF=40% 2018, EF=55-60% 2019 (s/p BiV) Anemia (2018) Resolved Pneumonia (2016) HX Atrial fibrillation with RVR F/U DR PRESTON-ON PRADAXA Acute on chronic systolic (congestive) heart failure Surgical History History of lithotripsy History of colonoscopy S/P cataract surgery R/L History of ear, nose, and throat (ENT) surgery PERCUTANEOUS REPAIR OF NASOETHMOID FX july 2010 S/P biventricular cardiac pacemaker procedure (09/2018) H/O ovarian cystectomy S/P myringotomy with insertion of tube (2000) Hx of tonsillectomy H/O tooth extraction Hx of appendectomy Family History Mother , age 65 of a stroke Hypertension Stroke Aunt Breast cancer maternal aunt Uterine cancer maternal aunt Sister Diabetes Father , age 89 Macular degeneration Denies family history of Ovarian cancer Prostate cancer Heart disease Myocardial infarction Colorectal cancer Social History Smoking Status: Never smoker Second Hand Exposure: No; Do You Dip or Chew Tobacco: No; Hx Alcohol Use: No Hx Substance Use: No Preferred Language: Yi Communication Ability: Effective Hearing Ability: Use of Hearing Aid Ob/Gyn Physician Required: No Beliefs That Will Affect Care: None marital status: / Current Living Situation: Family Current Living Situation Comment: lives with son, [id number], 2 grandchildren current occupational status: retired 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 Feels Safe at Home: Yes Childhood Exposure to Second-Hand Smoke: No Dental Care, Regularly: Yes Physical Activity Frequency: 3-4 Times per Week Seatbelt Use: always Sunscreen Use: Yes Assistive Devices: Cane Results & Data Vital Signs (Past 12 Hours) Vital Signs Temp Pulse Pulse Resp BP Pulse Ox O2 Del Method 07/30/23 11:48 98.2 F 70 18 147/81 H 96 Room Air 07/30/23 10:25 Room Air 07/30/23 08:02 98.1 F 76 18 139/80 94 Room Air 07/30/23 07:13 70 07/30/23 03:05 99.0 F 70 16 122/73 93 Room Air Coding Level of Care Code None Diagnoses Heart failure with improved ejection fraction (HFimpEF) I50.32 Dilated cardiomyopathy I42.0 Cardiomyopathy type: dilated (2) Cardiomyopathy Cardiomyopathy type: dilated Qualified Code(s): I42.0 - Dilated cardiomyopathy
--- NOTE | 2023-07-30 17:04 | Hospitalist Progress Note ---
Date of Service July 30, 2023 Assessment & Plan (1) Hypertensive emergency: Plan: Likely secondary to missed doses of lisinopril for several days More recently but with recurrent orthopnea and dyspnea previously, related to labile HTN, acute on chronic HFpEF Elevated BNP, significantly elevated BP here and mildly elevated troponin from demand ischemia Was given IV hydralazine and lasix in ER and had large diuresis Got over diuresed with bump in creatinine and mild hypotension ECHO with LVEF 60-65%, mod LVH, mod , unchanged from previous Consult Cardiology appreciated -over diuresed--> given NS 250mL bolus over 2 hours for hypotension, NISREEN -STOP clonidine, started Aldactone 12.5mg po daily as per Cardiology recommendation -continue home lisinopril, Coreg Creatinine trending down. 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 Admission UA completely normal Urinalysis shows RBCs Monitor Reduce the dose of Pradaxa to 75 mg twice daily (6) Hypertension: Plan: as above, labile (7) Biventricular cardiac pacemaker in situ: Plan: noted, performed for AV node ablation for afib (8) CKD (chronic kidney disease): Plan: CKD stage 3A, with NISREEN as above Avoid nephrotoxins and renally dose meds when appropriate Reduce the dose of Pradaxa to 75 mg twice daily due to hematuria and acute kidney injury Follow BMP (9) Permanent atrial fibrillation: Plan: rates controlled, has a TECHNICAL SERVICE ENGINEER pacer after AV node ablation continue Coreg, Pradaxa (at reduced dose due to hematuria and acute kidney injury) (10) Moderate pulmonary arterial systolic hypertension: Plan: noted on ECHO not on O2 gave diuretics assess with overnight pulse ox for RICCI--> no hypoxia, therefore no O2 indicated Plan DVT proph-Pradaxa Dispo-continued stay PCU Admission and Anticipated Discharge Date Admission Date: July 28, 2023 Subjective Patient feels well overall. Denies chest pain or shortness of breath. Review of Systems Review of Systems: All systems reviewed & are unremarkable except as noted in Subjective Physical Exam Physical Exam: General: Awake, conversant Heart: S1, S2/regular rate and rhythm, no murmur rubs or gallops Lungs: Clear to auscultation bilaterally. Normal effort Abdomen: Soft/nontender/nondistended. No hepatosplenomegaly Extremities: No clubbing/cyanosis. No edema Behavior: Appropriate, cooperative Results & Data Results & Data Vital Signs (Past 12 Hours) Vital Signs Temp Pulse Pulse Resp BP Pulse Ox O2 Del Method 07/30/23 15:33 70 07/30/23 11:48 36.8 C 70 18 147/81 H 96 Room Air 07/30/23 10:25 Room Air 07/30/23 08:02 36.7 C 76 18 139/80 94 Room Air 07/30/23 07:13 70 Laboratory Results Abnormal lab results 07/29/23 07/30/23 Range/Units 21:18 05:20 RBC 3.99 L (4.20-5.40) M/uL RDW Std Deviation 48.2 H (36.4-46.3) fL [place] # (Auto) 1.41 H (0.11-0.59) K/uL BUN 52 H (6-23) mg/dl Creatinine 1.34 H (0.6-1.2) mg/dl BUN/Creatinine Ratio 38.8 H (10-20) Urine Appearance Cloudy A (Clear) Urine Protein Trace H (Negative) Urine Blood 3+ H (Negative) Urine RBC (Auto) >20 H (0-2) /hpf U Hyaline Cast (Auto) 3-5 H (0-2) /lpf PG Care Time/CCT Total # of Minutes Spent Total Time Spent with Patient: Total time spent is greater than 50% in coordination of care (as documented) at patient's floor/unit and/or counseling patient: Coding Level of Care Code 47874 SUB INP/OBS CARE 2MIN Diagnoses Hypertensive emergency I16.1 Heart failure with improved ejection fraction (HFimpEF) I50.32 NISREEN (acute kidney injury) N17.9 Aortic stenosis I35.0 Hematuria R31.9 Hypertension I15.9 Hypertension type: unspecified secondary hypertension Biventricular cardiac pacemaker in situ Z95.0 CKD (chronic kidney disease) N18.9 Permanent atrial fibrillation I48.21 Moderate pulmonary arterial systolic hypertension I27.21 (6) Hypertension Hypertension type: unspecified secondary hypertension Qualified Code(s): I15.9 - Secondary hypertension, unspecified
[2023-07-30] MEDS: DABIGATRAN ETEXILATE 75 MG CAP PO SCH (20:28)
[2023-07-31 09:53] LABS: BUN Creatinine Ratio 33.6 (10-20); Calcium 8.2 mg/dl (8.6-10.3); Creatinine Clr Calc Pharmacy 32.3 ml/min; Est GFR (Non-African American) 45.7 ml/min; Potassium 3.9 mmol/L (3.5-5.1)
--- NOTE | 2023-07-31 10:29 | Cardiology Progress Note ---
Date of Service July 31, 2023 Assessment & Plan (1) Heart failure with improved ejection fraction (HFimpEF): Plan: --Recovered cardiomyopathy post CRTD --Dynamic LVOT 2. Hypertensionlabile on BB, VIANEY, MRA 3. Permanent atrial fibrillation post AV marisa ablation/[id number] 4, on Pradaxa 4. Moderate aortic stenosis, mild MRmild last echo 11/2022 5. Moderate pulmonary hypertension 6. Stage III CKD 7. Anxiety/depression Feeling back at recent baseline. No significant congestion on exam today. Weight stable. Negative 4L since admission. Renal function improved BPs remain labile, chronic -- Increase Spironolactone to 25mg daily Continue current carvedilol, lisinopril Continue current Pradaxa. CHF clinic follow-up next week. Will consider SGLT2 From a cardiac standpoint OK for discharge today with close follow-up. We di scussed daily weights. Home lasix 20mg PRN for WT gain >2lbs in day, 5lbs in week. Admission and Anticipated Discharge Date Admission Date: July 28, 2023 Subjective Feels Ok, at recent baseline No significant new shortness of breath. No chest pain. Telemetry reviewed -- paced rhythm. Review of Systems Review of Systems: All systems reviewed & are unremarkable except as noted in HPI & below Physical Exam Physical Exam: General: comfortable HEENT: Sclerae anicteric Lungs: Clear to auscultation bilaterally Cardiac: Regular rate and rhythm, 3 out of 6 mid peaking systolic ejection murmur heard best at right upper sternal border. Vascular: 2+ radial, DP pulses. No bruits Abdomen: Soft, nontender Extremities: Well perfused, no edema Neuro: Nonfocal Psych: Alert orient x3, normal affect and mood Results & Data Vital Signs (Past 12 Hours) Vital Signs Temp Pulse Pulse Pulse Resp BP BP 07/31/23 09:04 70 07/31/23 09:04 07/31/23 07:38 98.1 F 70 16 186/76 H 07/31/23 06:18 80 177/78 H 07/31/23 03:36 187/110 H 07/31/23 03:35 97.7 F 70 14 07/30/23 22:55 98.2 F 64 16 129/64 07/30/23 22:49 80 Pulse Ox O2 Del Method 07/31/23 09:04 07/31/23 09:04 Room Air 07/31/23 07:38 95 Room Air 07/31/23 06:18 07/31/23 03:36 07/31/23 03:35 95 Room Air 07/30/23 22:55 93 Room Air 07/30/23 22:49 PG Care Time/CCT Total # of Minutes Spent Total Time Spent with Patient: Total time spent is greater than 50% in coordination of care (as documented) at patient's floor/unit and/or counseling patient: Coding Level of Care Code 92769 SUB INP/OBS CARE MIN Diagnoses Heart failure with improved ejection fraction (HFimpEF) I50.32
[2023-07-31] MEDS: SPIRONOLACTONE 12.5 MG TAB PO ONE (11:09)
[2023-07-31] MEDS: FUROSEMIDE 20 MG TAB PO SCH (11:09)
--- NOTE | 2023-07-31 14:50 | Hospitalist Progress Note ---
Date of Service July 31, 2023 Assessment & Plan (1) Hypertensive emergency: Plan: Likely secondary to missed doses of lisinopril for several days More recently but with recurrent orthopnea and dyspnea previously, related to labile HTN, acute on chronic HFpEF Elevated BNP, significantly elevated BP here and mildly elevated troponin from demand ischemia Was given IV hydralazine and 40 mg IV lasix in ER and had large diuresis Got over diuresed with bump in creatinine and mild hypotension ECHO with LVEF 60-65%, mod LVH, mod , unchanged from previous Consult Cardiology appreciated -over diuresed--> given NS 250mL bolus over 2 hours for hypotension, NISREEN -STOP clonidine, started Aldactone 12.5mg po daily as per Cardiology recommendation. Currently increased Aldactone to 25 mg p.o. daily -continue home lisinopril, Coreg Creatinine trending down and normalized to 1.1 today. Blood pressure has been going up Resume Lasix at 20 mg p.o. 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 Admission UA completely normal Urinalysis shows RBCs Monitor. Patient continues to have pink-colored urine Reduce the dose of Pradaxa to 75 mg twice daily (6) Hypertension: Plan: as above, labile (7) Biventricular cardiac pacemaker in situ: Plan: noted, performed for AV node ablation for afib (8) CKD (chronic kidney disease): Plan: CKD stage 3A, with NISREEN as above Avoid nephrotoxins and renally dose meds when appropriate Reduce the dose of Pradaxa to 75 mg twice daily due to hematuria and recent acute kidney injury Follow BMP (9) Permanent atrial fibrillation: Plan: rates controlled, has a DRIVER LICENSE TECHNICIAN pacer after AV node ablation continue Coreg, Pradaxa (at reduced dose due to hematuria and recent acute kidney injury) (10) Moderate pulmonary arterial systolic hypertension: Plan: noted on ECHO not on O2 gave diuretics assess with overnight pulse ox for RICCI--> no hypoxia, therefore no O2 indicated Plan DVT proph-Pradaxa Dispo-continued stay PCU Admission and Anticipated Discharge Date Admission Date: July 28, 2023 Subjective Patient feels well today. Denies any chest pain or shortness of breath. Reports some pink urine. Review of Systems Review of Systems: All systems reviewed & are unremarkable except as noted in Subjective Physical Exam Physical Exam: General: Awake, conversant Heart: S1, S2/regular rate and rhythm, no murmur rubs or gallops Lungs: Clear to auscultation bilaterally. Normal effort Abdomen: Soft/nontender/nondistended. No hepatosplenomegaly Extremities: No clubbing/cyanosis. No edema Behavior: Appropriate, cooperative Results & Data Results & Data Vital Signs (Past 12 Hours) Vital Signs Temp Pulse Pulse Pulse Resp BP BP 07/31/23 14:38 70 07/31/23 11:07 36.9 C 72 16 145/79 H 07/31/23 09:04 70 07/31/23 09:04 07/31/23 07:38 36.7 C 70 16 186/76 H 07/31/23 06:18 80 177/78 H 07/31/23 03:36 187/110 H 07/31/23 03:35 36.5 C 70 14 Pulse Ox O2 Del Method 07/31/23 14:38 07/31/23 11:07 95 Room Air 07/31/23 09:04 07/31/23 09:04 Room Air 07/31/23 07:38 95 Room Air 07/31/23 06:18 07/31/23 03:36 07/31/23 03:35 95 Room Air Laboratory Results Abnormal lab results 07/31/23 Range/Units 09:16 BUN 37 H (6-23) mg/dl BUN/Creatinine Ratio 33.6 H (10-20) Glucose 200 H (70-99(Fasting)) mg/dl Calcium 8.2 L (8.6-10.3) mg/dl PG Care Time/CCT Total # of Minutes Spent Total Time Spent with Patient: Total time spent is greater than 50% in coordination of care (as documented) at patient's floor/unit and/or counseling patient: Coding Level of Care Code 70324 SUB INP/OBS CARE 2/35MIN Diagnoses Hypertensive emergency I16.1 Heart failure with improved ejection fraction (HFimpEF) I50.32 NISREEN (acute kidney injury) N17.9 Aortic stenosis I35.0 Hematuria R31.9 Hypertension I15.9 Hypertension type: unspecified secondary hypertension Biventricular cardiac pacemaker in situ Z95.0 CKD (chronic kidney disease) N18.9 Permanent atrial fibrillation I48.21 Moderate pulmonary arterial systolic hypertension I27.21 (6) Hypertension Hypertension type: unspecified secondary hypertension Qualified Code(s): I15.9 - Secondary hypertension, unspecified
[2023-08-01 07:12] LABS: Calcium 8.2 mg/dl (8.6-10.3); Creatinine Clr Calc Pharmacy 31.7 ml/min; Est GFR (African American) 51.9 ml/min; Est GFR (Non-African American) 44.8 ml/min; Potassium 4.4 mmol/L (3.5-5.1)
[2023-08-01] MEDS: SPIRONOLACTONE 25 MG TAB PO SCH (09:12)
--- NOTE | 2023-08-01 09:34 | Discharge Summary ---
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 She has been having episodes similar but not as severe off and on for months. Her BPs are noted in PCP and Cardiology notes to be labile. She reports she ran out of her lisinopril 2-3 days ago. BPs in ER as high as 233/113 and she was dyspneic at rest but not hypoxic. In paced rhythm, no chest pain or headache, no N/V. Has not noticed any leg swelling or weight gain-in fact, has lost weight over the last few months with having COVID and then RSV through the winter, leading to reduced appetite. SHe reports her dinner usually is high in sodium, but breakfast and lunch are bland. She certainly does not drink excessive fluids and son at bedside reports he thinks she doesn't drink enough. Troponin here mildly elevated at 20 on arrival and then down to 17 2 hours later on repeat check. BNP elevated at 385. She was given IV hydralazine and IV lasix in ER. She will be admitted for hypertensive emergency and acute on chronic HFpEF. Admission Exam Per Admitting Provider Constitutional: WD/WN, vitals as above Neck: trachea midline, no thyromegaly Respiratory: normal respiratory effort, lungs clear to auscultation Cardiovascular: RRR, no murmur, no edema Vessels: + JVD (1 cm) Chest (Breasts): Chest: normal inspection of chest Gastrointestinal (Abdomen): normal bowel sounds, soft, nontender, no hepatospl enomegaly Musculoskeletal: Extremities: extremities normal to inspection; no cyanosis and no clubbing Skin: no rashes, warm and dry Neurologic: moves all extremities and awake; no focal motor deficits Psychiatric: A+Ox3, euthymic affect Lymphatic: no lymphedema Principal Diagnosis Hypertensive emergency Acute on chronic CHF with improved EF Acute kidney injury Mild hematuria Discharge Exam General: Awake, conversant Heart: S1, S2/regular rate and rhythm, no murmur rubs or gallops Lungs: Clear to auscultation bilaterally. Normal effort Abdomen: Soft/nontender/nondistended. No hepatosplenomegaly Extremities: No clubbing/cyanosis. No edema Behavior: Appropriate, cooperative Discharge Data Allergies Allergy/AdvReac Type Severity Reaction Status Date / Time azithromycin Allergy Unknown Unknown Verified 07/14/23 10:31 Beta-Blockers Allergy Unknown Unknown Verified 07/14/23 10:31 (Beta-Adrenergic Bloc latex Allergy Unknown REDNESS Verified 07/14/23 10:31 prednisone Allergy Unknown FEELS Verified 07/14/23 10:31 JITTERY sertraline AdvReac Unknown Nausea/Dizz Verified 07/14/23 10:31 y Consultations 07/28/23 09:33 ED Decision to Admit Stat 07/28/23 12:36 Consult Cardiology Routine 07/29/23 08:45 [facility] [place] [facility] Referral Routine Hospital Course (1) Hypertensive emergency: Likely secondary to missed doses of lisinopril for several days More recently but with recurrent orthopnea and dyspnea previously, related to labile HTN, acute on chronic HFpEF Elevated BNP, significantly elevated BP here and mildly elevated troponin from demand ischemia Was given IV hydralazine and 40 mg IV lasix in ER and had large diuresis Got over diuresed with bump in creatinine and mild hypotension ECHO with LVEF 60-65%, mod LVH, mod , unchanged from previous Consult Cardiology appreciated -over diuresed--> given NS 250mL bolus over 2 hours for hypotension, NISREEN -STOP clonidine, started Aldactone 12.5mg po daily as per Cardiology recommendation. Currently increased Aldactone to 25 mg p.o. daily -continue home lisinopril, Coreg Creatinine trending down and normalized Blood pressure has been going up Resume Lasix at 20 mg p.o. to be used as needed for weight gain of more than 2 pound in a day or more than 5 pound in a week. 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 Admission UA completely normal Repeat urinalysis shows RBCs Monitor. Patient continues to have pink-colored urine Will hold Pradaxa as the patient continues to have pink-colored urine despite reducing the dose. She will follow-up with her PCP in 1 week. This will need to be pursued outpatient but in the setting of hematuria, Pradaxa has been held (6) Hypertension: as above, labile (7) Biventricular cardiac pacemaker in situ: noted, performed for AV node ablation for afib (8) CKD (chronic kidney disease): CKD stage 3A, with NISREEN as above Avoid nephrotoxins and renally dose meds when appropriate (9) Permanent atrial fibrillation: rates controlled, has a [employer] pacer after AV node ablation continue Coreg Pradaxa held due to hematuria. Will need to be readdressed by her PCP outpatient (10) Moderate pulmonary arterial systolic hypertension: noted on ECHO not on O2 gave diuretics assess with overnight pulse ox for RICCI--> no hypoxia, therefore no O2 indicated Plan Discharge to home today Total Time Total Time Spent Total Time Spent (In Minutes): 35 Discharge Plan Discharge Items Patient Disposition: Home - Self-Care Reason For Visit: acute on chronic hfief Discharge Diagnosis: Hypertensive emergency Acute on chronic CHF with improved EF Acute kidney injury Mild hematuria Activity: Resume your previous activity Non-emergency contact: Primary Care Provider Call non-emergency contact if: you have any medication questions and your symptoms worsen Follow-up/Referrals: Mary Laughlin MD [Primary Care Provider] - 08/06/23 11:20 am Xin Fenton PA-C [Physician Teachers[employer] Assistant] - 08/04/23 2:00 pm Diet: Heart Healthy and Low Sodium (2gm) Addtl Attending Provider Instructions: Advised to follow-up with PCP in 1 week Advised to follow-up with CHF clinic in 1 week Advised to check daily weights. If you gain more than 2 pounds in a day or more than 5 pounds in a week, you should take your Lasix 20 mg. Advised to note that Pradaxa is being held because of bloody urination, until you see your PCP. This will need to be discussed and pursued by your PCP Pending Studies at Discharge: No Stand-Alone Forms: My [facility] Medications and DC Order Prescriptions: New spironolactone 25 mg Tablet 25 mg PO DAILY 30 Days Qty: 30 0RF furosemide [Lasix] 20 mg tablet 20 mg PO DAILY PRN (Reason: edema) Qty: 30 0RF Rx Instructions: Use for weight gain more than 2 pounds in a day, or more than 5 pounds in a week Continued carvedilol 12.5 mg tablet 12.5 mg PO BID Qty: 180 3RF gabapentin 100 mg capsule 100 mg PO HS Qty: 30 5RF lisinopril 20 mg tablet 20 mg PO QAM Qty: 90 3RF Macular Health Formula 5-1-7.5 mg Capsule 0 cap PO QAM Rx Instructions: Unable to verify OTC meds at this date/time. Vasquez Defend Otc 0 tab PO BID Rx Instructions: Unable to verify OTC meds at this date/time. ascorbic acid (vitamin C) [Vitamin C] 500 mg Tablet 0 mg PO QAM Rx Instructions: Unable to verify OTC meds at this date/time. Premarin 0.625 mg/gram cream 0.625 mg vaginal 3XWK Rx Instructions: USE 1 GRAM VAGINALLY THREE TIMES A WEEK Held dabigatran etexilate [Pradaxa] 150 mg capsule 150 mg PO BID Qty: 180 3RF Hold Instructions: Resume on 08/08/23. hold at least until seen by PCP Discontinued clonidine HCl 0.1 mg tablet 0.1 mg PO BID 30 Days Qty: 60 6RF furosemide 20 mg tablet 20 mg PO DAILY Qty: 30 2RF Discharge Orders: Discharge Order (Routine); Ordered 08/01/23 Ordered By: Johanny Montano Admission Data Admit Date/Time: 07/28/23 10:57 Attending Provider: Johanny Montano Admit Provider: Brandie Donovan Primary Care Provider: Mary Laughlin V. Other Providers: Brandie Donovan; Alfredo Coker; Xin Fenton Other Interventions: Discharge Summary Assessment (RN) Last Done: 08/01/23 10:04 Coding Level of Care Code 17743 INP/OBS DISCH >30 MIN Diagnoses Hypertensive emergency I16.1 Heart failure with improved ejection fraction (HFimpEF) I50.32 NISREEN (acute kidney injury) N17.9 Aortic stenosis I35.0 Hematuria R31.9 Hypertension I15.9 Hypertension type: unspecified secondary hypertension Biventricular cardiac pacemaker in situ Z95.0 CKD (chronic kidney disease) N18.9 Permanent atrial fibrillation I48.21 Moderate pulmonary arterial systolic hypertension I27.21
== END 2023-08-01 11:49 | disposition home or self-care (01) | DRG 291 ==
LOC: SUATTDRO → ED 06:36 → SUATTDRO 10:57 → 2S 10:57
DX: Z11.52 Encounter for screening for COVID-19; Z86.16 Personal history of COVID-19; I24.89 Other forms of acute ischemic heart disease; I50.43 Acute on chronic combined systolic (congestive) and diastolic (congestive) heart failure; I16.1 Hypertensive emergency; I13.0 Hypertensive heart and chronic kidney disease with heart failure and stage 1 through stage 4 chronic kidney disease, or unspecified chronic kidney disease; I27.20 Pulmonary hypertension, unspecified; Z79.01 Long term (current) use of anticoagulants; N17.9 Acute kidney failure, unspecified; Z79.899 Other long term (current) drug therapy; Z88.8 Allergy status to other drugs, medicaments and biological substances; N18.31 Chronic kidney disease, stage 3a; I35.0 Nonrheumatic aortic (valve) stenosis; Z95.810 Presence of automatic (implantable) cardiac defibrillator; I48.21 Permanent atrial fibrillation; Z91.040 Latex allergy status; R31.9 Hematuria, unspecified

== ENCOUNTER 2023-12-25 13:30 | Inpatient (IN) ==
--- NOTE | 2023-12-25 15:12 | Emergency Department Note ---
Impression & Plan SOBOE (shortness of breath on exertion), Chronic anticoagulation, Acute hyperkalemia, Elevated troponin ED Provider Note NAME: MODE BURNS AGE: 88 SEX: F : 1935 ARRIVES VIA: Ambulance INFORMANT: Patient ED PROVIDER(S): Qasim Bagley DO CHIEF COMPLAINT: shortness of breath HPI: Patient is an 88-year-old female with a past medical history of heart failure with preserved EF, anticoagulated on Eliquis, hypertension, aortic stenosis, permanent A-fib with pacemaker who presents to the ER for shortness of breath which started this morning. She notes she has been unable to get up and move around as she becomes significantly dyspneic. She is not sure if she is short of breath with laying flat as she has not done that. She denies any new swelling of the legs. No new cough, congestion, or runny nose. No dysuria, urgency, or frequency. No other exacerbating or remitting factors. She notes she has been taking all her medications and has not missed any doses of Eliquis. ADDITIONAL HISTORY OBTAINED: Per HPI Chronic Medical/Social Conditions Affecting Care: Per HPI PAST MEDICAL HISTORY:See Below PAST SURGICAL HISTORY:See Below FAMILY HISTORY:See Below SOCIAL HISTORY:See Below HOME MEDICATIONS:See Below ALLERGIES:See Below VITALS:See Below PHYSICAL EXAMINATION: GENERAL: Sitting up in bed, alert, well appearing, well nourished, no distress, non-toxic EYE EXAM: normal conjunctiva. PERRL and EOM's grossly intact. OROPHARYNX: mucous membranes are moist LUNGS: Clear to auscultation. Normal chest wall mechanics HEART: no murmurs, S1 normal and S2 normal ABDOMEN: abdomen soft, non-tender, normo-active bowel sounds, no masses, no rebound or guarding. UPPER EXTREMITIES: upper extremities are grossly normal. LOWER EXTREMITIES: No pitting edema. Calves are equal bilaterally NEURO EXAM: Normal sensorium, cranial nerves II-XII grossly intact, normal speech, no gross weakness of arms, no gross weakness of legs. MEDICAL DECISION MAKING: Patient is an 88-year-old female who presents ER for above-stated complaint. IV was established medicos obtained. Patient has been on apixaban and has not missed any doses. Labs show leukopenia 4.5. No significant anemia. BMP with slightly elevated potassium 5.2 and a CO2 of 18 with a creatinine 1.4 which is all been fairly consistent with last visit. Troponin was initially elevated at 20 and downtrended to 16. Viral panel was negative. Chest x-ray was clean. Patient was updated bedside. Discussed the case with the hospitalist patient was admitted for further workup. Initial blood pressures were low in the 90s but trended back up on their own without intervention. She was initially ordered fluids but she never received these. Consults/Care Managements Discussions: Per MDM Triage Nursing notes reviewed. Limited review of prior medical records performed Vital Signs: reviewed and remarkable for hypotension Differential diagnosis: Differential diagnoses includes but is not limited to pneumonia, bronchitis, COPD/Asthma exacerbation, pneumothorax, pulmonary embolism, congestive heart failure, acute coronary syndrome ER treatment provided: See below Diagnostics interpreted by me include EKG and cardiac monitoring as listed below: -Cardiac Monitoring: An order was placed for continuous cardiac monitoring. The monitor shows a rate of 72 with paced rhythm. -ECG: Paced rhythm rate of 70 Normal axis No PVCs QTc 453 -Laboratory studies:Interpreted by me as stated above in MDM and shown below. Imaging studies: Xrays: As interpreted by me: Portable AP portable view of the chest shows no focal infiltrate CTs show: none Procedures:none Critical Care: None Past Med/Surg History Problem List (Updated 12/25/23 @ 21:16 by Qasim Bagley DO) Elevated troponin (Acute) Acute hyperkalemia (Acute) Hypotension Hyperkalemia SOBOE (shortness of breath on exertion) (Acute) Elevated MCV Thoracic back pain Closed traumatic compression fracture of thoracic vertebra (~12/14/23) Moderate compression fracture of a mid thoracic vertebral body. The patient has had several reported falls Fracture of fifth metatarsal bone of right foot (10/27/23) acute comminuted minimally displaced extra-articular fifth metatarsal fracture- tripped and injured her foot Cognitive and behavioral changes Right foot pain Asymptomatic microscopic hematuria Heart failure with improved ejection fraction (HFimpEF) Osteoarthritis of left knee Problem with vaginal pessary Dysfunction of right eustachian tube Constipation Hypokalemia Chronic anticoagulation (Acute) Hematuria Vitamin D intoxication Tiredness Solar lentigo Hyperpigmented skin lesion Fatigue Labile hypertension Aortic stenosis LBBB (left bundle branch block) Hypertension (Acute) 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 of left ear Bilateral hip pain (Acute) Tinnitus of right ear 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 Hyperglycemia Anxiety Elevated vitamin B12 level Health care maintenance Biventricular cardiac pacemaker in situ (Acute) CKD (chronic kidney disease) (Acute) Ataxic gait (Acute) S/P biventricular cardiac pacemaker procedure (09/2018) Permanent atrial fibrillation (Acute) Calculus of kidney Cystocele Hearing loss Joint pain, knee Lumbar degenerative disc disease Osteopenia Pessary maintenance Sleep disturbances Urinary incontinence Moderate pulmonary arterial systolic hypertension Moderate mitral regurgitation by prior echocardiogram Medical History NISREEN (acute kidney injury) Hypertensive emergency Hypertensive emergency Respiratory syncytial virus (RSV) Hypoxia Pneumonia SOBOE (shortness of breath on exertion) Left leg pain Hemorrhoid Hypertension COVID-19 Proteinuria Uncontrolled hypertension Chronic otitis media of left ear with posterior perforation Radicular leg pain Medial epicondylitis Left shoulder pain Left elbow pain Elevated troponin Low energy Elevated troponin Nausea Pessary maintenance Pacemaker Right buttock pain Bilateral buttock pain Vaginal Discharge HBP (high blood pressure) Diarrhea Nasal discharge History of nephrolithiasis History of orthostatic hypotension History of herpes zoster History of asthma History of cellulitis Creatinine elevation (12/2018) PAINTER (dyspnea on exertion) Impaired fasting glucose LBBB (left bundle branch block) History of non-ST elevation myocardial infarction (NSTEMI) Cardiomyopathy Anemia (2019) Pneumonia (2017) Atrial fibrillation with RVR Acute on chronic systolic (congestive) heart failure Surgical History History of lithotripsy History of colonoscopy S/P cataract surgery History of ear, nose, and throat (ENT) surgery H/O ovarian cystectomy S/P myringotomy with insertion of tube (2000) Hx of tonsillectomy H/O tooth extraction Hx of appendectomy Family History Mother , age 65 of a stroke Hypertension Stroke Aunt Breast cancer maternal aunt Uterine cancer maternal aunt Sister Diabetes Father , age 89 Macular degeneration Denies family history of Ovarian cancer Prostate cancer Heart disease Myocardial infarction Colorectal cancer Social History Smoking Status: Never smoker Second Hand Exposure: No; Do You Dip or Chew Tobacco: No; Hx Alcohol Use: No Hx Substance Use: No Preferred Language: Georgian Communication Ability: Effective Hearing Ability: Use of Hearing Aid Full Stack Developer Required: No Beliefs That Will Affect Care: None marital status: / Current Living Situation: Family Current Living Situation Comment: lives with son, [id number], 2 grandchildren current occupational status: retired 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 Feels Safe at Home: Yes Childhood Exposure to Second-Hand Smoke: No Dental Care, Regularly: Yes Physical Activity Frequency: 3-4 Times per Week Seatbelt Use: always Sunscreen Use: Yes Assistive Devices: Cane Allergies Allergies Allergy/AdvReac Type Severity Reaction Status Date / Time azithromycin Allergy Unknown Unknown Verified 12/25/23 18:06 Beta-Blockers Allergy Unknown Unknown Verified 12/25/23 18:06 (Beta-Adrenergic Bloc latex Allergy Unknown REDNESS Verified 12/25/23 18:06 prednisone Allergy Unknown FEELS Verified 12/25/23 18:06 JITTERY sertraline AdvReac Unknown Nausea/Dizz Verified 12/25/23 18:06 y Home Meds Home Medications Medication Instructions Recorded Confirmed Vasquez Defend Otc 1 tab PO BID 08/01/21 12/25/23 [id number] 5 mg-zeaxanth 1 cap PO QAM 08/01/21 12/25/23 1 mg-bilberry 7.5 mg-herbal capsule (Macular Health Formula) ascorbic acid (vitamin C) 500 mg 500 mg PO QAM 12/14/22 12/25/23 tablet (Vitamin C) conjugated estrogens 0.625 mg/gram 0.625 mg vaginal 3XWK 07/28/23 12/25/23 vaginal cream (Premarin) furosemide 20 mg tablet (Lasix) 20 mg PO PRN PRN edema 08/03/23 12/25/23 lidocaine 4 % topical patch 1 patch topical BID PRN Pain 12/14/23 12/25/23 cetirizine 10 mg tablet (Zyrtec) 10 mg PO DAILY PRN Allergy Symptoms 12/25/23 12/25/23 Previous Rx's Medication Instructions Recorded carvedilol 12.5 mg tablet 12.5 mg PO BID #180 tabs 12/14/23 apixaban 5 mg tablet (Eliquis) 5 mg PO BID #180 tabs 12/18/23 empagliflozin 10 mg tablet 10 mg PO DAILY #90 tabs 12/18/23 (Jardiance) lisinopril 20 mg tablet 20 mg PO QAM #90 tabs 12/18/23 spironolactone 25 mg tablet 25 mg PO DAILY #90 tabs 12/18/23 methocarbamol 500 mg tablet 500 mg PO TID PRN muscle spasm 30 12/24/23 days #90 tabs Results & Data (ED) Vital Signs Vital Signs - 24 hr 12/25/23 13:38 12/25/23 13:38 12/25/23 13:42 Temperature 36.4 C Temperature Source Oral Pulse Rate 70 Pulse Rate [Apical] Pulse Rhythm [Apical] Pulse Strength [Apical] Respiratory Rate 18 Respiratory Effort / Characteristics Respiratory Depth Respiratory Pattern Blood Pressure 97/71 L Blood Pressure [Right Arm] Blood Pressure Mean 79 Blood Pressure Mean [Right Arm] Pulse Oximetry 95 95 Oxygen Delivery Method Room Air Room Air Room Air Sepsis Recent Fever Within 48 Hours No Sepsis New/Unexplained Change in Mental Status No Sepsis Action Taken by Nursing No Action Required 12/25/23 13:43 12/25/23 15:04 12/25/23 15:25 Temperature Temperature Source Pulse Rate 70 70 Pulse Rate [Apical] 70 Pulse Rhythm [Apical] Pulse Strength [Apical] Respiratory Rate 20 Respiratory Effort / Characteristics Respiratory Depth Respiratory Pattern Blood Pressure Blood Pressure [Right Arm] 134/82 Blood Pressure Mean Blood Pressure Mean [Right Arm] 99 Pulse Oximetry 95 97 Oxygen Delivery Method Room Air Room Air Sepsis Recent Fever Within 48 Hours Sepsis New/Unexplained Change in Mental Status Sepsis Action Taken by Nursing 12/25/23 17:00 12/25/23 17:43 12/25/23 19:36 Temperature Temperature Source Pulse Rate 70 Pulse Rate [Apical] 70 70 Pulse Rhythm [Apical] Regular Pulse Strength [Apical] Normal Respiratory Rate 16 24 Respiratory Effort / Characteristics Non-Labored Spontaneous Respiratory Depth Normal Respiratory Pattern Regular Blood Pressure Blood Pressure [Right Arm] 152/79 H 171/92 H Blood Pressure Mean Blood Pressure Mean [Right Arm] 103 118 Pulse Oximetry 95 97 Oxygen Delivery Method Room Air Room Air Sepsis Recent Fever Within 48 Hours Sepsis New/Unexplained Change in Mental Status Sepsis Action Taken by Nursing 12/25/23 21:06 Temperature Temperature Source Pulse Rate Pulse Rate [Apical] 106 H Pulse Rhythm [Apical] Regular Pulse Strength [Apical] Respiratory Rate 22 Respiratory Effort / Characteristics Non-Labored Spontaneous Respiratory Depth Normal Respiratory Pattern Regular Blood Pressure Blood Pressure [Right Arm] 111/65 Blood Pressure Mean Blood Pressure Mean [Right Arm] 80 Pulse Oximetry 95 Oxygen Delivery Method Room Air Sepsis Recent Fever Within 48 Hours Sepsis New/Unexplained Change in Mental Status Sepsis Action Taken by Nursing Laboratory Data 12/25/23 13:47 12/25/23 13:47 Lab Results 12/25/23 12/25/23 12/25/23 Range/Units 13:47 15:35 16:59 WBC 4.51 L (4.8-10.8) K/ul RBC 4.20 (4.20-5.40) M/uL Hgb 14.4 (12.0-16.0) g/dl Hct 43.7 (37.0-47.0) % MCV 104.0 H (80.0-100.0) fL MCH 34.3 H (25.0-34.0) pg MCHC 33.0 (32.0-36.0) g/dL RDW Std Deviation 56.3 H (36.4-46.3) fL RDW Coeff of Elijah 14.6 H (11.5-14.5) % Plt Count 265 (130-400) K/uL MPV 9.9 (9.4-12.4) fL Immature Gran % (Auto) 0.4 % Neut % (Auto) 64.8 % Lymph % (Auto) 18.6 % Harvey % (Auto) 14.0 % Eos % (Auto) 1.3 % Baso % (Auto) 0.9 % Neut # (Auto) 2.92 (1.40-6.50) K/uL Lymph # (Auto) 0.84 L (1.20-3.40) K/uL Harvey # (Auto) 0.63 H (0.11-0.59) K/uL Eos # (Auto) 0.06 (0.00-0.50) K/uL Baso # (Auto) 0.04 (0.00-0.20) K/uL Immature Gran # (Auto) 0.02 (0.01-0.20) K/uL Sodium 131 L (136-145) mmol/L Potassium 5.2 H (3.5-5.1) mmol/L Chloride 106 (98-107) mmol/L Carbon Dioxide 18 L (21-32) mmol/L Anion Gap 7 (3-11) BUN 55 H (6-23) mg/dl Creatinine 1.46 H (0.6-1.2) mg/dl Est Cr Clr Drug Dosing 23.9 ml/min Est GFR ( Amer) 37.4 ml/min Est GFR (Non-Af Amer) 32.3 ml/min BUN/Creatinine Ratio 37.7 H (10-20) Glucose 118 H (70-99(Fasting)) mg/dl Calcium 9.6 (8.6-10.3) mg/dl Total Bilirubin 0.7 (0.2-1.0) mg/dl AST 17 (13-39) U/L ALT 13 (7-52) U/L Alkaline Phosphatase 69 (34-104) U/L Troponin I High Sens 20.5 H 16.6 H (0-14) pg/ml B-Natriuretic Peptide 223 H (0-100) pg/ml Total Protein 7.2 (6.0-8.3) gm/dl Albumin 4.2 (3.4-5.0) gm/dl Globulin 3.0 (2.5-4.0) gm/dl Albumin/Globulin Ratio 1.4 (0.9-2) Lipase 78 (11-82) U/L Adenovirus (PCR) Not Detected (NotDetected) B. pertussis DNA (PCR) Not Detected (NotDetected) B.parapertussis DNA PCR Not Detected (NotDetected) C. pneumoniae DNA (PCR) Not Detected (NotDetected) Coronavirus OC43 (PCR) Not Detected (NotDetected) Coronavirus HKU1 (PCR) Not Detected (NotDetected) Coronavirus 229E (PCR) Not Detected (NotDetected) SARS-CoV-2 (PCR) Not Detected (NotDetected) Coronavirus NL63 (PCR) Not Detected (NotDetected) Human Metapneumovir PCR Not Detected (NotDetected) Influenza Type A (PCR) Not Detected (NotDetected) Influenza Type B (PCR) Not Detected (NotDetected) M. pneumoniae (PCR) Not Detected (NotDetected) Parainfluenza 1 (PCR) Not Detected (NotDetected) Parainfluenza 2 (PCR) Not Detected (NotDetected) Parainfluenza 3 (PCR) Not Detected (NotDetected) Parainfluenza 4 (PCR) Not Detected (NotDetected) RSV (PCR) Not Detected (NotDetected) Entero/Rhino (PCR) Not Detected (NotDetected) Imaging Data Radiologist's Impression: Chest X-Ray 12/25/23 15:04 XR chest 1V portable HISTORY: Chest pain, nonspecific COMPARISON: Chest and left rib series 12/14/2023. FINDINGS: No pneumothorax. No pleural effusions. The cardiac silhouette is mildly enlarged. The lungs are clear. No evidence for pulmonary edema. There is left-sided pacemaker again noted. No acute fractures. IMPRESSION: No acute process. ACT 112: Negative or not required by law. Electronically signed by: Eloy Logan M.D. 12/25/2023 3:30 PM Discharge Plan Visit Data Chief Complaint: Shortness of Breath/Dyspnea Stated Complaint: SOB, DIZZINESS ED Provider: Qasim Bagley Discharge Problem: SOBOE (shortness of breath on exertion), Chronic anticoagulation, Acute hyperkalemia, Elevated troponin Forms Stand Alone Forms: My [facility] Prescriptions Prescriptions: No Action carvedilol 12.5 mg tablet 12.5 mg PO BID Qty: 180 3RF Jardiance 10 mg tablet 10 mg PO DAILY Qty: 90 3RF spironolactone 25 mg tablet 25 mg PO DAILY Qty: 90 3RF Eliquis 5 mg tablet 5 mg PO BID Qty: 180 3RF lisinopril 20 mg tablet 20 mg PO QAM Qty: 90 3RF furosemide [Lasix] 20 mg tablet 20 mg PO PRN PRN (Reason: edema) Rx Instructions: Use for weight gain more than 2 pounds in a day, or more than 5 pounds in a week lidocaine 4 % adhesive patch,medicated 1 patch topical BID PRN (Reason: Pain) methocarbamol 500 mg tablet 500 mg PO TID PRN (Reason: muscle spasm) 30 Days Qty: 90 0RF Macular Health Formula 5-1-7.5 mg Capsule 1 cap PO QAM Rx Instructions: Unable to verify OTC meds at this date/time. Vasquez Defend Otc 1 tab PO BID Rx Instructions: Unable to verify OTC meds at this date/time. ascorbic acid (vitamin C) [Vitamin C] 500 mg Tablet 500 mg PO QAM Rx Instructions: Unable to verify OTC meds at this date/time. Premarin 0.625 mg/gram cream 0.625 mg vaginal 3XWK Rx Instructions: USE 1 GRAM VAGINALLY THREE TIMES A WEEK cetirizine [Zyrtec] 10 mg Tablet 10 mg PO DAILY PRN (Reason: Allergy Symptoms) Referrals Referrals: Mary Laughlin MD [Primary Care Provider] -
[2023-12-25 15:18] LABS: Basophils # (auto) 0.04 K/uL (0.00-0.20); Basophils % (auto) 0.9 %; Eosinophils # (auto) 0.06 K/uL (0.00-0.50); Eosinophils % (auto) 1.3 %; Hematocrit (blood only) 43.7 % (37.0-47.0); Hemoglobin 14.4 g/dl (12.0-16.0); Immature Granulocytes # (auto) 0.02 K/uL (0.01-0.20); Immature Granulocytes % (auto) 0.4 %; Lymphocytes # (auto) 0.84 K/uL (1.20-3.40); Lymphocytes % (auto) 18.6 %; Mean Corpuscular Hemoglobin 34.3 pg (25.0-34.0); Mean Platelet Volume 9.9 fL (9.4-12.4); Monocytes # (auto) 0.63 K/uL (0.11-0.59); Neutrophils # (auto) 2.92 K/uL (1.40-6.50); Neutrophils % (auto) 64.8 %; Platelet Count 265 K/uL (130-400); RDW Coefficient of Variation 14.6 % (11.5-14.5); RDW Standard Deviation 56.3 fL (36.4-46.3); White Blood Count 4.51 K/ul (4.8-10.8)
--- NOTE | 2023-12-25 15:32 | XRay Report ---
XR chest 1V portable HISTORY: Chest pain, nonspecific COMPARISON: Chest and left rib series 12/14/2023. FINDINGS: No pneumothorax. No pleural effusions. The cardiac silhouette is mildly enlarged. The lungs are clear. No evidence for pulmonary edema. There is left-sided pacemaker again noted. No acute frac tures. IMPRESSION: No acute process. ACT 112: Negative or not required by law. Electronically signed by: Eloy Logan M.D. 12/25/2023 3:30 PM
[2023-12-25 15:41] LABS: Albumin Globulin Ratio 1.4 (0.9-2); Albumin Level 4.2 gm/dl (3.4-5.0); BUN Creatinine Ratio 37.7 (10-20); Bilirubin,Total 0.7 mg/dl (0.2-1.0); Calcium 9.6 mg/dl (8.6-10.3); Creatinine Clr Calc Pharmacy 23.9 ml/min; Est GFR (African American) 37.4 ml/min; Est GFR (Non-African American) 32.3 ml/min; Potassium 5.2 mmol/L (3.5-5.1); Total Protein 7.2 gm/dl (6.0-8.3)
[2023-12-25 15:48] LABS: Troponin I High Sensitivity 20.5 pg/ml (0-14)
[2023-12-25 17:06] LABS: Adenovirus PCR Not Detected (NotDetected); Bordetella parapertussis PCR Not Detected (NotDetected); Bordetella pertussis PCR Not Detected (NotDetected); Chlamydia pneumoniae PCR Not Detected (NotDetected); Coronavirus 229E PCR Not Detected (NotDetected); Coronavirus CoV-2 (COVID19)PCR Not Detected (NotDetected); Coronavirus HKU1 PCR Not Detected (NotDetected); Coronavirus NL63 PCR Not Detected (NotDetected); Coronavirus OC43PCR Not Detected (NotDetected); Human Metapneumovirus PCR Not Detected (NotDetected); Influenza A PCR Not Detected (NotDetected); Influenza B PCR Not Detected (NotDetected); Mycoplasma pneumoniae PCR Not Detected (NotDetected); Parainfluenza Virus 1 PCR Not Detected (NotDetected); Parainfluenza Virus 2 PCR Not Detected (NotDetected); Parainfluenza Virus 3 PCR Not Detected (NotDetected); Parainfluenza Virus 4 PCR Not Detected (NotDetected); Respiratory Syncytial VirusPCR Not Detected (NotDetected); Rhinovirus/Enterovirus PCR Not Detected (NotDetected)
--- NOTE | 2023-12-25 20:44 | Hospitalist Consultation ---
Date of Consultation December 25, 2023 Assessment & Plan (1) Heart failure with improved ejection fraction (HFimpEF): (2) SOBOE (shortness of breath on exertion): (3) Labile hypertension: (4) Hypotension: (5) Permanent atrial fibrillation: (6) Elevated MCV: (7) Hyperkalemia: Plan 1. Shortness of breath on exertion: - known history of CHF which has improved from EF in 40s% in 2020 to 60-65% History of Present Illness Reason for Consultation: hypotension, SOB, history of HFpEF Requesting Physician: Dr. Qasim Bagley Attending Physician: Dr. Rudy Reyna History of Present Illness Vita Landa is an 88yo female with PMHx HFpEF, HTN, Afib w/ RVR on pacemaker, BIBEMS this afternoon after having shortness of breath this morning. Denies any particular SOB the previous morning, last night or overnight, but noticed it came on this morning upon getting up and moving around. Endorses it resolves at rest. Endorses she has been taking all of her home medications as prescribed, except for her prn Lasix 20mg, which she does not recall when she took her last dose. She was there with one of her two sons, who endorses she takes her daily medications as prescribed. She lives with one of her sons, and the son who was present lives upstairs from so she has her support system close by. On seeing patient at bedside, she was alert and orientedx3 and not in acute distress, breathing comfortable in bed with closed mouth and no retractions. Denies any SOB at time of examination, also denies any chest pain, cough, pain with deep inspiration, headache, dizziness, nausea, recent vomiting, abdominal pain, diarrhea, or constipation. Endorses her appetite has been good, denies eating a particularly large amount of salty or sweet foods. Allergies Allergy/AdvReac Type Severity Reaction Status Date / Time azithromycin Allergy Unknown Unknown Verified 12/25/23 18:06 Beta-Blockers Allergy Unknown Unknown Verified 12/25/23 18:06 (Beta-Adrenergic Bloc latex Allergy Unknown REDNESS Verified 12/25/23 18:06 prednisone Allergy Unknown FEELS Verified 12/25/23 18:06 JITTERY sertraline AdvReac Unknown Nausea/Dizz Verified 12/25/23 18:06 y Home Medications Medication Instructions Recorded Confirmed Type Vasquez Defend Otc 1 tab PO BID 04/28/22 09/20/24 History ngxjajfj-erh-[id number] 5 mg-zeaxanth 1 cap PO QAM 08/01/21 12/25/23 History 1 mg-bilberry 7.5 mg-herbal capsule (Macular Health Formula) ascorbic acid (vitamin C) 500 mg 500 mg PO QAM 12/14/22 12/25/23 History tablet (Vitamin C) conjugated estrogens 0.625 mg/gram 0.625 mg vaginal 3XWK 07/28/23 12/25/23 History vaginal cream (Premarin) furosemide 20 mg tablet (Lasix) 20 mg PO PRN PRN edema 08/03/23 12/25/23 History carvedilol 12.5 mg tablet 12.5 mg PO BID #180 tabs 12/14/23 12/25/23 Rx lidocaine 4 % topical patch 1 patch topical BID PRN Pain 12/14/23 12/25/23 History apixaban 5 mg tablet (Eliquis) 5 mg PO BID #180 tabs 12/18/23 12/25/23 Rx empagliflozin 10 mg tablet 10 mg PO DAILY #90 tabs 12/18/23 12/25/23 Rx (Jardiance) lisinopril 20 mg tablet 20 mg PO QAM #90 tabs 12/18/23 12/25/23 Rx spironolactone 25 mg tablet 25 mg PO DAILY #90 tabs 12/18/23 12/25/23 Rx methocarbamol 500 mg tablet 500 mg PO TID PRN muscle spasm 30 12/24/23 12/25/23 Rx days #90 tabs cetirizine 10 mg tablet (Zyrtec) 10 mg PO DAILY PRN Allergy Symptoms 12/25/23 12/25/23 History Patient History Medical History NISREEN (acute kidney injury) Hypertensive emergency Hypertensive emergency Respiratory syncytial virus (RSV) Hypoxia Pneumonia SOBOE (shortness of breath on exertion) Left leg pain Hemorrhoid Hypertension COVID-19 Proteinuria Uncontrolled hypertension Chronic otitis media of left ear with posterior perforation Radicular leg pain Medial epicondylitis Left shoulder pain Left elbow pain Elevated troponin Low energy Elevated troponin Nausea Pessary maintenance Pacemaker Right buttock pain Bilateral buttock pain Vaginal Discharge HBP (high blood pressure) Diarrhea Nasal discharge History of nephrolithiasis History of orthostatic hypotension History of herpes zoster History of asthma History of cellulitis Creatinine elevation (12/2018) PAINTER (dyspnea on exertion) Impaired fasting glucose LBBB (left bundle branch block) History of non-ST elevation myocardial infarction (NSTEMI) Cardiomyopathy Anemia (2019) Pneumonia (2017) Atrial fibrillation with RVR Acute on chronic systolic (congestive) heart failure Surgical History History of lithotripsy History of colonoscopy S/P cataract surgery History of ear, nose, and throat (ENT) surgery H/O ovarian cystectomy S/P myringotomy with insertion of tube (2000) Hx of tonsillectomy H/O tooth extraction Hx of appendectomy Family History Mother , age 65 of a stroke Hypertension Stroke Aunt Breast cancer maternal aunt Uterine cancer maternal aunt Sister Diabetes Father , age 89 Macular degeneration Denies family history of Ovarian cancer Prostate cancer Heart disease Myocardial infarction Colorectal cancer Social History Smoking Status: Never smoker Second Hand Exposure: No; Do You Dip or Chew Tobacco: No; Hx Alcohol Use: No Hx Substance Use: No Preferred Language: Croatian Communication Ability: Effective Hearing Ability: Use of Hearing Aid Licensed Real Estate Broker Required: No Beliefs That Will Affect Care: None marital status: / Current Living Situation: Family Current Living Situation Comment: lives with son, [id number], 2 grandchildren current occupational status: retired 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 Feels Safe at Home: Yes Childhood Exposure to Second-Hand Smoke: No Dental Care, Regularly: Yes Physical Activity Frequency: 3-4 Times per Week Seatbelt Use: always Sunscreen Use: Yes Assistive Devices: Cane Review of Systems Review of Systems: per HPI Physical Exam Physical Exam: constitutional: A&Ox3, not appearing in acute distress HEENT: anicteric sclerae, EOM intact Cardiovascular: [paced] RRR, no murmurs heard on auscultation Pulmonary: clear to auscultation b/l GI: normoactive bowel sounds, abdomen soft, nontender to palpation, no rebound Skin: no peripheral edema b/l LE; no rashes or lesions on inspection MSK:5/5 strength b/l UE and b/l LE Neuro: CN grossly intact Results & Data Results & Data Vital Signs (Past 12 Hours) Vital Signs Temp Pulse Pulse Resp BP BP Pulse Ox 12/25/23 19:36 70 24 171/92 H 97 12/25/23 17:43 70 12/25/23 17:00 70 16 152/79 H 95 12/25/23 15:25 70 20 134/82 97 12/25/23 15:04 70 95 12/25/23 13:43 70 12/25/23 13:42 95 12/25/23 13:38 12/25/23 13:38 36.4 C 70 18 97/71 L 95 O2 Del Method 12/25/23 19:36 Room Air 12/25/23 17:43 12/25/23 17:00 Room Air 12/25/23 15:25 Room Air 12/25/23 15:04 Room Air 12/25/23 13:43 12/25/23 13:42 Room Air 12/25/23 13:38 Room Air 12/25/23 13:38 Room Air Laboratory Results Abnormal lab results 12/25/23 12/25/23 Range/Units 13:47 16:59 WBC 4.51 L (4.8-10.8) K/ul MCV 104.0 H (80.0-100.0) fL MCH 34.3 H (25.0-34.0) pg RDW Std Deviation 56.3 H (36.4-46.3) fL RDW Coeff of Elijah 14.6 H (11.5-14.5) % Lymph # (Auto) 0.84 L (1.20-3.40) K/uL Coke # (Auto) 0.63 H (0.11-0.59) K/uL Sodium 131 L (136-145) mmol/L Potassium 5.2 H (3.5-5.1) mmol/L Carbon Dioxide 18 L (21-32) mmol/L BUN 55 H (6-23) mg/dl Creatinine 1.46 H (0.6-1.2) mg/dl BUN/Creatinine Ratio 37.7 H (10-20) Glucose 118 H (70-99(Fasting)) mg/dl Troponin I High Sens 20.5 H 16.6 H (0-14) pg/ml B-Natriuretic Peptide 223 H (0-100) pg/ml Diagnostic Findings Chest X-Ray 12/25/23 15:04 XR chest 1V portable HISTORY: Chest pain, nonspecific COMPARISON: Chest and left rib series 12/14/2023. FINDINGS: No pneumothorax. No pleural effusions. The cardiac silhouette is mildly enlarged. The lungs are clear. No evidence for pulmonary edema. There is left-sided pacemaker again noted. No acute fractures. IMPRESSION: No acute process. Medications Administered none given (4) Hypotension Hypotension type: unspecified hypotension type Qualified Code(s): I95.9 - Hypotension, unspecified
--- NOTE | 2023-12-25 21:16 | History & Physical Report ---
Date of Service December 25, 2023 Assessment & Plan (1) SOBOE (shortness of breath on exertion): Plan: per history, similar presentation with hypotension on 12/01/23 which resolved spontaneously; exam findings and cxr not indicative of acute CHF episode - half home spironolactone -> 12.5mg qAM - check orthostatic BP - try ambulating with assistance as tolerated (2) Hypotension: Plan: with concomitant shortness of breath on exertion - half home spironolactone -> 12.5mg qAM - check orthostatic BP (3) Labile hypertension: Plan: BP tends to go from low to high spontaneously over the span of 3-5hrs with rest - check orthostatic BP (4) Metabolic acidosis: Plan: mild, non-anion gap - bicarb 18, normal chloride, no vomiting or diarrhea per history - may be due to spironolactone use, as this permits Na excretion while leaving H+ in serum - half home spironolactone -> 12.5mg qAM (5) Hyperkalemia: Plan: mild (5.2) with hyponatremia (131), may be 2/2 spironolactone 25mg daily - half home spironolactone -> 12.5mg qAM - qAM BMP (6) Permanent atrial fibrillation: Plan: biventricular pacemaker, 70bpm - on Eliquis, continue during admission - check orthostatic BP (7) Elevated MCV: Plan: since Nov 2023: 102.6 -> 104-105 this month; non-anemic - no history of alcohol use - peripheral smear ordered - folate and B12 levels, AM labs 12/26/23 Plan chronic: Heart failure with improved ejection fraction, no indication that pt is having an exacerbation by physical exam, unremarkable cxr code status: full code VTE phx: on home Eliquis diet: regular dispo: home, lives with son Admission and Anticipated Discharge Date Admission Date: 12/25/2023 History of Present Illness Chief Complaint: SOB on exertion, hypotension, history of HFpEF Primary Care Provider: Mary Laughlin MD Vita Landa is an 88yo female with PMHx HFpEF, HTN, Afib w/ RVR on pacemaker, BIBEMS this afternoon after having shortness of breath this morning. Initial BP reading in ER was 97/71, 6 hours later it was 171/92 without any medications or fluids. Denies any particular SOB the previous morning, last night or overnight, but noticed it came on this morning upon getting up and moving around. Endorses it resolves at rest. Endorses she has been taking all of her home medications as prescribed, except for her prn Lasix 20mg, which she does not recall when she took her last dose. She was there with one of her two sons, who endorses she takes her daily medications as prescribed. She lives with one of her sons, and the son who was present lives upstairs from pt so she has her support system close by. On seeing patient at bedside, she was alert and orientedx3 and not in acute distress, breathing comfortable in bed with closed mouth and no retractions. Denies any SOB at time of examination, also denies any chest pain, cough, pain with deep inspiration, headache, dizziness, nausea, recent vomiting, abdominal pain, diarrhea, or constipation. Endorses her appetite has been good, denies eating a particularly large amount of salty or sweet foods. Of note, patient was here on 12/01/23 for similar presentation: SOB on exertion in the setting of hypotension, which resolved without medical intervention or admission. She was able to ambulate around ER without SOB and continued to feel well enough to go home that evening. BP was initially 94/60, went up to 120/63 in the next hour, and an hour later was 153/81, at which point she was discharged from the ER. Upon attempting to get out of bed to ambulate, pt started feeling short of breath and unable to walk around. At this point, BP was 133/59. Patient was able to get up to use the bathroom about 5min later without issue. Admitted as obs. Allergies Allergy/AdvReac Type Severity Reaction Status Date / Time azithromycin Allergy Unknown Unknown Verified 12/25/23 18:06 Beta-Blockers Allergy Unknown Unknown Verified 12/25/23 18:06 (Beta-Adrenergic Bloc latex Allergy Unknown REDNESS Verified 12/25/23 18:06 prednisone Allergy Unknown FEELS Verified 12/25/23 18:06 JITTERY sertraline AdvReac Unknown Nausea/Dizz Verified 12/25/23 18:06 y Home Medications Medication Instructions Recorded Confirmed Type Vasquez Defend Otc 1 tab PO BID 08/01/21 12/25/23 History [id number]-wbx-[id number] 5 mg-zeaxanth 1 cap PO QAM 08/01/21 12/25/23 History 1 mg-bilberry 7.5 mg-herbal capsule (Macular Health Formula) ascorbic acid (vitamin C) 500 mg 500 mg PO QAM 12/14/22 12/25/23 History tablet (Vitamin C) conjugated estrogens 0.625 mg/gram 0.625 mg vaginal 3XWK 07/28/23 12/25/23 History vaginal cream (Premarin) furosemide 20 mg tablet (Lasix) 20 mg PO PRN PRN edema 08/03/23 12/25/23 History carvedilol 12.5 mg tablet 12.5 mg PO BID #180 tabs 12/14/23 12/25/23 Rx lidocaine 4 % topical patch 1 patch topical BID PRN Pain 12/14/23 12/25/23 History apixaban 5 mg tablet (Eliquis) 5 mg PO BID #180 tabs 12/18/23 12/25/23 Rx empagliflozin 10 mg tablet 10 mg PO DAILY #90 tabs 12/18/23 12/25/23 Rx (Jardiance) lisinopril 20 mg tablet 20 mg PO QAM #90 tabs 12/18/23 12/25/23 Rx spironolactone 25 mg tablet 25 mg PO DAILY #90 tabs 12/18/23 12/25/23 Rx methocarbamol 500 mg tablet 500 mg PO TID PRN muscle spasm 30 12/24/23 12/25/23 Rx days #90 tabs cetirizine 10 mg tablet (Zyrtec) 10 mg PO DAILY PRN Allergy Symptoms 12/25/23 12/25/23 History Past Med/Surg History Problem List (Updated 12/25/23 @ 22:24 by James Rios DO) Metabolic acidosis Elevated troponin (Acute) Acute hyperkalemia (Acute) Hypotension Hyperkalemia SOBOE (shortness of breath on exertion) (Acute) Elevated MCV Thoracic back pain Closed traumatic compression fracture of thoracic vertebra (~12/14/23) Moderate compression fracture of a mid thoracic vertebral body. The patient has had several reported falls Fracture of fifth metatarsal bone of right foot (10/27/23) acute comminuted minimally displaced extra-articular fifth metatarsal fracture- tripped and injured her foot Cognitive and behavioral changes Right foot pain Asymptomatic microscopic hematuria Heart failure with improved ejection fraction (HFimpEF) Osteoarthritis of left knee Problem with vaginal pessary Dysfunction of right eustachian tube Constipation Hypokalemia Chronic anticoagulation (Acute) Hematuria Vitamin D intoxication Tiredness Solar lentigo Hyperpigmented skin lesion Fatigue Labile hypertension Aortic stenosis LBBB (left bundle branch block) Hypertension (Acute) 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 of left ear Bilateral hip pain (Acute) Tinnitus of right ear 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 Hyperglycemia Anxiety Elevated vitamin B12 level Health care maintenance Biventricular cardiac pacemaker in situ (Acute) CKD (chronic kidney disease) (Acute) Ataxic gait (Acute) S/P biventricular cardiac pacemaker procedure (09/2018) Permanent atrial fibrillation (Acute) Calculus of kidney Cystocele Hearing loss Joint pain, knee Lumbar degenerative disc disease Osteopenia Pessary maintenance Sleep disturbances Urinary incontinence Moderate pulmonary arterial systolic hypertension Moderate mitral regurgitation by prior echocardiogram Medical History NISREEN (acute kidney injury) Hypertensive emergency Hypertensive emergency Respiratory syncytial virus (RSV) Hypoxia Pneumonia SOBOE (shortness of breath on exertion) Left leg pain Hemorrhoid Hypertension COVID-19 Proteinuria Uncontrolled hypertension Chronic otitis media of left ear with posterior perforation Radicular leg pain Medial epicondylitis Left shoulder pain Left elbow pain Elevated troponin Low energy Elevated troponin Nausea Pessary maintenance Pacemaker Right buttock pain Bilateral buttock pain Vaginal Discharge HBP (high blood pressure) Diarrhea Nasal discharge History of nephrolithiasis History of orthostatic hypotension History of herpes zoster History of asthma History of cellulitis Creatinine elevation (12/2018) PAINTER (dyspnea on exertion) Impaired fasting glucose LBBB (left bundle branch block) History of non-ST elevation myocardial infarction (NSTEMI) Cardiomyopathy Anemia (2019) Pneumonia (2017) Atrial fibrillation with RVR Acute on chronic systolic (congestive) heart failure Surgical History History of lithotripsy History of colonoscopy S/P cataract surgery History of ear, nose, and throat (ENT) surgery H/O ovarian cystectomy S/P myringotomy with insertion of tube (2000) Hx of tonsillectomy H/O tooth extraction Hx of appendectomy Family History Mother , age 65 of a stroke Hypertension Stroke Aunt Breast cancer maternal aunt Uterine cancer maternal aunt Sister Diabetes Father , age 89 Macular degeneration Denies family history of Ovarian cancer Prostate cancer Heart disease Myocardial infarction Colorectal cancer Social History Smoking Status: Never smoker Second Hand Exposure: No; Do You Dip or Chew Tobacco: No; Hx Alcohol Use: No Hx Substance Use: No Preferred Language: Turkmen Communication Ability: Effective Hearing Ability: Use of Hearing Aid Zoology Teacher Required: No Beliefs That Will Affect Care: None marital status: / Current Living Situation: Family Current Living Situation Comment: lives with son, [id number], 2 grandchildren current occupational status: retired 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 Other Information That Helps Us Care for You: No Feels Safe at Home: Yes Safety Concerns: Feels Safe At This Time Childhood Exposure to Second-Hand Smoke: No Dental Care, Regularly: Yes Physical Activity Frequency: 3-4 Times per Week Seatbelt Use: always Sunscreen Use: Yes Assistive Devices: Cane Review of Systems Review of Systems: per HPI Physical Exam Physical Exam: constitutional: A&Ox3, not appearing in acute distress HEENT: anicteric sclerae, EOM intact Cardiovascular: [paced] RRR, no murmurs heard on auscultation Pulmonary: clear to auscultation b/l GI: normoactive bowel sounds, abdomen soft, nontender to palpation, no rebound Skin: no peripheral edema b/l LE; no rashes or lesions on inspection MSK:5/5 strength b/l UE and b/l LE Neuro: CN grossly intact Results & Data Results & Data Vital Signs (Past 12 Hours) Vital Signs Temp Pulse Pulse Resp BP BP Pulse Ox 12/25/23 21:06 106 H 22 111/65 95 12/25/23 19:36 70 24 171/92 H 97 12/25/23 17:43 70 12/25/23 17:00 70 16 152/79 H 95 12/25/23 15:25 70 20 134/82 97 12/25/23 15:04 70 95 12/25/23 13:43 70 12/25/23 13:42 95 12/25/23 13:38 12/25/23 13:38 36.4 C 70 18 97/71 L 95 O2 Del Method 12/25/23 21:06 Room Air 12/25/23 19:36 Room Air 12/25/23 17:43 12/25/23 17:00 Room Air 12/25/23 15:25 Room Air 12/25/23 15:04 Room Air 12/25/23 13:43 12/25/23 13:42 Room Air 12/25/23 13:38 Room Air 12/25/23 13:38 Room Air Laboratory Results Abnormal lab results 12/25/23 12/25/23 Range/Units 13:47 16:59 WBC 4.51 L (4.8-10.8) K/ul MCV 104.0 H (80.0-100.0) fL MCH 34.3 H (25.0-34.0) pg RDW Std Deviation 56.3 H (36.4-46.3) fL RDW Coeff of Elijah 14.6 H (11.5-14.5) % Lymph # (Auto) 0.84 L (1.20-3.40) K/uL Shelby # (Auto) 0.63 H (0.11-0.59) K/uL Sodium 131 L (136-145) mmol/L Potassium 5.2 H (3.5-5.1) mmol/L Carbon Dioxide 18 L (21-32) mmol/L BUN 55 H (6-23) mg/dl Creatinine 1.46 H (0.6-1.2) mg/dl BUN/Creatinine Ratio 37.7 H (10-20) Glucose 118 H (70-99(Fasting)) mg/dl Troponin I High Sens 20.5 H 16.6 H (0-14) pg/ml B-Natriuretic Peptide 223 H (0-100) pg/ml Diagnostic Findings Chest X-Ray 12/25/23 15:04 XR chest 1V portable HISTORY: Chest pain, nonspecific COMPARISON: Chest and left rib series 12/14/2023. FINDINGS: No pneumothorax. No pleural effusions. The cardiac silhouette is mildly enlarged. The lungs are clear. No evidence for pulmonary edema. There is left-sided pacemaker again noted. No acute fractures. IMPRESSION: No acute process. Code Status & VTE Plan Code Status full code VTE Prophylaxis Plan VTE Prophylaxis will be ordered: No Reason for no VTE drug order: Treatment not indicated Supervising Physician Co-Signing Physician Notes I personally saw and examined the patient. I independently reviewed the labs, EKG, imaging, problem list, medication list, past medical history and family history. I verified all medina points and agree with resident physician Dr James Rios, with the following exceptions and/or additions: 88 year old female presents to the ER with hypotension and shortness of breath on exertion episode. Mostly resolved when seen. O/E A&Ox3, HS RRR, LEON murmur loudest in LUSB, Chest CTAB, Abdo SNT, no pedal edema. A/P Intermittent hypotension with shortness of breath episodes - Suspect she is mild ly hypovolemic with a labile BP possibly due to difficulty compensating for increased exertion due to carvedilol use in setting of aortic stenosis. Initial plan was for discharge with decreased spironolactone but with ongoing (but milder) symptoms will elect to observe overnight. Will reduce spironolactone to 12.5mg PO but hold carvedilol currently as she was admitted with hypertensive emergency just in July. If having ongoing episodes would consider reducing her carvedilol. No increased carbohydrate content to suggest she had increased diuresis with Farxiga as cause of intermittent hypotension. Arrhythmia remains a possibility and will get a pacemaker check and monitor on telemetry - however she is paced @ 70 bpm in the ER with hypotension on arrival therefore low suspicion of this. Chronic HF with improved ejection fraction - despite documented weight increase she has not noticed this at home, she has no B lines on Lung US and no large pericardial effusion seen. No pulmonary edema on CXR. She is not currently in symptomatic heart failure. Elevated MCV without anemia - not acute but relativeno alcohol history, B12, folate with AM labs, peripheral smear ordered - consider hematology follow up CKD stage 4 - this is a relatively new diagnosis, her renal function was relatively normal in April ?due to hypovolemia, likely cause of acidosis, hyperkalemia (in setting of spironolactone), repeat BMP in AM. Trave protein on UA from December 16. Would consider nephrology referral as outpatient. Resident Activity Tracking Resident Involvement: Resident Care Provided Care Provided: Adult Hospital Medicine (2) Hypotension Hypotension type: unspecified hypotension type Qualified Code(s): I95.9 - Hypotension, unspecified
[2023-12-25] MEDS: SODIUM CHLORIDE 0.9% 500 ML IV ONE (21:39)
[2023-12-25] MEDS: APIXABAN 5 MG TABLET PO STA (21:52)
[2023-12-25] MEDS: carvediloL 12.5 MG TAB PO STA (21:52)
[2023-12-25] MEDS ORDERED: METHOCARBAMOL 500 MG TABLET PO PRN (23:20)
[2023-12-25] MEDS ORDERED: FUROSEMIDE 20 MG TAB PO PRN (23:20)
[2023-12-25] MEDS ORDERED: CETIRIZINE HCL 10 MG TABLET PO PRN (23:20)
[2023-12-25] MEDS ORDERED: LIDOCAINE 5% 1 PATCH TD PRN (23:53)
[2023-12-26] MEDS: ACETAMINOPHEN 325 MG TAB PO PRN (00:19)
[2023-12-26 06:43] LABS: Hematocrit (blood only) 42.1 % (37.0-47.0); Hemoglobin 14.2 g/dl (12.0-16.0); Mean Corpuscular Hemoglobin 34.9 pg (25.0-34.0); Mean Corpuscular Hgb Conc 33.7 g/dL (32.0-36.0); Mean Corpuscular Volume 103.4 fL (80.0-100.0); Mean Platelet Volume 9.7 fL (9.4-12.4); Platelet Count 253 K/uL (130-400); RDW Coefficient of Variation 14.6 % (11.5-14.5); RDW Standard Deviation 56.5 fL (36.4-46.3); Red Blood Count 4.07 M/uL (4.20-5.40); White Blood Count 4.08 K/ul (4.8-10.8)
[2023-12-26 07:03] LABS: BUN Creatinine Ratio 39.1 (10-20); Calcium 8.8 mg/dl (8.6-10.3); Creatinine Clr Calc Pharmacy 22.4 ml/min; Est GFR (African American) 34.5 ml/min; Est GFR (Non-African American) 29.8 ml/min; Potassium 5.5 mmol/L (3.5-5.1)
[2023-12-26 07:28] LABS: Folate (Folic Acid),Ser orPlas 12.42 ng/ml (>5.38)
[2023-12-26] MEDS ORDERED: [UNRECOGNIZED DRUG - OTHER] PO SCH (09:00)
[2023-12-26] MEDS ORDERED: SPIRONOLACTONE 12.5 MG TAB PO SCH (09:00)
[2023-12-26] MEDS ORDERED: NON-FORMULARY MEDICATION (Mv-Mn-Lutein-Zeax-Bilber-Hb277 [Macular Health Formula] 5-1-7.5 PO SCH (09:00)
[2023-12-26] MEDS ORDERED: lisinopril 20 MG TAB PO SCH (09:00)
[2023-12-26 09:10] LABS: HCO3 VBG 15 mmol/L; Oxygen Saturation VBG 87.9 %; PCO2 VBG 32 mmHg (38-50); PO2 VBG 56 mmHg; pH VBG 7.29 (7.36-7.41)
[2023-12-26] MEDS: APIXABAN 5 MG TABLET PO SCH (10:06)
[2023-12-26] MEDS: carvediloL 12.5 MG TAB PO SCH (10:07)
[2023-12-26] MEDS: EMPAGLIFLOZIN 10 MG TAB PO SCH (10:08)
[2023-12-26] MEDS: LACTATED RINGER'S 1,000 ML IV SCH (10:47)
--- NOTE | 2023-12-26 10:51 | XCELERA ---
[id number] [id number]
--- NOTE | 2023-12-26 11:02 | Billing Data ---
Date of Service December 25, 2023 Coding Level of Care Code 43680 INT INP/OBS CARE
--- NOTE | 2023-12-26 11:12 | Hospitalist Progress Note ---
Date of Service December 26, 2023 Assessment & Plan (1) SOBOE (shortness of breath on exertion): Plan: Patient presented to the ED on 12/24 with complaints of shortness of breath on exertion. similar episode on 11/30 w/ hypotension and resolved spontaneously CXR negative BNP 223 orthostatic BPs done 12/25: lying 121/75 sitting 117/64 standing 98/64 Home BP meds on hold (2) Hypotension: Plan: plan as above (3) Metabolic acidosis: Plan: mild, non-anion gap - may be due to spironolactone use, as this permits Na excretion while leaving H+ in serum -VBGs 12/25: pH 7.29, pCO2 32 -Bicarb 16 -spironolactone on hold (4) Hyperkalemia: Plan: Patient with hyperkalemia on admission w/ potassium of 5.2 BMP reviewed 12/25: K 5.5, creatinine 1.56, BUN 61 Lisinopril and spironolactone on hold s/p 1L IVF recheck BMP at 1500 - if higher, consider Lokelma AM BMP (5) Elevated MCV: Plan: since Nov 2023: 102.6 -> 104-105 this month; non-anemic - no history of alcohol use - peripheral smear ordered - folate and B12 levels WNL (6) NISREEN (acute kidney injury): Plan: BMP reviewed 12/25: creatinine 1.56, BUN 61 Renal US pending Home Lisinopril held - patient will likely require lower dose of this medication on readmission due to orthostatic hypotension AM BMP Plan chronic conditions Heart failure with improved ejection fraction, no indication that pt is having an exacerbation by physical exam, unremarkable cxr A fib: eliquis, biventricular pacemaker code status: full code VTE phx: on home Eliquis diet: regular dispo: home, lives with son Admission and Anticipated Discharge Date Admission Date: December 25, 2023 Subjective Patient seen and examined this morning with family at bedside. Patient reports to be feeling well. She denies any episodes of SOB today thus far. She denied chest pain or leg edema. Physical Exam 2 Constitutional: WD/WN, vitals as above Eyes: PERRL, conjunctivae normal, anicteric sclerae Respiratory: normal respiratory effort, lungs clear to auscultation Cardiovascular: RRR, no murmur, no edema Skin: no rashes, warm and dry Psychiatric: A+Ox3, euthymic affect Results & Data Results & Data Vital Signs (Past 12 Hours) Vital Signs Temp Pulse Pulse Resp BP Pulse Ox Pulse Ox 12/26/23 08:17 36.6 C 69 18 163/83 H 95 12/26/23 08:00 70 12/26/23 04:37 144/70 H 95 12/26/23 03:17 36.6 C 72 20 96/60 L 96 12/26/23 01:41 36.8 C 70 20 141/84 H 95 12/26/23 01:12 70 12/26/23 00:04 12/26/23 00:04 96 12/26/23 00:04 36.7 C 76 22 143/79 H 96 O2 Del Method O2 Del Method 12/26/23 08:17 Room Air 12/26/23 08:00 12/26/23 04:37 Room Air 12/26/23 03:17 Room Air 12/26/23 01:41 Room Air 12/26/23 01:12 12/26/23 00:04 Room Air 12/26/23 00:04 Room Air 12/26/23 00:04 Room Air Laboratory Results 12/26/23 06:16 12/26/23 06:16 PG Care Time/CCT Total # of Minutes Spent Total Time Spent with Patient: Total time spent is greater than 50% in coordination of care (as documented) at patient's floor/unit and/or counseling patient: Coding Level of Care Code 52279 SUB INP/OBS CARE 2/35MIN Diagnoses SOBOE (shortness of breath on exertion) R06.02 Hypotension, unspecified hypotension type I95.9 Hypotension type: unspecified hypotension type Metabolic acidosis E87.20 Hyperkalemia E87.5 Elevated MCV R71.8 NISREEN (acute kidney injury) N17.9 (2) Hypotension Hypotension type: unspecified hypotension type Qualified Code(s): I95.9 - Hypotension, unspecified
[2023-12-26] MEDS: SODIUM CHLORIDE 0.9% 1,000 ML IV SCH (12:09)
--- NOTE | 2023-12-26 16:02 | Ultrasound Report ---
RENAL ULTRASOUND HISTORY: Acute kidney injury NISREEN COMPARISON: None. FINDINGS: Right kidney: 9.8 x 3.7 x 4.6 cm. No hydronephrosis. Exophytic 1.7 cm cyst of the inferior pole. 4 m m nonobstructing calculus. Normal corticomedullary differentiation and cortical thickness. Left kidney: 9.6 x 4.4 x 3.3 cm. No hydronephrosis. Cortical thinning. 1.5 cm cyst of the inferior po le. 6 mm nonobstructing calculus. Bladder: Wall thickening with partial distention. The bilateral ureteral jets were identified. IMPRESSION: 1. Nonobstructing bilateral nephrolithiasis without hydronephrosis. 2. Urinary bladder wall thickening with partial distention. 3. Bilateral renal cysts. ACT 112: Negative or not required by law. Electronically signed by: Benny Vazquez M.D. 12/26/2023 4:00 PM
[2023-12-26 16:42] LABS: BUN Creatinine Ratio 32.6 (10-20); Creatinine Clr Calc Pharmacy 19.9 ml/min; Est GFR (Non-African American) 25.9 ml/min
[2023-12-27 06:26] LABS: Hematocrit (blood only) 39.2 % (37.0-47.0); Mean Corpuscular Hemoglobin 33.9 pg (25.0-34.0); Mean Corpuscular Hgb Conc 33.2 g/dL (32.0-36.0); Mean Corpuscular Volume 102.1 fL (80.0-100.0); Mean Platelet Volume 9.9 fL (9.4-12.4); Platelet Count 250 K/uL (130-400); RDW Coefficient of Variation 14.5 % (11.5-14.5); RDW Standard Deviation 55.2 fL (36.4-46.3); Red Blood Count 3.84 M/uL (4.20-5.40); White Blood Count 4.74 K/ul (4.8-10.8)
[2023-12-27 06:39] LABS: BUN Creatinine Ratio 38.8 (10-20); Calcium 8.9 mg/dl (8.6-10.3); Creatinine Clr Calc Pharmacy 23.7 ml/min; Est GFR (African American) 37.1 ml/min; Potassium 5.2 mmol/L (3.5-5.1)
[2023-12-27] MEDS: LIDOCAINE 5% 1 PATCH TD SCH (11:31)
--- NOTE | 2023-12-27 12:08 | Electrocardiogram Report ---
Test Reason : Blood Pressure : */* mmHG Vent. Rate : 70 BPM Atrial Rate : 277 BPM P-R Int : * ms QRS Dur : 116 ms QT Int : 420 ms P-R-T Axes : * 59 81 degrees QTcB Int : 453 ms Ventricular-paced rhythm Abnormal ECG When compared with ECG of 01-Dec-2023 17:19, No significant change was found Confirmed by Alfredo Coker ([id number]) on 12/27/2023 12:07:44 PM Referred By: REFERRED SELF Confirmed By: Alfredo Coker
--- NOTE | 2023-12-27 13:30 | Hospitalist Progress Note ---
Date of Service December 27, 2023 Assessment & Plan (1) SOBOE (shortness of breath on exertion): Plan: Patient presented to the ED on 12/24 with complaints of shortness of breath on exertion. similar episode on 11/30 w/ hypotension and resolved spontaneously CXR negative BNP 223 orthostatic BP's done 12/25: lying 121/75 sitting 117/64 standing 98/64 Home BP meds on hold (2) Hypotension: Plan: plan as above (3) Metabolic acidosis: Plan: mild, non-anion gap - may be due to spironolactone use, as this permits Na excretion while leaving H+ in serum -VBGs 12/25: pH 7.29, pCO2 32 -Bicarb 19 -spironolactone on hold given metabolic acidosis and hyperkalemia could consider different class of diuretic upon discharge. Patient has Lasix to use prn. - consider daily dose? (4) Hyperkalemia: Plan: Patient with hyperkalemia on admission w/ potassium of 5.2 BMP reviewed 12/26: K 5.2, creatinine 1.47, BUN 57 Lisinopril and spironolactone on hold s/p 1L IVF AM BMP (5) Elevated MCV: Plan: since Nov 2023: 102.6 -> 104-105 this month; non-anemic - no history of alcohol use - peripheral smear ordered - folate and B12 levels WNL (6) NISREEN (acute kidney injury): Plan: BMP reviewed 12/25: creatinine 1.47, BUN 57 Renal US reviewed 12/26: nonobstructing b/l nephrolithiasis w/o hydronephrosis . urinary bladder wall thickening w/ partial distention b/l renal cysts. Home Lisinopril held - patient will likely require lower dose of this medication on readmission due to orthostatic hypotension AM BMP Plan chronic conditions Heart failure with improved ejection fraction, no indication that pt is having an exacerbation by physical exam, unremarkable cxr A fib: Eliquis, biventricular pacemaker code status: full code VTE phx: on home Eliquis diet: regular dispo: home, lives with son Kayode Jolly via phone 12/26 Admission and Anticipated Discharge Date Admission Date: December 25, 2023 Subjective Patient seen and examined this morning. Patient reports some lower back pain. States she has used lidocaine patches in the past with relief. Denies chest pain or further shortness of breath. Physical Exam 2 Constitutional: WD/WN, vitals as above Eyes: PERRL, conjunctivae normal, anicteric sclerae Respiratory: normal respiratory effort, lungs clear to auscultation Cardiovascular: RRR, no murmur, no edema Skin: no rashes, warm and dry Psychiatric: A+Ox3, euthymic affect Results & Data Results & Data Vital Signs (Past 12 Hours) Vital Signs Temp Pulse Pulse Resp BP Pulse Ox O2 Del Method 12/27/23 11:11 36.6 C 70 18 105/70 95 Room Air 12/27/23 08:37 76 12/27/23 07:46 37.0 C 16 95 Room Air 12/27/23 07:20 Room Air 12/27/23 03:31 37.1 C 70 20 151/81 H 95 Room Air Laboratory Results 12/27/23 05:39 12/27/23 05:39 PG Care Time/CCT Total # of Minutes Spent Total Time Spent with Patient: Total time spent is greater than 50% in coordination of care (as documented) at patient's floor/unit and/or counseling patient: Coding Level of Care Code 94640 SUB INP/OBS CARE 3/50MIN Diagnoses SOBOE (shortness of breath on exertion) R06.02 Hypotension, unspecified hypotension type I95.9 Hypotension type: unspecified hypotension type Metabolic acidosis E87.20 Hyperkalemia E87.5 Elevated MCV R71.8 NISREEN (acute kidney injury) N17.9 (2) Hypotension Hypotension type: unspecified hypotension type Qualified Code(s): I95.9 - Hypotension, unspecified
[2023-12-28 06:38] LABS: Hematocrit (blood only) 38.6 % (37.0-47.0); Mean Corpuscular Hemoglobin 34.5 pg (25.0-34.0); Mean Corpuscular Hgb Conc 33.7 g/dL (32.0-36.0); Mean Corpuscular Volume 102.4 fL (80.0-100.0); Mean Platelet Volume 9.9 fL (9.4-12.4); Platelet Count 249 K/uL (130-400); RDW Coefficient of Variation 14.6 % (11.5-14.5); RDW Standard Deviation 56.2 fL (36.4-46.3); Red Blood Count 3.77 M/uL (4.20-5.40); White Blood Count 4.43 K/ul (4.8-10.8)
[2023-12-28 06:59] LABS: BUN Creatinine Ratio 37.1 (10-20); Calcium 8.9 mg/dl (8.6-10.3); Creatinine Clr Calc Pharmacy 26.4 ml/min; Est GFR (African American) 42.2 ml/min; Est GFR (Non-African American) 36.4 ml/min
[2023-12-28] MEDS: PREMARIN VAG CRM 14 APPLN/30 GM TUBE PV SCH (09:14)
[2023-12-28 10:19] VITALS: RESP 16
[2023-12-28] MEDS: LACTATED RINGER'S 500 ML IV ONE (10:55)
[2023-12-28 15:53] VITALS: BP 146/84; PULSE 70; TEMP 97.7; O2SAT 95
--- NOTE | 2023-12-28 16:11 | Discharge Summary ---
Discharge Summary Date of Service December 28, 2023 Principal Dx & Hospital Course #1 = Principal Diagnosis (1) SOBOE (shortness of breath on exertion): Possible SOBOE due to orthostatic hypotension Patient presented to the ED on 12/24 with complaints of shortness of breath on exertion. similar episode on 11/30 w/ hypotension and resolved spontaneously CXR negative BNP 223 - patient has not noticed weight gain at home orthostatics Positive 12/25 - repeated on the day of discharge and slightly positive and more hypotensive, given 500cc LR and orthostatic vital signs improved - giancarlo germain placed Concern for worsening kidney function after starting Jardiance a few months ago, also presented with hyperkalemia. - Follows with CHF clinic, discussed with Effie DASH, recommend continuing Jardiance, dc spironolactone and lisinopril - CHF clinic follow up Lisinopril discontinued. (2) Metabolic acidosis: mild, non-anion gap - may be due to spironolactone use, as this permits Na excretion while leaving H+ in serum -VBGs 12/25: pH 7.29, pCO2 32 -Bicarb 19 -spironolactone discontinued -f/u BMP as outpt (3) Hyperkalemia: Patient with hyperkalemia on admission w/ potassium of 5.2 Lisinopril and spironolactone discontinued s/p 1L IVF K improved to 5 .0 on day of discharge f/u BMP as outpt with CHF clinic (4) Elevated MCV: since Nov 2023: 102.6 -> 104-105 this month; non-anemic - no history of alcohol use - peripheral smear: no overt changes with myelodysplastic syndrome seen or hemolytic anemia. - folate and B12 levels WNL -f/u as outpt with PCP (5) NISREEN (acute kidney injury): Renal US reviewed 12/26: nonobstructing b/l nephrolithiasis w/o hydronephrosis . Urinary bladder wall thickening w/ partial distention b/l renal cysts. Lisinopril and spironolactone discontinued Cr improving, back to new baseline since starting jardiance Plan chronic conditions Heart failure with improved ejection fraction, no indication that pt is having an exacerbation by physical exam (likely dry) -was given fluids for orthostasis and had improvement A fib: Eliquis, biventricular pacemaker - paced on tele. Dispo: discharge to home today Updated son Rik via phone 12/26 & 12/27 Notes For Next Care Provider Admitted with shortness of breath with exertion from orthostatic hypotension. Orthostatic vital signs improved with IV fluids and discontinuation of spironolactone and lisinopril. Patient has very labile blood pressures. Also with hyperkalemia but spironolactone has been discontinued per discussion with Effie DASH of heart failure clinic Elevated MCV in the last month - no cause found-further workup as outpt Medication Changes From Visit stop spironolactone stop lisinopril Admission HPI Per Admitting Provider Vita Landa is an 88yo female with PMHx HFpEF, HTN, Afib w/ RVR on pacemaker, BIBEMS this afternoon after having shortness of breath this morning. Initial BP reading in ER was 97/71, 6 hours later it was 171/92 without any medications or fluids. Denies any particular SOB the previous morning, last night or overnight, but noticed it came on this morning upon getting up and moving around. Endorses it resolves at rest. Endorses she has been taking all of her home medications as prescribed, except for her prn Lasix 20mg, which she does not recall when she took her last dose. She was there with one of her two sons, who endorses she takes her daily medications as prescribed. She lives with one of her sons, and the son who was present lives upstairs from so she has her support system close by. On seeing patient at bedside, she was alert and orientedx3 and not in acute distress, breathing comfortable in bed with closed mouth and no retractions. Denies any SOB at time of examination, also denies any chest pain, cough, pain with deep inspiration, headache, dizziness, nausea, recent vomiting, abdominal pain, diarrhea, or constipation. Endorses her appetite has been good, denies eating a particularly large amount of salty or sweet foods. Of note, patient was here on 12/01/23 for similar presentation: SOB on exertion in the setting of hypotension, which resolved without medical intervention or admission. She was able to ambulate around ER without SOB and continued to feel well enough to go home that evening. BP was initially 94/60, went up to 120/63 in the next hour, and an hour later was 153/81, at which point she was discharged from the ER. Upon attempting to get out of bed to ambulate, pt started feeling short of breath and unable to walk around. At this point, BP was 133/59. Patient was able to get up to use the bathroom about 5min later without issue. Admitted as obs. Discharge Exam General: NAD, VS as above, ambulating around room HEENT: MM dry Resp: normal respiratory effort, lungs clear to auscultation CV: RRR, no murmur, Abd: normal bowel sounds, non tender, no hepatosplenomegaly Extremities: Moves all extremities, no edema Neuro: A&O x3, Skin: intact, no lesions noted Discharge Plan Discharge Items Patient Disposition: Home - Self-Care Reason For Visit: SOB ON EXERTION Discharge Diagnosis: orthostatic hypotension, hyperkalemia Activity: Resume your previous activity Weightbearing: Full weightbearing Non-emergency contact: Primary Care Provider and Community Development Worker Call non-emergency contact if: you have any medication questions, your symptoms worsen, your pain is unusual for you and your temperature is above 101 Follow-up/Referrals: Mary Laughlin MD [Primary Care Provider] - ( Follow-up within 7 to 10 days) Xin Fenton PA-C [Physician Management Coordinator] - ( follow-up with CHF clinic) Diet: Heart Healthy Fluids: 2000ml (8 cups) Addtl Attending Provider Instructions: Ms. Landa, You were hospitalized after an episode of shortness of breath on exertion And you also had elevated potassium levels. This was likely thought to be medication induced causing you to be dehydrated from the spironolactone and Jardiance. For this reason, we have stopped the spironolactone. You should continue taking the Jardiance. You are experiencing a phenomenon where your blood pressure drops when you go from lying to standing, called orthostatic hypotension. This improved after I gave you some IV fluids. Make sure that you are changing positions slowly and monitoring for any lightheadedness or dizziness. Thankfully your shortness of breath has improved by the time of discharge. We have also stopped your losartan. Your blood pressures have been normal to low - this may be have to be restart by your PCP depending on how you blood pressures trend. Recommend a low sodium, heart healthy diet to help with your blood pressures. You will follow-up with the CHF clinic. I also recommend that you see your PCP within 7 to 10 days. Medications: Your medication list has been reviewed and reconciled upon discharge to ensure accuracy and continuity of care. An updated list of all your medications is included with your hospital discharge paperwork. Please review this list closely, and make note of any changes. Take your medications as instructed; do not skip a dose of your medicines. Make sure all of your doctors know every medicine you are taking (including kkws-sqf-kyqfrdy medicines, vitamins, and supplements). Call your primary care provider before taking any new medicines (including over- the-counter medicines, vitamins, and supplements), because some of these may interact with your current medications, or may make your symptoms worse. Tell your primary care provider if you cannot afford your medications. Activity: You can do normal everyday activities as your body allows. Take rest breaks if you feel tired. Do not overexert. Stop activity if you have pain, shortness of breath or feel dizzy. Follow-up appointments: Make an appointment with your primary care physician within one week of disc harge. A copy of this summary will be sent to them. Every time you see your primary care physician, or any other doctor, bring your medication list, and a list of questions. CONTACT YOUR PRIMARY CARE PROVIDER if you experience any of the following: Shortness of breath or difficulty breathing Fevers or chills Feeling tired with normal activity or experiencing dizziness or fainting Difficulty following your treatment plan, or difficulty taking medications CALL 911 OR GO TO THE EMERGENCY DEPARTMENT if you experience any of the foll owing: Severe abdominal pain or nausea/vomiting Severe chest pain, or chest pain that radiates (moves) to your jaw or arm Sudden, severe shortness of breath or difficulty breathing Thank you for allowing us to participate in your care. Megan Gutierrez PA-C Pending Studies at Discharge: No Stand-Alone Forms: [facility], Smoking Cessation Medications and DC Order Prescriptions: Continued carvedilol 12.5 mg tablet 12.5 mg PO BID Qty: 180 3RF Jardiance 10 mg tablet 10 mg PO DAILY Qty: 90 3RF Eliquis 5 mg tablet 5 mg PO BID Qty: 180 3RF furosemide [Lasix] 20 mg tablet 20 mg PO PRN PRN (Reason: edema) Rx Instructions: Use for weight gain more than 2 pounds in a day, or more than 5 pounds in a week lidocaine 4 % adhesive patch,medicated 1 patch topical BID PRN (Reason: Pain) methocarbamol 500 mg tablet 500 mg PO TID PRN (Reason: muscle spasm) 30 Days Qty: 90 0RF Macular Health Formula 5-1-7.5 mg Capsule 1 cap PO QAM Rx Instructions: Unable to verify OTC meds at this date/time. Vasquez Defend Otc 1 tab PO BID Rx Instructions: Unable to verify OTC meds at this date/time. ascorbic acid (vitamin C) [Vitamin C] 500 mg Tablet 500 mg PO QAM Rx Instructions: Unable to verify OTC meds at this date/time. Premarin 0.625 mg/gram cream 0.625 mg vaginal 3XWK Rx Instructions: USE 1 GRAM VAGINALLY THREE TIMES A WEEK cetirizine [Zyrtec] 10 mg Tablet 10 mg PO DAILY PRN (Reason: Allergy Symptoms) Discontinued spironolactone 25 mg tablet 25 mg PO DAILY Qty: 90 3RF lisinopril 20 mg tablet 20 mg PO QAM Qty: 90 3RF Discharge Orders: Discharge Order (Routine); Ordered 12/28/23 Ordered By: Megan Galindo/Other Patient Handouts: DASH Plan Eat Heart Healthy Food Admission Data Admit Date/Time: 12/27/23 07:52 Attending Provider: Brandie Donovan Admit Provider: James Rios V. Primary Care Provider: Mary Laughlin V. Other Providers: Rudy Reyna; Xin Fenton Other Interventions: Discharge Summary Assessment (RN) Last Done: 12/28/23 16:15 Hospital Stay Data Consultations 12/25/23 17:57 ED Decision to Admit Stat 12/28/23 15:44 [facility] CHF Program Referral Routine Diagnostic Imagining Performed Chest X-Ray 12/25/23 15:04 XR chest 1V portable HISTORY: Chest pain, nonspecific COMPARISON: Chest and left rib series 12/14/2023. FINDINGS: No pneumothorax. No pleural effusions. The cardiac silhouette is mildly enlarged. The lungs are clear. No evidence for pulmonary edema. There is left-sided pacemaker again noted. No acute fractures. IMPRESSION: No acute process. ACT 112: Negative or not required by law. Electronically signed by: Eloy Logan M.D. 12/25/2023 3:30 PM Renal Ultrasound 12/26/23 10:03 RENAL ULTRASOUND HISTORY: Acute kidney injury NISREEN COMPARISON: None. FINDINGS: Right kidney: 9.8 x 3.7 x 4.6 cm. No hydronephrosis. Exophytic 1.7 cm cyst of the inferior pole. 4 mm nonobstructing calculus. Normal corticomedullary differentiation and cortical thickness. Left kidney: 9.6 x 4.4 x 3.3 cm. No hydronephrosis. Cortical thinning. 1.5 cm cyst of the inferior pole. 6 mm nonobstructing calculus. Bladder: Wall thickening with partial distention. The bilateral ureteral jets were identified. IMPRESSION: 1. Nonobstructing bilateral nephrolithiasis without hydronephrosis. 2. Urinary bladder wall thickening with partial distention. 3. Bilateral renal cysts. ACT 112: Negative or not required by law. Electronically signed by: Benny Vazquez M.D. 12/26/2023 4:00 PM Pending Results Patient Have Any Pending Studies at Discharge: No Discharge Instructions Given to Patient (Per Discharging Provider) Ms. Landa, You were hospitalized after an episode of shortness of breath on exertion And you also had elevated potassium levels. This was likely thought to be medication induced causing you to be dehydrated from the spironolactone and Jardiance. For this reason, we have stopped the spironolactone. You should continue taking the Jardiance. You are experiencing a phenomenon where your blood pressure drops when you go from lying to standing, called orthostatic hypotension. This improved after I gave you some IV fluids. Make sure that you are changing positions slowly and monitoring for any lightheadedness or dizziness. Thankfully your shortness of breath has improved by the time of discharge. We have also stopped your losartan. Your blood pressures have been normal to low - this may be have to be restart by your PCP depending on how you blood pressures trend. Recommend a low sodium, heart healthy diet to help with your blood pressures. You will follow-up with the CHF clinic. I also recommend that you see your PCP within 7 to 10 days. Medications: Your medication list has been reviewed and reconciled upon discharge to ensure accuracy and continuity of care. An updated list of all your medications is included with your hospital discharge paperwork. Please review this list asif sely, and make note of any changes. Take your medications as instructed; do not skip a dose of your medicines. Make sure all of your doctors know every medicine you are taking (including sjcr-yeq-imjvssu medicines, vitamins, and supplements). Call your primary care provider before taking any new medicines (including over- the-counter medicines, vitamins, and supplements), because some of these may interact with your current medications, or may make your symptoms worse. Tell your primary care provider if you cannot afford your medications. Activity: You can do normal everyday activities as your body allows. Take rest breaks if you feel tired. Do not overexert. Stop activity if you have pain, shortness of breath or feel dizzy. Follow-up appointments: Make an appointment with your primary care physician within one week of discharge. A copy of this summary will be sent to them. Every time you see your primary care physician, or any other doctor, bring your medication list, and a list of questions. CONTACT YOUR PRIMARY CARE PROVIDER if you experience any of the following: Shortness of breath or difficulty breathing Fevers or chills Feeling tired with normal activity or experiencing dizziness or fainting Difficulty following your treatment plan, or difficulty taking medications CALL 911 OR GO TO THE EMERGENCY DEPARTMENT if you experience any of the following: Severe abdominal pain or nausea/vomiting Severe chest pain, or chest pain that radiates (moves) to your jaw or arm Sudden, severe shortness of breath or difficulty breathing Thank you for allowing us to participate in your care. Megan Gutierrez PA-C Supervising Physician Co-Signing Physician Notes PA Supervision Note: I personally saw and examined the patient. I verified all medina points and agree with HELENA Gutierrez with the following exceptions and/or additions: S-Pt feeling much better, no further lightheadedness with standing Suspect was too dried out and with NISREEN, resulting hyperkalemia and met acidosis- was given IVFs gently O- Vitals reviewed Gen: [AAOx3, NAD] HEENT: [anicteric sclerae, EOMI] CV: [RRR no mgr nl S1S2] Pulm: [CTAB no wcr] Ext: [no edema] CBC, BMP reviewed A/P-88 yo female here with orthostasis from overdiuresis, with NISRENE, hyperkalemia Improved Total Time Total Time Spent Total Time Spent (In Minutes): Time spent day of discharge 45 minutes including direct patient care, medication reconciliation, documentation, review of labs and images, and coordination of care. Coding Level of Care Code 14930 INP/OBS DISCH >30 MIN Diagnoses SOBOE (shortness of breath on exertion) R06.02 Metabolic acidosis E87.20 Hyperkalemia E87.5 Elevated MCV R71.8 NISREEN (acute kidney injury) N17.9
== END 2023-12-28 17:17 | disposition home or self-care (01) | DRG 312 ==
LOC: ED 13:30 → EDINP 13:30 → SUATTDRO 21:12 → EDINP 23:21 → 2N 12-26 01:10 → SUATTDRO 12-27 07:52

== ENCOUNTER 2024-01-07 08:59 | Inpatient (IN) ==
--- NOTE | 2024-01-07 09:47 | Emergency Department Note ---
Impression & Plan Heart failure with improved ejection fraction (HFimpEF), SOBOE (shortness of breath on exertion) ED Provider Note NAME: MODE BURNS AGE: 88 SEX: F : 1935 ARRIVES VIA: Walk-In INFORMANT: Patient, Family ED PROVIDER(S): GURPREET Moore, Sonal Coreas DO CHIEF COMPLAINT: Shortness of breath, hypertension HISTORY OF PRESENT ILLNESS: This 88-year-old female patient with past medical history of biventricular cardiac pacemaker, atrial fibrillation, pulmonary hypertension, and HFimpEF. Presents to the emergency department via private vehicle for evaluation of difficulty breathing. She reports she awoke at 7 AM this morning and felt fine. She states that approximately 8 AM she became significantly short of breath, and slightly lightheaded. She states her son took her blood pressure at that time and it was 180/102. She denies chest pain, abdominal pain, nausea, or vomiting. She reports history of CHF, and takes as needed Lasix. She denies lower extremity swelling, fever, or recent illness. REVIEW OF SYSTEMS: A review of systems was performed with positives and pertinent negatives listed in the history of present illness. All other systems were reviewed and are negative. ALLERGIES: See below MEDICATIONS: See below PMH: See below PHYSICAL EXAM: VITALS: Vitals are noted on the nurse's note and reviewed by myself. Vital signs stable. GENERAL: 88-year-old female, in no acute distress, nondiaphoretic, well- developed well-nourished. SKIN: The skin was without rashes, erythema, edema, or bruising. HEAD: Normocephalic atraumatic. EYES: Pupils equal round and reactive to light and accommodation. Conjunctivae without injection, sclerae without icterus. Extraocular movements intact. MOUTH: Mucous membranes moist. Pharynx without erythema or exudate. Uvula midline. Airway patent. Tongue does not deviate. NECK: Supple without nuchal rigidity. No lymphadenopathy. No thyromegaly. Cervical spine is nontender. No JVD. HEART: Regular rate and rhythm without murmurs gallops or rubs. LUNGS: Slightly diminished lung sounds on the right. ABDOMEN: Positive bowel sounds x 4. Soft, nontender, without masses or organomegaly. Reina sign negative. No guarding or rebound tenderness. MUSCULOSKELETAL: No muscle atrophy, erythema, or edema noted. Normal gait. Strength 5/5 throughout. Bilateral lower extremity pitting edema +1. NEURO: Patient was alert and oriented to person place and time. No focal neurological deficits. MEDICAL DECISION MAKING: The patient is a pleasant 88-year-old female who arrives to the emergency department for evaluation of the above-stated complaint. A saline lock was established, CBC, CMP, BNP, troponin, lipase were obtained. CBC shows no leukocytosis, stable hemoglobin and hematocrit, CMP BUN 26, troponin 16.1, with repeat 17.0, lipase negative, BNP 332. EKG shows a ventricular paced rhythm at a rate of 70 bpm, with no sign of ST elevation, or depression. Previous for comparison from 12/28 shows no significant change. 2 view chest x-ray was obtained which shows no sign of pneumonia, or vascular congestion. Urinalysis, shows 1+ leukocyte esterase but likely not infectious, and the patient is asymptomatic. Will await culture for treatment. Oral administration of the patient's morning blood pressure medication, as well as her Eliquis, and a dose of oral Lasix were provided. Upon resolution of the hypertension, the patient attempted an ambulatory trial. Nursing staff, as well as the patient stated the patient had significant dyspnea on exertion, however no hypoxia. She reports this is abnormal for her, she states she became dizzy at the time. CT imaging of the head was obtained due to the anticoagulant use, which showed no sign of ICH, or other abnormality. I spoke with the patient regarding her symptoms, and she stated she still feels slightly dizzy while sitting. I do feel the patient needs admitted to the hospitalist service for further workup and evaluation. Case management was contacted to facilitate contact with the [facility] hospitalist group. Dr. Reyna agreed to accept the patient under his service. Please refer to his documentation for further patient workup and care. DIFFERENTIAL DIAGNOSIS: Reactive airway disease, pneumonia, pneumothorax, COPD, CHF, infections, cardiac ischemia, pulmonary embolism, musculoskeletal, gastrointestinal, as well as other pathologies. The patient's case was discussed with Dr. Coreas, who agreed with my evaluation and treatment plan. Continuous director of cardiac cath lab: Order was placed for continuous director of cardiac cath lab. Patient was placed on the director of cardiac cath lab. Patient was noted to be in paced rhythm at an initial rate of 70 bpm. The chart was completed utilizing [employer] Speech voice recognition software. Grammatical errors, random word insertions, pronoun errors, and incomplete sentences are an occasional consequence of this system due to software limitations, ambient noise, and hardware issues. Any formal questions or concerns about the content, text, or information contained within the body of this dictation should be directly addressed to the physician for clarification. Past Med/Surg History Problem List (Updated 01/07/24 @ 16:28 by GURPREET Neely) Sensorineural hearing loss, unilateral, left ear, with restricted hearing on the contralateral side Metabolic acidosis Elevated troponin (Acute) Acute hyperkalemia (Acute) Hypotension Hyperkalemia SOBOE (shortness of breath on exertion) (Acute) Elevated MCV Thoracic back pain Closed traumatic compression fracture of thoracic vertebra (~12/14/23) Moderate compression fracture of a mid thoracic vertebral body. The patient has had several reported falls Fracture of fifth metatarsal bone of right foot (10/27/23) acute comminuted minimally displaced extra-articular fifth metatarsal fracture- tripped and injured her foot Cognitive and behavioral changes Right foot pain Asymptomatic microscopic hematuria Heart failure with improved ejection fraction (HFimpEF) (Acute) Osteoarthritis of left knee Problem with vaginal pessary Dysfunction of right eustachian tube Constipation Hypokalemia Chronic anticoagulation (Acute) Hematuria Vitamin D intoxication Tiredness Solar lentigo Hyperpigmented skin lesion Fatigue Labile hypertension Aortic stenosis LBBB (left bundle branch block) Hypertension (Acute) 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 of left ear Bilateral hip pain (Acute) Tinnitus of right ear 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 Hyperglycemia Anxiety Elevated vitamin B12 level Health care maintenance Biventricular cardiac pacemaker in situ (Acute) CKD (chronic kidney disease) (Acute) Ataxic gait (Acute) S/P biventricular cardiac pacemaker procedure (09/2018) Permanent atrial fibrillation (Acute) Calculus of kidney Cystocele Hearing loss Joint pain, knee Lumbar degenerative disc disease Osteopenia Pessary maintenance Sleep disturbances Urinary incontinence Moderate pulmonary arterial systolic hypertension Moderate mitral regurgitation by prior echocardiogram Medical History NISREEN (acute kidney injury) Hypertensive emergency Hypertensive emergency Respiratory syncytial virus (RSV) Hypoxia Pneumonia Left leg pain Hemorrhoid Hypertension COVID-19 Proteinuria Uncontrolled hypertension Chronic otitis media of left ear with posterior perforation Radicular leg pain Medial epicondylitis Left shoulder pain Left elbow pain Elevated troponin Low energy Elevated troponin Nausea Pessary maintenance IN PLACE-MAINTENANCE Q 4 MONTHS Pacemaker PLACED 2018 Right buttock pain Bilateral buttock pain GOES TO PT FOR AREA Vaginal Discharge HBP (high blood pressure) Diarrhea Nasal discharge History of nephrolithiasis History of orthostatic hypotension History of herpes zoster History of asthma PT DENIES-NO INHALERS History of cellulitis Creatinine elevation (12/2018) PAINTER (dyspnea on exertion) Impaired fasting glucose LBBB (left bundle branch block) History of non-ST elevation myocardial infarction (NSTEMI) Cardiomyopathy EF=40% 2018, EF=55-60% 2019 (s/p BiV) Anemia (2018) Resolved Pneumonia (2016) HX Atrial fibrillation with RVR F/U DR PRESTON-ON PRADAXA Acute on chronic systolic (congestive) heart failure Surgical History History of lithotripsy History of colonoscopy S/P cataract surgery R/L History of ear, nose, and throat (ENT) surgery PERCUTANEOUS REPAIR OF NASOETHMOID FX july 2010 H/O ovarian cystectomy S/P myringotomy with insertion of tube (2000) Hx of tonsillectomy H/O tooth extraction Hx of appendectomy Family History Mother , age 65 of a stroke Hypertension Stroke Aunt Breast cancer maternal aunt Uterine cancer maternal aunt Sister Diabetes Father , age 89 Macular degeneration Denies family history of Ovarian cancer Prostate cancer Heart disease Myocardial infarction Colorectal cancer Social History Smoking Status: Never smoker Second Hand Exposure: No; Do You Dip or Chew Tobacco: No; Hx Alcohol Use: No Hx Substance Use: No Preferred Language: Serbian Communication Ability: Effective Hearing Ability: Use of Hearing Aid Meat Slicer Required: No Beliefs That Will Affect Care: None marital status: / Current Living Situation: Family Current Living Situation Comment: lives with son, [id number], 2 grandchildren current occupational status: retired 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 Feels Safe at Home: Yes Childhood Exposure to Second-Hand Smoke: No Dental Care, Regularly: Yes Physical Activity Frequency: 3-4 Times per Week Seatbelt Use: always Sunscreen Use: Yes Assistive Devices: Cane and Glasses Allergies Allergies Allergy/AdvReac Type Severity Reaction Status Date / Time azithromycin Allergy Unknown Unknown Verified 01/04/24 14:14 Beta-Blockers Allergy Unknown Unknown Verified 01/04/24 14:14 (Beta-Adrenergic Bloc latex Allergy Unknown REDNESS Verified 01/04/24 14:14 prednisone Allergy Unknown FEELS Verified 01/04/24 14:14 JITTERY sertraline AdvReac Unknown Nausea/Dizz Verified 01/04/24 14:14 y Home Meds Home Medications Medication Instructions Recorded Confirmed Vasquez Defend Otc 1 tab PO BID 08/01/21 01/07/24 [id number] 5 mg-zeaxanth 1 cap PO QAM 08/01/21 01/07/24 1 mg-bilberry 7.5 mg-herbal capsule (Macular Health Formula) ascorbic acid (vitamin C) 500 mg 500 mg PO QAM 12/14/22 01/07/24 tablet (Vitamin C) conjugated estrogens 0.625 mg/gram 0.625 mg vaginal 3XWK 07/28/23 01/07/24 vaginal cream (Premarin) furosemide 20 mg tablet (Lasix) 20 mg PO PRN PRN edema 08/03/23 01/07/24 lidocaine 4 % topical patch 1 patch topical BID PRN Pain 12/14/23 01/07/24 cetirizine 10 mg tablet (Zyrtec) 10 mg PO DAILY PRN Allergy Symptoms 12/25/23 01/07/24 Previous Rx's Medication Instructions Recorded carvedilol 12.5 mg tablet 12.5 mg PO BID #180 tabs 12/14/23 apixaban 5 mg tablet (Eliquis) 5 mg PO BID #180 tabs 12/18/23 empagliflozin 10 mg tablet 10 mg PO DAILY #90 tabs 12/18/23 (Jardiance) methocarbamol 500 mg tablet 500 mg PO TID PRN muscle spasm 30 12/24/23 days #90 tabs Results & Data (ED) Vital Signs Vital Signs - 24 hr 01/07/24 09:14 01/07/24 09:46 01/07/24 10:00 Temperature 36.6 C Temperature Source Oral Pulse Rate - Lying Pulse Rate - Sitting Pulse Rate - Standing Pulse Rate 70 122 H 78 Pulse Rate [Exercises] Pulse Rate [Finger] Pulse Rate [Recovery] Pulse Rhythm Regular Respiratory Rate 20 Respiratory Rate [Exercises] Respiratory Rate [Recovery] Blood Pressure - Lying Blood Pressure - Sitting Blood Pressure- Standing Blood Pressure 147/83 H Blood Pressure [Right Arm] Blood Pressure Mean 104 Blood Pressure Mean [Right Arm] Blood Pressure Position Sitting Pulse Oximetry 95 95 Pulse Oximetry [Exercises] Pulse Oximetry [Recovery] Oxygen Delivery Method Room Air Room Air Sepsis Recent Fever Within 48 Hours No Sepsis New/Unexplained Change in Mental Status No Sepsis Action Taken by Nursing No Action Required 01/07/24 11:00 01/07/24 12:00 01/07/24 13:00 Temperature Temperature Source Pulse Rate - Lying Pulse Rate - Sitting Pulse Rate - Standing Pulse Rate Pulse Rate [Exercises] Pulse Rate [Finger] 70 72 Pulse Rate [Recovery] Pulse Rhythm Respiratory Rate 20 18 Respiratory Rate [Exercises] Respiratory Rate [Recovery] Blood Pressure - Lying Blood Pressure - Sitting Blood Pressure- Standing Blood Pressure Blood Pressure [Right Arm] 172/97 H 200/98 H 164/100 H Blood Pressure Mean Blood Pressure Mean [Right Arm] 122 132 121 Blood Pressure Position Pulse Oximetry 94 95 Pulse Oximetry [Exercises] Pulse Oximetry [Recovery] Oxygen Delivery Method Room Air Room Air Sepsis Recent Fever Within 48 Hours Sepsis New/Unexplained Change in Mental Status Sepsis Action Taken by Nursing 01/07/24 13:30 01/07/24 14:06 01/07/24 14:50 Temperature Temperature Source Pulse Rate - Lying Pulse Rate - Sitting Pulse Rate - Standing Pulse Rate 81 Pulse Rate [Exercises] 84 Pulse Rate [Finger] Pulse Rate [Recovery] 78 Pulse Rhythm Respiratory Rate Respiratory Rate [Exercises] 32 H Respiratory Rate [Recovery] 30 H Blood Pressure - Lying Blood Pressure - Sitting Blood Pressure- Standing Blood Pressure Blood Pressure [Right Arm] 149/93 H Blood Pressure Mean Blood Pressure Mean [Right Arm] 111 Blood Pressure Position Pulse Oximetry Pulse Oximetry [Exercises] 94 Pulse Oximetry [Recovery] 95 Oxygen Delivery Method Room Air Sepsis Recent Fever Within 48 Hours Sepsis New/Unexplained Change in Mental Status Sepsis Action Taken by Nursing 01/07/24 14:56 01/07/24 15:00 Temperature Temperature Source Pulse Rate - Lying 70 Pulse Rate - Sitting 95 H Pulse Rate - Standing 85 Pulse Rate Pulse Rate [Exercises] Pulse Rate [Finger] 73 Pulse Rate [Recovery] Pulse Rhythm Respiratory Rate 22 Respiratory Rate [Exercises] Respiratory Rate [Recovery] Blood Pressure - Lying 161/92 H Blood Pressure - Sitting 158/89 H Blood Pressure- Standing 127/73 Blood Pressure Blood Pressure [Right Arm] 156/90 H Blood Pressure Mean Blood Pressure Mean [Right Arm] 112 Blood Pressure Position Pulse Oximetry 95 Pulse Oximetry [Exercises] Pulse Oximetry [Recovery] Oxygen Delivery Method Room Air Sepsis Recent Fever Within 48 Hours Sepsis New/Unexplained Change in Mental Status Sepsis Action Taken by Group Home Medications Current Medication List: was personally reviewed by me Laboratory Data Attestation: I reviewed the patient's lab results. 01/07/24 09:30 01/07/24 09:30 Lab Results 01/07/24 01/07/24 01/07/24 Range/Units 09:30 10:10 12:49 WBC 5.02 (4.8-10.8) K/ul RBC 4.01 L (4.20-5.40) M/uL Hgb 13.7 (12.0-16.0) g/dl Hct 41.5 (37.0-47.0) % MCV 103.5 H (80.0-100.0) fL MCH 34.2 H (25.0-34.0) pg MCHC 33.0 (32.0-36.0) g/dL RDW Std Deviation 54.4 H (36.4-46.3) fL RDW Coeff of Elijah 14.2 (11.5-14.5) % Plt Count 266 (130-400) K/uL MPV 10.3 (9.4-12.4) fL Immature Gran % (Auto) 0.6 % Neut % (Auto) 61.8 % Lymph % (Auto) 17.5 % [place] % (Auto) 16.7 % Eos % (Auto) 2.4 % Baso % (Auto) 1.0 % Neut # (Auto) 3.10 (1.40-6.50) K/uL Lymph # (Auto) 0.88 L (1.20-3.40) K/uL [place] # (Auto) 0.84 H (0.11-0.59) K/uL Eos # (Auto) 0.12 (0.00-0.50) K/uL Baso # (Auto) 0.05 (0.00-0.20) K/uL Immature Gran # (Auto) 0.03 (0.01-0.20) K/uL APTT 29 (21-31) Seconds PTT Ratio 1.1 D-Dimer 450 (0-500) ug/L FEU Sodium 137 (136-145) mmol/L Potassium 4.2 (3.5-5.1) mmol/L Chloride 108 H (98-107) mmol/L Carbon Dioxide 23 (21-32) mmol/L Anion Gap 6 (3-11) BUN 26 H (6-23) mg/dl Creatinine 1.10 (0.6-1.2) mg/dl Est Cr Clr Drug Dosing 31.7 ml/min eGFR 48.94 BUN/Creatinine Ratio 23.6 H (10-20) Glucose 105 H (70-99(Fasting)) mg/dl Calcium 9.0 (8.6-10.3) mg/dl Total Bilirubin 0.6 (0.2-1.0) mg/dl AST 19 (13-39) U/L ALT 12 (7-52) U/L Alkaline Phosphatase 58 (34-104) U/L Troponin I High Sens 16.1 H 17.0 H (0-14) pg/ml B-Natriuretic Peptide 332 H (0-100) pg/ml Total Protein 6.7 (6.0-8.3) gm/dl Albumin 3.7 (3.4-5.0) gm/dl Globulin 3.0 (2.5-4.0) gm/dl Albumin/Globulin Ratio 1.2 (0.9-2) Lipase 36 (11-82) U/L Urine Color Urine Appearance (Clear) Urine pH (4.5-7.5) Ur Specific [place] (1.000-1.030) Urine Protein (Negative) Urine Glucose (UA) (Negative) Urine Ketones (Negative) Urine Blood (Negative) Urine Nitrite (Negative) Urine Bilirubin (Negative) Urine Urobilinogen (Negative) Ur Leukocyte Esterase (Negative) Urine WBC (Auto) (0-5) /hpf Urine RBC (Auto) (0-2) /hpf U Hyaline Cast (Auto) (0-2) /lpf U Epithel Cells (Auto) (0-2) /hpf Urine Bacteria (Auto) (None Seen) 01/07/24 Range/Units 12:57 WBC (4.8-10.8) K/ul RBC (4.20-5.40) M/uL Hgb (12.0-16.0) g/dl Hct (37.0-47.0) % MCV (80.0-100.0) fL MCH (25.0-34.0) pg MCHC (32.0-36.0) g/dL RDW Std Deviation (36.4-46.3) fL RDW Coeff of Elijah (11.5-14.5) % Plt Count (130-400) K/uL MPV (9.4-12.4) fL Immature Gran % (Auto) % Neut % (Auto) % Lymph % (Auto) % [place] % (Auto) % Eos % (Auto) % Baso % (Auto) % Neut # (Auto) (1.40-6.50) K/uL Lymph # (Auto) (1.20-3.40) K/uL [place] # (Auto) (0.11-0.59) K/uL Eos # (Auto) (0.00-0.50) K/uL Baso # (Auto) (0.00-0.20) K/uL Immature Gran # (Auto) (0.01-0.20) K/uL APTT (21-31) Seconds PTT Ratio D-Dimer (0-500) ug/L FEU Sodium (136-145) mmol/L Potassium (3.5-5.1) mmol/L Chloride (98-107) mmol/L Carbon Dioxide (21-32) mmol/L Anion Gap (3-11) BUN (6-23) mg/dl Creatinine (0.6-1.2) mg/dl Est Cr Clr Drug Dosing ml/min eGFR BUN/Creatinine Ratio (10-20) Glucose (70-99(Fasting)) mg/dl Calcium (8.6-10.3) mg/dl Total Bilirubin (0.2-1.0) mg/dl AST (13-39) U/L ALT (7-52) U/L Alkaline Phosphatase (34-104) U/L Troponin I High Sens (0-14) pg/ml B-Natriuretic Peptide (0-100) pg/ml Total Protein (6.0-8.3) gm/dl Albumin (3.4-5.0) gm/dl Globulin (2.5-4.0) gm/dl Albumin/Globulin Ratio (0.9-2) Lipase (11-82) U/L Urine Color Yellow Urine Appearance Cloudy A (Clear) Urine pH 5.5 (4.5-7.5) Ur Specific [place] 1.014 (1.000-1.030) Urine Protein Negative (Negative) Urine Glucose (UA) 3+ H (Negative) Urine Ketones Negative (Negative) Urine Blood Negative (Negative) Urine Nitrite Negative (Negative) Urine Bilirubin Negative (Negative) Urine Urobilinogen Negative (Negative) Ur Leukocyte Esterase 1+ H (Negative) Urine WBC (Auto) 6-10 H (0-5) /hpf Urine RBC (Auto) 6-10 H (0-2) /hpf U Hyaline Cast (Auto) 3-5 H (0-2) /lpf U Epithel Cells (Auto) 0-2 (0-2) /hpf Urine Bacteria (Auto) None Seen (None Seen) Administered Medications Discontinued Medications Apixaban (Apixaban 5 Mg Tablet) 5 mg PO ONE ONE Stop: 01/07/24 12:32 Last Admin: 01/07/24 12:40 Dose: 5 mg Documented By: ARY Carvedilol (Carvedilol 12.5 Mg Tab) 12.5 mg PO NOW ONE Stop: 01/07/24 12:28 Last Admin: 01/07/24 12:40 Dose: 12.5 mg Documented By: ARY Furosemide (Furosemide 20 Mg Tab) 20 mg PO NOW STA Stop: 01/07/24 12:28 Last Admin: 01/07/24 12:40 Dose: 20 mg Documented By: ARY Imaging Data Attestation: I personally reviewed and interpreted this imaging study as follows: Radiologist's Impression: Chest X-Ray 01/07/24 09:56 TWO VIEW CHEST CLINICAL HISTORY: Atypical chest pain. FINDINGS: PA and lateral chest radiographs are compared to study dated 12/25/2023. Correlation is made with chest CT dated 09/15/2018. A 3-lead cardiac pacemaker is unchanged in position and partially obscures the left mid chest. The heart is enlarged noting atherosclerotic calcification of the thoracic aorta. The pulmonary vasculature is noncongested. Chronic interstitial thickening is similar to previous. There is bibasilar scarring/atelectasis. Apical fibrosis is observed. No airspace consolidation or pleural effusion is identified. There is no pneumothorax. The skeletal structures are osteopenic. There is a chronic compression deformity in the midthoracic region. Degenerative change and hyperkyphosis is seen in the spine. IMPRESSION: 1. Cardiomegaly and cardiac pacemaker without radiographic evidence of congestive failure. 2. No airspace consolidation or pleural effusion is identified. ACT 112: Negative or not required by law. Electronically signed by: Larry Stewart M.D. 01/07/2024 10:[address] 01/07/24 14:55 CT SCAN OF THE BRAIN WITHOUT IV CONTRAST CLINICAL HISTORY: Dizziness. COMPARISON STUDY: CT of the brain dated 09/23/2019. TECHNIQUE: Unenhanced axial CT scan of the brain is performed from the vertex to the skull base. A dose lowering technique was utilized adhering to the principles of ALARA. The skull base was scanned twice due to motion artifact. CT DOSE: 1016.05 mGy.cm FINDINGS: Brain parenchyma: There is age-related involutional change noting moderate subcortical and periventricular microangiopathic disease. There is no hemorrhage, mass effect, or evidence of acute territorial ischemia by CT criteria. Flowers-white matter differentiation is preserved. No extra-axial fluid collection is seen. Ventricles, sulci, cisterns: Prominent secondary to involutional change. Intracranial vasculature: There is atherosclerotic calcification of the cavernous carotid and vertebral arteries. Calvarium: Unremarkable. Sinuses and mastoids: There is evidence of previous paranasal sinus surgery. There is mild mucosal thickening in the right maxillary antrum and the ethmoid sinuses. The mastoid air cells are well pneumatized. Orbits: The bony orbits are grossly intact. There are bilateral ocular lens implants. IMPRESSION: There is no hemorrhage, mass effect, or evidence of acute territorial ischemia by CT criteria. ACT 112: Negative or not required by law. Electronically signed by: Larry Stewart M.D. 01/07/2024 3:17 PM Discharge Plan Visit Data Chief Complaint: Hypertension Stated Complaint: HIGH BP, NAUSEA, SOB, FAINTING, UPSET STOMACH ED Provider: Sonal Coreas ED Midlevel Provider: Mary Dhaliwal Discharge Problem: Heart failure with improved ejection fraction (HFimpEF), SOBOE (shortness of breath on exertion) Forms Stand Alone Forms: My [facility] minicabit Prescriptions Prescriptions: No Action carvedilol 12.5 mg tablet 12.5 mg PO BID Qty: 180 3RF Jardiance 10 mg tablet 10 mg PO DAILY Qty: 90 3RF Eliquis 5 mg tablet 5 mg PO BID Qty: 180 3RF furosemide [Lasix] 20 mg tablet 20 mg PO PRN PRN (Reason: edema) Rx Instructions: Use for weight gain more than 2 pounds in a day, or more than 5 pounds in a week lidocaine 4 % adhesive patch,medicated 1 patch topical BID PRN (Reason: Pain) methocarbamol 500 mg tablet 500 mg PO TID PRN (Reason: muscle spasm) 30 Days Qty: 90 0RF Macular Health Formula 5-1-7.5 mg Capsule 1 cap PO QAM Rx Instructions: Unable to verify OTC meds at this date/time. Vasquez Defend Otc 1 tab PO BID Rx Instructions: Unable to verify OTC meds at this date/time. ascorbic acid (vitamin C) [Vitamin C] 500 mg Tablet 500 mg PO QAM Rx Instructions: Unable to verify OTC meds at this date/time. Premarin 0.625 mg/gram cream 0.625 mg vaginal 3XWK Rx Instructions: USE 1 GRAM VAGINALLY THREE TIMES A WEEK cetirizine [Zyrtec] 10 mg Tablet 10 mg PO DAILY PRN (Reason: Allergy Symptoms) Referrals Referrals: Mray Laughlin MD [Primary Care Provider] -
[2024-01-07 10:25] LABS: Basophils # (auto) 0.05 K/uL (0.00-0.20); Eosinophils # (auto) 0.12 K/uL (0.00-0.50); Eosinophils % (auto) 2.4 %; Hematocrit (blood only) 41.5 % (37.0-47.0); Hemoglobin 13.7 g/dl (12.0-16.0); Immature Granulocytes # (auto) 0.03 K/uL (0.01-0.20); Immature Granulocytes % (auto) 0.6 %; Lymphocytes # (auto) 0.88 K/uL (1.20-3.40); Lymphocytes % (auto) 17.5 %; Mean Corpuscular Hemoglobin 34.2 pg (25.0-34.0); Mean Corpuscular Volume 103.5 fL (80.0-100.0); Mean Platelet Volume 10.3 fL (9.4-12.4); Monocytes # (auto) 0.84 K/uL (0.11-0.59); Monocytes % (auto) 16.7 %; Neutrophils % (auto) 61.8 %; Platelet Count 266 K/uL (130-400); RDW Coefficient of Variation 14.2 % (11.5-14.5); RDW Standard Deviation 54.4 fL (36.4-46.3); Red Blood Count 4.01 M/uL (4.20-5.40); White Blood Count 5.02 K/ul (4.8-10.8)
[2024-01-07 10:45] LABS: Albumin Globulin Ratio 1.2 (0.9-2); Albumin Level 3.7 gm/dl (3.4-5.0); BUN Creatinine Ratio 23.6 (10-20); Bilirubin,Total 0.6 mg/dl (0.2-1.0); Creatinine Clr Calc Pharmacy 31.7 ml/min; Potassium 4.2 mmol/L (3.5-5.1); Total Protein 6.7 gm/dl (6.0-8.3)
[2024-01-07 10:52] LABS: D Dimer 450 ug/L FEU (0-500); Partial Thromboplastin Ratio 1.1; Partial Thromboplastin Time 29 Seconds (21-31)
[2024-01-07 10:53] LABS: Troponin I High Sensitivity 16.1 pg/ml (0-14)
--- NOTE | 2024-01-07 10:55 | XRay Report ---
TWO VIEW CHEST CLINICAL HISTORY: Atypical chest pain. FINDINGS: PA and lateral chest radiographs are compared to study dated 12/25/2023. Correlation is made with chest CT dated 09/15/2018. A 3-lead cardiac pacemaker is unchanged in position and partially obs cures the left mid chest. The heart is enlarged noting atherosclerotic calcification of the thoracic aorta. The pulmonary vasculature is noncongested. Chronic interstitial thickening is similar to previ ous. There is bibasilar scarring/atelectasis. Apical fibrosis is observed. No airspace consolidation or pleural effusion is identified. There is no pneumothorax. The skeletal structures are osteopenic. There is a chronic compression deformity in the midthoracic region. Degenerative change and hyperkyph osis is seen in the spine. IMPRESSION: 1. Cardiomegaly and cardiac pacemaker without radiographic evidence of congestive failure. 2. No airspace consolidation or pleural effusion is identified. ACT 112: Negative or not required by law. Electronically signed by: Larry Stewart M.D. 01/07/2024 10:54 AM
[2024-01-07] MEDS: APIXABAN 5 MG TABLET PO ONE (12:40)
[2024-01-07] MEDS: carvediloL 12.5 MG TAB PO ONE (12:40)
[2024-01-07] MEDS: FUROSEMIDE 20 MG TAB PO STA (12:40)
[2024-01-07 13:18] LABS: Appearance Urine Cloudy (Clear); Bacteria Urine Automated None Seen (None Seen); Bilirubin Urine Negative (Negative); Blood Urine Negative (Negative); Color Urine Yellow; Epithelial Cell Urine Auto 0-2 /hpf (0-2); Glucose Urine UA 3+ (Negative); Ketones Urine Negative (Negative); Leukocyte Esterase Urine 1+ (Negative); Nitrite Urine Negative (Negative); Protein Urine Negative (Negative); Specific Gravity Urine 1.014 (1.000-1.030); Urobilinogen Urine Negative (Negative); pH Urine 5.5 (4.5-7.5)
--- NOTE | 2024-01-07 15:18 | CT Scan Report ---
CT SCAN OF THE BRAIN WITHOUT IV CONTRAST CLINICAL HISTORY: Dizziness. COMPARISON STUDY: CT of the brain dated 09/23/2019. TECHNIQUE: Unenhanced axial CT scan of the brain is performed from the vertex to the skull base. A do se lowering technique was utilized adhering to the principles of ALARA. The skull base was scanned tw ice due to motion artifact. CT DOSE: 1016.05 mGy.cm FINDINGS: Brain parenchyma: There is age-related involutional change noting moderate subcortical and periventri cular microangiopathic disease. There is no hemorrhage, mass effect, or evidence of acute territorial ischemia by CT criteria. Flowers-white matter differentiation is preserved. No extra-axial fluid collec tion is seen. Ventricles, sulci, cisterns: Prominent secondary to involutional change. Intracranial vasculature: There is atherosclerotic calcification of the cavernous carotid and vertebr al arteries. Calvarium: Unremarkable. Sinuses and mastoids: There is evidence of previous paranasal sinus surgery. There is mild mucosal th ickening in the right maxillary antrum and the ethmoid sinuses. The mastoid air cells are well pneuma tized. Orbits: The bony orbits are grossly intact. There are bilateral ocular lens implants. IMPRESSION: There is no hemorrhage, mass effect, or evidence of acute territorial ischemia by CT jeyson wade. ACT 112: Negative or not required by law. Electronically signed by: Larry Stewart M.D. 01/07/2024 3:17 PM
--- NOTE | 2024-01-07 16:35 | Electrocardiogram Report ---
Test Reason : Blood Pressure : */* mmHG Vent. Rate : 70 BPM Atrial Rate : 220 BPM P-R Int : * ms QRS Dur : 122 ms QT Int : 432 ms P-R-T Axes : * 75 90 degrees QTcB Int : 466 ms Ventricular-paced rhythm Biventricular pacemaker detected Abnormal ECG When compared with ECG of 25-Dec-2023 13:52, No significant change was found Confirmed by Kumar Harrison ([id number]) on 01/07/2024 4:35:12 PM Referred By: REFERRED SELF Confirmed By: Kumar Harrison
--- NOTE | 2024-01-07 17:20 | History & Physical Report ---
Date of Service January 07, 2024 Assessment & Plan (1) Shortness of breath: Plan: Pt presented to ED for SOB and lightheadedness starting this AM. Did not experience any chest pain or syncope. BP 180/102 at home, patient has not taken her morning medications, they were provided in ED. CXR cardiomegaly and cardiac pacemaker without radiographic evidence of congestive failure, no air space consolidations or pleural effusions identified. Not hypoxic, on room air. -Admit for observation -No wheezing on exam, no signs fluid overload/pulmonary edema. -D-dimer 450, no leukocytosis. -Chest x-ray no evidence of acute condition. -Nonhypoxic on room air; supplemental O2 not needed at this time -Aspiration?? Speech therapist consulted to r/o this as a possibility -Pending VBGs (2) Acute on chronic heart failure with preserved ejection fraction (HFpEF): Plan: Patient with history of HFpEF; echo 12/26/23 EF 60 to 65%, aortic stenosis; heart failure visit 01/03, euvolemic, on carvedilol and Jardiance. BNP 332 on admission, troponin 16.1-> 17 trending but no chest pain; EKG rate 70s, no signs of ischemia, biventricular paced rhythm. -Continue carvedilol 12.5 mg twice daily -Hold Jardiance -Repeat troponin -I+O daily -Daily standing weights; dry weight around 120 lb -Lasix 20 mg IV BID -Cr 1.10 Plan HTN- BP normalizing since AM reading at home; continue carvedilol Permanent Afib post AV marisa ablation- on Eliquis, [id number] 4, delivery helper Dr. Partida Stage III CKD- Cr baseline appears to be 0.-1.2; Cr 1.10, BUN 26, BUN/Cr 23.6, eGFR 48.94, CrCl 31.7 at admission Prior admission with electrolyte imbalances; BMP in AM to monitor closely Disposition: Admit for observation VTE prophylaxis: Resumption of at home Eliquis 5 mg twice daily Code: DNR/DNI Admission and Anticipated Discharge Date Admission Date: 02/03/2024 History of Present Illness Chief Complaint: Lightheadedness, SOB, HTN Primary Care Provider: Mary Laughlin MD 88-year-old female with past medical history of biventricular cardiac pacemaker, atrial fibrillation, coronary hypertension, HFimpEF presenting for difficulty breathing and lightheadedness. Most recent admission 12/26-12/28 2023 for SOBOE, metabolic acidosis, hyperkalemia, NISREEN. Son took her blood pressure at home this a.m. with reading 180/102. Denies chest pain, abdominal pain, nausea/vomiting. ED course: RBC 4.01, H&H 13.7/41.5, MCV 103.5, MCH 34.2, APTT 29, D-dimer 450, sodium 137, potassium 4.2, chloride 108, anion gap 6, BUN 26, creatinine 1.10, BUN/creatinine ratio 23.6, glucose 105, LFTs normal limits, troponin 16.1--> 17, BNP 332; UA 3+ glucose, 1+ LE, 6-10 WBC, 16 RBC, 3-5 hyaline cast, no bacteria. Chest x-ray shows cardiomegaly and presence of cardiac pacemaker maker, no evidence of congestive. Head CT no hemorrhage, mass effect, or evidence of acute territorial ischemia. EKG is a ventricular paced rhythm rate 70, QTc 466, no changes from previous EKG. No ischemia. Patient was provided with dose of Eliquis and Lasix while ED. Patient seen laying in bed at time of visit. Her 2 sons and [id number] are present in the room throughout visit. States that she awoke at 0700 this a.m. and felt completely fine. She laid back down in her bed until 0800 and then she got up and immediately felt lightheaded. States that she had associated shortness of breath at the same time. Lightheadedness did not seize when sitting back down. States that her son took her blood pressure at that time, having a reading of 180/102 on 2 occasions. Following this, the patient was brought to [facility] for evaluation. The other symptom that the patient admits to this time is a slight headache above the right eyebrow, stating that it is so mild that she forgets about it unless asked. Reports she has not had anything like this happen before. Son states that he believes that she has an increase swelling in her legs. Denies recent illness, new medications, or recent falls. Denies associated fever, chills, fatigue, weakness, chest pain, chest pressure, palpitations, abdominal pain, N/V/D/C, joint pain, syncopal episodes, nu mbness/tingling, extremity swelling, dysuria. Please see Dr. Reyna's attestation for changes/additions to treatment plan. Allergies Allergy/AdvReac Type Severity Reaction Status Date / Time azithromycin Allergy Unknown Unknown Verified 01/04/24 14:14 Beta-Blockers Allergy Unknown Unknown Verified 01/04/24 14:14 (Beta-Adrenergic Bloc latex Allergy Unknown REDNESS Verified 01/04/24 14:14 prednisone Allergy Unknown FEELS Verified 01/04/24 14:14 JITTERY sertraline AdvReac Unknown Nausea/Dizz Verified 01/04/24 14:14 y Home Medications Medication Instructions Recorded Confirmed Type Vasquez Defend Otc 1 tab PO BID 08/01/21 01/07/24 History [id number] 5 mg-zeaxanth 1 cap PO QAM 08/01/21 01/07/24 History 1 mg-bilberry 7.5 mg-herbal capsule (Linguastat Health Formula) ascorbic acid (vitamin C) 500 mg 500 mg PO QAM 12/14/22 01/07/24 History tablet (Vitamin C) conjugated estrogens 0.625 mg/gram 0.625 mg vaginal [id number] 07/28/23 01/07/24 History vaginal cream (Premarin) furosemide 20 mg tablet (Lasix) 20 mg PO PRN PRN edema 08/03/23 01/07/24 History carvedilol 12.5 mg tablet 12.5 mg PO BID #180 tabs 12/14/23 01/07/24 Rx lidocaine 4 % topical patch 1 patch topical BID PRN Pain 12/14/23 01/07/24 History apixaban 5 mg tablet (Eliquis) 5 mg PO BID #180 tabs 12/18/23 01/07/24 Rx empagliflozin 10 mg tablet 10 mg PO DAILY #90 tabs 12/18/23 01/07/24 Rx (Jardiance) methocarbamol 500 mg tablet 500 mg PO TID PRN muscle spasm 30 12/24/23 01/07/24 Rx days #90 tabs cetirizine 10 mg tablet (Zyrtec) 10 mg PO DAILY PRN Allergy Symptoms 12/25/23 01/07/24 History Past Med/Surg History Problem List (Updated 01/09/24 @ 13:59 by Minerva Colmenares PA-C) Adrenal insufficiency Acute on chronic heart failure with preserved ejection fraction (HFpEF) Shortness of breath Sensorineural hearing loss, unilateral, left ear, with restricted hearing on the contralateral side Metabolic acidosis Elevated troponin (Acute) Acute hyperkalemia (Acute) Hypotension Hyperkalemia SOBOE (shortness of breath on exertion) (Acute) Elevated MCV Thoracic back pain Closed traumatic compression fracture of thoracic vertebra (~12/14/23) Moderate compression fracture of a mid thoracic vertebral body. The patient has had several reported falls Fracture of fifth metatarsal bone of right foot (10/27/23) acute comminuted minimally displaced extra-articular fifth metatarsal fracture- tripped and injured her foot Cognitive and behavioral changes Right foot pain Asymptomatic microscopic hematuria Heart failure with improved ejection fraction (HFimpEF) (Acute) Osteoarthritis of left knee Problem with vaginal pessary Dysfunction of right eustachian tube Constipation Hypokalemia Chronic anticoagulation (Acute) Hematuria Vitamin D intoxication Tiredness Solar lentigo Hyperpigmented skin lesion Fatigue Labile hypertension Aortic stenosis LBBB (left bundle branch block) Hypertension (Acute) 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 of left ear Bilateral hip pain (Acute) Tinnitus of right ear 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 Hyperglycemia Anxiety Elevated vitamin B12 level Health care maintenance Biventricular cardiac pacemaker in situ (Acute) CKD (chronic kidney disease) (Acute) Ataxic gait (Acute) S/P biventricular cardiac pacemaker procedure (09/2018) Permanent atrial fibrillation (Acute) Calculus of kidney Cystocele Hearing loss Joint pain, knee Lumbar degenerative disc disease Osteopenia Pessary maintenance Sleep disturbances Urinary incontinence Moderate pulmonary arterial systolic hypertension Moderate mitral regurgitation by prior echocardiogram Medical History NISREEN (acute kidney injury) Hypertensive emergency Hypertensive emergency Respiratory syncytial virus (RSV) Hypoxia Pneumonia Left leg pain Hemorrhoid Hypertension COVID-19 Proteinuria Uncontrolled hypertension Chronic otitis media of left ear with posterior perforation Radicular leg pain Medial epicondylitis Left shoulder pain Left elbow pain Elevated troponin Low energy Elevated troponin Nausea Pessary maintenance IN PLACE-MAINTENANCE Q 4 MONTHS Pacemaker PLACED 2018 Right buttock pain Bilateral buttock pain GOES TO PT FOR AREA Vaginal Discharge HBP (high blood pressure) Diarrhea Nasal discharge History of nephrolithiasis History of orthostatic hypotension History of herpes zoster History of asthma PT DENIES-NO INHALERS History of cellulitis Creatinine elevation (12/2018) PAINTER (dyspnea on exertion) Impaired fasting glucose LBBB (left bundle branch block) History of non-ST elevation myocardial infarction (NSTEMI) Cardiomyopathy EF=40% 2018, EF=55-60% 2019 (s/p BiV) Anemia (2018) Resolved Pneumonia (2016) HX Atrial fibrillation with RVR F/U DR PRESTON-ON PRADAXA Acute on chronic systolic (congestive) heart failure Surgical History History of lithotripsy History of colonoscopy S/P cataract surgery R/L History of ear, nose, and throat (ENT) surgery PERCUTANEOUS REPAIR OF NASOETHMOID FX july 2010 H/O ovarian cystectomy S/P myringotomy with insertion of tube (2000) Hx of tonsillectomy H/O tooth extraction Hx of appendectomy Family History Mother , age 65 of a stroke Hypertension Stroke Aunt Breast cancer maternal aunt Uterine cancer maternal aunt Sister Diabetes Father , age 89 Macular degeneration Denies family history of Ovarian cancer Prostate cancer Heart disease Myocardial infarction Colorectal cancer Social History Smoking Status: Never smoker Second Hand Exposure: No; Do You Dip or Chew Tobacco: No; Hx Alcohol Use: No Hx Substance Use: No Preferred Language: Ukrainian Communication Ability: Effective Hearing Ability: Use of Hearing Aid Load Tester Required: Yes and No Beliefs That Will Affect Care: None marital status: / Current Living Situation: Family Current Living Situation Comment: lives with son, [id number], 2 grandc sandip current occupational status: retired 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 Other Information That Helps Us Care for You: No Feels Safe at Home: Yes Childhood Exposure to Second-Hand Smoke: No Dental Care, Regularly: Yes Physical Activity Frequency: 3-4 Times per Week Seatbelt Use: always Sunscreen Use: Yes Assistive Devices: Cane Review of Systems Constitutional: no fever, no chills, no sweats, no body aches, no fatigue, no weakness and no weight loss Eyes: not seeing flashes and no tunnel vision Ear, Nose, Mouth, Throat: no nasal congestion, no facial pain and no sore throat Respiratory: + dyspnea; no cough and no wheezing Cardiovascular: + lightheadedness; no chest pain, no pal pitations, no syncope and no calf pain Gastrointestinal: no abdominal pain, no nausea, no vomiting, no constipation and no diarrhea/loose stools Genitourinary: no dysuria Musculoskeletal: no muscle weakness Neurologic: + headache(s) (Mild having above right e yebrow x 1 day); no falls, no tingling, no numbness, no dizziness and no syncope Physical Exam Constitutional: average body habitus; no acute distress Eyes: PERRL, conjunctivae normal, anicteric sclerae Respiratory: normal respiratory effort and able to speak in complete sentences; no labored breathing, no retractions, no cough and no audible wheezes Cardiovascular: RRR, no murmur, no edema Extremities: + edema (Trace pitting edema bilateral lower extremities mid calf to foot.); no calf tenderness Gastrointestinal (Abdomen): Inspection/Auscultation: abdomen normal to inspection and normal bowel sounds; no abdominal edema Skin: no rashes, warm and dry Neurologic: moves all extremities and awake; not confused Speech / Cognition: normal speech Motor/Sensory: normal movement Cranial Nerves: tongue midline, able to rotate head bilaterally, able to elevate shoulders bilaterally and no nystagmus Coordination: + abnormal [id number] test Results & Data Results & Data Vital Signs (Past 12 Hours) Vital Signs Temp Pulse Pulse Pulse Pulse Resp Resp 01/07/24 15:00 73 22 01/07/24 14:50 84 78 32 H 01/07/24 14:06 81 01/07/24 13:30 01/07/24 13:00 72 18 01/07/24 12:00 01/07/24 11:00 70 20 01/07/24 10:00 78 01/07/24 09:46 122 H 01/07/24 09:14 36.6 C 70 20 Resp BP BP Pulse Ox Pulse Ox Pulse Ox O2 Del Method 01/07/24 15:00 156/90 H 95 Room Air 01/07/24 14:50 30 H 94 95 Room Air 01/07/24 14:06 01/07/24 13:30 149/93 H 01/07/24 13:00 164/100 H 95 Room Air 01/07/24 12:00 200/98 H 01/07/24 11:00 172/97 H 94 Room Air 01/07/24 10:00 95 Room Air 01/07/24 09:46 01/07/24 09:14 147/83 H 95 Room Air Laboratory Results Abnormal lab results 01/07/24 01/07/24 01/07/24 Range/Units 09:30 10:10 12:49 RBC 4.01 L (4.20-5.40) M/uL MCV 103.5 H (80.0-100.0) fL MCH 34.2 H (25.0-34.0) pg RDW Std Deviation 54.4 H (36.4-46.3) fL Lymph # (Auto) 0.88 L (1.20-3.40) K/uL Fannin # (Auto) 0.84 H (0.11-0.59) K/uL Chloride 108 H (98-107) mmol/L BUN 26 H (6-23) mg/dl BUN/Creatinine Ratio 23.6 H (10-20) Glucose 105 H (70-99(Fasting)) mg/dl Troponin I High Sens 16.1 H 17.0 H (0-14) pg/ml B-Natriuretic Peptide 332 H (0-100) pg/ml Urine Appearance (Clear) Urine Glucose (UA) (Negative) Ur Leukocyte Esterase (Negative) Urine WBC (Auto) (0-5) /hpf Urine RBC (Auto) (0-2) /hpf U Hyaline Cast (Auto) (0-2) /lpf 01/07/24 Range/Units 12:57 RBC (4.20-5.40) M/uL MCV (80.0-100.0) fL MCH (25.0-34.0) pg RDW Std Deviation (36.4-46.3) fL Lymph # (Auto) (1.20-3.40) K/uL Fannin # (Auto) (0.11-0.59) K/uL Chloride (98-107) mmol/L BUN (6-23) mg/dl BUN/Creatinine Ratio (10-20) Glucose (70-99(Fasting)) mg/dl Troponin I High Sens (0-14) pg/ml B-Natriuretic Peptide (0-100) pg/ml Urine Appearance Cloudy A (Clear) Urine Glucose (UA) 3+ H (Negative) Ur Leukocyte Esterase 1+ H (Negative) Urine WBC (Auto) 6-10 H (0-5) /hpf Urine RBC (Auto) 6-10 H (0-2) /hpf U Hyaline Cast (Auto) 3-5 H (0-2) /lpf Diagnostic Findings Chest X-Ray 01/07/24 09:56 TWO VIEW CHEST CLINICAL HISTORY: Atypical chest pain. FINDINGS: PA and lateral chest radiographs are compared to study dated 12/25/2023. Correlation is made with chest CT dated 09/15/2018. A 3-lead cardiac pacemaker is unchanged in position and partially obscures the left mid chest. The heart is enlarged noting atherosclerotic calcification of the thoracic aorta. The pulmonary vasculature is noncongested. Chronic interstitial thickening is similar to previous. There is bibasilar scarring/atelectasis. Apical fibrosis is observed. No airspace consolidation or pleural effusion is identified. There is no pneumothorax. The skeletal structures are osteopenic. There is a chronic compression deformity in the midthoracic region. Degenerative change and hyperkyphosis is seen in the spine. IMPRESSION: 1. Cardiomegaly and cardiac pacemaker without radiographic evidence of congestive failure. 2. No airspace consolidation or pleural effusion is identified. ACT 112: Negative or not required by law. Electronically signed by: Larry Stewart M.D. 01/07/2024 10:[address] 01/07/24 14:55 CT SCAN OF THE BRAIN WITHOUT IV CONTRAST CLINICAL HISTORY: Dizziness. COMPARISON STUDY: CT of the brain dated 09/23/2019. TECHNIQUE: Unenhanced axial CT scan of the brain is performed from the vertex to the skull base. A dose lowering technique was utilized adhering to the principles of ALARA. The skull base was scanned twice due to motion artifact. CT DOSE: 1016.05 mGy.cm FINDINGS: Brain parenchyma: There is age-related involutional change noting moderate subcortical and periventricular microangiopathic disease. There is no hemorrhage, mass effect, or evidence of acute territorial ischemia by CT criteria. Flowers-white matter differentiation is preserved. No extra-axial fluid collection is seen. Ventricles, sulci, cisterns: Prominent secondary to involutional change. Intracranial vasculature: There is atherosclerotic calcification of the cavernous carotid and vertebral arteries. Calvarium: Unremarkable. Sinuses and mastoids: There is evidence of previous paranasal sinus surgery. There is mild mucosal thickening in the right maxillary antrum and the ethmoid sinuses. The mastoid air cells are well pneumatized. Orbits: The bony orbits are grossly intact. There are bilateral ocular lens implants. IMPRESSION: There is no hemorrhage, mass effect, or evidence of acute territorial ischemia by CT criteria. ACT 112: Negative or not required by law. Electronically signed by: Larry Stewart M.D. 01/07/2024 3:17 PM ECG Additional Comments: Test Reason : Blood Pressure : */* mmHG Vent. Rate : 70 BPM Atrial Rate : 220 BPM P-R Int : * ms QRS Dur : 122 ms QT Int : 432 ms P-R-T Axes : * 75 90 degrees QTcB Int : 466 ms Ventricular-paced rhythm Biventricular pacemaker detected Abnormal ECG When compared with ECG of 25-Dec-2023 13:52, No significant change was found Confirmed by Kumar Harrison ([id number]) on 01/07/2024 4:35:12 PM Referred By: REFERRED SELF Confirmed By: Kumar Harrison Code Status & VTE Plan Code Status DNR/DNI Supervising Physician Co-Signing Physician Notes I personally saw and examined the patient. I independently reviewed the labs, EKG, imaging, problem list, medication list, past medical history and family history. I verified all medina points and agree with Lucy Liz PA-C with the following exceptions and/or additions: 88 year old female presents to the ER with sudden onset shortness of breath. Currently she feels back to her baseline. Similar to prior occasion except on this occasion is was not associated O/E HS RRR, no murmurs, Chest CTAB, Abdo SNT A/P Hypertensive urgency, Acute on chronic HFpEF - Suspect we have just gone a little too far the other way since last admission as stopped lasix, spironolactone and losartan. Will restart just her lasix 20mg PO at this time and get orthostatics in AM. Mostly back to her baseline already however given brittle BP and dizziness with medication changes will admit overnight to make sure she is stable. PG Care Time/CCT Total # of Minutes Spent Total Time Spent with Patient: Total time spent is greater than 50% in coordination of care (as documented) at patient's floor/unit and/or counseling patient: Coding Level of Care Code None Diagnoses Shortness of breath R06.02 Acute on chronic heart failure with preserved ejection fraction (HFpEF) I50.33
[2024-01-07 23:05] LABS: Base Excess VBG 0.5 mEq/L; HCO3 VBG 25 mmol/L; PCO2 VBG 41 mmHg (38-50); PO2 VBG 43 mmHg
[2024-01-07] MEDS: APIXABAN 5 MG TABLET PO SCH (23:10)
[2024-01-07] MEDS: carvediloL 12.5 MG TAB PO SCH (23:10)
--- NOTE | 2024-01-08 07:46 | Hospitalist Progress Note ---
Date of Service January 08, 2024 Assessment & Plan (1) Shortness of breath: Plan: Pt presented to ED for SOB and lightheadedness starting this AM. Did not experience any chest pain or syncope. BP 180/102 at home, patient has not taken her morning medications, they were provided in ED. CXR cardiomegaly and cardiac pacemaker without radiographic evidence of congestive failure, no air space consolidations or pleural effusions identified. Not hypoxic, on room air. Was given her AM coreg, eliquis. One time lasix 20mg PO dose. Of note, BP at home 180/102 with nausea and stomach pain CT head negative given complaints of dizziness Ddimer NEGATIVE WBC wnl, no hypoxia Speech consulted for ?aspiration. Given lack of dysphagia complaints/negative CXR and no fever/sputum doubt having aspiration and is tolerating diet VBG without acute abn BNP was up slightly and given lasix 20mg PO on admission and given this morning but legs appear significantly improved if had swelling prior. Will hold further/monitor weights. Per CHF clinic, dry weight ~120lb Has pacemaker and hx afib but denies knowing when in this rhythm. EKG on admission paced. -Will check pacemaker interrogation given HR documented to 120s on arrival and also had elevatedh BP 180/102 and HR could have been contributing to SOB and BP w/ dizziness which is improved and stable at 161/70 at this time. Did have her lisinopril/spironolactone discontinued last admission for hyperkalemia ?underlying RICCI, can check overnight pulse ox/have outpt sleep study if needed Monitor exam on repeat, hopeful dc in AM if interrogation without issues/pulse ox without drops. (2) Acute on chronic heart failure with preserved ejection fraction (HFpEF): Plan: Patient with history of HFpEF; echo 12/26/23 EF 60 to 65%, aortic stenosis; heart failure visit 01/03, euvolemic, on carvedilol and Jardiance. Recently had spironolactone/lisinopril discontinued given hyperkalemia BNP 332 on admission, troponin 16.1-> 17 trending but no chest pain; EKG rate 70s no signs of ischemia, biventricular paced rhythm. Continue carvedilol 12.5 mg twice daily, given now dose on admission as missed that dose Lasix 20mg PO daily ordered, given this morning but weights appear down and no significant swelling and only takes PRN and dry weight ~120lb as above Continue Jardiance, ?check orthostatic VS if issues recur but feeling well Monitor weights, I&Os and volume status (3) Permanent atrial fibrillation: Plan: noted, s/p AV ablation, pacemaker in place. K stable at 4.0 since dc her prior lisinopril/spironolactone. Mag 1.9 and ordered 1gm IV to keep closer to 2 continues coreg BID, eliquis BID interrogation as ordered to see if any issues, consult for cards if needed (4) Biventricular cardiac pacemaker in situ: Plan: as above (5) Hypertension: Plan: Elevated on admission but missed her dose carvedilol. As above, ?having elevated HR/afib. Coreg x 1 on admission, continues BID Pacemaker interrogation as ordered Lasix 20mg PO this morning but will need to monitor given recent dc 2 agents as above to see if needing any additional BP control Plan Dispo: continued inpatient stay, pacemaker interrogation/overnight pulse ox. hopeful dc AM 01/08 Admission and Anticipated Discharge Date Admission Date: January 07, 2024 Supervising Physician Co-Signing Physician Notes The patient was not seen by me. The chart was reviewed. Case discussed with HELENA Carey. Agree with assessment and plan Subjective Eval this moring, resting in bed. Reports feeling better, no urther SOB. Was given lasix on admission and repeat home dose this morning. No further lightheadedness. Discussed pacemaker interrogation w/ her underlying afib. She reports she never knew when in arrhythmia in the past and will see if any abn occurring during time of reported symptoms. Weight back to baseline and will hold off further lasix for now and monitor weight. She denies hx RICCI but does have daytime sleepiness/can fall asleep quickly watching TV but no reports of snoring and could consider overnight pulse ox. Not overly anxious for dc as doesn't want to come back but will discuss with Dr Reyna and if no issues with pacemaker interrogation could potentially consider dc later today as HR documented up to 120s on admission. Physical Exam 2 Physical Exam: General: 88yo female, frail appearing but NAD sitting in bed Head atraumatic, normocephalic, mmm, trachea midline Resp even/unlabored, no w/c/r, on room air 94% CV: pacemaker to chest noted, rhythm appears regular, faint systolic murmur, trace pedal edema, nonpitting, pulses present GI: +BS, soft/NT ; no harp MSK/Neuro: non focal, no slurred speech/facial droop, answering questions appropriately Psych: AOx3, cooperative with exam Results & Data Results & Data Vital Signs (Past 12 Hours) Vital Signs Temp Pulse Pulse Resp BP BP Pulse Ox 01/08/24 07:16 36.8 C 76 16 161/70 H 94 01/07/24 22:04 01/07/24 22:04 36.8 C 70 16 136/72 94 01/07/24 20:44 73 18 162/90 H 96 01/07/24 20:00 69 22 162/85 H 95 O2 Del Method 01/08/24 07:16 Room Air 01/07/24 22:04 Room Air 01/07/24 22:04 Room Air 01/07/24 20:44 Room Air 01/07/24 20:00 Laboratory Results 01/08/24 07:27 01/08/24 07:27 Mag 1.9 Diagnostic Findings Chest X-Ray 01/07/24 09:56 TWO VIEW CHEST CLINICAL HISTORY: Atypical chest pain. FINDINGS: PA and lateral chest radiographs are compared to study dated 12/25/2023. Correlation is made with chest CT dated 09/15/2018. A 3-lead cardiac pacemaker is unchanged in position and partially obscures the left mid chest. The heart is enlarged noting atherosclerotic calcification of the thoracic aorta. The pulmonary vasculature is noncongested. Chronic interstitial thickening is similar to previous. There is bibasilar scarring/atelectasis. Apical fibrosis is observed. No airspace consolidation or pleural effusion is identified. There is no pneumothorax. The skeletal structures are osteopenic. There is a chronic compression deformity in the midthoracic region. Degenerative change and hyperkyphosis is seen in the spine. IMPRESSION: 1. Cardiomegaly and cardiac pacemaker without radiographic evidence of congestive failure. 2. No airspace consolidation or pleural effusion is identified. ACT 112: Negative or not required by law. Electronically signed by: Larry Stewart M.D. 01/07/2024 10:[address] 01/07/24 14:55 CT SCAN OF THE BRAIN WITHOUT IV CONTRAST CLINICAL HISTORY: Dizziness. COMPARISON STUDY: CT of the brain dated 09/23/2019. TECHNIQUE: Unenhanced axial CT scan of the brain is performed from the vertex to the skull base. A dose lowering technique was utilized adhering to the principles of ALARA. The skull base was scanned twice due to motion artifact. CT DOSE: 1016.05 mGy.cm FINDINGS: Brain parenchyma: There is age-related involutional change noting moderate subcortical and periventricular microangiopathic disease. There is no hemorrhage, mass effect, or evidence of acute territorial ischemia by CT criteria. Flowers-white matter differentiation is preserved. No extra-axial fluid collection is seen. Ventricles, sulci, cisterns: Prominent secondary to involutional change. Intracranial vasculature: There is atherosclerotic calcification of the cavernous carotid and vertebral arteries. Calvarium: Unremarkable. Sinuses and mastoids: There is evidence of previous paranasal sinus surgery. There is mild mucosal thickening in the right maxillary antrum and the ethmoid sinuses. The mastoid air cells are well pneumatized. Orbits: The bony orbits are grossly intact. There are bilateral ocular lens implants. IMPRESSION: There is no hemorrhage, mass effect, or evidence of acute territorial ischemia by CT criteria. ACT 112: Negative or not required by law. Electronically signed by: Larry Stewart M.D. 01/07/2024 3:17 PM PG Care Time/CCT Total # of Minutes Spent Total Time Spent with Patient: Total time spent is greater than 50% in coordination of care (as documented) at patient's floor/unit and/or counseling patient: Coding Level of Care Code 64015 SUB INP/OBS CARE 3/50MIN Diagnoses Shortness of breath R06.02 Acute on chronic heart failure with preserved ejection fraction (HFpEF) I50.33 Permanent atrial fibrillation I48.21 Biventricular cardiac pacemaker in situ Z95.0 Hypertension I15.9 Hypertension type: unspecified secondary hypertension (5) Hypertension Hypertension type: unspecified secondary hypertension Qualified Code(s): I 15.9 - Secondary hypertension, unspecified
[2024-01-08 07:58] LABS: Hematocrit (blood only) 39.7 % (37.0-47.0); Hemoglobin 13.5 g/dl (12.0-16.0); Mean Corpuscular Hemoglobin 34.7 pg (25.0-34.0); Mean Corpuscular Volume 102.1 fL (80.0-100.0); Mean Platelet Volume 10.2 fL (9.4-12.4); Platelet Count 255 K/uL (130-400); RDW Coefficient of Variation 14.4 % (11.5-14.5); Red Blood Count 3.89 M/uL (4.20-5.40); White Blood Count 4.78 K/ul (4.8-10.8)
[2024-01-08 08:12] LABS: Calcium 8.8 mg/dl (8.6-10.3); Creatinine Clr Calc Pharmacy 25.3 ml/min; Magnesium 1.9 mg/dl (1.7-2.4)
[2024-01-08] MEDS: FUROSEMIDE 20 MG TAB PO SCH (08:48)
[2024-01-08] MEDS: EMPAGLIFLOZIN 10 MG TAB PO SCH (08:49)
[2024-01-08] MEDS: MAGNESIUM SULFATE / D5W 1 GM/100 ML BAG IV ONE (09:06)
[2024-01-08] MEDS: PNEUMOCOCCAL VACCINE (PCV20) 20-VAL CONJ-DIP CRM/PF 0.5 ML SYR IM ONE (15:35)
[2024-01-08] MEDS: INFLUENZA VACC TS2024-25(65y+)/PF (IIV3) 0.5mL Syr IM ONE (15:38)
[2024-01-08 18:28] LABS: Appearance Urine Clear (Clear); Bacteria Urine Automated None Seen (None Seen); Bilirubin Urine Negative (Negative); Blood Urine Negative (Negative); Color Urine Yellow; Epithelial Cell Urine Auto 0-2 /hpf (0-2); Glucose Urine UA 2+ (Negative); Ketones Urine Negative (Negative); Leukocyte Esterase Urine 1+ (Negative); Nitrite Urine Negative (Negative); Protein Urine Negative (Negative); RBC Urine Automated 0-2 /hpf (0-2); Specific Gravity Urine 1.016 (1.000-1.030); Urobilinogen Urine Negative (Negative); WBC Urine Automated 0-5 /hpf (0-5)
[2024-01-08] MEDS: ACETAMINOPHEN 500 MG TAB PO ONE (20:31)
[2024-01-09] MEDS: MELATONIN 3 MG TAB PO PRN (01:55)
[2024-01-09] MEDS: DICLOFENAC SOD 1% GEL 100 GM TUBE EXT PRN (02:15)
[2024-01-09 08:01] LABS: Basophils # (auto) 0.05 K/uL (0.00-0.20); Basophils % (auto) 0.9 %; Eosinophils # (auto) 0.16 K/uL (0.00-0.50); Eosinophils % (auto) 2.9 %; Hematocrit (blood only) 37.6 % (37.0-47.0); Hemoglobin 12.9 g/dl (12.0-16.0); Immature Granulocytes # (auto) 0.02 K/uL (0.01-0.20); Immature Granulocytes % (auto) 0.4 %; Lymphocytes # (auto) 0.98 K/uL (1.20-3.40); Lymphocytes % (auto) 17.9 %; Mean Corpuscular Hemoglobin 34.8 pg (25.0-34.0); Mean Corpuscular Hgb Conc 34.3 g/dL (32.0-36.0); Mean Corpuscular Volume 101.3 fL (80.0-100.0); Mean Platelet Volume 10.2 fL (9.4-12.4); Monocytes # (auto) 0.94 K/uL (0.11-0.59); Monocytes % (auto) 17.1 %; Neutrophils # (auto) 3.34 K/uL (1.40-6.50); Neutrophils % (auto) 60.8 %; Platelet Count 247 K/uL (130-400); RDW Coefficient of Variation 14.2 % (11.5-14.5); RDW Standard Deviation 52.6 fL (36.4-46.3); Red Blood Count 3.71 M/uL (4.20-5.40); White Blood Count 5.49 K/ul (4.8-10.8)
--- NOTE | 2024-01-09 08:08 | Hospitalist Progress Note ---
Date of Service January 09, 2024 Assessment & Plan (1) Shortness of breath: Plan: Pt presented to ED for SOB and lightheadedness starting this AM. Did not experience any chest pain or syncope. BP 180/102 at home, patient has not taken her morning medications, they were provided in ED. CXR cardiomegaly and cardiac pacemaker without radiographic evidence of congestive failure, no air space consolidations or pleural effusions identified. Not hypoxic, on room air. Was given her AM coreg, eliquis. One time lasix 20mg PO dose. Of note, BP at home 180/102 with nausea and stomach pain CT head negative given complaints of dizziness Ddimer NEGATIVE WBC wnl, no hypoxia Speech consulted for ?aspiration. Given lack of dysphagia complaints/negative CXR and no fever/sputum doubt having aspiration and is tolerating diet VBG without acute abn BNP was up slightly and given lasix 20mg PO on admission and given AM 01/07 but legs appear significantly improved if had swelling prior and placed further diuretics on HOLD Has pacemaker and hx afib but denies knowing when in this rhythm. EKG on admission paced. Interrogation not noting any significant arrhythmia/issue to explain such 01/08 BP 148/88 this morning, 95% on RA. No SOB reported and placed LASIX ON HOLD, weight 119lb (dry weight 120lb) Cr ELEVATED to 1.7 - continue to hold lasix, PO hydration encouraged BP 148/88, added 5mg amlodipine for BP control. Remains on Coreg BID (recent dc spironolactone/lisinopril given hyperK last admission) Renal US in Sept w/ nonobstructing bilateral nephrolithiasis without hydro, urinary bladder wall thickening with partial distension, bilateral renal cysts. Req for tylenol and ordered but also ordered lidocaine patch. ?related to stone/UTI. Urine cx sent - given UA + for leuk est/WBC but no bacteria given back pain (although reports chronic) to ensure not having underlying UTI contributing ?jardiance causing hypovolemia Orthostatic VS variable but improved but checked AM CORTISOL given prior issues with orthostasis/orthostatic hypotension and LOW at 2.5 -->- Placing on hydrocortisone 10mg qam, 5mg pm (first dose 5mg for this afternoon and will start 10mg for morning) and monitor repeat vital signs. Will need outpt f/u endocrinology PT/OT evals pending, possible dc 01/09 pending response to hydrocortisone/repeat orthostatic VS (2) Adrenal insufficiency: Plan: Given ongoing issues with orthostasis/orthostatic hypotension and recent discontinuation of 2 BP medications w/ spironolactone/lisinopril for hyperkalemia last admission checked AM cortisol for completeness Notable cortisol AM LOW 2.5, starting HYDROCORTISONE 10mg qam/5mg afternoon Monitor response to tx- will need to arrange outpatient follow up (3) Acute on chronic heart failure with preserved ejection fraction (HFpEF): Plan: Patient with history of HFpEF; echo 12/26/23 EF 60 to 65%, aortic stenosis; heart failure visit 01/03, euvolemic, on carvedilol and Jardiance. Recently had spironolactone/lisinopril discontinued given hyperkalemia BNP 332 on admission, troponin 16.1-> 17 trending but no chest pain; EKG rate 70s no signs of ischemia, biventricular paced rhythm. Continue COREG 12.5mg BID Lasix 20mg PO provided x 1 on admission, placed on daily dosing and given dose 01/07 prior to eval and weight already improved and currently to 119lb with dry weight ~120lb and holding further lasix at this time Appears DRY on exam 01/08 and was already given Jardiance this morning but ?issues w/ hypovolemia/renal impairment and placing on hold for now and again holding further lasix given NISREEN w/ Cr to 1.7 (?having drops in BP w/ cortisol as above) and monitor urine cx and encouraged to push PO fluids for now. Monitor standing scale weights/volume status on repeat eval to see if needing low dose lasix with start hydrocortisone for #2 (4) Permanent atrial fibrillation: Plan: noted, s/p AV ablation, pacemaker in place. K not elevated at 4.1 since dc her lisinopril/spironolactone last admission. Was given 1gm IV mag 01/07 to keep closer to 2 and 2.2 on AM labs Remains on Coreg BID, Eliquis BID. Interrogation without issues and no palpitations reported (but never knew when in in the past) (5) Biventricular cardiac pacemaker in situ: Plan: as above (6) Hypertension: Plan: Elevated on admission but missed her dose carvedilol and was provided Added amlodipine 5mg daily and no increased LE edema but will monitor as holding lasix to see if any additional need to prevent HTN urgency as possible cause for volume overload Plan Dispo: continued inpatient stay, starting hydrocortisone for low cortisol, monitor repeat orthostatic VS/exam PT eval to ensure no needs at dc Hopeful dc 01/09 Admission and Anticipated Discharge Date Admission Date: January 07, 2024 Supervising Physician Co-Signing Physician Notes The patient was not seen by me. The chart was reviewed. Case discussed with HELENA Carey. Agree with assessment and plan Subjective Evaluated this morning , sitting up in bed, requesting Tylenol for chronic back pain. Does have some paraspinal muscle tenderness. Will order lidocaine patch, Tylenol. Weight down, avoiding further Lasix. Discussed Jardiance may be beneficial to hold for now, no hx DM and could be contributing to hypovolemia/impaired renal function but need for better BP control and adding amlodipine and will monitor. No issues with urination/yeast infections or frequent UTIs but does have glycosuria on UA. Cx being sent. She is agreeable to monitor with adjustments to ensure no issues/need for readmission. No fever/chills, chest pain, shortness of breath, abdominal pain or nausea at this time. Questions/concerns addressed. Results & Data Results & Data Vital Signs (Past 12 Hours) Vital Signs Temp Pulse Pulse Resp BP BP Pulse Ox 01/09/24 07:11 36.6 C 69 16 148/88 H 95 01/09/24 02:51 68 01/09/24 00:14 70 01/08/24 23:21 36.7 C 69 18 119/76 96 01/08/24 22:11 69 01/08/24 21:03 36.7 C 70 16 101/65 95 01/08/24 20:47 Pulse Ox O2 Del Method O2 Del Method 01/09/24 07:11 Room Air 01/09/24 02:51 96 Room Air 01/09/24 00:14 91 Room Air 01/08/24 23:21 Room Air 01/08/24 22:11 96 Room Air 01/08/24 21:03 Room Air 01/08/24 20:47 Room Air PG Care Time/CCT Total # of Minutes Spent Total Time Spent with Patient: Total time spent is greater than 50% in coordination of care (as documented) at patient's floor/unit and/or counseling patient: Coding Level of Care Code 68887 SUB INP/OBS CARE 3/50MIN Diagnoses Shortness of breath R06.02 Adrenal insufficiency E27.40 Acute on chronic heart failure with preserved ejection fraction (HFpEF) I50.33 Permanent atrial fibrillation I48.21 Biventricular cardiac pacemaker in situ Z95.0 Hypertension I15.9 Hypertension type: unspecified secondary hypertension (6) Hypertension Hypertension type: unspecified secondary hypertension Qualified Code(s): I15.9 - Secondary hypertension, unspecified
[2024-01-09 08:39] LABS: BUN Creatinine Ratio 28.2 (10-20); Calcium 8.8 mg/dl (8.6-10.3); Creatinine Clr Calc Pharmacy 19.6 ml/min; Magnesium 2.2 mg/dl (1.7-2.4); Potassium 4.1 mmol/L (3.5-5.1)
[2024-01-09] MEDS: ACETAMINOPHEN 500 MG TAB PO PRN (09:39)
[2024-01-09] MEDS: amLODIPine BESYLATE 5 MG TAB PO SCH (10:28)
[2024-01-09] MEDS: LIDOCAINE 5% 1 PATCH TD SCH (12:33)
[2024-01-09] MEDS: HYDROCORTISONE 10 MG TAB PO SCH (15:57)
[2024-01-10 07:46] VITALS: RESP 16
[2024-01-10 07:46] LABS: BUN Creatinine Ratio 36.1 (10-20); Calcium 8.7 mg/dl (8.6-10.3); Creatinine Clr Calc Pharmacy 25.1 ml/min; Magnesium 2.1 mg/dl (1.7-2.4); Potassium 4.2 mmol/L (3.5-5.1)
--- NOTE | 2024-01-10 08:42 | Hospitalist Progress Note ---
Date of Service January 10, 2024 Assessment & Plan (1) Shortness of breath: Plan: Pt presented to ED for SOB and lightheadedness starting this AM. Did not experience any chest pain or syncope. BP 180/102 at home, patient has not taken her morning medications, they were provided in ED. CXR cardiomegaly and cardiac pacemaker without radiographic evidence of congestive failure, no air space consolidations or pleural effusions identified. Not hypoxic, on room air. Renal US in Sept w/ nonobstructing bilateral nephrolithiasis without hydro, urinary bladder wall thickening with partial distension, bilateral renal cysts. Was given her AM coreg, eliquis. One time lasix 20mg PO dose. Of note, BP at home 180/102 with nausea and stomach pain CT head negative given complaints of dizziness Ddimer NEGATIVE WBC wnl, no hypoxia Speech consulted for ?aspiration. Given lack of dysphagia complaints/negative CXR and no fever/sputum doubt having aspiration and is tolerating diet VBG without acute abn Pacemaker interrogation without acute arrhythmia contributing BNP was up slightly and given lasix 20mg PO on admission and given AM 01/07 but legs appear significantly improved if had swelling prior and placed further diuretics on HOLD. Remains on Coreg BID for rate control Cr 1.7 following additional lasix on 01/07 and weight down to 119 but encouraged PO intake to prevent IVF and continued with lasix on hold Jardiance placed on hold to prevent hypovolemia --UA w/ WBC/leuk esterase but no bacteria, sent for urine cx -- pending. No dysuria/leukocytosis/fevers to report however but ?related to renal insufficiency Given significant variability with blood pressures/prior orthostasis and continued orthostasis following discontinuation of spironolactone/lisinopril (also for hyperkalemia) along with her dizziness/lightheadedness and low blood pressures and review prior presentation with SOB on exertion in setting of hypotension with resolution without medical intervention and BPs 94/60, 120/63 and 153/81 with additional reports again of difficulty getting up due to SOB/dizziness--> checked CORTISOL LEVEL to eval for underlying adrenal insufficiency. ?if prior NISREEN from additional lasix vs hypotension/perfusion to kidneys w/ + orthostatic vs, likely from adrenal insufficiency Cortisol LEVEL LOW 2.5. Orthostatic VS + 10/5 PM Placing on HYDROCORTISONE 10mg QAM, 5mg afternoon. Monitor repeat orthostatic VS with treatment. Will need endocrinology f/u at dc Weight ~120lb today, trace pedal edema but decreased amlodipine to 2.5mg as was new medication and placing on hold for AM and will monitor BP w/ tx. Monitor for lasix needs in AM pending weights. Appears euvolemic on exam today, Cr back to 1.3 from 1.7 PT/OT consults pending, possible dc 01/10 with endocrinology f/u (2) Adrenal insufficiency: Plan: Given ongoing issues with orthostasis/orthostatic hypotension and recent discontinuation of 2 BP medications w/ spironolactone/lisinopril for hyperkalemia last admission checked AM cortisol for completeness Notable cortisol AM LOW 2.5, starting HYDROCORTISONE 10mg qam/5mg afternoon Orthostatic VS IMPROVING and will monitor volume status/monitor for lasix prn if needed. PT/OT evals pending. Will need outpt f/u endocrinology (3) Acute on chronic heart failure with preserved ejection fraction (HFpEF): Plan: Patient with history of HFpEF; echo 12/26/23 EF 60 to 65%, aortic stenosis; heart failure visit 01/03, euvolemic, on carvedilol and Jardiance. Recently had spironolactone/lisinopril discontinued given hyperkalemia BNP 332 on admission Troponin 16.1-> 17 trending but no chest pain; EKG rate 70s no signs of ischemia, biventricular paced rhythm. Continues on COREG 12.5mg BID Lasxi 20mg PO on admission, placed on daily however weight down to 119lb on 01/08 and suspect due to over diuresis as given AM lasix and weight already to 120 on 01/07. DRY on exam 01/08 with NISREEN and Cr to 1.7 Jardiance placed on HOLD, lasix remaining on hold Cr 1.7-> 1.3, weight ~120lb and does not appear volume overloaded and will continue to hold for now. F/u urine cx as above Monitor weight/I&O on repeat exam Outpt f/u CHF clinic recommended (4) Permanent atrial fibrillation: Plan: noted, s/p AV ablation, pacemaker in place. K not elevated, currently 4.2. Recent dx spironolactone/lisinopril last admission. Mag stable 2.1 Remains on Coreg BID, Eliquis BID. Interrogation without issues and no palpitations reported (but never knew when in in the past) (5) Biventricular cardiac pacemaker in situ: Plan: as above (6) Hypertension: Plan: Elevated on admission but missed her dose carvedilol and was provided Added amlodipine 5mg daily and no increased LE edema but now w/ trace and decreased/holding as above but improvment in orthostatic VS w/ hydrocortisone and will continue/monitor Likely dc on Coreg BID alone but will continue to monitor orthostatic VS Plan Dispo: continued inpatient stay, starting hydrocortisone for low cortisol, monitor repeat orthostatic VS/exam with improvement and monitoring overnight with therapy evals and if orthostatic VS staying stable with stable weight/no symptoms of SOB/dizziness can plan for dc 01/10 with outpatient endocrinology follow up as well as CHF clinic Admission and Anticipated Discharge Date Admission Date: January 07, 2024 Supervising Physician Co-Signing Physician Notes The patient was not seen by me. The chart was reviewed. Case discussed with HELENA Carey. Agree with assessment and plan Subjective Evaluated this morning, discussed low cortisol level and suspect cause for her orthostatic hypotension. renal function improved today, lasix on hold and LE edema not significant/weights to 120lb which is her dry weight. did reduce amlodipine this morning but likely able to discontinue as started hydrocortisone for adrenal insufficiency and discussed would like to arrange for endocrinology follow up at [facility] if orthostatic VS improved/stable since starting. No fever/chills, chest pain, shortness of breath today. Questions/concerns addressed at this time. Physical Exam 2 Physical Exam: General: 88yo female, frail appearing but NAD sitting in bed reading the paper, appears LESS fatigued appearing today Head atraumatic, normocephalic, mmm, trachea midline Resp even/unlabored, no w/c/r, on room air 95% CV: pacemaker to chest noted, rhythm appears regular, faint systolic murmur, trace pedal edema, nonpitting, pulses present GI: +BS, soft/NT ; no harp MSK/Neuro: non focal, no slurred speech/facial droop, answering questions appropriately Psych: AOx3, cooperative with exam Results & Data Results & Data Vital Signs (Past 12 Hours) Vital Signs Temp Pulse Resp BP BP Pulse Ox O2 Del Method 01/10/24 07:45 36.7 C 67 16 144/85 H 95 Room Air 01/09/24 20:15 Room Air 01/09/24 19:32 36.5 C 70 18 125/73 96 Room Air 01/09/24 15:33 36.9 C 81 16 119/71 96 Room Air Intake and Output 01/09/24 01/10/24 01/10/24 22:59 06:59 14:59 Other: Weight 54.8 kg Weight Measurement Method Standing Scale Laboratory Results 01/09/24 07:03 01/10/24 06:27 Mag 2.1 Cortisol 2.5 PG Care Time/CCT Total # of Minutes Spent Total Time Spent with Patient: Total time spent is greater than 50% in coordination of care (as documented) at patient's floor/unit and/or counseling patient: Coding Level of Care Code 51648 SUB INP/OBS CARE 3/50MIN Diagnoses Shortness of breath R06.02 Adrenal insufficiency E27.40 Acute on chronic heart failure with preserved ejection fraction (HFpEF) I50.33 Permanent atrial fibrillation I48.21 Biventricular cardiac pacemaker in situ Z95.0 Hypertension I15.9 Hypertension type: unspecified secondary hypertension (6) Hypertension Hypertension type: unspecified secondary hypertension Qualified Code(s): I 15.9 - Secondary hypertension, unspecified
[2024-01-10] MEDS: amLODIPine BESYLATE 5 MG TAB PO SCH (08:44)
[2024-01-10] MEDS: HYDROCORTISONE 10 MG TAB PO SCH (10:06)
--- NOTE | 2024-01-10 11:47 | Billing Data ---
Date of Service January 07, 2024 Coding Level of Care Code 41714 INT INP/OBS CARE
[2024-01-11 06:41] LABS: BUN Creatinine Ratio 32.2 (10-20); Creatinine Clr Calc Pharmacy 22.4 ml/min; Magnesium 2.2 mg/dl (1.7-2.4); Potassium 4.4 mmol/L (3.5-5.1)
--- NOTE | 2024-01-11 08:24 | Hospitalist Progress Note ---
Date of Service January 11, 2024 Assessment & Plan (1) Adrenal insufficiency: Plan: Suspected given ongoing issues with orthostatic hypotension/symptoms on admission Checked cortisol --> LOW at 2.5 asa above and hydrocortisone started 10mg qam/5mg pm with IMPROVEMENT in orthostatic VS however again positive following lasix this morning/appears slightly dry on exam and holding further diuretics/monitoring orthostatic VS. Outpt f/u endocrinology (2) Acute on chronic heart failure with preserved ejection fraction (HFpEF): Plan: Patient with history of HFpEF; echo 12/26/23 EF 60 to 65%, aortic stenosis; Heart failure visit 01/03, euvolemic, on carvedilol and Jardiance. Recent dc spironolactone/VIANEY 2nd to hyperkalemia. Trop 16.1--17, no CP and suspect demand ischemia from BP/dehydration/orthostatic hypotension. EKG rate 70s no signs of ischemia, biventricular paced rhythm. Pacemaker interrogation without abn Dry weight ~120lb, trigger weight 125lb (Wt 122lb on admission) Lasix provided, developed NISREEN and placed on hold and Cr improved 1.7--> 1.3 BNP improved despite weights UP in system with start hydrocortisone to 122lb and lasix 20mg PO x 1 provided this morning but dry on exam and holding further scheduled for now & would AVOID further lasix unless developing pulm edema/hypoxia unless >125lb to prevent NISREEN/dehydration Jardiance reamins on hold until urine cx final ?interstitial nephritis. Has been elevated Cr since having been placed on this summer, no excluded Monitor repeat volume status with diuretics on hold/encouraged PO intake Monitoring orthostatic VS w/ hydrocortisone Continue Coreg BID and rates stable/paced. CHF f/u at dc (3) Shortness of breath: Plan: On admission, presented to ED for SOB and lightheadedness starting that morning, no CP/syncope but did have elevated BP 180/102 at home and hadn't taken AM medications. CXR cardiomegaly, no evidence for CHF/consolidations. No hypoxia, on room air BNP was up and was given her AM coreg, eliquis & lasix 20mg PO dose with resolution in symptoms similar to prior but req admission for ongoing management/monitoring CT head negative given complaints of dizziness. Ddimer negative. WBC wnl, no hypoxia. VBG without acute abn Pacemaker interrogation without acute arrhythmia contributing Review of chart with repeat hospitalizations/ER visits with ongoing issues with orthostatic hypotension and cortisol checked as below and LOW -- suspect could be contributing to symptoms on admission and improvement once starting and looked well yesterday but having some issues following lasix this morning which was resumed for weight but avoiding further and suspect orthostasis from suspected adrenal insufficiency contributing (4) Permanent atrial fibrillation: Plan: noted, s/p AV ablation, pacemaker in place. Interrogation without abx Mag/K stable Continue coreg, eliquis. (5) Biventricular cardiac pacemaker in situ: Plan: as above (6) Hypertension: Plan: Elevated on admission, coreg given/missed AM dose Added amlodipine for BP control to see if contributing however low cortisol as above/discontinuing further given + orthostatic VS and hydrocortisone started/continued Monitor BP/adjustment as needed Plan Plan: HOLD Lasix for now, push PO fluids and monitor orthostatic VS with hydrocortisone. Endocrinology follow up to be arranged at discharge. If stable orthostatic VS with improvement in renal function/no growth on urine cx can resume Jardiance (close monitoring renal function as discussed) but would avoid lasix unless weights >125lb or develops edema/hypoxia requiring diuretics PT/OT cleared for HH, hopeful dc 01/11 Admission and Anticipated Discharge Date Admission Date: January 10, 2024 Subjective Evaluated this morning, was given lasix prior to eval, does endorse some nausea/lightheadedness coming back from the bathroom. Given crackers but will monitor for zofran if needed. Discussed holding further lasix. Urine cx pin point growth/reincubating and discussed jardiance on hold for now. Denies urinary symptoms at this time but discussed given symptoms/further adjustments to medications does not feel safe going home today and will monitor w/ hydrocortisone/holding lasix. Encouraged to push oral hydration, LE edema not significant on exam and on room air. No CP/fever/chills. Reports has been on gabapentin at night for some time, has not gotten/not new medication. Will resume to ensure not clouding picture but discussed can cause orthostatic Hypotension and will monitor repeat orthostatic VS Qshift. Questions/concerns addressed at this time. Physical Exam Physical Exam: General: 88yo female, frail appearing but NAD sitting in bed, fatigued appearing/slightly dehydrated with slightly dry mm Head atraumatic, normocephalic, mm slightly dry, trachea midline Resp even/unlabored, no w/c/r, on room air 94% CV: pacemaker to chest noted, rhythm appears regular, faint systolic murmur, trace pedal edema, nonpitting, pulses present GI: +BS, soft/NT ; no harp MSK/Neuro: non focal, no slurred speech/facial droop, answering questions appropriately Psych: AOx3, cooperative with exam Results & Data Results & Data Vital Signs (Past 12 Hours) Vital Signs Temp Pulse Resp BP BP Pulse Ox O2 Del Method 01/11/24 07:23 36.5 C 68 16 147/83 H 94 Room Air 01/10/24 21:04 36.7 C 69 16 112/73 95 Room Air 01/10/24 20:55 Room Air Laboratory Results 01/11/24 01/11/24 01/10/24 Range/Units 07:39 05:59 20:12 Sodium 139 (136-145) mmol/L Potassium 4.4 (3.5-5.1) mmol/L Chloride 107 (98-107) mmol/L Carbon Dioxide 26 (21-32) mmol/L Anion Gap 6 (3-11) BUN 48 H (6-23) mg/dl Creatinine 1.49 H (0.6-1.2) mg/dl Est Cr Clr Drug Dosing 22.4 ml/min eGFR 34.00 BUN/Creatinine Ratio 32.2 H (10-20) Glucose 98 (70-99(Fasting)) mg/dl POC Glucose 88 137 H (70-99) mg/dl Calcium 9.0 (8.6-10.3) mg/dl Magnesium 2.2 (1.7-2.4) mg/dl B-Natriuretic Peptide 253 H (0-100) pg/ml 01/10/24 01/10/24 Range/Units 16:36 11:45 Sodium (136-145) mmol/L Potassium (3.5-5.1) mmol/L Chloride (98-107) mmol/L Carbon Dioxide (21-32) mmol/L Anion Gap (3-11) BUN (6-23) mg/dl Creatinine (0.6-1.2) mg/dl Est Cr Clr Drug Dosing ml/min eGFR BUN/Creatinine Ratio (10-20) Glucose (70-99(Fasting)) mg/dl POC Glucose 129 H 129 H (70-99) mg/dl Calcium (8.6-10.3) mg/dl Magnesium (1.7-2.4) mg/dl B-Natriuretic Peptide (0-100) pg/ml PG Care Time/CCT Total # of Minutes Spent Total Time Spent with Patient: Total time spent is greater than 50% in coordination of care (as documented) at patient's floor/unit and/or counseling patient: Coding Level of Care Code 72543 SUB INP/OBS CARE 3/50MIN Diagnoses Adrenal insufficiency E27.40 Acute on chronic heart failure with preserved ejection fraction (HFpEF) I50.33 Shortness of breath R06.02 Permanent atrial fibrillation I48.21 Biventricular cardiac pacemaker in situ Z95.0 Hypertension I15.9 Hypertension type: unspecified secondary hypertension (6) Hypertension Hypertension type: unspecified secondary hypertension Qualified Code(s): I15.9 - Secondary hypertension, unspecified
[2024-01-11] MEDS ORDERED: ONDANSETRON INJ 2 MG/ML 2 ML VIAL IV PRN (10:24)
[2024-01-11] MEDS: GABAPENTIN 100 MG CAP PO SCH (20:18)
[2024-01-11 20:21] VITALS: O2SAT 95
[2024-01-12 07:11] VITALS: BP 149/98; PULSE 76; TEMP 97.5
[2024-01-12 07:47] LABS: BUN Creatinine Ratio 31.8 (10-20); Calcium 8.8 mg/dl (8.6-10.3); Creatinine Clr Calc Pharmacy 22.1 ml/min; Potassium 4.4 mmol/L (3.5-5.1)
--- NOTE | 2024-01-12 13:32 | Discharge Summary ---
Discharge Summary Date of Service January 12, 2024 Principal Dx & Hospital Course #1 = Principal Diagnosis (1) Adrenal insufficiency: Suspected given ongoing issues with orthostatic hypotension/symptoms on admission Checked cortisol --> LOW at 2.5 - hydrocortisone started 10mg QAM/5mg QPM with IMPROVEMENT in orthostatic VS h Recommend outpatient f/u endocrinology (2) Acute on chronic heart failure with preserved ejection fraction (HFpEF): Patient with history of HFpEF; echo 12/26/23 EF 60 to 65%, aortic stenosis; Heart failure visit 01/03, euvolemic, on carvedilol and Jardiance. Recent dc spironolactone/VIANEY 2nd to hyperkalemia. Trop 16.1--17, no CP and suspect demand ischemia from BP/dehydration/orthostatic hypotension. EKG rate 70s no signs of ischemia, biventricular paced rhythm. Pacemaker interrogation without abn Dry weight ~120lb, trigger weight 125lb (Wt 122lb on admission) Lasix provided, developed NISREEN and placed on hold and Cr improved 1.7--> 1.3 BNP improved despite weights UP in system with start hydrocortisone to 122lb & would AVOID further lasix unless developing pulm edema/hypoxia unless >125lb to prevent NISREEN/dehydration Urine culture negative. Jardiance resumed ?interstitial nephritis. Has been elevated Cr since having been placed on this summer, not excluded Continue Coreg BID and rates stable/paced. CHF f/u at dc (3) Shortness of breath: On admission, presented to ED for SOB and lightheadedness starting that morning, no CP/syncope but did have elevated BP 180/102 at home and hadn't taken AM medications. CXR cardiomegaly, no evidence for CHF/consolidations. No hypoxia, on room air BNP was up and was given her AM coreg, eliquis & lasix 20mg PO dose with resolution in symptoms similar to prior but req admission for ongoing manage ment/monitoring CT head negative given complaints of dizziness. Ddimer negative. WBC wnl, no hypoxia. VBG without acute abn Pacemaker interrogation without acute arrhythmia contributing Review of chart with repeat hospitalizations/ER visits with ongoing issues with orthostatic hypotension and cortisol checked as below and LOW -- suspect could be contributing to symptoms on admission and improvement once starting and looked well yesterday but having some issues following lasix this morning which was resumed for weight but avoiding further and suspect orthostasis from suspected adrenal insufficiency contributing (4) Permanent atrial fibrillation: noted, s/p AV ablation, pacemaker in place. Interrogation without abx Mag/K stable Continue coreg, eliquis. (5) Biventricular cardiac pacemaker in situ: as above (6) Hypertension: Elevated on admission, coreg given/missed AM dose Added amlodipine for BP control to see if contributing however low cortisol as above/discontinuing further given + orthostatic VS and hydrocortisone started/continued Plan Plan: Endocrinology follow up at discharge CHF clinic follow up at discharge Resumed Jardiance, urine culture negative Would avoid lasix unless weights >125lb or develops edema/hypoxia requiring diuretics Admission HPI Per Admitting Provider 88-year-old female with past medical history of biventricular cardiac pacemaker, atrial fibrillation, coronary hypertension, HFimpEF presenting for difficulty breathing and lightheadedness. Most recent admission 12/26-12/28 2023 for SOBOE, metabolic acidosis, hyperkalemia, NISREEN. Son took her blood pressure at home this a.m. with reading 180/102. Denies chest pain, abdominal pain, nausea/vomiting. ED course: RBC 4.01, H&H 13.7/41.5, MCV 103.5, MCH 34.2, APTT 29, D-dimer 450, sodium 137, potassium 4.2, chloride 108, anion gap 6, BUN 26, creatinine 1.10, BUN/creatinine ratio 23.6, glucose 105, LFTs normal limits, troponin 16.1--> 17, BNP 332; UA 3+ glucose, 1+ LE, 6-10 WBC, 16 RBC, 3-5 hyaline cast, no bacteria. Chest x-ray shows cardiomegaly and presence of cardiac pacemaker maker, no evidence of congestive. Head CT no hemorrhage, mass effect, or evidence of acute territorial ischemia. EKG is a ventricular paced rhythm rate 70, QTc 466, no changes from previous EKG. No ischemia. Patient was provided with dose of Eliquis and Lasix while ED. Patient seen laying in bed at time of visit. Her 2 sons and [id number] are present in the room throughout visit. States that she awoke at 0700 this a.m. and felt completely fine. She laid back down in her bed until 0800 and then she got up and immediately felt lightheaded. States that she had associated shortness of breath at the same time. Lightheadedness did not seize when sitting back down. States that her son took her blood pressure at that time, having a reading of 180/102 on 2 occasions. Following this, the patient was brought to [facility] for evaluation. The other symptom that the patient admits to this time is a slight headache above the right eyebrow, stating that it is so mild that she forgets about it unless asked. Reports she has not had anything like this happen before. Son states that he believes that she has an increase swelling in her legs. Denies recent illness, new medications, or recent falls. Denies associated fever, chills, fatigue, weakness, chest pain, chest pressure, palpitations, abdominal pain, N/V/D/C, joint pain, syncopal episodes, numbness/tingling, extremity swelling, dysuria. Please see Dr. Reyna's attestation for changes/additions to treatment plan. Discharge Exam General: No acute distress, nondiaphoretic, well-developed, well-nourished. Skin: The skin was without rashes, erythema, edema, or bruising. Cardiac: Regular rate and rhythm without murmurs gallops or rubs. Pulm: Clear to auscultation bilaterally without wheezes, rales or rhonchi. No respiratory distress. 95% on room air. Abdominal: Soft, nontender, nondistended. Bowel sounds present. Neuro: A&O x3. No focal neurological deficits. Discharge Plan Discharge Items Patient Disposition: Home - Self-Care Reason For Visit: LIGHTHEADEDNESS, SOB Discharge Diagnosis: Orthostatic hypotension, adrenal insufficiency Activity: Resume your previous activity Non-emergency contact: Primary Care Provider, Specialist and Public Health Outreach Worker Call non-emergency contact if: you have any medication questions, your symptoms worsen, your pain is concerning for you and you have a fever Follow-up/Referrals: Jose Fernández MD [Physician] - Mary Laughlin MD [Primary Care Provider] - 01/21/24 10:00 am Xin Fenton PA-C [Physician Cistern Room Working Supervisor] - 01/18/24 9:30 am Diet: Carb Consistent or DM2, Heart Healthy and Low Sodium (2gm) Fluids: 2000ml (8 cups) Addtl Attending Provider Instructions: Mrs. Landa, You have been hospitalized for shortness of breath and dizziness. You were given dose of your home lasix with improvement however blood pressures were up/down and further testing with CORTISOL was LOW and this could explain a lot of your symptoms given prior admissions with similar symptoms and ongoing issues despite stopping your lisinopril/spironolactone last admission. We placed you on HYDROCORTISONE which should be taken 10mg in the morning and 5mg in the afternoon and your repeat orthostatic blood pressures have been MUCH improved which indicates positive response and likely underlying adrenal insufficiency. We are continuing the hydrocortisone as outlined 10mg/5mg daily and arranging for outpatient follow up with endocrinology who may do additional testing to confirm the diagnosis but we did not want to delay treatment given ongoing issue and renal impairment/elevated kidney number previously could be from dropping your blood pressure, which again should be much improved with the h ydrocortisone. You should continue a low salt diet and continue monitoring your weights at home and continue the lasix as needed for weight gain over dry weight of 120lb. We did hold your Jardiance as well, as this can contribute to hypovolemia, but you can be resume taking this after discharge from the hospital. If you have repeat issues with dehydration, this may need to be considered to hold in the future. Please follow up with primary care in the next 7-10 days to monitor your progress after hospitalization. Please follow up with endocrinology as discussed as well as the CHF clinic/Effie Fenton for ongoing management of your heart failure. Please return to the ER with any increased shortness of breath, dizziness, chest pain, fever/chills, or for any symptoms concerning for you. It has been a pleasure being a part of the medical team providing for you while you have bee in the hospital. Take care! Pending Studies at Discharge: No Stand-Alone Forms: My Hotlist, Smoking Cessation Medications and DC Order Prescriptions: New hydrocortisone [Cortef] 10 mg Tablet 10 mg PO QAM Qty: 30 0RF hydrocortisone [Cortef] 10 mg Tablet 5 mg PO DAILY@1600 30 Days Qty: 15 0RF Continued carvedilol 12.5 mg tablet 12.5 mg PO BID Qty: 180 3RF Jardiance 10 mg tablet 10 mg PO DAILY Qty: 90 3RF Eliquis 5 mg tablet 5 mg PO BID Qty: 180 3RF furosemide [Lasix] 20 mg tablet 20 mg PO PRN PRN (Reason: edema) Rx Instructions: Use for weight gain more than 2 pounds in a day, or more than 5 pounds in a week lidocaine 4 % adhesive patch,medicated 1 patch topical BID PRN (Reason: Pain) methocarbamol 500 mg tablet 500 mg PO TID PRN (Reason: muscle spasm) 30 Days Qty: 90 0RF Macular Health Formula 5-1-7.5 mg Capsule 1 cap PO QAM Rx Instructions: Unable to verify OTC meds at this date/time. Vasquez Defend Otc 1 tab PO BID Rx Instructions: Unable to verify OTC meds at this date/time. ascorbic acid (vitamin C) [Vitamin C] 500 mg Tablet 500 mg PO QAM Rx Instructions: Unable to verify OTC meds at this date/time. Premarin 0.625 mg/gram cream 0.625 mg vaginal 3XWK Rx Instructions: USE 1 GRAM VAGINALLY THREE TIMES A WEEK cetirizine [Zyrtec] 10 mg Tablet 10 mg PO DAILY PRN (Reason: Allergy Symptoms) Discharge Orders: Discharge Order- CHF (Routine); Ordered 01/12/24 Ordered By: Radha Galindo/Other Patient Handouts: Orthostatic Hypotension Admission Data Admit Date/Time: 01/10/24 16:23 Attending Provider: Joshua Cunningham Admit Provider: Rudy Reyna Primary Care Provider: Mary Laughlin V. Other Interventions: Discharge Summary Assessment (RN) Last Done: 01/12/24 14:46 Hospital Stay Data Consultations 01/10/24 15:18 Consult [employer] sales force administrator Routine Diagnostic Imagining Performed Chest X-Ray 01/07/24 09:56 TWO VIEW CHEST CLINICAL HISTORY: Atypical chest pain. FINDINGS: PA and lateral chest radiographs are compared to study dated 12/25/2023. Correlation is made with chest CT dated 09/15/2018. A 3-lead cardiac pacemaker is unchanged in position and partially obscures the left mid chest. The heart is enlarged noting atherosclerotic calcification of the thoracic aorta. The pulmonary vasculature is noncongested. Chronic interstitial thickening is similar to previous. There is bibasilar scarring/atelectasis. Apical fibrosis is observed. No airspace consolidation or pleural effusion is identified. There is no pneumothorax. The skeletal structures are osteopenic. There is a chronic compression deformity in the midthoracic region. Degenerative change and hyperkyphosis is seen in the spine. IMPRESSION: 1. Cardiomegaly and cardiac pacemaker without radiographic evidence of congestive failure. 2. No airspace consolidation or pleural effusion is identified. ACT 112: Negative or not required by law. Electronically signed by: Larry Stewart M.D. 01/07/2024 10:[address] 01/07/24 14:55 CT SCAN OF THE BRAIN WITHOUT IV CONTRAST CLINICAL HISTORY: Dizziness. COMPARISON STUDY: CT of the brain dated 09/23/2019. TECHNIQUE: Unenhanced axial CT scan of the brain is performed from the vertex to the skull base. A dose lowering technique was utilized adhering to the principles of ALARA. The skull base was scanned twice due to motion artifact. CT DOSE: 1016.05 mGy.cm FINDINGS: Brain parenchyma: There is age-related involutional change noting moderate subcortical and periventricular microangiopathic disease. There is no hemorrhage, mass effect, or evidence of acute territorial ischemia by CT criteria. Flowers-white matter differentiation is preserved. No extra-axial fluid collection is seen. Ventricles, sulci, cisterns: Prominent secondary to involutional change. Intracranial vasculature: There is atherosclerotic calcification of the cavernous carotid and vertebral arteries. Calvarium: Unremarkable. Sinuses and mastoids: There is evidence of previous paranasal sinus surgery. There is mild mucosal thickening in the right maxillary antrum and the ethmoid sinuses. The mastoid air cells are well pneumatized. Orbits: The bony orbits are grossly intact. There are bilateral ocular lens implants. IMPRESSION: There is no hemorrhage, mass effect, or evidence of acute territorial ischemia by CT criteria. ACT 112: Negative or not required by law. Electronically signed by: Larry Stewart M.D. 01/07/2024 3:17 PM Pending Results Patient Have Any Pending Studies at Discharge: No Discharge Instructions Given to Patient (Per Discharging Provider) Mrs. Landa, You have been hospitalized for shortness of breath and dizziness. You were given dose of your home lasix with improvement however blood pressures were up/down and further testing with CORTISOL was LOW and this could explain a lot of your symptoms given prior admissions with similar symptoms and ongoing issues despite stopping your lisinopril/spironolactone last admission. We placed you on HYDROCORTISONE which should be taken 10mg in the morning and 5mg in the afternoon and your repeat orthostatic blood pressures have been MUCH improved which indicates positive response and likely underlying adrenal insufficiency. We are continuing the hydrocortisone as outlined 10mg/5mg daily and arranging for outpatient follow up with endocrinology who may do additional testing to confirm the diagnosis but we did not want to delay treatment given ongoing issue and renal impairment/elevated kidney number previously could be from dropping your blood pressure, which again should be much improved with the hydrocortisone. You should continue a low salt diet and continue monitoring your weights at home and continue the lasix as needed for weight gain over dry weight of 120lb. We did hold your Jardiance as well, as this can contribute to hypovolemia, but you can be resume taking this after discharge from the hospital. If you have repeat issues with dehydration, this may need to be considered to hold in the future. Please follow up with primary care in the next 7-10 days to monitor your progress after hospitalization. Please follow up with endocrinology as discussed as well as the CHF clinic/Effie Fenton for ongoing management of your heart failure. Please return to the ER with any increased shortness of breath, dizziness, chest pain, fever/chills, or for any symptoms concerning for you. It has been a pleasure being a part of the medical team providing for you while you have bee in the hospital. Take care! Total Time Total Time Spent Total Time Spent (In Minutes): Greater than 30 minutes spent completing this discharge process including direct patient care, medication reconciliation, documentation, review of labs and images, and coordination of care. Coding Level of Care Code 51377 INP/OBS DISCH >30 MIN Diagnoses Adrenal insufficiency E27.40 Acute on chronic heart failure with preserved ejection fraction (HFpEF) I50.33 Shortness of breath R06.02 Permanent atrial fibrillation I48.21 Biventricular cardiac pacemaker in situ Z95.0 Hypertension I15.9 Hypertension type: unspecified secondary hypertension
== END 2024-01-12 16:39 | disposition home or self-care (01) | DRG 643 ==
LOC: 3N 08:59 → ED 08:59 → SUATTDRO 16:55 → 3N 20:44 → SUATTDRO 01-10 16:23

== ENCOUNTER 2024-05-23 11:19 | Inpatient (IN) ==
[2024-05-23 12:36] LABS: Basophils # (auto) 0.05 K/uL (0.00-0.20); Eosinophils # (auto) 0.13 K/uL (0.00-0.50); Eosinophils % (auto) 2.7 %; Hematocrit (blood only) 41.3 % (37.0-47.0); Hemoglobin 13.7 g/dl (12.0-16.0); Immature Granulocytes # (auto) 0.01 K/uL (0.01-0.20); Immature Granulocytes % (auto) 0.2 %; Lymphocytes # (auto) 0.85 K/uL (1.20-3.40); Lymphocytes % (auto) 17.5 %; Mean Corpuscular Hgb Conc 33.2 g/dL (32.0-36.0); Mean Corpuscular Volume 99.5 fL (80.0-100.0); Mean Platelet Volume 10.8 fL (9.4-12.4); Monocytes # (auto) 0.57 K/uL (0.11-0.59); Monocytes % (auto) 11.8 %; Neutrophils # (auto) 3.24 K/uL (1.40-6.50); Neutrophils % (auto) 66.8 %; Platelet Count 223 K/uL (130-400); RDW Coefficient of Variation 13.8 % (11.5-14.5); RDW Standard Deviation 50.6 fL (36.4-46.3); Red Blood Count 4.15 M/uL (4.20-5.40); White Blood Count 4.85 K/ul (4.8-10.8)
[2024-05-23 12:47] LABS: INR 1.2 (0.9-1.1); Partial Thromboplastin Ratio 1.3; Partial Thromboplastin Time 34 Seconds (21-31); Prothrombin Time 12.6 Seconds (9.0-12.0)
[2024-05-23 12:48] LABS: Albumin Globulin Ratio 1.2 (0.9-2); Albumin Level 3.8 gm/dl (3.4-5.0); BUN Creatinine Ratio 27.4 (10-20); Bilirubin,Total 0.7 mg/dl (0.2-1.0); Calcium 9.1 mg/dl (8.6-10.3); Creatinine Clr Calc Pharmacy 29.8 ml/min; Globulin 3.3 gm/dl (2.5-4.0); Potassium 4.2 mmol/L (3.5-5.1); Total Protein 7.1 gm/dl (6.0-8.3)
--- NOTE | 2024-05-23 12:51 | XRay Report ---
XR chest 1V not portable CLINICAL HISTORY: Chest pain, nonspecific COMPARISON STUDY: 12/01/2023 FINDINGS: Single view chest is unchanged demonstrating moderate cardiomegaly with left ventricular pr ominence. There is no airspace opacity or pleural effusion. There is no pneumothorax. A dual-lead pac emaker remains in similar position. IMPRESSION: Stable exam; no acute process identified. ACT 112: Negative or not required by law. Electronically signed by: Veena Oliveira M.D. 05/23/2024 12:50 PM
[2024-05-23 13:13] LABS: Adenovirus PCR Not Detected (NotDetected); Bordetella parapertussis PCR Not Detected (NotDetected); Bordetella pertussis PCR Not Detected (NotDetected); Chlamydia pneumoniae PCR Not Detected (NotDetected); Coronavirus 229E PCR Not Detected (NotDetected); Coronavirus CoV-2 (COVID19)PCR Not Detected (NotDetected); Coronavirus HKU1 PCR Not Detected (NotDetected); Coronavirus NL63 PCR Not Detected (NotDetected); Coronavirus OC43PCR Not Detected (NotDetected); Human Metapneumovirus PCR Not Detected (NotDetected); Influenza A PCR Not Detected (NotDetected); Influenza B PCR Not Detected (NotDetected); Mycoplasma pneumoniae PCR Not Detected (NotDetected); Parainfluenza Virus 1 PCR Not Detected (NotDetected); Parainfluenza Virus 2 PCR Not Detected (NotDetected); Parainfluenza Virus 3 PCR Not Detected (NotDetected); Parainfluenza Virus 4 PCR Not Detected (NotDetected); Respiratory Syncytial VirusPCR Not Detected (NotDetected); Rhinovirus/Enterovirus PCR Not Detected (NotDetected)
--- NOTE | 2024-05-23 13:13 | Electrocardiogram Report ---
Test Reason : Blood Pressure : */* mmHG Vent. Rate : 70 BPM Atrial Rate : 57 BPM P-R Int : * ms QRS Dur : 122 ms QT Int : 448 ms P-R-T Axes : * 85 69 degrees QTcB Int : 483 ms Ventricular-paced rhythm Biventricular pacemaker detected Abnormal ECG When compared with ECG of 03-Apr-2024 08:37, No significant change was found Confirmed by Kumar Harrison ([id number]) on 05/23/2024 1:13:18 PM Referred By: Confirmed By: Kumar Harrison
--- NOTE | 2024-05-23 18:13 | History & Physical Report ---
Date of Service May 23, 2024 Assessment & Plan (1) Acute respiratory failure with hypoxia: Plan: Adrianna is an 88yo F with a PMHx of dyspnea on exertion, left bundle branch block, CKD, biventricular pacemaker, permanent A-fib, pulmonary arterial hypertension who presents with orthopnea and dyspnea on exertion worse than her baseline with a normal chest x-ray and negative BioFire. Does not have clinical evidence of of pulmonary edema however is borderline hypoxic and tachycardic. Dyspnea, hypoxia. Suspect mild HFpEF versus PAH Patient is anticoagulated with Eliquis for A-fib. D-dimer is negative No evidence of lobar pneumonia,, no leukocytosis, no fever/chills/sweats or cough preceding admission Weight 56 kg, last dry weight around 54 kg. No obvious pulmonary edema but given orthopnea trace ankle edema and slight JVD mild HFpEF exacerbation within differential. DDx also includes pulmonary hypertension and symptoms do seem worse with increased hypertension Troponin is normal, no anginal symptoms suggestive of ischemic etiology BP treated with amlodipine, and Nitropaste added. Gentle diuresis Lasix converted to IV and continue daily, adjust as needed to maintain output of around -1 L HFpEF, moderate aortic stenosis, hypertension ? Mild exacerbation with JVD, hypoxia, and orthopnea although no significant pulmonary edema on x-ray. Is up around 2 kg from last measure dry weight Heart failure with previously reduced but subsequently normalized EF Last echo 12/2023 with EF 60-65%. Moderate valvular . No regional wall motion abnormalities No evidence of pulmonary edema on chest x-ray. Ventricularly paced rhythm on EKG no acute ischemic changes. Troponin is negative Continue beta-teresa Empagliflozin continued ? PAH Amlodipine started If not improving with treatment of above --> consult pulm for PAH follow-up Permanent atrial fibrillation S/p ablation [id number] of 4. Eliquis continued. Ventricular paced rhythm on admission, no ischemic changes Cognitive decline With some short-term memory decline over time Last MRI in 2019 with chronic microvascular changes No focal neurologic deficits DVT prophylaxis: Anticoagulated Diet: Heart healthy Disposition: M/T CODE STATUS: Full code (2) CKD (chronic kidney disease): (3) Moderate pulmonary arterial systolic hypertension: (4) Hypertension: (5) Atrial fibrillation with RVR: (6) Cardiomyopathy: (7) History of non-ST elevation myocardial infarction (NSTEMI): History of Present Illness Primary Care Provider: Mary Laughlin MD Adrianna is an 88yo F with a PMHx of dyspnea on exertion, left bundle branch block, CKD, biventricular pacemaker, permanent A-fib, pulmonary arterial hypertension who presents with orthopnea and dyspnea on exertion worse than her baseline with a normal chest x-ray and negative BioFire. Does not have clinical evidence of of pulmonary edema however is borderline hypoxic and tachycardic. yesterday felt normal Woke up this morning ~2am with sudden shortness of breath. No remitting factors. Thinks it might have been worse laying down but isnt sure No leg pain Is on eliquis, generally takes this as prescribed. Thinks she missed one dose. Normally very reliable and misses no doses in a week No chest pain or chest pressure. Deep breathing causes a little pressure but no pain No cough No fevers, chills or sweats Feel sit was similar to when she had heart failure in the past but hasn't an exerbation in several years. Denies salt indescretion or other thing sshe thinks may have made her worse. No chest pain, no dyspnea on exertion this past week or recently No nausea, vomiting or diarrhea Denies focal weakness, numbness/tingling, dysarthria, and aphasia. She reports she did take her medications this morning. Small amount of chest tightness last few minutes, no wheezing Medical History: Reviewed Medications: Reviewed Surgical History: Reviewed Family history: Reviewed Allergies: Reviewed. Denies allergiest Social History: No tobacco product use. No etoh use. Code Status: Surrogate DM son Sebastian. Full Code. Allergies Allergy/AdvReac Type Severity Reaction Status Date / Time azithromycin Allergy Unknown Unknown Verified 05/20/24 14:39 Beta-Blockers Allergy Unknown Unknown Verified 05/20/24 14:39 (Beta-Adrenergic Bloc latex Allergy Unknown REDNESS Verified 05/20/24 14:39 prednisone Allergy Unknown FEELS Verified 05/20/24 14:39 JITTERY sertraline AdvReac Unknown Nausea/Dizz Verified 05/20/24 14:39 y Home Medications Medication Instructions Recorded Confirmed Type Vasquez Defend Otc 1 tab PO BID 08/01/21 05/23/24 History [id number] 5 mg-zeaxanth 1 cap PO QAM 08/01/21 05/23/24 History 1 mg-bilberry 7.5 mg-herbal capsule (Macular Health Formula) ascorbic acid (vitamin C) 500 mg 500 mg PO QAM 12/14/22 05/23/24 History tablet (Vitamin C) conjugated estrogens 0.625 mg/gram 0.625 mg vaginal 3XWK 07/28/23 05/23/24 History vaginal cream (Premarin) carvedilol 12.5 mg tablet 12.5 mg PO BID #180 tabs 12/14/23 05/23/24 Rx lidocaine 4 % topical patch 1 patch topical BID PRN Pain 12/14/23 05/23/24 History apixaban 5 mg tablet (Eliquis) 5 mg PO BID #180 tabs 12/18/23 05/23/24 Rx empagliflozin 10 mg tablet 10 mg PO DAILY #90 tabs 12/18/23 05/23/24 Rx (Jardiance) cetirizine 10 mg tablet (Zyrtec) 10 mg PO DAILY PRN Allergy Symptoms 12/25/23 05/23/24 History furosemide 20 mg tablet (Lasix) 20 mg PO DAILY PRN edema #30 tabs 01/19/24 05/23/24 Rx methocarbamol 500 mg tablet 500 mg PO TID PRN muscle spasm 01/21/24 05/23/24 History meclizine 25 mg tablet 25 mg PO TID PRN dizziness #30 tabs 02/03/24 05/23/24 Rx memantine 5 mg tablet 5 mg PO BID #60 tabs 05/20/24 05/23/24 Rx Past Med/Surg History Problem List (Updated 05/23/24 @ 18:47 by Oscar Loja MD) Acute respiratory failure with hypoxia Thoracic compression fracture (~12/14/23) T6 per orthopedic note. Cognitive complaints Sensorineural hearing loss, unilateral, left ear, with restricted hearing on the contralateral side SOBOE (shortness of breath on exertion) (Acute) Thoracic back pain Closed traumatic compression fracture of thoracic vertebra (~12/14/23) Moderate compression fracture of a mid thoracic vertebral body, likely T6 and possible mild compression fracture of the superior endplate of T10-per the thoracic spine x-ray from 12/14/23. The patient has had several reported falls Fracture of fifth metatarsal bone of right foot (10/27/23) acute comminuted minimally displaced extra-articular fifth metatarsal fracture- tripped and injured her foot Cognitive and behavioral changes Asymptomatic microscopic hematuria Heart failure with improved ejection fraction (HFimpEF) (Acute) Osteoarthritis of left knee Problem with vaginal pessary Dysfunction of right eustachian tube Constipation Chronic anticoagulation (Acute) Hematuria Vitamin D intoxication Tiredness Solar lentigo Hyperpigmented skin lesion Labile hypertension Aortic stenosis LBBB (left bundle branch block) Hypertension (Acute) 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 Bilateral hip pain (Acute) Tinnitus of right ear 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 Hyperglycemia Anxiety Elevated vitamin B12 level Health care maintenance Biventricular cardiac pacemaker in situ (Acute) CKD (chronic kidney disease) (Acute) Ataxic gait (Acute) S/P biventricular cardiac pacemaker procedure (09/2018) Permanent atrial fibrillation (Acute) Calculus of kidney Cystocele Hearing loss Joint pain, knee Lumbar degenerative disc disease Osteopenia Pessary maintenance Sleep disturbances Urinary incontinence Moderate pulmonary arterial systolic hypertension Moderate mitral regurgitation by prior echocardiogram Medical History Left knee pain Right foot pain Low serum cortisol level Acute on chronic heart failure with preserved ejection fraction (HFpEF) Shortness of breath Metabolic acidosis Elevated troponin Acute hyperkalemia Hypotension Hyperkalemia Elevated MCV Hypokalemia Fatigue NISREEN (acute kidney injury) Hypertensive emergency Hypertensive emergency Respiratory syncytial virus (RSV) Hypoxia Pneumonia Left leg pain Hemorrhoid Hypertension COVID-19 Proteinuria Uncontrolled hypertension Chronic otitis media of left ear with posterior perforation Radicular leg pain Medial epicondylitis Left shoulder pain Left elbow pain Elevated troponin Low energy Elevated troponin Nausea Pessary maintenance Pacemaker Right buttock pain Bilateral buttock pain Vaginal Discharge HBP (high blood pressure) Diarrhea Nasal discharge History of nephrolithiasis History of orthostatic hypotension History of herpes zoster History of asthma History of cellulitis Creatinine elevation (12/2018) PAINTER (dyspnea on exertion) Impaired fasting glucose LBBB (left bundle branch block) History of non-ST elevation myocardial infarction (NSTEMI) Cardiomyopathy Anemia (2019) Pneumonia (2016) Atrial fibrillation with RVR Acute on chronic systolic (congestive) heart failure Surgical History History of lithotripsy History of colonoscopy S/P cataract surgery History of ear, nose, and throat (ENT) surgery H/O ovarian cystectomy S/P myringotomy with insertion of tube (2000) Hx of tonsillectomy H/O tooth extraction Hx of appendectomy Family History Mother , age 65 of a stroke Hypertension Stroke Aunt Breast cancer maternal aunt Uterine cancer maternal aunt Sister Diabetes Father , age 89 Macular degeneration Denies family history of Ovarian cancer Prostate cancer Heart disease Myocardial infarction Colorectal cancer Social History Smoking Status: Never smoker Second Hand Exposure: No; Do You Dip or Chew Tobacco: No; Hx Alcohol Use: No Hx Substance Use: No Preferred Language: American Communication Ability: Effective Hearing Ability: Use of Hearing Aid Electromyographic Technician Required: Yes and No Beliefs That Will Affect Care: None marital status: / Current Living Situation: Family Current Living Situation Comment: lives with son, [id number], 2 grandchildren current occupational status: retired 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 Feels Safe at Home: Yes Childhood Exposure to Second-Hand Smoke: No Dental Care, Regularly: Yes Physical Activity Frequency: 3-4 Times per Week Seatbelt Use: always Sunscreen Use: Yes Assistive Devices: Cane Physical Exam Physical Exam: General: A&Ox3. NAD. Cooperative. HEENT: Atraumatic, normocephalic. Vision/hearing grossly intact Pulm: Diminished but grossly clear No increased work of breathing. No respiratory distress. On 2L NC Cardiac: RRR, soft sm. Radial pulses intact and symmetrical. +JVD ~1cm above clavicle with HJR to slightly below the angle of the mandible Abdominal: Nontender, nondistended, soft. BS present. Ext: Trace pitting ankle edema. No asymmetry Results & Data Results & Data Vital Signs (Past 12 Hours) Vital Signs Temp Pulse Pulse Resp BP BP Pulse Ox 05/23/24 18:02 87 L 05/23/24 17:00 96 H 16 162/94 H 95 05/23/24 16:10 70 05/23/24 15:41 95 05/23/24 15:38 70 20 96 05/23/24 15:38 96 05/23/24 15:38 69 13 194/104 H 96 05/23/24 11:29 36.3 C L 70 18 149/80 H 96 O2 Del Method O2 Flow Rate 05/23/24 18:02 Nasal Cannula 0 05/23/24 17:00 Room Air 05/23/24 16:10 05/23/24 15:41 Room Air 05/23/24 15:38 Room Air 05/23/24 15:38 05/23/24 15:38 Room Air 05/23/24 11:29 Room Air PG Care Time/CCT Total # of Minutes Spent Total Time Spent with Patient: Total time spent is greater than 50% in coordination of care (as documented) at patient's floor/unit and/or counseling patient: Coding Level of Care Code 23855 INT INP/OBS CARE 375MIN Diagnoses Acute respiratory failure with hypoxia J96.01 CKD (chronic kidney disease) N18.9 Moderate pulmonary arterial systolic hypertension I27.21 Hypertension I15.9 Hypertension type: unspecified secondary hypertension Atrial fibrillation with RVR I48.91 Dilated cardiomyopathy I42.0 Cardiomyopathy type: dilated History of non-ST elevation myocardial infarction (NSTEMI) I25.2 (4) Hypertension Hypertension type: unspecified secondary hypertension Qualified Code(s): I15.9 - Secondary hypertension, unspecified (6) Cardiomyopathy Cardiomyopathy type: dilated Qualified Code(s): I42.0 - Dilated cardiomyopathy
[2024-05-23 18:26] LABS: D Dimer 290 ug/L FEU (0-500)
[2024-05-23] MEDS: NITROGLYCERIN 2% OINTMENT 30GM TUBE EXT SCH (18:33)
[2024-05-23] MEDS: amLODIPine BESYLATE 5 MG TAB PO ONE ×2 (18:37→18:40)
[2024-05-23] MEDS: FUROSEMIDE INJ 20 MG/2 ML VIAL IV ONE (18:51)
--- NOTE | 2024-05-23 19:15 | Emergency Department Note ---
Impression & Plan SOBOE (shortness of breath on exertion), CHF exacerbation ED Provider Note NAME: MODE BURNS AGE: 88 SEX: F : 1935 ARRIVES VIA: Walk-In INFORMANT: Patient, ED PROVIDER(S): Robert Osei MD CHIEF COMPLAINT: Shortness of breath HPI: This 88-year-old female presenting for shortness of breath. Patient states that she cannot lay flat or walk significant distances. This shortness of breath started more abruptly around 2 AM that she has had going on for multiple days. She has some exertional dyspnea otherwise no leg swelling, leg pain, chest pain, pleurisy. No recent episodes of fainting. ROS: See above HPI for pertinent positives & negatives. A total of 10 systems reviewed and were otherwise negative. PAST MEDICAL HISTORY: See Below PAST SURGICAL HISTORY: See Below FAMILY HISTORY: See Below SOCIAL HISTORY: See Below HOME MEDICATIONS: See Below ALLERGIES: See Below VITALS: See Below PHYSICAL EXAMINATION: General: resting comfortably in no acute distress Head: Normocephalic and atraumatic Eyes: Normal inspection, extraocular muscles intact Ear, nose, throat: Normal external exam Neck: Normal range of motion Respiratory: lungs clear to auscultation bilaterally Cardiovascular: Regular rate/rhythm, no murmur GI: soft, nontender, no guarding or rebound Extremities: nontender, moves all extremities Neuro: The patient awake and alert, appropriately conversive, no focal deficits, symmetric faces Skin: Warm, dry, and intact MEDICAL DECISION MAKING: This is an 88-year-old female presenting for shortness of breath. Consider CHF, PE, ACS, pulm hypertension, aortic stenosis. -Bloodwork is reviewed showing no significant leukocytosis, anemia, electrolyte or creatinine abnormality -Chest Xray independently interpreted by me showing no pneumothorax, focal opacity, or pleural effusions. -Patient is significantly short of breath with lying flat or exertion at this time. Do not believe a safe discharge plan at this time. Usual caretakers are currently away on a ski trip. - She is not currently tachycardic, hypoxic, pleuritic chest pain or risk factors for PE. Currently low risk for PE -Will admit to hospital service for shortness of breath, likely CHF exacerbation -Discussed care with Dr. Loja for admission Differential diagnosis: CHF, PE, ACS, pulm hypertension, aortic stenosis Independent History obtained from: Son [facility] interpreted by me: ECG: ECG independently interpreted by me with ventricularly paced rhythm at a rate of 70, intraventricular conduction delay, normal QTc, no ST segment elevations consistent with STEMI criteria Cardiac Monitoring: An order was placed for continuous cardiac monitoring. The monitor shows a rate of 70 with ventricular rhythm. Past Med/Surg History Problem List (Updated 05/24/24 @ 13:00 by Robert Osei MD) CHF exacerbation (Acute) Acute respiratory failure with hypoxia Thoracic compression fracture (~12/14/23) T6 per orthopedic note. Cognitive complaints Sensorineural hearing loss, unilateral, left ear, with restricted hearing on the contralateral side SOBOE (shortness of breath on exertion) (Acute) Thoracic back pain Closed traumatic compression fracture of thoracic vertebra (~12/14/23) Moderate compression fracture of a mid thoracic vertebral body, likely T6 and possible mild compression fracture of the superior endplate of T10-per the thoracic spine x-ray from 12/14/23. The patient has had several reported falls Fracture of fifth metatarsal bone of right foot (10/27/23) acute comminuted minimally displaced extra-articular fifth metatarsal fracture- tripped and injured her foot Cognitive and behavioral changes Asymptomatic microscopic hematuria Heart failure with improved ejection fraction (HFimpEF) (Acute) Osteoarthritis of left knee Problem with vaginal pessary Dysfunction of right eustachian tube Constipation Chronic anticoagulation (Acute) Hematuria Vitamin D intoxication Tiredness Solar lentigo Hyperpigmented skin lesion Labile hypertension Aortic stenosis LBBB (left bundle branch block) Hypertension (Acute) 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 of left ear Bilateral hip pain (Acute) Tinnitus of right ear 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 Hyperglycemia Anxiety Elevated vitamin B12 level Health care maintenance Biventricular cardiac pacemaker in situ (Acute) CKD (chronic kidney disease) (Acute) Ataxic gait (Acute) S/P biventricular cardiac pacemaker procedure (09/2018) Permanent atrial fibrillation (Acute) Calculus of kidney Cystocele Hearing loss Joint pain, knee Lumbar degenerative disc disease Osteopenia Pessary maintenance Sleep disturbances Urinary incontinence Moderate pulmonary arterial systolic hypertension Moderate mitral regurgitation by prior echocardiogram Medical History Left knee pain Right foot pain Low serum cortisol level Acute on chronic heart failure with preserved ejection fraction (HFpEF) Shortness of breath Metabolic acidosis Elevated troponin Acute hyperkalemia Hypotension Hyperkalemia Elevated MCV Hypokalemia Fatigue NISREEN (acute kidney injury) Hypertensive emergency Hypertensive emergency Respiratory syncytial virus (RSV) Hypoxia Pneumonia Left leg pain Hemorrhoid Hypertension COVID-19 Proteinuria Uncontrolled hypertension Chronic otitis media of left ear with posterior perforation Radicular leg pain Medial epicondylitis Left shoulder pain Left elbow pain Elevated troponin Low energy Elevated troponin Nausea Pessary maintenance Pacemaker Right buttock pain Bilateral buttock pain Vaginal Discharge HBP (high blood pressure) Diarrhea Nasal discharge History of nephrolithiasis History of orthostatic hypotension History of herpes zoster History of asthma History of cellulitis Creatinine elevation (12/2018) PAINTER (dyspnea on exertion) Impaired fasting glucose LBBB (left bundle branch block) History of non-ST elevation myocardial infarction (NSTEMI) Cardiomyopathy Anemia (2019) Pneumonia (2016) Atrial fibrillation with RVR Acute on chronic systolic (congestive) heart failure Surgical History History of lithotripsy History of colonoscopy S/P cataract surgery History of ear, nose, and throat (ENT) surgery H/O ovarian cystectomy S/P myringotomy with insertion of tube (2000) Hx of tonsillectomy H/O tooth extraction Hx of appendectomy Family History Mother , age 65 of a stroke Hypertension Stroke Aunt Breast cancer maternal aunt Uterine cancer maternal aunt Sister Diabetes Father , age 89 Macular degeneration Denies family history of Ovarian cancer Prostate cancer Heart disease Myocardial infarction Colorectal cancer Social History Smoking Status: Never smoker Second Hand Exposure: No; Do You Dip or Chew Tobacco: No; Hx Alcohol Use: No Hx Substance Use: No Preferred Language: Malian Communication Ability: Effective Hearing Ability: Use of Hearing Aid Dough Raiser Required: No Beliefs That Will Affect Care: None marital status: / Current Living Situation: Family Current Living Situation Comment: lives with son, [id number], 2 grandchildren current occupational status: retired 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 Feels Safe at Home: Yes Childhood Exposure to Second-Hand Smoke: No Dental Care, Regularly: Yes Physical Activity Frequency: 3-4 Times per Week Seatbelt Use: always Sunscreen Use: Yes Assistive Devices: Cane, Glasses and Hearing Aid - Bilateral Allergies Allergies Allergy/AdvReac Type Severity Reaction Status Date / Time azithromycin Allergy Unknown Unknown Verified 05/20/24 14:39 Beta-Blockers Allergy Unknown Unknown Verified 05/20/24 14:39 (Beta-Adrenergic Bloc latex Allergy Unknown REDNESS Verified 05/20/24 14:39 prednisone Allergy Unknown FEELS Verified 05/20/24 14:39 JITTERY sertraline AdvReac Unknown Nausea/Dizz Verified 05/20/24 14:39 y Home Meds Home Medications Medication Instructions Recorded Confirmed Vasquez Defend Otc 1 tab PO BID 08/01/21 05/23/24 [id number] 5 mg-zeaxanth 1 cap PO QAM 08/01/21 05/23/24 1 mg-bilberry 7.5 mg-herbal capsule (Macular Health Formula) ascorbic acid (vitamin C) 500 mg 500 mg PO QAM 12/14/22 05/23/24 tablet (Vitamin C) conjugated estrogens 0.625 mg/gram 0.625 mg vaginal 3XWK 07/28/23 05/23/24 vaginal cream (Premarin) lidocaine 4 % topical patch 1 patch topical BID PRN Pain 12/14/23 05/23/24 cetirizine 10 mg tablet (Zyrtec) 10 mg PO DAILY PRN Allergy Symptoms 12/25/23 05/23/24 methocarbamol 500 mg tablet 500 mg PO TID PRN muscle spasm 01/21/24 05/23/24 Previous Rx's Medication Instructions Recorded carvedilol 12.5 mg tablet 12.5 mg PO BID #180 tabs 12/14/23 apixaban 5 mg tablet (Eliquis) 5 mg PO BID #180 tabs 12/18/23 empagliflozin 10 mg tablet 10 mg PO DAILY #90 tabs 12/18/23 (Jardiance) furosemide 20 mg tablet (Lasix) 20 mg PO DAILY PRN edema #30 tabs 01/19/24 meclizine 25 mg tablet 25 mg PO TID PRN dizziness #30 tabs 02/03/24 memantine 5 mg tablet 5 mg PO BID #60 tabs 05/20/24 Results & Data (ED) Vital Signs Vital Signs - 24 hr 05/23/24 15:38 05/23/24 15:38 05/23/24 15:38 Pulse Rate 70 Pulse Rate [Apical] 69 Respiratory Rate 13 20 Respiratory Effort / Characteristics Non-Labored Spontaneous Respiratory Depth Normal Blood Pressure [Right Arm] 194/104 H Blood Pressure Mean [Right Arm] 134 Blood Pressure Position [Right Arm] Semi-fowlers Pulse Oximetry 96 96 96 Oxygen Delivery Method Room Air Room Air Oxygen Flow Rate Oxygen Flow Rate - Titration Pulse Oximetry Post Tiitration 05/23/24 15:41 05/23/24 16:10 05/23/24 17:00 Pulse Rate 70 Pulse Rate [Apical] 96 H Respiratory Rate 16 Respiratory Effort / Characteristics Respiratory Depth Blood Pressure [Right Arm] 162/94 H Blood Pressure Mean [Right Arm] 116 Blood Pressure Position [Right Arm] Semi-fowlers Pulse Oximetry 95 95 Oxygen Delivery Method Room Air Room Air Oxygen Flow Rate Oxygen Flow Rate - Titration Pulse Oximetry Post Tiitration 05/23/24 18:02 Pulse Rate Pulse Rate [Apical] Respiratory Rate Respiratory Effort / Characteristics Respiratory Depth Blood Pressure [Right Arm] Blood Pressure Mean [Right Arm] Blood Pressure Position [Right Arm] Pulse Oximetry 87 L Oxygen Delivery Method Nasal Cannula Oxygen Flow Rate 0 Oxygen Flow Rate - Titration 2 Pulse Oximetry Post Tiitration 95 Laboratory Data 05/24/24 05:45 05/24/24 05:45 Lab Results 05/23/24 05/23/24 05/23/24 Range/Units 12:07 12:10 17:55 WBC 4.85 (4.8-10.8) K/ul RBC 4.15 L (4.20-5.40) M/uL Hgb 13.7 (12.0-16.0) g/dl Hct 41.3 (37.0-47.0) % MCV 99.5 (80.0-100.0) fL MCH 33.0 (25.0-34.0) pg MCHC 33.2 (32.0-36.0) g/dL RDW Std Deviation 50.6 H (36.4-46.3) fL RDW Coeff of Elijah 13.8 (11.5-14.5) % Plt Count 223 (130-400) K/uL MPV 10.8 (9.4-12.4) fL Immature Gran % (Auto) 0.2 % Neut % (Auto) 66.8 % Lymph % (Auto) 17.5 % Posey % (Auto) 11.8 % Eos % (Auto) 2.7 % Baso % (Auto) 1.0 % Neut # (Auto) 3.24 (1.40-6.50) K/uL Lymph # (Auto) 0.85 L (1.20-3.40) K/uL Posey # (Auto) 0.57 (0.11-0.59) K/uL Eos # (Auto) 0.13 (0.00-0.50) K/uL Baso # (Auto) 0.05 (0.00-0.20) K/uL Immature Gran # (Auto) 0.01 (0.01-0.20) K/uL PT 12.6 H (9.0-12.0) Seconds INR 1.2 H (0.9-1.1) APTT 34 H (21-31) Seconds PTT Ratio 1.3 D-Dimer 290 (0-500) ug/L FEU Sodium 140 (136-145) mmol/L Potassium 4.2 (3.5-5.1) mmol/L Chloride 105 (98-107) mmol/L Carbon Dioxide 29 (21-32) mmol/L Anion Gap 6 (3-11) BUN 32 H (6-23) mg/dl Creatinine 1.17 (0.6-1.2) mg/dl Est Cr Clr Drug Dosing 29.8 ml/min eGFR 45.44 BUN/Creatinine Ratio 27.4 H (10-20) Glucose 109 H (70-99(Fasting)) mg/dl Calcium 9.1 (8.6-10.3) mg/dl Total Bilirubin 0.7 (0.2-1.0) mg/dl AST 21 (13-39) U/L ALT 11 (7-52) U/L Alkaline Phosphatase 49 (34-104) U/L Troponin I High Sens 12.0 11.5 (0-14) pg/ml Total Protein 7.1 (6.0-8.3) gm/dl Albumin 3.8 (3.4-5.0) gm/dl Globulin 3.3 (2.5-4.0) gm/dl Albumin/Globulin Ratio 1.2 (0.9-2) Adenovirus (PCR) Not Detected (NotDetected) B. pertussis DNA (PCR) Not Detected (NotDetected) B.parapertussis DNA PCR Not Detected (NotDetected) C. pneumoniae DNA (PCR) Not Detected (NotDetected) Coronavirus OC43 (PCR) Not Detected (NotDetected) Coronavirus HKU1 (PCR) Not Detected (NotDetected) Coronavirus 229E (PCR) Not Detected (NotDetected) SARS-CoV-2 (PCR) Not Detected (NotDetected) Coronavirus NL63 (PCR) Not Detected (NotDetected) Human Metapneumovir PCR Not Detected (NotDetected) Influenza Type A (PCR) Not Detected (NotDetected) Influenza Type B (PCR) Not Detected (NotDetected) M. pneumoniae (PCR) Not Detected (NotDetected) Parainfluenza 1 (PCR) Not Detected (NotDetected) Parainfluenza 2 (PCR) Not Detected (NotDetected) Parainfluenza 3 (PCR) Not Detected (NotDetected) Parainfluenza 4 (PCR) Not Detected (NotDetected) RSV (PCR) Not Detected (NotDetected) Entero/Rhino (PCR) Not Detected (NotDetected) Administered Medications Acetaminophen (Acetaminophen 325 Mg Tab) 650 mg PO Q4H PRN PRN Reason: Pain or Fever Stop: 06/22/24 21:44 Last Admin: 05/24/24 08:20 Dose: 650 mg Documented By: Admin: 05/24/24 01:01 Dose: 650 mg Documented By: TONY Apixaban (Apixaban 2.5 Mg Tab) 2.5 mg PO BID [facility] Stop: 06/22/24 21:44 Last Admin: 05/24/24 08:14 Dose: 2.5 mg Documented By: Admin: 05/23/24 22:36 Dose: 2.5 mg Documented By: TONY Ascorbic Acid (Ascorbic Acid 500 Mg Tab) 500 mg PO QAM [facility] Stop: 06/23/24 08:59 Last Admin: 05/24/24 08:14 Dose: 500 mg Documented By: TAL Carvedilol (Carvedilol 12.5 Mg Tab) 12.5 mg PO BID JASPAL Stop: 06/22/24 21:44 Last Admin: 05/24/24 08:14 Dose: 12.5 mg Documented By: Admin: 05/23/24 22:36 Dose: 12.5 mg Documented By: TONY Empagliflozin (Empagliflozin 10 Mg Tab) 10 mg PO DAILY JASPAL Stop: 06/23/24 08:59 Last Admin: 05/24/24 08:14 Dose: 10 mg Documented By: TAL Discontinued Medications Amlodipine Besylate (Amlodipine Besylate 5 Mg Tab) 10 mg PO NOW ONE Stop: 05/23/24 18:34 Last Admin: 05/23/24 18:37 Dose: Not Given Documented By: DONALD Amlodipine Besylate (Amlodipine Besylate 5 Mg Tab) 5 mg PO NOW ONE Stop: 05/23/24 18:34 Last Admin: 05/23/24 18:40 Dose: 5 mg Documented By: DONALD Furosemide (Furosemide Inj 20 Mg/2 Ml Vial) 20 mg IV ONE ONE Stop: 05/23/24 18:42 Last Admin: 05/23/24 18:51 Dose: 20 mg Documented By: BART Ioversol (Optiray 320 125ml) 120 ml IV ONCE ONE Stop: 05/24/24 07:54 Last Admin: 05/24/24 07:54 Dose: 120 ml Documented By: CALRIBEL Nitroglycerin (Nitroglycerin 2% Ointment 30gm Tube) 0.5 inch EXT Q6H JASPAL Stop: 06/22/24 18:29 Last Admin: 05/24/24 06:11 Dose: 0.5 inch Documented By: Admin: 05/24/24 00:03 Dose: 0.5 inch Documented By: Admin: 05/23/24 18:33 Dose: 0.5 inch Documented By: DONALD Imaging Data Radiologist's Impression: Chest X-Ray 05/23/24 11:32 XR chest 1V not portable CLINICAL HISTORY: Chest pain, nonspecific COMPARISON STUDY: 12/01/2023 FINDINGS: Single view chest is unchanged demonstrating moderate cardiomegaly with left ventricular prominence. There is no airspace opacity or pleural effusion. There is no pneumothorax. A dual-lead pacemaker remains in similar position. IMPRESSION: Stable exam; no acute process identified. ACT 112: Negative or not required by law. Electronically signed by: Veena Oliveira M.D. 05/23/2024 12:50 PM Discharge Plan Visit Data Chief Complaint: Shortness of Breath/Dyspnea Stated Complaint: TROUBLE BREATHING ED Provider: Robert Osei Discharge Problem: SOBOE (shortness of breath on exertion), CHF exacerbation Patient Disposition: Admitted As Inpatient Discharge Instructions Interventions: ED Discharge Assessment Last Done: 05/23/24 20:39
[2024-05-23] MEDS ORDERED: MECLIZINE HCL 25 MG TAB PO PRN (21:45)
[2024-05-23] MEDS ORDERED: POLYETHYLENE (MIRALAX) 17 GM PACK PO PRN (21:45)
[2024-05-23] MEDS ORDERED: METHOCARBAMOL 500 MG TABLET PO PRN (21:45)
[2024-05-23] MEDS ORDERED: CETIRIZINE HCL 10 MG TABLET PO PRN (21:45)
[2024-05-23] MEDS: carvediloL 12.5 MG TAB PO SCH (22:36)
[2024-05-23] MEDS: APIXABAN 2.5 MG TAB PO SCH (22:36)
[2024-05-24] MEDS: ACETAMINOPHEN 325 MG TAB PO PRN (01:01)
[2024-05-24 06:24] LABS: Basophils # (auto) 0.03 K/uL (0.00-0.20); Basophils % (auto) 0.8 %; Eosinophils # (auto) 0.13 K/uL (0.00-0.50); Eosinophils % (auto) 3.4 %; Hematocrit (blood only) 35.9 % (37.0-47.0); Immature Granulocytes # (auto) 0.01 K/uL (0.01-0.20); Immature Granulocytes % (auto) 0.3 %; Lymphocytes # (auto) 1.26 K/uL (1.20-3.40); Mean Corpuscular Hemoglobin 33.1 pg (25.0-34.0); Mean Corpuscular Hgb Conc 33.4 g/dL (32.0-36.0); Mean Corpuscular Volume 99.2 fL (80.0-100.0); Mean Platelet Volume 10.5 fL (9.4-12.4); Monocytes # (auto) 0.66 K/uL (0.11-0.59); Monocytes % (auto) 17.3 %; Neutrophils # (auto) 1.73 K/uL (1.40-6.50); Neutrophils % (auto) 45.2 %; Platelet Count 212 K/uL (130-400); RDW Coefficient of Variation 13.7 % (11.5-14.5); RDW Standard Deviation 50.1 fL (36.4-46.3); Red Blood Count 3.62 M/uL (4.20-5.40); White Blood Count 3.82 K/ul (4.8-10.8)
[2024-05-24 06:48] LABS: Calcium 8.5 mg/dl (8.6-10.3); Creatinine Clr Calc Pharmacy 24.9 ml/min; Potassium 3.8 mmol/L (3.5-5.1)
[2024-05-24 07:35] LABS: D Dimer 350 ug/L FEU (0-500)
[2024-05-24] MEDS: OPTIRAY 320 125ml IV ONE (07:54)
--- NOTE | 2024-05-24 08:13 | CT Scan Report ---
CT ANGIOGRAPHY OF THE CHEST, PULMONARY EMBOLUS PROTOCOL CLINICAL HISTORY: Hypoxia. COMPARISON STUDY: Chest radiograph April 03, 2024. Chest radiograph 06/20/2024. Chest CT September 15, 2018. TECHNIQUE: Following IV administration of 112 mL of Optiray, helical axial images of the chest were o btained utilizing the pulmonary embolus protocol. Maximal intensity projections and sagittal and cor onal reformats were viewed on an independent 3D workstation. IV contrast was administered without co mplication. Automated exposure control was utilized for the study. A dose lowering technique was ut ilized adhering to the principles of ALARA. CT DOSE: 275.59 mGy.cm FINDINGS: No pulmonary emboli are identified. Moderate cardiomegaly is again noted. A left subclavia n biventricular pacer is in place. There is no pericardial effusion. No pneumothorax or pleural effus ion is present. The IVC and hepatic veins are dilated with reflux of contrast. There is no consolidat ion to suggest pneumonia. A few small scattered pulmonary nodules measuring up to 4 mm are new since prior exam. These are probably benign. Additional pulmonary nodules measuring up to 5 mm are unchange d. There is no thoracic lymphadenopathy. A T6 inferior endplate compression fracture with 40% loss of vertebral body height is likely subacute. IMPRESSION: 1. No pulmonary emboli identified. 2. No consolidation to suggest pneumonia. 3. Cardiomegaly. ACT 112: Negative or not required by law. Electronically signed by: Jose Luis Beltran M.D. 05/24/2024 8:11 AM
[2024-05-24] MEDS: ASCORBIC ACID 500 MG TAB PO SCH (08:14)
[2024-05-24] MEDS: EMPAGLIFLOZIN 10 MG TAB PO SCH (08:14)
[2024-05-24] MEDS ORDERED: MEMANTINE HCL 5 MG TAB PO SCH (09:00)
[2024-05-24] MEDS ORDERED: FUROSEMIDE INJ 20 MG/2 ML VIAL IV SCH (09:00)
[2024-05-24] MEDS ORDERED: NON-FORMULARY MEDICATION (Mv-Mn-Lutein-Zeax-Bilber-Hb277 [Macular Health Formula] 5-1-7.5 PO SCH (09:00)
[2024-05-24] MEDS ORDERED: FUROSEMIDE 20 MG TAB PO SCH (09:00)
--- NOTE | 2024-05-24 10:35 | Hospitalist Progress Note ---
Date of Service May 24, 2024 Assessment & Plan (1) Acute respiratory failure with hypoxia: Plan: Now resolved. She is on room air. No evidence of PE, congestive heart failure, or pneumonia. (2) CKD (chronic kidney disease): Plan: Stable. Monitor intake and output. Serial labs (3) Moderate pulmonary arterial systolic hypertension: Plan: Known. No acute intervention at this time (4) Hypertension: Plan: Stable. Continue current medical management (5) Atrial fibrillation with RVR: Plan: Rapid ventricular rate present on admission. Now resolved. Continue Eliquis and rate control measures Plan Home today, May 24. All medications remain the same Admission and Anticipated Discharge Date Admission Date: May 23, 2024 Subjective Alert and oriented. No distress. She is now on room air. She feels as if she is back to her baseline. Chest CTA negative for PE. She had a two-step oxygen evaluation this morning, May 24, which she passed. She does not need home oxygen. I spoke to her son, Larry, by phone. She appears stable for discharge back home today, May 24 Review of Systems 2 Review of Systems: Constitutionalno fever or chills ENTno blurred vision, no double vision, no epistaxis, no sore throat Respiratoryno cough, no wheezing, no shortness of breath Cardiacno palpitations, no chest pain, no syncope John Paul nausea, vomiting, diarrhea, melena, hematochezia GUno urinary retention, no urinary incontinence, no dysuria, no hematuria Musculoskeletalno joint pain, no muscle tenderness Skinno bruising, no rashes, no pruritus Neurono isolated weakness, no paresthesia, no weakness Psychno depression, no anxiety Physical Exam 2 Physical Exam: General-alert and oriented x3, no fever, no chills HEENT-head atraumatic and normocephalic, pupils equal and reactive to light, extraocular muscles intact Neck-no lymphadenopathy or thyromegaly, trachea midline Chest-clear to auscultation. No rales, wheezing or rhonchi Cardiac-regular rate and rhythm, normal S1 and S2 Abdomen-normal bowel sounds, no hepatosplenomegaly Extremities-no cyanosis, clubbing, or edema Neuro-cranial nerves II through XII intact, motor and sensory function within normal limits, strength symmetrical, no focal deficits Psych-normal affect, normal mood Results & Data Results & Data Vital Signs (Past 12 Hours) Vital Signs Temp Pulse Pulse Pulse Pulse Pulse Resp 05/24/24 09:11 86 73 72 05/24/24 08:37 70 05/24/24 07:28 05/24/24 07:16 36.7 C 72 20 05/24/24 06:11 82 05/24/24 02:53 36.7 C 76 18 05/24/24 00:02 36.7 C 73 18 05/24/24 00:00 70 Resp Resp Resp BP BP Pulse Ox Pulse Ox 05/24/24 09:11 18 16 16 92 05/24/24 08:37 05/24/24 07:28 05/24/24 07:16 138/75 98 05/24/24 06:11 135/73 05/24/24 02:53 103/59 L 98 05/24/24 00:02 115/65 136/71 98 05/24/24 00:00 Pulse Ox Pulse Ox O2 Del Method O2 Flow Rate 05/24/24 09:11 90 91 05/24/24 08:37 05/24/24 07:28 Nasal Cannula 2 05/24/24 07:16 Nasal Cannula 05/24/24 06:11 05/24/24 02:53 Nasal Cannula 2 05/24/24 00:02 Nasal Cannula 2 05/24/24 00:00 Laboratory Results 05/24/24 05:45 05/24/24 05:45 PG Care Time/CCT Total # of Minutes Spent Total Time Spent with Patient: Total time spent is greater than 50% in coordination of care (as documented) at patient's floor/unit and/or counseling patient: Coding Level of Care Code 36892 SUB INP/OBS CARE 2/35MIN Diagnoses Acute respiratory failure with hypoxia J96.01 CKD (chronic kidney disease) N18.9 Moderate pulmonary arterial systolic hypertension I27.21 Hypertension I15.9 Hypertension type: unspecified secondary hypertension Atrial fibrillation with RVR I48.91 (4) Hypertension Hypertension type: unspecified secondary hypertension Qualified Code(s): I 15.9 - Secondary hypertension, unspecified
--- NOTE | 2024-05-24 10:38 | Discharge Summary ---
Discharge Summary Date of Service May 24, 2024 Principal Dx & Hospital Course #1 = Principal Diagnosis (1) Acute respiratory failure with hypoxia: Now resolved. She is on room air. No evidence of PE, congestive heart failure, or pneumonia. (2) CKD (chronic kidney disease): Stable. Monitor intake and output. Serial labs (3) Moderate pulmonary arterial systolic hypertension: Known. No acute intervention at this time (4) Hypertension: Stable. Continue current medical management (5) Atrial fibrillation with RVR: Rapid ventricular rate present on admission. Now resolved. Continue Eliquis and rate control measures Plan Home today, May 24. All medications remain the same Admission HPI Per Admitting Provider Adrianna is an 88yo F with a PMHx of dyspnea on exertion, left bundle branch block, CKD, biventricular pacemaker, permanent A-fib, pulmonary arterial hypertension who presents with orthopnea and dyspnea on exertion worse than her baseline with a normal chest x-ray and negative BioFire. Does not have clinical evidence of of pulmonary edema however is borderline hypoxic and tachycardic. yesterday felt normal Woke up this morning ~2am with sudden shortness of breath. No remitting factors. Thinks it might have been worse laying down but isnt sure No leg pain Is on eliquis, generally takes this as prescribed. Thinks she missed one dose. Normally very reliable and misses no doses in a week No chest pain or chest pressure. Deep breathing causes a little pressure but no pain No cough No fevers, chills or sweats Feel sit was similar to when she had heart failure in the past but hasn't an ex erbation in several years. Denies salt indescretion or other thing sshe thinks may have made her worse. No chest pain, no dyspnea on exertion this past week or recently No nausea, vomiting or diarrhea Denies focal weakness, numbness/tingling, dysarthria, and aphasia. She reports she did take her medications this morning. Small amount of chest tightness last few minutes, no wheezing Medical History: Reviewed Medications: Reviewed Surgical History: Reviewed Family history: Reviewed Allergies: Reviewed. Denies allergiest Social History: No tobacco product use. No etoh use. Code Status: Surrogate DM son Sebastian. Full Code. Discharge Exam General-alert and oriented x3, no fever, no chills HEENT-head atraumatic and normocephalic, pupils equal and reactive to light, extraocular muscles intact Neck-no lymphadenopathy or thyromegaly, trachea midline Chest-clear to auscultation. No rales, wheezing or rhonchi Cardiac-regular rate and rhythm, normal S1 and S2 Abdomen-normal bowel sounds, no hepatosplenomegaly Extremities-no cyanosis, clubbing, or edema Neuro-cranial nerves II through XII intact, motor and sensory function within normal limits, strength symmetrical, no focal deficits Psych-normal affect, normal mood Discharge Plan Discharge Items Patient Disposition: Home - Self-Care Reason For Visit: HYPOXIA,DYSPNEA Discharge Diagnosis: Dyspnea on exertion, transient hypoxia Activity: Resume your previous activity Non-emergency contact: Primary Care Provider Call non-emergency contact if: your symptoms worsen Follow-up/Referrals: Mary Laughlin MD [Primary Care Provider] - 05/31/24 1:30 pm Diet: Regular and Heart Healthy Addtl Attending Provider Instructions: All medications remain the same. See primary care provider soon as possible Pending Studies at Discharge: No Stand-Alone Forms: [facility], Smoking Cessation Medications and DC Order Prescriptions: Continued carvedilol 12.5 mg tablet 12.5 mg PO BID Qty: 180 3RF Jardiance 10 mg tablet 10 mg PO DAILY Qty: 90 3RF Eliquis 5 mg tablet 5 mg PO BID Qty: 180 3RF furosemide [Lasix] 20 mg tablet 20 mg PO DAILY PRN (Reason: edema) Qty: 30 3RF Rx Instructions: Use for weight gain more than 2 pounds in a day, or more than 5 pounds in a week lidocaine 4 % adhesive patch,medicated 1 patch topical BID PRN (Reason: Pain) methocarbamol 500 mg tablet 500 mg PO TID PRN (Reason: muscle spasm) memantine 5 mg tablet 5 mg PO BID Qty: 60 5RF Rx Instructions: 1 tab po daily x 1 week, then increase to 1 tab po BID. Macular Health Formula 5-1-7.5 mg Capsule 1 cap PO QAM Rx Instructions: Unable to verify OTC meds at this date/time. Vasquez Defend Otc 1 tab PO BID Rx Instructions: Unable to verify OTC meds at this date/time. ascorbic acid (vitamin C) [Vitamin C] 500 mg Tablet 500 mg PO QAM Rx Instructions: Unable to verify OTC meds at this date/time. Premarin 0.625 mg/gram cream 0.625 mg vaginal 3XWK Rx Instructions: USE 1 GRAM VAGINALLY THREE TIMES A WEEK meclizine 25 mg tablet 25 mg PO TID PRN (Reason: dizziness) Qty: 30 0RF cetirizine [Zyrtec] 10 mg Tablet 10 mg PO DAILY PRN (Reason: Allergy Symptoms) Discharge Orders: Discharge Order (Routine); Ordered 05/24/24 Ordered By: Sawyer Reyna Admission Data Admit Date/Time: 05/23/24 18:39 Attending Provider: Sawyer Reyna Admit Provider: Oscar Loja Primary Care Provider: Mary Laughlin V. Other Providers: Oscar Loja Hospital Stay Data Consultations 05/23/24 18:30 ED Decision to Admit Stat Diagnostic Imagining Performed 05/24/24 06:57 CT angio chest PE protocol Stat Pending Results Patient Have Any Pending Studies at Discharge: No Discharge Instructions Given to Patient (Per Discharging Provider) All medications remain the same. See primary care provider soon as possible Total Time Total Time Spent Total Time Spent (In Minutes): 45 minutes Coding Level of Care Code 68116 INP/OBS DISCH >30 MIN Diagnoses Acute respiratory failure with hypoxia J96.01 CKD (chronic kidney disease) N18.9 Moderate pulmonary arterial systolic hypertension I27.21 Hypertension I15.9 Hypertension type: unspecified secondary hypertension Atrial fibrillation with RVR I48.91
--- NOTE | 2024-05-24 10:58 | Communication Note ---
Date of Service: May 24, 2024 By CMS guidelines, a determination that the admission or continued stay is not medically necessary has been made by a member of the UR committee and kely gonzalez for this hospital stay, therefore a Code 44 will be completed and the Inpatient admission will be changed to outpatient.
[2024-05-24 11:13] VITALS: BP 126/64; PULSE 70; RESP 16; TEMP 97.9; O2SAT 93
[2024-05-27] MEDS ORDERED: MEMANTINE HCL 5 MG TAB PO SCH (09:00)
== END 2024-05-24 14:38 | disposition home or self-care (01) | DRG 189 ==
LOC: ED 11:19 → SUATTDRO 18:39 → 2N 18:39

== ENCOUNTER 2025-03-25 22:35 | Inpatient (IN) ==
[2025-03-25 23:05] LABS: Base Excess VBG 5.7 mEq/L; HCO3 VBG 32 mmol/L; Oxygen Saturation VBG < 60.0 %; PCO2 VBG 53 mmHg (38-50); PO2 VBG 29 mmHg; pH VBG 7.39 (7.36-7.41)
[2025-03-25 23:06] LABS: Hematocrit (blood only) 43.5 % (37.0-47.0); Hemoglobin 14.2 g/dL (12.0-16.0); Immature Granulocytes # (auto) 0.05 K/uL (0.01-0.20); Immature Granulocytes % (auto) 0.6 %; Mean Corpuscular Hemoglobin 33.5 pg (25.0-34.0); Mean Corpuscular Volume 102.6 fL (80.0-100.0); Platelet Count 257 K/uL (130-400); RDW Standard Deviation 54.3 fL (36.4-46.3); Red Blood Count 4.24 M/uL (4.20-5.40); White Blood Count 8.74 K/ul (4.8-10.8)
--- NOTE | 2025-03-25 23:09 | Emergency Department Note ---
Impression & Plan Dyspnea, Hypoxia, Generalized weakness, CHF (congestive heart failure) ED Provider Note ED Provider Note NAME: MODE BURNS AGE:89 SEX: Female : 1935 ARRIVES VIA: EMS INFORMANT: Patient, EMS ED PROVIDER(s): Sonal Coreas DO CHIEF COMPLAINT: dyspnea, hypoxia, weakness HPI: This s an 89 yo female who presents with shortness of breath from home after being found to have increased work of breath and hypoxia to 82% by family. Family states she has been intermittently needing oxygen at home when she is up and moving since being hospitalized with COVID. They state no prior history of tobacco abuse or other pulmonary issues. He states today she complained of not feeling well and seemed to have more issues getting around. Patient does have a history of dementia and has difficult time otherwise describing her symptoms and communicating with family. They deny any recent change patient's. She does have Lasix that they have instructions for as needed if she has weight gain greater than 2 pounds overnight. He states that she has not needed any Lasix recently. No other change in medications. No leg swelling. PAST MEDICAL HISTORY:See Below PAST SURGICAL HISTORY:See Below FAMILY HISTORY:See Below SOCIAL HISTORY:See Below HOME MEDICATIONS:See Below ALLERGIES:See Below VITALS:See Below PHYSICAL EXAMINATION: GENERAL: alert, well appearing, well nourished, no distress, non-toxic EYE EXAM: normal conjunctiva, PERRL and EOM's grossly intact OROPHARYNX: no exudate, no erythema, lips, buccal mucosa, and tongue normal and mucous membranes are moist NECK: supple, no nuchal rigidity, no adenopathy, non-tender LUNGS: Decreased to auscultation. Normal chest wall mechanics, no w/r, bibasilar rales, tachypnea, increased WOB HEART: no murmurs, S1 normal and S2 normal, pacemaker noted ant/sup chest wall ABDOMEN: abdomen soft, non-tender, normo-active bowel sounds, no masses, no rebound or guarding. SKIN: no rashes, petechiae, orbruising UPPER EXTREMITIES: upper extremities are grossly normal. FROM, nml pulses b/l. LOWER EXTREMITIES: No pitting edema. FROM, nml pulses b/l. NEURO EXAM: Normal sensorium, cranial nerves II-XII grossly intact, normal speech, no facial droop,nogross weakness of arms, no gross weakness of legs. Gross sensation intact. No ataxia. Vital Signs: reviewed and remarkable Differential Diagnosis: pneumonia, bronchitis, COPD/Asthma exacerbation, pneumothorax, pulmonary embolism, congestive heart failure, acute coronary syndrome, as well as others were considered MEDICAL DECISION MAKING: This is an 89-year-old female who presents to the emergency department due to concern for increased shortness of breath and hypoxia as measured at home. Patient tachypneic with increased work of breathing here. Oxygen was able to be maintained on 5 L/min via nasal cannula. Labs drawn and sent, IV established, EKG and chest x-ray performed at bedside and interpreted by me and she was telemetry. I did contact RT and patient was transitioned to BiPAP due to work of breathing and concern for possible congestive heart failure. Chest x-ray did not reveal diffuse pulmonary edema and no evidence of focal consolidation. VBG with very minor hypercapnia, no acidemia. Labs ultimately revealed elevated BNP. Settings for BiPAP did need to be adjusted and patient transition to CPAP. She was given a small dose of IV Ativan as well to help facilitate comfort. Patient slowly began to appear improved and had decreased work of breathing with additional time with BiPAP. Nitropaste and IV Lasix were also added. Son updated several times at bedside. Case discussed with the hospitalist team for additional evaluation and management. Consultation(s): 0028: Discussed with Dr. Fuentes, [facility] hospitalist team, for additional evaluation and mgmt. ER Treatment Provided: See below 2313: Discussed with son who is now at bedside. Discussed starting Bipap with RT also at bedside due to tachypnea and increased WOB. Diagnostics Interpreted By Me: -ECG: Paced at 70, normal axis, normal intervals, nonspecific ST changes, baseline aberrancy noted -Cardiac Monitoring: An order was placed for continuous cardiac monitoring. The monitor shows a rate of 80 with paced rhythm. -Laboratory studies: As stated above and show below. -Imaging studies: X-ray Chest: A single view study of the chest was reviewed and was negative for cardiomegaly, focal infiltrate, effusion, pulmonary edema, or wide mediastinum. Triage Nursing Note Reviewed Prior/Outside Records Reviewed - echo from 02/2025 reviewed Critical Care: Critical care of 44 min performed to assess and manage high likelihood of life-threatening hypoxia, involving labs and imaging performed with assessment to evaluate hypoxia and shortness of breath diagnosis with frequent reassessment. This time includes bedside time, treatment discussions with patient/family/consultants, documentation time and excludes procedure time. Past Med/Surg History Problem List (Updated 03/26/25 @ 05:19 by Sonal Coreas DO) CHF (congestive heart failure) (Acute) Generalized weakness (Acute) Hypoxia (Acute) Dyspnea (Acute) On oxygen therapy Osteoporosis Dementia Thoracic compression fracture (~12/14/23) T6 per orthopedic note. Sensorineural hearing loss, unilateral, left ear, with restricted hearing on the contralateral side SOBOE (shortness of breath on exertion) (Acute) Thoracic back pain Closed traumatic compression fracture of thoracic vertebra (~12/14/23) Moderate compression fracture of a mid thoracic vertebral body, likely T6 and possible mild compression fracture of the superior endplate of T10-per the thoracic spine x-ray from 12/14/23. The patient has had several reported falls Asymptomatic microscopic hematuria Heart failure with improved ejection fraction (HFimpEF) (Acute) Osteoarthritis of left knee Dysfunction of right eustachian tube Constipation Chronic anticoagulation (Acute) Hematuria Vitamin D intoxication Solar lentigo Hyperpigmented skin lesion Labile hypertension Aortic stenosis LBBB (left bundle branch block) Hypertension (Acute) 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 of left ear Tinnitus of right ear 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 Hyperglycemia Anxiety Elevated vitamin B12 level Health care maintenance CKD (chronic kidney disease) (Acute) Ataxic gait (Acute) S/P biventricular cardiac pacemaker procedure (09/2018) Permanent atrial fibrillation (Acute) Cystocele Hearing loss Joint pain, knee Lumbar degenerative disc disease Pessary maintenance Sleep disturbances Urinary incontinence Moderate pulmonary arterial systolic hypertension Medical History (Updated 03/26/25 @ 05:19 by Sonal Coreas DO) Moderate mitral regurgitation by prior echocardiogram Calculus of kidney Biventricular cardiac pacemaker in situ Bilateral hip pain Problem with vaginal pessary Cognitive and behavioral changes Chest pressure CHF exacerbation Chest pain Shortness of breath Acute respiratory failure with hypoxia Cognitive complaints Fracture of fifth metatarsal bone of right foot (10/27/23) acute comminuted minimally displaced extra-articular fifth metatarsal fracture- tripped and injured her foot Tiredness Osteopenia CHF exacerbation Left knee pain Right foot pain Low serum cortisol level Acute on chronic heart failure with preserved ejection fraction (HFpEF) Shortness of breath Metabolic acidosis Elevated troponin Acute hyperkalemia Hypotension Hyperkalemia Elevated MCV Hypokalemia Fatigue NISREEN (acute kidney injury) Hypertensive emergency Hypertensive emergency Respiratory syncytial virus (RSV) Hypoxia Pneumonia Left leg pain Hemorrhoid Hypertension COVID-19 Proteinuria Uncontrolled hypertension Chronic otitis media of left ear with posterior perforation Radicular leg pain Medial epicondylitis Left shoulder pain Left elbow pain Elevated troponin Low energy Elevated troponin Nausea Pessary maintenance IN PLACE-MAINTENANCE Q 4 MONTHS Pacemaker PLACED 2018 Right buttock pain Bilateral buttock pain GOES TO PT FOR AREA Vaginal Discharge HBP (high blood pressure) Diarrhea Nasal discharge History of nephrolithiasis History of orthostatic hypotension History of herpes zoster History of asthma PT DENIES-NO INHALERS History of cellulitis Creatinine elevation (12/2018) PAINTER (dyspnea on exertion) Impaired fasting glucose LBBB (left bundle branch block) History of non-ST elevation myocardial infarction (NSTEMI) Cardiomyopathy EF=40% 2018, EF=55-60% 2019 (s/p BiV) Anemia (2018) Resolved Pneumonia (2016) HX Atrial fibrillation with RVR F/U DR PRESTON-ON PRADAXA Acute on chronic systolic (congestive) heart failure Surgical History History of lithotripsy History of colonoscopy S/P cataract surgery R/L History of ear, nose, and throat (ENT) surgery PERCUTANEOUS REPAIR OF NASOETHMOID FX july 2010 H/O ovarian cystectomy S/P myringotomy with insertion of tube (2000) Hx of tonsillectomy H/O tooth extraction Hx of appendectomy Family History Mother , age 65 of a stroke Hypertension Stroke Aunt Breast cancer maternal aunt Uterine cancer maternal aunt Sister Diabetes Father , age 89 Macular degeneration Denies family history of Ovarian cancer Prostate cancer Heart disease Myocardial infarction Colorectal cancer Social History Smoking Status: Never smoker Second Hand Exposure: No; Do You Dip or Chew Tobacco: No; Hx Alcohol Use: No Hx Substance Use: No Preferred Language: Israeli Communication Ability: Effective Visual Impairment: No Limitations Hearing Ability: Use of Hearing Aid Bladder Trimmer Required: No Beliefs That Will Affect Care: None marital status: / Current Living Situation: Alone Current Living Situation Comment: with son neisha current occupational status: retired 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 Other Information That Helps Us Care for You: No Feels Safe at Home: Yes Safety Concerns: Feels Safe At This Time Childhood Exposure to Second-Hand Smoke: Yes Dental Care, Regularly: Yes Physical Activity Frequency: 3-4 Times per Week Seatbelt Use: always Sunscreen Use: Yes Assistive Devices: Cane Allergies Allergies Allergy/AdvReac Type Severity Reaction Status Date / Time azithromycin Allergy Unknown Unknown Verified 03/26/25 00:03 Beta-Blockers Allergy Unknown Unknown Verified 03/26/25 00:03 (Beta-Adrenergic Bloc latex Allergy Unknown REDNESS Verified 03/26/25 00:03 prednisone Allergy Unknown FEELS Verified 03/26/25 00:03 JITTERY sertraline AdvReac Unknown Nausea/Dizz Verified 03/26/25 00:03 y Home Meds Home Medications Medication Instructions Recorded Confirmed Vasquez Defend Otc 1 tab PO BID 08/01/21 03/26/25 [id number] 5 mg-zeaxanth 1 cap PO QAM 08/01/21 03/26/25 1 mg-bilberry 7.5 mg-herbal capsule (Macular Health Formula) ascorbic acid (vitamin C) 500 mg 500 mg PO QAM 12/14/22 03/26/25 tablet (Vitamin C) lidocaine 4 % topical patch 1 patch topical BID PRN Pain 12/14/23 03/26/25 cetirizine 10 mg tablet (Zyrtec) 10 mg PO DAILY PRN Allergy Symptoms 12/25/23 03/26/25 Previous Rx's Medication Instructions Recorded furosemide 20 mg tablet (Lasix) 20 mg PO DAILY PRN edema #30 tabs 01/19/24 carvedilol 12.5 mg tablet 12.5 mg PO BID #180 tabs 05/30/24 memantine 5 mg tablet 5 mg PO BID 90 days #180 tabs 06/29/24 apixaban 2.5 mg tablet (Eliquis) 2.5 mg PO BID #180 tabs 07/06/24 conjugated estrogens 0.625 mg/gram 0.625 mg vaginal 3XWK #60 grams 09/19/24 vaginal cream (Premarin) empagliflozin 10 mg tablet 10 mg PO DAILY #90 tabs 12/01/24 (Jardiance) Oxygen Home #1 ea 03/21/25 Results & Data (ED) Vital Signs Vital Signs - 24 hr 03/25/25 22:43 03/25/25 22:44 03/25/25 22:44 Temperature 37.2 C Temperature Source Oral Pulse Rate 132 H 70 Pulse Rate [Right Finger] Pulse Rhythm Regular Pulse Rhythm [Right Finger] Pulse Strength Normal Pulse Strength [Right Finger] Respiratory Rate 26 H Respiratory Effort / Characteristics Non-Labored Spontaneous Respiratory Depth Normal Respiratory Pattern Regular Blood Pressure 216/143 H Blood Pressure [Right Arm] Blood Pressure Mean 167 Blood Pressure Mean [Right Arm] Blood Pressure Position Lying Blood Pressure Position [Right Arm] Pulse Oximetry 96 Oxygen Delivery Method Nasal Cannula Nasal Cannula Oxygen Flow Rate 5 5 Fraction of Inspired Oxygen Sepsis Recent Fever Within 48 Hours No Sepsis New/Unexplained Change in Mental Status N/A Sepsis Action Taken by Nursing No Action Required 03/25/25 22:44 03/25/25 23:16 03/25/25 23:41 Temperature 37.2 C Temperature Source Oral Pulse Rate 140 H Pulse Rate [Right Finger] 70 67 Pulse Rhythm Pulse Rhythm [Right Finger] Regular Pulse Strength Pulse Strength [Right Finger] Normal Respiratory Rate 26 H 30 H 33 H Respiratory Effort / Characteristics Labored Spontaneous Short of Breath Respiratory Depth Normal Retractive Respiratory Pattern Tachypnea Tachypnea Blood Pressure Blood Pressure [Right Arm] 216/143 H 128/99 Blood Pressure Mean Blood Pressure Mean [Right Arm] 167 108 Blood Pressure Position Blood Pressure Position [Right Arm] Lying Pulse Oximetry 96 99 95 Oxygen Delivery Method Nasal Cannula BiPAP Oxygen Flow Rate 5 Fraction of Inspired Oxygen 28 Sepsis Recent Fever Within 48 Hours Sepsis New/Unexplained Change in Mental Status Sepsis Action Taken by Nursing 03/26/25 00:30 03/26/25 01:00 Temperature Temperature Source Pulse Rate 70 Pulse Rate [Right Finger] 70 Pulse Rhythm Pulse Rhythm [Right Finger] Pulse Strength Pulse Strength [Right Finger] Respiratory Rate 36 H 25 H Respiratory Effort / Characteristics Respiratory Depth Respiratory Pattern Blood Pressure 145/98 H Blood Pressure [Right Arm] 186/122 H Blood Pressure Mean 113 Blood Pressure Mean [Right Arm] 143 Blood Pressure Position Blood Pressure Position [Right Arm] Pulse Oximetry 95 95 Oxygen Delivery Method CPAP CPAP Oxygen Flow Rate Fraction of Inspired Oxygen Sepsis Recent Fever Within 48 Hours Sepsis New/Unexplained Change in Mental Status Sepsis Action Taken by Nursing Laboratory Data 03/25/25 22:59 03/25/25 22:59 Lab Results 03/25/25 Range/Units 22:59 WBC 8.74 (4.8-10.8) K/ul RBC 4.24 (4.20-5.40) M/uL Hgb 14.2 (12.0-16.0) g/dL Hct 43.5 (37.0-47.0) % MCV 102.6 H (80.0-100.0) fL MCH 33.5 (25.0-34.0) pg MCHC 32.6 (32.0-36.0) g/dL RDW Std Deviation 54.3 H (36.4-46.3) fL RDW Coeff of Elijah 14.4 (11.5-14.5) % Plt Count 257 (130-400) K/uL MPV 10.2 (9.4-12.4) fL Immature Gran % (Auto) 0.6 % Neut % (Auto) 75.9 % Lymph % (Auto) 10.6 % Rice % (Auto) 10.3 % Eos % (Auto) 1.9 % Baso % (Auto) 0.7 % Neut # (Auto) 6.63 H (1.40-6.50) K/uL Lymph # (Auto) 0.93 L (1.20-3.40) K/uL Rice # (Auto) 0.90 H (0.11-0.59) K/uL Eos # (Auto) 0.17 (0.00-0.50) K/uL Baso # (Auto) 0.06 (0.00-0.20) K/uL Immature Gran # (Auto) 0.05 (0.01-0.20) K/uL PT Cancelled INR Cancelled VBG pH 7.39 (7.36-7.41) VBG pCO2 53 H (38-50) mmHg VBG pO2 29 mmHg VBG HCO3 32 mmol/L VBG O2 Saturation < 60.0 % VBG Base Excess 5.7 mEq/L Sodium 141 (136-145) mmol/L Potassium 4.4 (3.5-5.1) mmol/L Chloride 103 (98-107) mmol/L Carbon Dioxide 30 (21-32) mmol/L Anion Gap 8 (3-11) BUN 25 H (6-23) mg/dl Creatinine 0.93 (0.6-1.2) mg/dl Est Cr Clr Drug Dosing 36.8 ml/min eGFR 59.49 BUN/Creatinine Ratio 26.9 H (10-20) Glucose 143 H (70-99(Fasting)) mg/dl Calcium 9.4 (8.6-10.3) mg/dl Magnesium 2.3 (1.7-2.4) mg/dl Total Bilirubin 0.6 (0.2-1.0) mg/dl AST 18 (13-39) U/L ALT 8 (7-52) U/L Alkaline Phosphatase 68 (34-104) U/L Troponin I High Sens 15.3 H (0-14) pg/ml B-Natriuretic Peptide 391 H (0-100) pg/ml Total Protein 8.2 (6.0-8.3) gm/dl Albumin 4.1 (3.4-5.0) gm/dl Globulin 4.1 H (2.5-4.0) gm/dl Albumin/Globulin Ratio 1.0 (0.9-2) Administered Medications Nitroglycerin (Nitroglycerin 2% Ointment 30gm Tube) 1 inch EXT Q6H JASPAL Stop: 04/25/25 04:29 Last Admin: 03/26/25 05:05 Dose: 1 inch Documented By: DLR Discontinued Medications Furosemide (Furosemide Inj 20 Mg/2 Ml Vial) 20 mg IV ONE ONE Stop: 03/25/25 23:19 Last Admin: 03/25/25 23:21 Dose: 20 mg Documented By: JORGE Furosemide (Furosemide Inj 20 Mg/2 Ml Vial) 20 mg IV ONE ONE Stop: 03/26/25 01:03 Last Admin: 03/26/25 01:21 Dose: 20 mg Documented By: JORGE Lorazepam (Lorazepam 1 Mg/1 Ml Syr Ed Inj Use) 0.5 mg IV ONE STA Stop: 03/25/25 23:43 Last Admin: 03/25/25 23:49 Dose: 0.5 mg Documented By: JORGE Nitroglycerin (Nitroglycerin 2% Ointment 30gm Tube) 1 inch EXT NOW STA Stop: 03/25/25 23:14 Last Admin: 03/25/25 23:17 Dose: 1 inch Documented By: JOGRE Imaging Data Radiologist's Impression: Chest X-Ray 03/25/25 22:52 Exam(s): XR CXR 1 VIEW EXAM: XR Chest, 1 View CLINICAL HISTORY: Reason for exam: sob, hypoxia. TECHNIQUE: Frontal view of the chest. COMPARISON: Prior chest x-ray from November 23, 2024. FINDINGS: There is an MR-compatible pacemaker in the left chest wall distal is the right atrium, right ventricle and coronary sinus. Lungs: Mild to moderate peribronchial thickening of the central and lower lobe bronchi. Hyperinflation lungs with flattening the diaphragms. No consolidation. Pleural space: Tiny bilateral pleural effusions.. No pneumothorax. Heart: Unremarkable. No cardiomegaly. Mediastinum: Unremarkable. Normal mediastinal contour. Bones/joints: Unremarkable. No acute fracture. IMPRESSION: Bronchitis with tiny bilateral pleural effusions. No consolidation. Electronically signed by: Kay Crawford MD 03/26/25 01:48 AM Discharge Plan Visit Data Chief Complaint: Weakness Stated Complaint: WEAK, SOB ED Provider: Sonal Coreas Discharge Problem: Dyspnea, Hypoxia, Generalized weakness, CHF (congestive heart failure) Patient Disposition: Admitted As Inpatient Condition: Fair Discharge Instructions Interventions: ED Discharge Assessment Last Done: 03/26/25 02:31
[2025-03-25] MEDS: NITROGLYCERIN 2% OINTMENT 30GM TUBE EXT STA (23:17)
[2025-03-25] MEDS: FUROSEMIDE INJ 20 MG/2 ML VIAL IV ONE (23:21)
[2025-03-25 23:28] LABS: Alanine Aminotransferase 8.0 U/L (7-52); Albumin Globulin Ratio 1.0 (0.9-2); Albumin Level 4.1 gm/dl (3.4-5.0); Alkaline Phosphatase 68.0 U/L (34-104); Anion Gap 8.0 (3-11); Bilirubin,Total 0.6 mg/dl (0.2-1.0); Blood Urea Nitrogen 25.0 mg/dl (6-23); Calcium 9.4 mg/dl (8.6-10.3); Carbon Dioxide 30.0 mmol/L (21-32); Chloride 103.0 mmol/L (98-107); Creatinine Clr Calc Pharmacy 36.8 ml/min; Globulin 4.1 gm/dl (2.5-4.0); Glucose 143.0 mg/dl (70-99(Fasting)); Magnesium 2.3 mg/dl (1.7-2.4); Potassium 4.4 mmol/L (3.5-5.1); Sodium 141.0 mmol/L (136-145); Total Protein 8.2 gm/dl (6.0-8.3)
[2025-03-25] MEDS: LORazepam 1 MG/1 ML SYR ED Inj Use IV STA (23:49)
--- NOTE | 2025-03-26 01:15 | History & Physical Report ---
Date of Service March 26, 2025 Assessment & Plan (1) CHF exacerbation: (2) Acute respiratory failure with hypoxia: (3) Generalized weakness: (4) Chronic anticoagulation: Plan The patient is a 89-year-old female with a past medical history including osteoporosis, dementia, closed traumatic thoracic vertebral compression fractures, HFimpEF, aortic stenosis, left bundle branch block, hypertension, status post biventricular cardiac pacemaker, permanent atrial fibrillation on Eliquis, moderate PAH. She was diagnosed with COVID 3 weeks ago, and since that time has been 2 L nasal cannula oxygen dependent. Her son reports that after dinner this evening, she became acutely short of breath, and when it persisted for 45 minutes, EMS was called, increased her nasal cannula to 5 L, and patient was brought to the emergency department for assessment. In the emergency department patient upon arrival was 81% on room air. Her son reports that she had never gotten back to baseline oxygenation after the COVID infection. She has been persistently weak, finding it difficult to walk, and the symptoms worsened along with breathing issues this evening. In the emergency department patient had the following abnormal laboratories: Troponin 15.3, BNP 391, glucose 143. Chest x-ray showed mild CHF with left lower lobe pleural effusion and presence of ICD. From the ED the patient received the following: Nitropaste 1 inch anterior chest wall, furosemide 20 mg IV, and lorazepam 0.5 mg IV. The patient was then given additional furosemide 20 mg IV for a total of 40 while in the ED. Most recent echocardiogram performed at [facility], showed EF of 65%. #Acute worsening of recent diagnosis of hypoxia/CHF exacerbation/COVID infection 3 weeks ago/atrial fibrillation/presence of biventricular cardiac pacemaker- Patient had COVID infection 3 weeks ago, and son reports that she has required 2 L of oxygen since that time. Presently on BiPAP, will continue until improvement in oxygenation allows transition to nasal cannula/mask Acute worsening today associated with acute exacerbation of CHF. Given furosemide 20 mg IV in the ED, I will give additional 20 mg IV now for total of 40 mg in the ED Furosemide 40 mg IV every morning Continue Nitropaste 1 inch anterior chest wall every 6 hours begun in the ED The patient will be admitted to telemetry for serial cardiac enzymes, serial EKG's, cardiac rhythm monitoring. Recent echocardiogram at [facility] on 02/23/2025 with ejection fraction 65%, mild aortic stenosis, mild aortic regurgitation, mild tricuspid regurgitation. Initial troponin 15.3, follow-up pending Initial BNP 391. Continue apixaban, carvedilol, empagliflozin. Hold oral furosemide #Dementia- Continue memantine #Urinary incontinence- PureWick catheter #GI prophylaxis- Pantoprazole 40 mg IV daily #Generalized weakness- Likely worsened with current medical issues. Would consult PT/OT prior to discharge, once breathing has improved History of Present Illness Primary Care Provider: Mary Laughlin MD The patient is a 89-year-old female with a past medical history including osteoporosis, dementia, closed traumatic thoracic vertebral compression fractures, HFimpEF, aortic stenosis, left bundle branch block, hypertension, status post biventricular cardiac pacemaker, permanent atrial fibrillation on Eliquis, moderate PAH. She was diagnosed with COVID 3 weeks ago, and since that time has been 2 L nasal cannula oxygen dependent. Her son reports that after dinner this evening, she became acutely short of breath, and when it persisted for 45 minutes, EMS was called, increased her nasal cannula to 5 L, and patient was brought to the emergency department for assessment. In the emergency department patient upon arrival was 81% on room air. Her son reports that she had never gotten back to baseline oxygenation after the COVID infection. She has been persistently weak, finding it difficult to walk, and the symptoms worsened along with breathing issues this evening. In the emergency department patient had the following abnormal laboratories: Troponin 15.3, BNP 391, glucose 143. Chest x-ray showed mild CHF with left lower lobe pleural effusion and presence of ICD. From the ED the patient received the following: Nitropaste 1 inch anterior chest wall, furosemide 20 mg IV, and lorazepam 0.5 mg IV. The patient was then given additional furosemide 20 mg IV for a total of 40 while in the ED. Most recent echocardiogram performed at [facility], showed EF of 65%. Allergies Allergy/AdvReac Type Severity Reaction Status Date / Time azithromycin Allergy Unknown Unknown Verified 03/26/25 00:03 Beta-Blockers Allergy Unknown Unknown Verified 03/26/25 00:03 (Beta-Adrenergic Bloc latex Allergy Unknown REDNESS Verified 03/26/25 00:03 prednisone Allergy Unknown FEELS Verified 03/26/25 00:03 JITTERY sertraline AdvReac Unknown Nausea/Dizz Verified 03/26/25 00:03 y Home Medications Medication Instructions Recorded Confirmed Type Vasquez Defend Otc 1 tab PO BID 08/01/21 03/26/25 History [id number] 5 mg-zeaxanth 1 cap PO QAM 08/01/21 03/26/25 History 1 mg-bilberry 7.5 mg-herbal capsule ([facility] Formula) ascorbic acid (vitamin C) 500 mg 500 mg PO QAM 12/14/22 03/26/25 History tablet (Vitamin C) lidocaine 4 % topical patch 1 patch topical BID PRN Pain 12/14/23 03/26/25 History cetirizine 10 mg tablet (Zyrtec) 10 mg PO DAILY PRN Allergy Symptoms 12/25/23 03/26/25 History furosemide 20 mg tablet (Lasix) 20 mg PO DAILY PRN edema #30 tabs 01/19/24 03/26/25 Rx carvedilol 12.5 mg tablet 12.5 mg PO BID #180 tabs 05/30/24 03/26/25 Rx memantine 5 mg tablet 5 mg PO BID 90 days #180 tabs 06/29/24 03/26/25 Rx apixaban 2.5 mg tablet (Eliquis) 2.5 mg PO BID #180 tabs 07/06/24 03/26/25 Rx conjugated estrogens 0.625 mg/gram 0.625 mg vaginal 3XWK #60 grams 09/19/24 03/26/25 Rx vaginal cream (Premarin) empagliflozin 10 mg tablet 10 mg PO DAILY #90 tabs 12/01/24 03/26/25 Rx (Jardiance) Oxygen Home #1 ea 03/21/25 03/21/25 Rx Past Med/Surg History Problem List (Updated 03/25/25 @ 23:09 by Sonal Coreas, ) Generalized weakness (Acute) Hypoxia (Acute) Dyspnea (Acute) On oxygen therapy Osteoporosis Dementia Thoracic compression fracture (~12/14/23) T6 per orthopedic note. Sensorineural hearing loss, unilateral, left ear, with restricted hearing on the contralateral side SOBOE (shortness of breath on exertion) (Acute) Thoracic back pain Closed traumatic compression fracture of thoracic vertebra (~12/14/23) Moderate compression fracture of a mid thoracic vertebral body, likely T6 and possible mild compression fracture of the superior endplate of T10-per the thoracic spine x-ray from 12/14/23. The patient has had several reported falls Asymptomatic microscopic hematuria Heart failure with improved ejection fraction (HFimpEF) (Acute) Osteoarthritis of left knee Dysfunction of right eustachian tube Constipation Chronic anticoagulation (Acute) Hematuria Vitamin D intoxication Solar lentigo Hyperpigmented skin lesion Labile hypertension Aortic stenosis LBBB (left bundle branch block) Hypertension (Acute) 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 of left ear Tinnitus of right ear 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 Hyperglycemia Anxiety Elevated vitamin B12 level Health care maintenance CKD (chronic kidney disease) (Acute) Ataxic gait (Acute) S/P biventricular cardiac pacemaker procedure (09/2018) Permanent atrial fibrillation (Acute) Cystocele Hearing loss Joint pain, knee Lumbar degenerative disc disease Pessary maintenance Sleep disturbances Urinary incontinence Moderate pulmonary arterial systolic hypertension Medical History (Updated 03/25/25 @ 23:09 by Sonal Coreas, ) Moderate mitral regurgitation by prior echocardiogram Calculus of kidney Biventricular cardiac pacemaker in situ Bilateral hip pain Problem with vaginal pessary Cognitive and behavioral changes Chest pressure CHF exacerbation Chest pain Shortness of breath Acute respiratory failure with hypoxia Cognitive complaints Fracture of fifth metatarsal bone of right foot (10/27/23) acute comminuted minimally displaced extra-articular fifth metatarsal fracture- tripped and injured her foot Tiredness Osteopenia CHF exacerbation Left knee pain Right foot pain Low serum cortisol level Acute on chronic heart failure with preserved ejection fraction (HFpEF) Shortness of breath Metabolic acidosis Elevated troponin Acute hyperkalemia Hypotension Hyperkalemia Elevated MCV Hypokalemia Fatigue NISREEN (acute kidney injury) Hypertensive emergency Hypertensive emergency Respiratory syncytial virus (RSV) Hypoxia Pneumonia Left leg pain Hemorrhoid Hypertension COVID-19 Proteinuria Uncontrolled hypertension Chronic otitis media of left ear with posterior perforation Radicular leg pain Medial epicondylitis Left shoulder pain Left elbow pain Elevated troponin Low energy Elevated troponin Nausea Pessary maintenance IN PLACE-MAINTENANCE Q 4 MONTHS Pacemaker PLACED 2018 Right buttock pain Bilateral buttock pain GOES TO PT FOR AREA Vaginal Discharge HBP (high blood pressure) Diarrhea Nasal discharge History of nephrolithiasis History of orthostatic hypotension History of herpes zoster History of asthma PT DENIES-NO INHALERS History of cellulitis Creatinine elevation (12/2018) PAINTER (dyspnea on exertion) Impaired fasting glucose LBBB (left bundle branch block) History of non-ST elevation myocardial infarction (NSTEMI) Cardiomyopathy EF=40% 2018, EF=55-60% 2019 (s/p BiV) Anemia (2018) Resolved Pneumonia (2016) HX Atrial fibrillation with RVR F/U DR PRESTON-ON PRADAPEDRO Acute on chronic systolic (congestive) heart failure Surgical History History of lithotripsy History of colonoscopy S/P cataract surgery R/L History of ear, nose, and throat (ENT) surgery PERCUTANEOUS REPAIR OF NASOETHMOID FX july 2010 H/O ovarian cystectomy S/P myringotomy with insertion of tube (2000) Hx of tonsillectomy H/O tooth extraction Hx of appendectomy Family History Mother , age 65 of a stroke Hypertension Stroke Aunt Breast cancer maternal aunt Uterine cancer maternal aunt Sister Diabetes Father , age 89 Macular degeneration Denies family history of Ovarian cancer Prostate cancer Heart disease Myocardial infarction Colorectal cancer Social History Smoking Status: Never smoker Second Hand Exposure: No; Do You Dip or Chew Tobacco: No; Hx Alcohol Use: No Hx Substance Use: No Preferred Language: Romanian Communication Ability: Effective Visual Impairment: No Limitations Hearing Ability: Use of Hearing Aid Transactional Attorney Required: No Beliefs That Will Affect Care: None marital status: / Current Living Situation: Family Current Living Situation Comment: home with son and son and family next door. 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 Feels Safe at Home: Yes Childhood Exposure to Second-Hand Smoke: Yes Dental Care, Regularly: Yes Physical Activity Frequency: 3-4 Times per Week Seatbelt Use: always Sunscreen Use: Yes Assistive Devices: None Review of Systems Review of Systems: The patient along with support from her son, who is present in the emergency department, denies chest pain, palpitations, cough, lower extremity swelling, sore throat, fevers, chills, sweats, nausea, vomiting, diarrhea , constipation, abdominal pain, pelvic pain, blood in urine or stool, dysuria, urinary frequency or urgency, lightheadedness, dizziness, headache, loss of consciousness, rash, abnormal bruising or bleeding, focal weakness, numbness or tingling in arms or legs, back or neck pain, or night sweats. The review of systems is otherwise negative other than for that already noted above, and at least 10 systems have been reviewed. Physical Exam Physical Exam: The patient is awake, alert, normocephalic and atraumatic, sitting upright in bed and in no acute distress with BiPAP mask in place. HEENT--PERRL, EOMI, mucous membranes and oropharynx dry. Neck--supple. No JVD. No bruits. Thyroid normal, trachea midline, no adenopathy. Heart--normal S1 and S2. No murmurs, rubs or gallops. Lungs--crackles at the bases bilaterally. Norespiratory distress, no accessory muscle use with BiPAP mask in place Abdomen--normal bowel sounds and soft. Nontender. Nondistended Extremities--No edema. Dermatologic--normal skin turgor, normal color, no abnormal lymph nodes, no rash. Neurologic--cranial nerves II through XII grossly intact. Rheumatologic--normal range of motion. Psychiatric--intermittent mild agitation associated with PureWick, and not understanding that she should not get up to urinate Results & Data Results & Data Vital Signs (Past 12 Hours) Vital Signs Temp Pulse Pulse Resp BP BP Pulse Ox 03/26/25 01:00 70 25 H 145/98 H 95 03/26/25 00:30 70 36 H 186/122 H 95 03/25/25 23:41 67 33 H 128/99 95 03/25/25 23:16 140 H 30 H 99 03/25/25 22:44 37.2 C 70 26 H 216/143 H 96 03/25/25 22:44 03/25/25 22:44 37.2 C 70 26 H 216/143 H 96 03/25/25 22:43 132 H O2 Del Method O2 Flow Rate FiO2 03/26/25 01:00 CPAP 03/26/25 00:30 CPAP 03/25/25 23:41 BiPAP 03/25/25 23:16 28 03/25/25 22:44 Nasal Cannula 5 03/25/25 22:44 Nasal Cannula 5 03/25/25 22:44 Nasal Cannula 5 03/25/25 22:43 Laboratory Results Laboratory Results WBC 8.74 K/ul (4.8-10.8) 03/25/25 22:59 RBC 4.24 M/uL (4.20-5.40) 03/25/25 22:59 Hgb 14.2 g/dL (12.0-16.0) 03/25/25 22:59 Hct 43.5 % (37.0-47.0) 03/25/25 22:59 MCV 102.6 fL (80.0-100.0) H 03/25/25 22:59 MCH 33.5 pg (25.0-34.0) 03/25/25 22:59 MCHC 32.6 g/dL (32.0-36.0) 03/25/25 22:59 RDW Std Deviation 54.3 fL (36.4-46.3) H 03/25/25 22:59 RDW Coeff of Elijah 14.4 % (11.5-14.5) 03/25/25 22:59 Plt Count 257 K/uL (130-400) 03/25/25 22:59 MPV 10.2 fL (9.4-12.4) 03/25/25 22:59 Immature Gran % (Auto) 0.6 % 03/25/25 22:59 Neut % (Auto) 75.9 % 03/25/25 22:59 Lymph % (Auto) 10.6 % 03/25/25 22:59 [place] % (Auto) 10.3 % 03/25/25 22:59 Eos % (Auto) 1.9 % 03/25/25 22:59 Baso % (Auto) 0.7 % 03/25/25 22:59 Neut # (Auto) 6.63 K/uL (1.40-6.50) H 03/25/25 22:59 Lymph # (Auto) 0.93 K/uL (1.20-3.40) L 03/25/25 22:59 [place] # (Auto) 0.90 K/uL (0.11-0.59) H 03/25/25 22:59 Eos # (Auto) 0.17 K/uL (0.00-0.50) 12/20/25 22:59 Baso # (Auto) 0.06 K/uL (0.00-0.20) 03/25/25 22:59 Immature Gran # (Auto) 0.05 K/uL (0.01-0.20) 03/25/25 22:59 PT Cancelled 03/25/25 22:59 INR Cancelled 03/25/25 22:59 VBG pH 7.39 (7.36-7.41) 03/25/25 22:59 VBG pCO2 53 mmHg (38-50) H 03/25/25 22:59 VBG pO2 29 mmHg 03/25/25 22:59 VBG HCO3 32 mmol/L 03/25/25 22:59 VBG O2 Saturation < 60.0 % 03/25/25 22:59 VBG Base Excess 5.7 mEq/L 03/25/25 22:59 Sodium 141 mmol/L (136-145) 03/25/25 22:59 Potassium 4.4 mmol/L (3.5-5.1) 03/25/25 22:59 Chloride 103 mmol/L (98-107) 03/25/25 22:59 Carbon Dioxide 30 mmol/L (21-32) 03/25/25 22:59 Anion Gap 8 (3-11) 03/25/25 22:59 BUN 25 mg/dl (6-23) H 03/25/25 22:59 Creatinine 0.93 mg/dl (0.6-1.2) 03/25/25 22:59 Est Cr Clr Drug Dosing 36.8 ml/min 03/25/25 22:59 eGFR 59.49 03/25/25 22:59 BUN/Creatinine Ratio 26.9 (10-20) H 03/25/25 22:59 Glucose 143 mg/dl (70-99(Fasting)) H 03/25/25 22:59 Calcium 9.4 mg/dl (8.6-10.3) 03/25/25 22:59 Magnesium 2.3 mg/dl (1.7-2.4) 03/25/25 22:59 Total Bilirubin 0.6 mg/dl (0.2-1.0) 03/25/25 22:59 AST 18 U/L (13-39) 03/25/25 22:59 ALT 8 U/L (7-52) 03/25/25 22:59 Alkaline Phosphatase 68 U/L (34-104) 03/25/25 22:59 Troponin I High Sens 15.3 pg/ml (0-14) H 03/25/25 22:59 B-Natriuretic Peptide 391 pg/ml (0-100) H 03/25/25 22:59 Total Protein 8.2 gm/dl (6.0-8.3) 03/25/25 22:59 Albumin 4.1 gm/dl (3.4-5.0) 03/25/25 22:59 Globulin 4.1 gm/dl (2.5-4.0) H 03/25/25 22:59 Albumin/Globulin Ratio 1.0 (0.9-2) 03/25/25 22:59 Code Status & VTE Plan Code Status DNR/DNI VTE Prophylaxis Plan VTE Prophylaxis will be ordered: Yes PG Care Time/CCT Total # of Minutes Spent Total Time Spent with Patient: Total time spent is greater than 50% in coordination of care (as documented) at patient's floor/unit and/or counseling patient: Coding Level of Care Code 32797 INT INP/OBS CARE 3/75MIN Diagnoses CHF exacerbation I50.9 Heart failure type: unspecified Acute respiratory failure with hypoxia J96.01 Generalized weakness R53.1 Chronic anticoagulation Z79.01 (1) CHF exacerbation Heart failure type: unspecified Qualified Code(s): I50.9 - Heart failure, unspecified
[2025-03-26] MEDS: FUROSEMIDE INJ 20 MG/2 ML VIAL IV ONE (01:21)
--- NOTE | 2025-03-26 01:49 | XRay Report ---
Exam(s): XR CXR 1 VIEW EXAM: XR Chest, 1 View CLINICAL HISTORY: Reason for exam: sob, hypoxia. TECHNIQUE: Frontal view of the chest. COMPARISON: Prior chest x-ray from November 23, 2024. FINDINGS: There is an MR-compatible pacemaker in the left chest wall distal is the right atrium, right ventricle and coronary sinus. Lungs: Mild to moderate peribronchial thickening of the central and lower lobe bronchi. Hyperinflation lungs with flattening the diaphragms. No consolidation. Pleural space: Tiny bilateral pleural effusions.. No pneumothorax. Heart: Unremarkable. No cardiomegaly. Mediastinum: Unremarkable. Normal mediastinal contour. Bones/joints: Unremarkable. No acute fracture. IMPRESSION: Bronchitis with tiny bilateral pleural effusions. No consolidation. Electronically signed by: Kay Crawford MD 03/26/25 01:48 AM
[2025-03-26] MEDS ORDERED: LIDOCAINE 5% 1 PATCH TD PRN (04:46)
[2025-03-26] MEDS: NITROGLYCERIN 2% OINTMENT 30GM TUBE EXT SCH (05:05)
[2025-03-26] MEDS: ACETAMINOPHEN 325 MG TAB PO PRN (06:34)
[2025-03-26 07:04] LABS: Albumin Level 3.7 gm/dl (3.4-5.0); Anion Gap 11.0 (3-11); Blood Urea Nitrogen 28.0 mg/dl (6-23); Calcium 9.4 mg/dl (8.6-10.3); Carbon Dioxide 30.0 mmol/L (21-32); Chloride 100.0 mmol/L (98-107); Creatinine Clr Calc Pharmacy 35.7 ml/min; Glucose 137.0 mg/dl (70-99(Fasting)); Potassium 3.6 mmol/L (3.5-5.1); Sodium 141.0 mmol/L (136-145)
--- NOTE | 2025-03-26 07:47 | Hospitalist Progress Note ---
Date of Service March 26, 2025 Assessment & Plan (1) Acute respiratory failure with hypoxia: (2) Generalized weakness: (3) Chronic anticoagulation: Plan The patient is a 89-year-old female with a past medical history including osteoporosis, dementia, closed traumatic thoracic vertebral compression fractures, HFimpEF, aortic stenosis, left bundle branch block, hypertension, status post biventricular cardiac pacemaker, permanent atrial fibrillation on Eliquis, moderate PAH. She was diagnosed with COVID 3 weeks ago, and since that time has been 2 L nasal cannula oxygen dependent. Her son reports that after dinner this evening, she became acutely short of breath, and when it persisted for 45 minutes, EMS was called, increased her nasal cannula to 5 L, and patient was brought to the emergency department for assessment. In the emergency department patient upon arrival was 81% on room air. Her son reports that she had never gotten back to baseline oxygenation after the COVID infection. She has been persistently weak, finding it difficult to walk, and the symptoms wo rsened along with breathing issues this evening. In the emergency department patient had the following abnormal laboratories: Troponin 15.3, BNP 391, glucose 143. Chest x-ray showed mild CHF with left lower lobe pleural effusion and presence of ICD. From the ED the patient received the following: Nitropaste 1 inch anterior chest wall, furosemide 20 mg IV, and lorazepam 0.5 mg IV. The patient was then given additional furosemide 20 mg IV for a total of 40 while in the ED. Most recent echocardiogram performed at [facility], showed EF of 65%. Acute on chronic hypoxic respiratory failure 2/2 HFpEF and post COVID hypoxia History of heart failure midrange ejection fraction. Last TTE 02/23/2025: EF 65%, no regional wall motion abnormalities, mild aortic stenosis, left atrial dilation, mild TR Chest x-ray: Bronchitis with small bilateral pleural effusions, no consolidation COVID infection 3 weeks prior, has been on 2 L oxygen since Was placed on BiPAP on admission Lasix 40 mg total given on between ER and admission evaluation. Net intake 120 cc, output 1000 cc, net balance -880 overnight Continue Lasix 40 mg every morning VB.3 9/53/29/32, mild compensated respiratory acidosis BMP 391, this is near her prior range Weight on admission 55.9 kg. Dry weight per recent review around 52-55 kg. Creatinine baseline around 1.11.2, recently fluctuating up around 1.41.6 Creatinine on admission 0.93, stable on repeat Continue daily diuresis, hold when clinically dry appearing and creatinine contracts. Progressing, edema and breathing are improving. Not yet at baseline. Troponin 15.3, repeat 32.5 without chest pain. EKG ventricular paced QTc 447. Suspect demand, trend x 3 pending Jardiance continued History of permanent A-fib, biventricular pacemaker Continue apixaban Continue carvedilol Dementia - Continue memantine Urinary incontinence- - PureWick catheter GI prophylaxis- - Pantoprazole 40 mg IV daily Generalized weakness - Multifactorial. Acute hypoxic respiratory failure, deconditioning, recent COVID PT/OT pending Admission and Anticipated Discharge Date Admission Date: March 26, 2025 Subjective Seen at bedside. She reports she feels much better today and that her breathing is much better, more than 50% compared to last night Denies chest pain or chest pressure, continues to feel somewhat tired and with a slightly sore throat. Denies cough. No lightheadedness or dizziness Physical Exam Physical Exam: General: A&Ox3. NAD. Cooperative. HEENT: Atraumatic, normocephalic. Pulm: Grossly clear, diminished. Cardiac: RRR, soft SM. Radial pulses intact and symmetrical. JVD just above the level of the clavicle with slight HJR is present Abdominal: Nontender, nondistended, soft. BS present. Extremities: Bilateral ankle edema present Results & Data Results & Data Vital Signs (Past 12 Hours) Vital Signs Temp Pulse Pulse Resp BP BP Pulse Ox 03/26/25 04:02 37.1 C 70 28 H 172/83 H 94 03/26/25 03:30 70 03/26/25 03:23 03/26/25 03:13 77 28 H 96 03/26/25 01:20 87 30 H 96 03/26/25 01:00 70 25 H 145/98 H 95 03/26/25 00:30 70 36 H 186/122 H 95 03/25/25 23:41 67 33 H 128/99 95 03/25/25 23:16 140 H 30 H 99 03/25/25 22:44 37.2 C 70 26 H 216/143 H 96 03/25/25 22:44 03/25/25 22:44 37.2 C 70 26 H 216/143 H 96 03/25/25 22:43 132 H O2 Del Method O2 Flow Rate FiO2 03/26/25 04:02 BiPAP 03/26/25 03:30 03/26/25 03:23 CPAP 03/26/25 03:13 28 03/26/25 01:20 28 03/26/25 01:00 CPAP 03/26/25 00:30 CPAP 03/25/25 23:41 BiPAP 03/25/25 23:16 28 03/25/25 22:44 Nasal Cannula 5 03/25/25 22:44 Nasal Cannula 5 03/25/25 22:44 Nasal Cannula 5 03/25/25 22:43 PG Care Time/CCT Total # of Minutes Spent Total Time Spent with Patient: Total time spent is greater than 50% in coordination of care (as documented) at patient's floor/unit and/or counseling patient: Coding Level of Care Code 49665 SUB INP/OBS CARE 3/50MIN Diagnoses Acute respiratory failure with hypoxia J96.01 Generalized weakness R53.1 Chronic anticoagulation Z79.01
--- NOTE | 2025-03-26 09:45 | Electrocardiogram Report ---
Test Reason : Blood Pressure : */* mmHG Vent. Rate : 70 BPM Atrial Rate : 63 BPM P-R Int : * ms QRS Dur : 114 ms QT Int : 414 ms P-R-T Axes : * 86 26 degrees QTcB Int : 447 ms Ventricular-paced rhythm Biventricular pacemaker detected Abnormal ECG When compared with ECG of 23-Nov-2024 11:19, Premature ventricular complexes are no longer Present Confirmed by Alfredo Coker ([id number]) on 03/26/2025 9:45:01 AM Referred By: REFERRED SELF Confirmed By: Alfredo Coker
[2025-03-26] MEDS: CEROVITE ADV FORMULA TAB PO SCH (10:29)
[2025-03-26] MEDS: ASCORBIC ACID 500 MG TAB PO SCH (10:30)
[2025-03-26] MEDS: FUROSEMIDE 40 MG/4 ML VIAL IV SCH (10:30)
[2025-03-26] MEDS: EMPAGLIFLOZIN 10 MG TAB PO SCH (10:30)
[2025-03-26] MEDS: MEMANTINE HCL 5 MG TAB PO SCH (10:30)
[2025-03-26] MEDS: CETIRIZINE HCL 10 MG TABLET PO PRN (10:30)
[2025-03-26] MEDS: APIXABAN 2.5 MG TAB PO SCH (10:30)
[2025-03-26] MEDS: PANTOprazole 40 MG/10 ML SYR IV SCH (11:34)
[2025-03-26] MEDS: REMOVE LIDODERM PATCH SCH (21:58)
[2025-03-27 02:39] LABS: Albumin Level 3.4 gm/dl (3.4-5.0); Anion Gap 9.0 (3-11); Blood Urea Nitrogen 43.0 mg/dl (6-23); Calcium 8.8 mg/dl (8.6-10.3); Carbon Dioxide 31.0 mmol/L (21-32); Chloride 101.0 mmol/L (98-107); Creatinine Clr Calc Pharmacy 19.2 ml/min; Glucose 97.0 mg/dl (70-99(Fasting)); Magnesium 2.2 mg/dl (1.7-2.4); Potassium 3.6 mmol/L (3.5-5.1); Sodium 141.0 mmol/L (136-145)
--- NOTE | 2025-03-27 09:38 | XRay Report ---
TWO VIEW CHEST CLINICAL HISTORY: Congestive heart failure. FINDINGS: PA and lateral chest radiographs are compared to study dated 03/25/2025 and correlated with chest CT dated 05/24/2024. A 2-lead cardiac pacemaker is unchanged in position and partially obscures the left upper chest. The heart is enlarged noting atherosclerotic calcification of the thoracic aor ta. The pulmonary vasculature is noncongested. Chronic interstitial thickening is similar to previous . Foci of parenchymal scarring are seen throughout both lungs. No airspace consolidation or pleural e ffusion is identified. There is no pneumothorax. The skeletal structures are osteopenic a compression deformity is noted in the midthoracic region. There is calcific tendinopathy of the left shoulder. IMPRESSION: 1. Cardiomegaly and cardiac pacemaker without radiographic evidence of congestive failure. 2. No airspace consolidation or pleural effusion is seen. ACT 112: Negative or not required by law. Electronically signed by: Larry Stewart M.D. 03/27/2025 9:36 AM
--- NOTE | 2025-03-27 16:10 | Hospitalist Progress Note ---
Date of Service March 27, 2025 Assessment & Plan (1) Acute respiratory failure with hypoxia: (2) Generalized weakness: (3) Chronic anticoagulation: Plan The patient is a 89-year-old female with a past medical history including osteoporosis, dementia, closed traumatic thoracic vertebral compression fractures, HFimpEF, aortic stenosis, left bundle branch block, hypertension, status post biventricular cardiac pacemaker, permanent atrial fibrillation on Eliquis, moderate PAH. She was diagnosed with COVID 3 weeks ago, and since that time has been 2 L nasal cannula oxygen dependent. Her son reports that after dinner this evening, she became acutely short of breath, and when it persisted for 45 minutes, EMS was called, increased her nasal cannula to 5 L, and patient was brought to the emergency department for assessment. In the emergency department patient upon arrival was 81% on room air. Her son reports that she had never gotten back to baseline oxygenation after the COVID infection. She has been persistently weak, finding it difficult to walk, and the symptoms wo rsened along with breathing issues this evening. In the emergency department patient had the following abnormal laboratories: Troponin 15.3, BNP 391, glucose 143. Chest x-ray showed mild CHF with left lower lobe pleural effusion and presence of ICD. From the ED the patient received the following: Nitropaste 1 inch anterior chest wall, furosemide 20 mg IV, and lorazepam 0.5 mg IV. The patient was then given additional furosemide 20 mg IV for a total of 40 while in the ED. Most recent echocardiogram performed at [facility], showed EF of 65%. Acute on chronic hypoxic respiratory failure 2/2 HFpEF and post COVID hypoxia History of heart failure midrange ejection fraction. Last TTE 02/23/2025: EF 65%, no regional wall motion abnormalities, mild aortic stenosis, left atrial dilation, mild TR Chest x-ray: Bronchitis with small bilateral pleural effusions, no consolidation COVID infection 3 weeks prior, has been on 2 L oxygen since Was placed on BiPAP on admission Lasix 40 mg total given on between ER and admission evaluation. Net intake 120 cc, output 1000 cc, net balance -880 overnight repeat chest x-ray without evidence of heart failure, Lasix held VB.3 9/53/29/32, mild compensated respiratory acidosis BMP 391, this is near her prior range Weight on admission 55.9 kg. Dry weight per recent review around 52-55 kg. Creatinine baseline around 1.11.2, recently fluctuating up around 1.41.6, 1.78 this am, trend Creatinine on admission 0.93, stable on repeat Continue daily diuresis, hold when clinically dry appearing and creatinine contracts. Progressing, edema and breathing are improving. Not yet at baseline. Troponin 15.3, repeat 32.5 without chest pain. EKG ventricular paced QTc 447. Suspect demand, has downtrended to 21.3 Jardiance continued History of permanent A-fib, biventricular pacemaker Continue apixaban Continue carvedilol Dementia -Continue memantine Urinary incontinence- - PureWick catheter GI prophylaxis- -Protonix 40mg po daily Generalized weakness -Multifactorial. Acute hypoxic respiratory failure, deconditioning, recent COVID -PT/OT pending Dispo: probable d/c tomorrow Admission and Anticipated Discharge Date Admission Date: March 26, 2025 Supervising Physician Co-Signing Physician Notes The patient was seen by me. The chart was reviewed. Case discussed with GURPREET Yeung. Agree with assessment and plan. Subjective Reports breathing has improved. Has been transitioned to room air with favorable O2 saturations in the mid 90s. Awaiting for PT/OT evaluations for discharge disposition. Review of Systems Review of Systems: All systems reviewed & are unremarkable except as noted in Subjective Physical Exam Physical Exam: General: A&Ox3. NAD. Cooperative. HEENT: Atraumatic, normocephalic. Pulm: Grossly clear, diminished. Cardiac: RRR, soft systolic murmur. Radial pulses intact and symmetrical. Abdominal: Nontender, nondistended, soft. BS present. Extremities: No edema. Results & Data Results & Data Vital Signs (Past 12 Hours) Vital Signs Temp Pulse Pulse Resp BP Pulse Ox O2 Del Method 03/27/25 14:52 70 03/27/25 11:36 37.0 C 71 18 115/77 95 Room Air 03/27/25 09:00 72 03/27/25 07:48 36.9 C 69 20 134/75 97 Room Air PG Care Time/CCT Total # of Minutes Spent Total Time Spent with Patient: Total time spent is greater than 50% in coordination of care (as documented) at patient's floor/unit and/or counseling patient: Coding Level of Care Code 54748 SUB INP/OBS CARE 2/35MIN Diagnoses Acute respiratory failure with hypoxia J96.01 Generalized weakness R53.1 Chronic anticoagulation Z79.01
[2025-03-27] MEDS: PREMARIN VAG CRM 14 APPLN/30 GM TUBE PV SCH (18:08)
[2025-03-28 06:37] LABS: Anion Gap 7.0 (3-11); Blood Urea Nitrogen 46.0 mg/dl (6-23); Calcium 8.6 mg/dl (8.6-10.3); Carbon Dioxide 31.0 mmol/L (21-32); Chloride 103.0 mmol/L (98-107); Creatinine Clr Calc Pharmacy 23.4 ml/min; Glucose 93.0 mg/dl (70-99(Fasting)); Potassium 3.8 mmol/L (3.5-5.1); Sodium 141.0 mmol/L (136-145)
[2025-03-28 08:21] VITALS: TEMP 97.9
[2025-03-28 11:54] VITALS: BP 147/53; PULSE 62; RESP 18; O2SAT 93
--- NOTE | 2025-03-28 18:08 | Discharge Summary ---
Discharge Summary Date of Service March 28, 2025 Principal Dx & Hospital Course #1 = Principal Diagnosis (1) Acute respiratory failure with hypoxia: (2) Generalized weakness: (3) Chronic anticoagulation: Plan The patient is a 89-year-old female with a past medical history including osteoporosis, dementia, closed traumatic thoracic vertebral compression fractures, HFimpEF, aortic stenosis, left bundle branch block, hypertension, status post biventricular cardiac pacemaker, permanent atrial fibrillation on Eliquis, moderate PAH. She was diagnosed with COVID 3 weeks ago, and since that time has been 2 L nasal cannula oxygen dependent. Her son reports that after dinner this evening, she became acutely short of breath, and when it persisted for 45 minutes, EMS was called, increased her nasal cannula to 5 L, and patient was brought to the emergency department for assessment. In the emergency department patient upon arrival was 81% on room air. Her son reports that she had never gotten back to baseline oxygenation after the COVID infection. She has been persistently weak, finding it difficult to walk, and the symptoms worsened along with breathing issues this evening. In the emergency department patient had the following abnormal laboratories: Troponin 15.3, BNP 391, glucose 143. Chest x-ray showed mild CHF with left lower lobe pleural effusion and presence of ICD. From the ED the patient received the following: Nitropaste 1 inch anterior chest wall, furosemide 20 mg IV, and lorazepam 0.5 mg IV. The patient was then given additional furosemide 20 mg IV for a total of 40 while in the ED. Most recent echocardiogram performed at [facility], showed EF of 65%. Acute on chronic hypoxic respiratory failure 2/2 HFpEF and post COVID hypoxia History of heart failure midrange ejection fraction. Last TTE 02/23/2025: EF 65%, no regional wall motion abnormalities, mild aortic stenosis, left atrial dilation, mild TR Chest x-ray: Bronchitis with small bilateral pleural effusions, no consolidation repeat chest x-ray without evidence of heart failure, Lasix held COVID infection 3 weeks prior, has been on 2 L oxygen since Was placed on BiPAP on admission Lasix 40 mg total given on between ER and admission evaluation. Net intake 120 cc, output 1000 cc, net balance -880 overnight VB.3 9/53/29/32, mild compensated respiratory acidosis BMP 391, this is near her prior range Weight on admission 55.9 kg. Dry weight per recent review around 52-55 kg. Creatinine baseline around 1.11.2, recently fluctuating up around 1.41.6, 1.78, on d/c 1.37 Troponin 15.3, repeat 32.5 without chest pain, suspect demand, has downtrended to 21.3, EKG ventricular paced QTc 447. Jardiance continued History of permanent A-fib, biventricular pacemaker Continue apixaban Continue carvedilol Dementia -Continue memantine Urinary incontinence- - PureWick catheter GI prophylaxis- -Protonix 40mg po daily Generalized weakness -Multifactorial. Acute hypoxic respiratory failure, deconditioning, recent COVID -PT/OT pending Dispo: probable d/c tomorrow Notes For Next Care Provider Follow up BMP to evaluate creatinine Admission HPI Per Admitting Provider The patient is a 89-year-old female with a past medical history including osteoporosis, dementia, closed traumatic thoracic vertebral compression fractures, HFimpEF, aortic stenosis, left bundle branch block, hypertension, status post biventricular cardiac pacemaker, permanent atrial fibrillation on Eliquis, moderate PAH. She was diagnosed with COVID 3 weeks ago, and since that time has been 2 L nasal cannula oxygen dependent. Her son reports that after dinner this evening, she became acutely short of breath, and when it persisted for 45 minutes, EMS was called, increased her nasal cannula to 5 L, and patient was brought to the emergency department for assessment. In the emergency department patient upon arrival was 81% on room air. Her son reports that she had never gotten back to baseline oxygenation after the COVID infection. She has been persistently weak, finding it difficult to walk, and the symptoms worsened along with breathing issues this evening. In the emergency department patient had the following abnormal laboratories: Troponin 15.3, BNP 391, glucose 143. Chest x-ray showed mild CHF with left lower lobe pleural effusion and presence of ICD. From the ED the patient received the following: Nitropaste 1 inch anterior chest wall, furosemide 20 mg IV, and lorazepam 0.5 mg IV. The patient was then given additional furosemide 20 mg IV for a total of 40 while in the ED. Most recent echocardiogram performed at [facility], showed EF of 65%. Discharge Exam General: A&Ox3. NAD. Cooperative. HEENT: Atraumatic, normocephalic. Pulm: Grossly clear, diminished. Cardiac: RRR, soft systolic murmur. Radial pulses intact and symmetrical. Abdominal: Nontender, nondistended, soft. BS present. Extremities: No edema. Discharge Plan Discharge Items Patient Disposition: Home - Self-Care Reason For Visit: CHF EXACERBATION Discharge Diagnosis: CHF exacerbation Condition on Discharge: Good Activity: Resume your previous activity Driving/Machine Use: No limitations Weightbearing: Full weightbearing Weightbearing Comment: use can for walking Non-emergency contact: Primary Care Provider Call non-emergency contact if: you have any medication questions and your symptoms worsen Follow-up/Referrals: Mary Laughlin MD [Primary Care Provider] - 04/03/25 10:20 am (Hospital follow up appointment on Thursday, April 03 at 10:20 am.) Diet: Heart Healthy Diet Comment: please limit sodium intake to less than 2000mg daily Addtl Attending Provider Instructions: Adrianna, You were admitted to the hospital due to difficulty breathing and concerns related to some mild fluid around your heart. You received medication to removed this fluid through an IV and your breathing improved. The name of this medication is Lasix. You take this medication at home as needed for swelling in your legs. Please limit your sodium intake in food to less than 2000mg per day as additional sodium intake can trigger additional fluid development around your heart as you do have a history of heart failure. Please follow up with your family doctor within a week as you will need follow up lab work to ensure your kidney function is normalizing. Your kidney function numbers were slightly elevated while in the hospital. Medications: Your medication list has been reviewed and reconciled upon discharge to ensure accuracy and continuity of care. An updated list of all your medications is included with your hospital discharge paperwork. Please review this list closely, and make note of any changes. Take your medications as instructed; do not skip a dose of your medicines. Make sure all of your doctors know every medicine you are taking (including rfeb-mfa-[id number] medicines, vitamins, and supplements). Call your primary care provider before taking any new medicines (including over- the-counter medicines, vitamins, and supplements), because some of these may interact with your current medications, or may make your symptoms worse. Tell your primary care provider if you cannot afford your medications. Activity: You can do normal everyday activities as your body allows. Take rest breaks if y ou feel tired. Do not overexert. Stop activity if you have pain, shortness of breath or feel dizzy. Follow-up appointments: Make an appointment with your primary care physician within one week of dis charge. A copy of this summary will be sent to them. Every time you see your primary care physician, or any other doctor, bring your medication list, and a list of questions. CONTACT YOUR PRIMARY CARE PROVIDER if you experience any of the following: Shortness of breath or difficulty breathing Fevers or chills Feeling tired with normal activity or experiencing dizziness or fainting Difficulty following your treatment plan, or difficulty taking medications CALL 911 OR GO TO THE EMERGENCY DEPARTMENT if you experience any of the following: Severe abdominal pain or nausea/vomiting Severe chest pain, or chest pain that radiates (moves) to your jaw or arm Sudden, severe shortness of breath or difficulty breathing Thank you for allowing us to participate in your care. Pending Studies at Discharge: No Stand-Alone Forms: My [facility] [employer], Smoking Cessation Medications and DC Order Prescriptions: Continued furosemide [Lasix] 20 mg tablet 20 mg PO DAILY PRN (Reason: edema) Qty: 30 3RF Hold Instructions: Resume on 09/23/24. Rx Instructions: Use for weight gain more than 2 pounds in a day, or more than 5 pounds in a week carvedilol 12.5 mg tablet 12.5 mg PO BID Qty: 180 3RF memantine 5 mg tablet 5 mg PO BID 90 Days Qty: 180 3RF Premarin 0.625 mg/gram cream 0.625 mg vaginal 3XWK Qty: 60 2RF Rx Instructions: USE 1 GRAM VAGINALLY THREE TIMES A WEEK Jardiance 10 mg tablet 10 mg PO DAILY Qty: 90 3RF Hold Instructions: Resume on 09/23/24. lidocaine 4 % adhesive patch,medicated 1 patch topical BID PRN (Reason: Pain) Eliquis 2.5 mg tablet 2.5 mg PO BID Qty: 180 3RF (DME) Oxygen Home Liters Per Minute See Rx Instructions .ROUTE Qty: 1 0RF Rx Instructions: 2 L/NC Macular Health Formula 5-1-7.5 mg Capsule 1 cap PO QAM Vasquez Defend Otc 1 tab PO BID ascorbic acid (vitamin C) [Vitamin C] 500 mg Tablet 500 mg PO QAM cetirizine [Zyrtec] 10 mg Tablet 10 mg PO DAILY PRN (Reason: Allergy Symptoms) Discharge Orders: Discharge Order (Routine); Ordered 03/28/25 Ordered By: Little Ferrer Admission Data Admit Date/Time: 03/26/25 01:14 Attending Provider: Sawyer Reyna Admit Provider: Sixto Fuentes Primary Care Provider: Mary Laughlin V. Other Providers: Sixto Fuentes; [facility] Other Interventions: Discharge Summary Assessment (RN) Last Done: 03/28/25 11:47 Hospital Stay Data Consultations 03/26/25 00:08 ED Decision to Admit Stat Pending Results Patient Have Any Pending Studies at Discharge: No Discharge Instructions Given to Patient (Per Discharging Provider) Adrianna, You were admitted to the hospital due to difficulty breathing and concerns related to some mild fluid around your heart. You received medication to removed this fluid through an IV and your breathing improved. The name of this medication is Lasix. You take this medication at home as needed for swelling in your legs. Please limit your sodium intake in food to less than 2000mg per day as additional sodium intake can trigger additional fluid development around your heart as you do have a history of heart failure. Please follow up with your family doctor within a week as you will need follow up lab work to ensure your kidney function is normalizing. Your kidney function numbers were slightly elevated while in the hospital. Medications: Your medication list has been reviewed and reconciled upon discharge to ensure accuracy and continuity of care. An updated list of all your medications is included with your hospital discharge paperwork. Please review this list closely, and make note of any changes. Take your medications as instructed; do not skip a dose of your medicines. Make sure all of your doctors know every medicine you are taking (including lmxl-ogd-ctuunht medicines, vitamins, and supplements). Call your primary care provider before taking any new medicines (including over- the-counter medicines, vitamins, and supplements), because some of these may interact with your current medications, or may make your symptoms worse. Tell your primary care provider if you cannot afford your medications. Activity: You can do normal everyday activities as your body allows. Take rest breaks if you feel tired. Do not overexert. Stop activity if you have pain, shortness of breath or feel dizzy. Follow-up appointments: Make an appointment with your primary care physician within one week of discharge. A copy of this summary will be sent to them. Every time you see your primary care physician, or any other doctor, bring your medication list, and a list of questions. CONTACT YOUR PRIMARY CARE PROVIDER if you experience any of the following: Shortness of breath or difficulty breathing Fevers or chills Feeling tired with normal activity or experiencing dizziness or fainting Difficulty following your treatment plan, or difficulty taking medications CALL 911 OR GO TO THE EMERGENCY DEPARTMENT if you experience any of the following: Severe abdominal pain or nausea/vomiting Severe chest pain, or chest pain that radiates (moves) to your jaw or arm Sudden, severe shortness of breath or difficulty breathing Thank you for allowing us to participate in your care. Supervising Physician Co-Signing Physician Notes The patient was not seen by me. The chart was reviewed. Case discussed with GURPREET Yeung. Agree with assessment and plan. Total Time Total Time Spent Total Time Spent (In Minutes): 50 minutes total Coding Level of Care Code 87755 INP/OBS DISCH >30 MIN Diagnoses Acute respiratory failure with hypoxia J96.01 Generalized weakness R53.1 Chronic anticoagulation Z79.01
== END 2025-03-28 13:47 | disposition home health service (06) | DRG 291 ==
LOC: SUATTDRO → ED 22:35 → SUATTDRO 03-26 01:14 → 2S 03-26 01:14